=== PATIENT | male | born 1955 | race Caucasian/White ===

== ENCOUNTER → 2017-12-15 08:24 | Outpatient (CLI) | payer OTHER, SELFPAY ==
[2017-12-15 09:17] LABS: AST(SGOT) 32 U/L (15-37); Alanine Aminotransfer ALT/SGPT 34 U/L (16-61); Alkaline Phosphatase 57 U/L (45-117); Anion Gap 7 (5-15); BUN 18 mg/dL (7-18); BUN/Creat Ratio 14.5 RATIO (10-20); Calcium,Total 9.5 mg/dL (8.5-10.1); Chloride 105 mmol/L (98-107); Cholesterol 146 mg/dL (200); Creatinine, Serum 1.24 mg/dL (0.70-1.30); EST Glomerular Filtration Rate 63 mL/min (>60); Est Glom Filt Rate - Afr Amer 76 mL/min (>60); Globulin 3.8 g/dL (2.2-4.2); Glucose 95 mg/dL (74-106); High Density Lipoprotein 36 mg/dL; Potassium 3.8 mmol/L (3.5-5.1); Protein, Total 7.8 g/dL (6.4-8.2); Sodium Level 141 mmol/L (136-145); Triglycerides 215 mg/dL; Very Low Density Lipoprotein 43 mg/dL (5-40)
== END ==
PROVIDERS: Family Provider Family Medicine; PCP Family Medicine; Referring Provider Internal Medicine Cardiovascular Disease; Visit Provider Internal Medicine Cardiovascular Disease
DX: E78.5 Hyperlipidemia, unspecified (principal); I10 Essential (primary) hypertension; I25.119 Atherosclerotic heart disease of native coronary artery with unspecified angina pectoris
CPT/HCPCS: 36415; 80048; 80061; 80076

== ENCOUNTER → 2018-04-03 14:28 | Outpatient (CLI) | payer OTHER, SELFPAY ==
[2018-04-03 16:22] LABS: PSA,Total - Annual Screen 0.41 ng/mL (0.00-4.00)
== END ==
PROVIDERS: Family Provider Family Medicine; PCP Family Medicine; Visit Provider Family Medicine
DX: Z00.00 Encounter for general adult medical examination without abnormal findings (principal)
CPT/HCPCS: 36415; 84153; G0103

== ENCOUNTER → 2018-07-02 14:08 | Outpatient (CLI) | payer OTHER, SELFPAY ==
[2017-12-21 16:21] VITALS: BMI 30.1
--- NOTE | 2018-07-02 14:12 | RAD_ITS ---
STUDY: X-RAY - RIGHT SHOULDER REASON FOR EXAM: Right shoulder pain, limited range of motion. TECHNIQUE: 4 view(s) of the shoulder. COMPARISON: None. FINDINGS: Normal glenohumeral articulation. Normal acromioclavicular joint. Normal acromion. Normal humeral head and visualized proximal humerus. The soft tissue structures are unremarkable. Normal visualized pulmonary apex. RAD/Shoulder min 2 Views IMPRESSION: Normal x-ray examination of the right shoulder. Electronically Signed: Chandu Mcgowan MD at 14:58 EDT Tel , Service support ,
== END ==
PROVIDERS: Family Provider Family Medicine; PCP Family Medicine; Referring Provider Family Medicine; Visit Provider Family Medicine
DX: M25.511 Pain in right shoulder (principal)
CPT/HCPCS: 73030

== ENCOUNTER 2018-08-09 16:00 | Outpatient (RCR) | payer OTHER, SELFPAY ==
--- NOTE | 2018-07-09 15:28 | HP.PTEVAL ---
Patient's Visit Information JORDAN JOSÉ is a 62 year old M referred to Physical Therapy by Shirlene Denson MD with a diagnosis of Right Shoulder Strain. Date of Evaluation: 07/09/18 Physical Therapist: Magdalena Loja DPT - Visit Plan Frequency: 2x /Week Duration: 4 Weeks Plan: Focus on scapular s/s - Subjective Findings: Patient reports that the right shoulder bothers him when he goes up overhead quickly-gradually getting worse- insidous onset- shooting pain right in the deltoid. Has a dull ache when he sleeps on it. No radiating pain. No blurred vision, dizziness or JONES. No neck pain. Agg:going out to the side, overhead, Worst: 7/10 Best: 0/10 Eases: getting out of the position it doesn't like. No N/T in fingers. Describe dull achy- sharp and shooting. Sleep: hard to sleep on that side- disturbed. No MRI. 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 Wants to get into [employer] and does stuff around the house. Lifts weights at home and walks for exercise. Right hand dominate. PMHx: [place] at 40 years old, stent placed, stend 8 years later- goes yearly to see Dr. Mujica. Meds: Atorvastatin, asprin, Metoprolol, Mesalalmine, tamsulosin Saw who took x-rays which were negative- did not give a cortisone injection. - Objective Posture: FH, RS- can correct with verbal cues but does not maintain. Gait: no deviation- good arm swing and trunk rotation. ROM: Cervical: WFL in all planes, Shoulder flexion: full with pain at end range, abd: pain at end range, IR: belt line, ER: 50 degrees, Elbow: WNL. Palpation: tender along tip of the acromion and infraspinatus. Finger Dexterity and high school learning support teacher: WNL. Strength: Scap: fair minus with mild winging, Shoulder: flexion/abd: 4/5 with pain, IR/ER: 4+/5 at neutral with no pain, Extn: 4+/5 with no pain. Special Test: Impingment: positive, Empty Can: negative - Goals Goal 1:: Patient will be I with HEP and progression Goal Time Frame: 4-6 Weeks Goal 2:: Patient will maintain proper posture to demo improved scapular s/s. Goal Time Frame: 4-6 Weeks Goal 3:: Patient will report 0/10 pain for 1 week Goal Time Frame: 4-6 Weeks Goal 4:: Patient will demo full AROM of the right shoulder without pain Goal Time Frame: 4-6 Weeks - Rehabilitation Potential Physical Therapy Diagnosis: Patient presents with hypomobility- he has decreased painfree ROM, strength and muscular endurance leading to poor posture and increased pain Rehabilitation Potential: Fair - Anticipated Interventions Thank you for the opportunity to evaluate your patient. For Medicare and Medicare HMO plans, please review the plan of care and approve it. It will need to be FAXED BACK to us at [phone] for Medicare purposes. For Medicare only, by signing this I certify the plan of care. Please let me know if there are questions or concerns regarding this plan of care. Physician Signature: Date:
--- NOTE | 2018-08-09 16:18 | HP.PTREVAL_ITS ---
Shirlene eDnson MD, It has been my pleasure to treat JORDAN JOSÉ over the last 9 visits for Right Shoulder Strain. Please see the progress note below for an update on the physical therapy plan of care! Subjective: Patient reports pain when doing stretches, scrubbing across body and back, or when he sleeps on the right side. Takes a couple of seconds for the pain to subside once he moves out of the range. Feels the shoulder is slightly stronger but the pain seems to be the same in the end ranges. No neck pain or pain that runs past the elbow. Objective/Function: Posture: good throughout. Gait: no deviation- good arm swing and trunk rotation. ROM: Cervical: WFL in all planes, Shoulder flexion: full with pain at end range, abd: pain at end range, IR: belt line, ER: 50 degrees, Elbow: WNL. Palpation: tender along tip of the acromion and infraspinatus. Finger Dexterity and curriculum assistant: WNL. Strength: Scap: fair with mild winging, Shoulder: flexion/abd: 4+/5, IR/ER: 4+/5 at neutral with no pain, Extn: 5/5 with no pain. Special Test: Impingment: positive, Empty Can: negative Plan Plan: Hold- return to MD for further evaluation possible cortisone injection or MRI Goals Goal 1:: Patient will be I with HEP and progression Goal Time Frame: 4-6 Weeks Goal Progress: Goal Met Goal 2:: Patient will maintain proper posture to demo improved scapular s/s. Goal Time Frame: 4-6 Weeks Goal Progress: Goal Met Goal 3:: Patient will report 0/10 pain for 1 week Goal Time Frame: 4-6 Weeks Goal Progress: Progressing Goal 4:: Patient will demo full AROM of the right shoulder without pain Goal Time Frame: 4-6 Weeks Goal Progress: Progressing Anticipated Interventions Please do not hesitate to contact me at [phone] by phone or if you have questions or concerns regarding this new plan of care! Sincerely, Magdalena Loja DPT
--- NOTE | 2018-10-23 14:39 | HP.PT.NRP ---
HP - Discharge Summary (1) - Patient Information JORDAN JOSÉ was seen in my office for initial evaluation on 07/09/18. The following Plan of Care was established for this patient: Initial Frequency: 2x /Week Initial Duration: 4 Weeks This patient was last seen in our office . Pertinent comments regarding their Physical therapy will appear below: Patient has not attended PT in over 6 weeks and is appropriate for d/c and to return to MD for further evaluation as needed. At this point I will be discontinuing this patient from physical therapy. I would be happy to see this patient again in the future if found appropriate by the physician. Thank you! BRYCE YoderT
== END 2018-08-09 19:00 | disposition home or self-care (01) ==
LOC: PT 16:00
PROVIDERS: Family Provider Family Medicine; PCP Family Medicine; Referring Provider Family Medicine; Visit Provider Family Medicine
DX: S46.911D Strain of unspecified muscle, fascia and tendon at shoulder and upper arm level, right arm, subsequent encounter (principal)
CPT/HCPCS: 97110; 97161; 97164

== ENCOUNTER → 2018-10-10 07:20 | Outpatient (CLI) | payer OTHER, SELFPAY ==
[2017-12-21 16:21] VITALS: BMI 30.1
--- NOTE | 2018-10-10 07:26 | MRI_ITS ---
STUDY: MRI RIGHT SHOULDER REASON FOR EXAM: Male, 62 years old. Shoulder pain, limited range of motion. TECHNIQUE: Standardized fat and water weighted pulse sequences were obtained in all 3 orthogonal planes. COMPARISON: X-ray 07/02/2018 FINDINGS: Mild supraspinatus and infraspinatus tendinosis and peritendinitis is but no macro tear or muscular atrophy. Moderate subscapularis tendinosis with interstitial subluxation long head of the biceps tendon. Normal teres minor tendon. Normal supraspinatus muscle. Normal infraspinatus muscle. Normal subscapularis muscle. Normal teres minor muscle. Normal glenohumeral articulation. There is a cortical erosion at the insertion of the infraspinatus tendon. Normal biceps labral complex. Normal intracapsular long biceps tendon. Normal labrum. Normal capsulo- ligamentous complex. Normal rotator interval. Mild acromioclavicular joint arthrosis with capsulitis. There is a Type II morphology (curved), with a anterior downsloping orientation. There is no subacromial-subdeltoid bursal fluid. Normal visualized coracohumeral and coracoacromial ligaments. Normal quadrilateral space. Normal axillary space. Normal deltoid muscle. Normal trapezius muscle. MRI/Upper Ext Joint Only(Routine) IMPRESSION: 1. Mild supraspinatus and infraspinatus tendinosis and peritendinitis as with no macro tear or muscular atrophy. 2. Moderate subscapularis tendinosis with an interstitial tear and interstitial subluxation long head of the biceps tendon. 3. Anterolateral downsloping acromion with thickening of the coracoacromial ligament produces lateral outlet stenosis. Electronically Signed: Waldo Fierro MD at 12:03 EDT Tel , Service support ,
== END ==
PROVIDERS: Family Provider Family Medicine; PCP Family Medicine; Referring Provider Family Medicine; Visit Provider Family Medicine
DX: M25.511 Pain in right shoulder (principal)
CPT/HCPCS: 73221

== ENCOUNTER → 2019-01-08 08:46 | Outpatient (CLI) | payer OTHER, SELFPAY ==
[2019-01-01 10:51] VITALS: BMI 26.8
[2019-01-08 09:56] LABS: AST(SGOT) 25 U/L (15-37); Alanine Aminotransfer ALT/SGPT 36 U/L (16-61); Albumin, Serum 3.8 g/dL (3.2-5.0); Alkaline Phosphatase 46 U/L (45-117); Bilirubin, Direct 0.19 mg/dL (0.00-0.30); Cholesterol 148 mg/dL (200); Globulin 3.4 g/dL (2.2-4.2); High Density Lipoprotein 46 mg/dL; Protein, Total 7.2 g/dL (6.4-8.2); Triglycerides 114 mg/dL; Very Low Density Lipoprotein 23 mg/dL (5-40)
== END ==
PROVIDERS: Family Provider Family Medicine; PCP Family Medicine; Referring Provider Internal Medicine Cardiovascular Disease; Visit Provider Internal Medicine Cardiovascular Disease
DX: E78.5 Hyperlipidemia, unspecified (principal)
CPT/HCPCS: 36415; 80061; 80076

== ENCOUNTER → 2019-12-30 08:02 | Outpatient (CLI) | payer MEDICARE, OTHER, SELFPAY ==
[2019-01-01 10:51] VITALS: BMI 26.8
[2019-12-30 09:47] LABS: AST(SGOT) 27 U/L (15-37); Alanine Aminotransfer ALT/SGPT 30 U/L (16-61); Albumin, Serum 3.9 g/dL (3.2-5.0); Alkaline Phosphatase 56 U/L (45-117); Bilirubin, Direct 0.16 mg/dL (0.00-0.30); Cholesterol 152 mg/dL (200); Globulin 3.7 g/dL (2.2-4.2); High Density Lipoprotein 44 mg/dL; Protein, Total 7.6 g/dL (6.4-8.2); Triglycerides 154 mg/dL; Very Low Density Lipoprotein 31 mg/dL (5-40)
== END ==
PROVIDERS: PCP Family Medicine; Referring Provider Internal Medicine Cardiovascular Disease; Visit Provider Internal Medicine Cardiovascular Disease
DX: I25.119 Atherosclerotic heart disease of native coronary artery with unspecified angina pectoris (principal); E78.5 Hyperlipidemia, unspecified
CPT/HCPCS: 36415; 80061; 80076

== ENCOUNTER → 2020-03-20 06:52 | Outpatient (CLI) | payer MEDICARE, OTHER, SELFPAY ==
[2020-01-02 12:18] VITALS: BMI 27.2
--- NOTE | 2020-03-20 17:29 | STRESSREP ---
Stress Test Report Exercise myocardial perfusion stress test. 64-year-old man with a history of shortness of breath and diaphoresis. Medications Flomax metoprolol ramipril. Stress protocol: Resting EKG demonstrates normal sinus rhythm with a rate of 86 bpm normal intervals are noted resting blood pressure is 110/72 mmHg. The patient exercised according to regular [place] protocol for a total duration of 8 minutes. The maximum heart rate attained was 171 bpm which was 110% of maximum predicted heart rate. Patient completed 2 minutes into stage III of the [place] protocol. The maximum workload was 10.1 metabolic equivalents. At rest there were no ST or T wave changes noted suggest ischemia at peak exercise upsloping ST changes only were noted with no meet the criteria for ischemia. No clinical angina was noted and the test was terminated due to the target heart rate being achieved. The resting blood pressure was 110/72 with a peak blood pressure 156/64. Myocardial perfusion protocol. 13.9 mCi of technetium 99m sestamibi was injected at rest. The patient exercised according to regular [place] protocol for total duration of 8 minutes. At peak exercise 40.3 mCi of technetium 99m sestamibi was injected stress images were obtained stress and rest images were reconstructed and compared in the short axis vertical long horizontal long axis. Gated images were also obtained Perfusion SPECT analysis: Review of the stress images demonstrate normal uptake of tracer noted in all areas of the myocardium the resting images similar demonstrate normal uptake of tracer noted in all areas of the myocardium. No reversibility is noted suggest ischemia no previous infarct is noted. Gated SPECT analysis: The gated ejection fraction is 69%. Conclusion: Normal exercise myocardial perfusion stress test at a high workload. Preserved ejection fraction.
== END ==
PROVIDERS: PCP Family Medicine; Referring Provider Internal Medicine Cardiovascular Disease; Visit Provider Internal Medicine Cardiovascular Disease
DX: I25.119 Atherosclerotic heart disease of native coronary artery with unspecified angina pectoris (principal); I10 Essential (primary) hypertension; E78.5 Hyperlipidemia, unspecified; I25.2 Old myocardial infarction; Z95.5 Presence of coronary angioplasty implant and graft
CPT/HCPCS: 78452; 93017; A9500; A4216

== ENCOUNTER 2020-04-08 11:13 | Emergency (ER) | payer MEDICARE, OTHER, SELFPAY ==
[2020-01-02 12:18] VITALS: BMI 27.2
[2020-04-08 11:15] VITALS: BP 139/96; PULSE 89; RESP 16; TEMP 36.1; O2SAT 99; BMI 27.1
--- NOTE | 2020-04-08 11:41 | RAD_ITS ---
STUDY: X-RAY CHEST REASON FOR EXAM: Male, 64 years old. PT COMPLAINS OF NAUSEA, LIGHTHEADEDNESS, AND INTERMITTENT NUMBNESS/TINGLING. DENIES UNILATERAL WEAKNESS, SLURRED SPEECH TECHNIQUE: Single AP portable view of the chest. COMPARISON: None. FINDINGS: EKG electrodes are seen. The lungs are clear and expanded. There is no demonstrated pleural abnormality. Normal size heart. Normal mediastinum and santhosh. Normal visualized pulmonary arteries. Normal visualized aortic arch and descending thoracic aorta. Normal visualized thoracic spine. Normal visualized ribs, clavicles, and shoulders. There is no demonstrated abnormality of the visualized soft tissue structures of the upper abdomen. RAD/Chest 1 View (Portable) IMPRESSION: Normal x-ray examination of the chest. Electronically Signed: Jose J Mcclure MD at 12:31 EST , Service support ,
--- NOTE | 2020-04-08 11:41 | EKG12_ITS ---
Test Reason : TINGLING Blood Pressure : / mmHG Vent. Rate : 078 BPM Atrial Rate : 078 BPM P-R Int : 150 ms QRS Dur : 100 ms QT Int : 386 ms P-R-T Axes : 066 028 044 degrees QTc Int : 440 ms Normal sinus rhythm Normal ECG Confirmed by WILY VILLALTA, LORETTA ([id number]), video tape editor NATE GALLEGOS ([id number]) on 04/13/2020 10:41:31 AM Referred By: ALLISON Confirmed By:LORETTA JULIEN MD
--- NOTE | 2020-04-08 11:41 | CT_ITS ---
STUDY: CT BRAIN WITHOUT CONTRAST REASON FOR EXAM: Male, 64 years old. PARESTHESIAS, LIGHTHEADED, NAUSEA RADIATION DOSAGE (If Supplied By Facility): CTDIvol = ( 44.99 ) mGy, DLP = ( 812.98 ) mGycm TECHNIQUE: Transaxial CT imaging of the brain was performed without administration of intravenous contrast material. Individualized dose optimization techniques were used for this CT. COMPARISON: No relevant priors. FINDINGS: Normal soft tissue structures. Normal calvarium. Normal size ventricles and extra-axial spaces for the patient''s age. Normal white matter tracts of the cerebral hemispheres. Normal basal ganglia and thalami. Normal brainstem. Normal cerebellum. There is no intracranial hemorrhage. There are no findings of an acute ischemic infarction. Normal visualized paranasal sinuses. CT/Brain/Head without Contrast IMPRESSION: Normal unenhanced CT scan of the brain. Electronically Signed: Jose J Mcclure MD at 12:29 EST , Service support ,
--- NOTE | 2020-04-08 11:42 | CT_ITS ---
STUDY: CT CERVICAL SPINE WITHOUT CONTRAST REASON FOR EXAM: Male, 64 years old. PARESTHESIAS, LIGHTHEADED, NAUSEA RADIATION DOSAGE (If Supplied By Facility): CTDIvol = ( 20.26 ) mGy, DLP = ( 421.13 ) mGycm TECHNIQUE: High resolution transaxial imaging was performed without contrast material. Sagittal and coronal images were reconstructed. Individualized dose optimization techniques were used for this CT. COMPARISON: None FINDINGS: Normal craniovertebral junction. Normal anterior atlantoaxial articulation. Normal odontoid process. Normal cervical lordosis. Normal vertebral bodies and posterior osseous elements. C2-3: Normal endplates. Normal disc height and morphology. Normal central canal and intervertebral neuroforamina. C3-4: Normal endplates. Normal disc height and morphology. Normal central canal and intervertebral neuroforamina. C4-5: Moderate degree of disc space narrowing. Anterior spondylosis. No significant stenosis is seen. C5-6: Moderate degree of disc space narrowing. Spondylosis. Uncovertebral arthrosis. Bilateral neural foraminal stenosis worse on the right side. C6-7: Marked degree of disc space narrowing. Spondylosis. Uncovertebral arthrosis. No significant neural foraminal stenosis is seen. C7-T1: Normal endplates. Normal disc height and morphology. Normal central canal and intervertebral neuroforamina. Normal visualized soft tissue structures. CT/Spine Cervical without Contras IMPRESSION: Multilevel degenerative changes, as described above. Electronically Signed: Jose J Mcclure MD at 12:30 EST , Service support ,
--- NOTE | 2020-04-08 11:43 | ED.VIS.GEN ---
History of Present Illness Chief Complaint: Numb/Ting Informant: Patient Onset: Weeks Current Severity: Mild Maximum Severity: Mild Narrative: Patient presents with ongoing episodes of feeling lightheaded, sweaty, pale. This has been ongoing for the past couple of months. Patient also reports some intermittent numbness along his left jawline. He reports a couple episodes where it radiates down the left neck into the left clavicle area. He also reports episodes where he will get paresthesias along the left arm and over his thighs. Patient had an appointment to see PCP today. He called his at work because his legs were feeling somewhat rubbery and he was concerned that maybe he should not be driving. Patient did have a stress test on March 20 that was unremarkable. Patient describes a history of an [place] with cardiac stent in 1995. In 2003 he had a second stent. He states at that time he pressed his pooling operator for a cath because he just did not feel right and they could not find another cause for his symptoms. He had a normal stress test at that time but when they did do a cath he had a 95% blockage requiring a second stent. He does admit that he has anxiety about this and wonders if this may be causing his current symptoms. 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 Lives: Spouse/ Significant Other Smoking Status: Never smoker - Family History Maternal Family History: Family History (Last Reviewed 01/02/20 @ 14:[address] Anthony Mujica MD) Father Cancer Sister Cancer Family History: Reports: No pertinent history Paternal Family History: Family History (Last Reviewed 01/02/20 @ 14:[address] 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) Review of Systems General: Denies: Chills, Fever Eyes: Denies: Visual changes - bilaterally ENT: Denies: Bilateral ear pain Cardiovascular: Denies: Chest pain Respiratory: Denies: Dyspnea, Cough Gastrointestinal: Denies: Abdominal pain, Nausea, Vomiting, Diarrhea Genitourinary: Denies: Dysuria Musculoskeletal: Denies: Swelling, Extremity Pain Skin: Denies: Rash Neurological: Reports: Parasthesia Hematologic: Denies: Easy bruising, Easy bleeding Allergy: Denies: Uticaria Physical Exam Vital Signs/Narrative: Vital Signs Temp Pulse Resp BP Pulse Ox 04/08/20 11:15 97.0 F L 89 16 139/96 H 99 Inital Vital Signs reviewed: Yes General: Well nourished, Well developed Head: Normocephalic ENT: Moist mucous membranes Cardiovascular: Regular rate, Regular rhythm Respiratory: No distress, CTA bilaterally, Chest nontender Abdomen: Soft, Nontender Extremities: Nontender Skin: Normal color, No rash Neurological: Alert, Oriented x3, Normal Strength, Normal Sensation Psychological: Normal affect Diagnostic/Tx/Re-eval Chest X-Ray - ED: 1 View, Read by ED Physician, Normal, Heart, Lungs, Mediastinum Impressions Brain CT 04/08/20 11:41 IMPRESSION: Normal unenhanced CT scan of the brain. Electronically Signed: Jose J Mcclure MD at 12:29 EST , Service support , Chest X-Ray 04/08/20 11:41 IMPRESSION: Normal x-ray examination of the chest. Electronically Signed: Jose J Mcclure MD at 12:31 EST , Service support , Cervical Spine CT 04/08/20 11:42 IMPRESSION: Multilevel degenerative changes, as described above. Electronically Signed: Jose J Mcclure MD at 12:30 EST , Service support , 04/08/20 11:41 Brain/Head without Contrast [CT] Stat Chest 1 View (Portable) [RAD] Stat 04/08/20 11:42 CT Cervical [Spine Cervical without Contras] [CT] Stat Laboratory Results 04/08/20 04/08/20 12:05 12:05 WBC 4.6 RBC 5.14 Hgb 15.9 Hct 46.4 MCV 90.3 MCH 30.9 MCHC 34.3 RDW Std Deviation 41.3 RDW Coeff of Henri 12.6 Plt Count 185 MPV 11.2 Immature Gran % (Auto) 0.600 Neut % (Auto) 62.4 Lymph % (Auto) 25.6 Bertie % (Auto) 9.3 Eos % (Auto) 1.5 Baso % (Auto) 0.6 Absolute Neuts (auto) 2.9 Absolute Lymphs (auto) 1.19 Nucleated RBC % 0 Sodium 139 Potassium 4.0 Chloride 106 Carbon Dioxide 29.0 Anion Gap 4 L BUN 17 Creatinine 1.29 Estim Creat Clear Calc 62.66 Est GFR (MDRD) Af Amer 72 Est GFR (MDRD) Non-Af 59 L BUN/Creatinine Ratio 13.2 Glucose 92 Calcium 10.0 Total Bilirubin 0.90 Direct Bilirubin 0.17 AST 27 ALT 35 Alkaline Phosphatase 63 Troponin I < 0.015 Total Protein 7.8 Albumin 4.1 Globulin 3.7 TSH 2.10 - EKG Initial EKG Interpretation: Sinus Rhythm - Sinus at 78 with no acute ischemia. - Medical Decision Making Patient presents with multitude of symptoms including intermittent episodes of lightheadedness, sweatiness, and random paresthesias. Patient's work-up here is unremarkable including normal chest x-ray, head and C-spine CT, blood work including troponin and TSH. Patient has had no significant symptoms while here in the emergency room. Patient did have a stress test on March 20 that was unremarkable. Patient does, however, states that in the past he has required a stent after having a normal stress test when he does did not feel right. In light of this I did speak with his pooling operator, Dr. Mujica. He states the patient can be discharged and his office will call him this afternoon to schedule an outpatient cardiac cath. We will obtain a rapid Covid test for him here prior to his procedure. ED Disposition - Plan for ED Patient: Disposition: Home or Assisted Living Diagnosis: Paresthesias, Lightheadedness Instructions: ED Dizziness, Uncertain Cause, ED Paraesthesias Referrals: Shirlene Denson MD [Primary Care Provider] - Additional Instructions: Dr Mujica's office will call you this afternoon to schedule an outpatient heart cath.
[2020-04-08 12:02] VITALS: PULSE 71; RESP 18; O2SAT 100
[2020-04-08 12:16] LABS: Absolute Lymphocyte Count 1.19 X10^3/uL (0.83-4.51); Absolute Neutrophil Count 2.9 X10^3/uL (2.0-7.7); Basophil# 0.03 X10^3/uL; Basophil% 0.6 % (0-1); Eosinophil# 0.07 X10^3/uL; Eosinophils% 1.5 % (0-5); Hematocrit 46.4 % (40-54); Hemoglobin 15.9 g/dL (13.0-16.5); Lymphocyte # 1.19 X10^3/ul (4.0); Lymphocyte % 25.6 % (19-41); Mean Corp Hgb Conc 34.3 g/dL (32-36); Mean Corpuscular Hgb 30.9 pg (27.0-32.0); Mean Corpuscular Volume 90.3 fL (80-94); Mean Platelet Vol. 11.2 fl (6.2-12.0); Monocyte# 0.43 X10^3/uL; Monocyte% 9.3 % (0-10); NRBC Flagged by Analyzer 0 % (0-5); Neutrophil # 2.89 X10^3/uL (2.7-7.7); Neutrophil % 62.4 % (47-70); Platelet Count 185 K/mm3 (150-450); RBC Distribution Width CV 12.6 % (11.6-14.6); RBC Distribution Width SD 41.3 fl (35.1-43.9); Red Blood Count 5.14 M/mm3 (4.6-6.2); White Blood Count 4.6 K/mm3 (4.4-11.0)
[2020-04-08 12:40] LABS: AST(SGOT) 27 U/L (15-37); Alanine Aminotransfer ALT/SGPT 35 U/L (16-61); Albumin, Serum 4.1 g/dL (3.2-5.0); Alkaline Phosphatase 63 U/L (45-117); Anion Gap 4 (5-15); BUN 17 mg/dL (7-18); BUN/Creat Ratio 13.2 RATIO (10-20); Bilirubin, Direct 0.17 mg/dL (0.00-0.30); Chloride 106 mmol/L (98-107); Creatinine, Serum 1.29 mg/dL (0.70-1.30); EST Glomerular Filtration Rate 59 mL/min (>60); Est Glom Filt Rate - Afr Amer 72 mL/min (>60); Estimated Creatinine Clearance 62.66 ml/min; Globulin 3.7 g/dL (2.2-4.2); Glucose 92 mg/dL (74-106); Protein, Total 7.8 g/dL (6.4-8.2); Sodium Level 139 mmol/L (136-145)
[2020-04-08 14:08] VITALS: PULSE 74; RESP 18; O2SAT 99
== END 2020-04-08 14:09 | disposition home or self-care (01) ==
PROVIDERS: Emergency Provider Emergency Medicine; PCP Family Medicine
DX: R20.0 Anesthesia of skin (principal); R42 Dizziness and giddiness; Z20.822 Contact with and (suspected) exposure to COVID-19; I25.118 Atherosclerotic heart disease of native coronary artery with other forms of angina pectoris; I10 Essential (primary) hypertension; E78.5 Hyperlipidemia, unspecified; F41.9 Anxiety disorder, unspecified; I25.2 Old myocardial infarction; Z79.82 Long term (current) use of aspirin; Z79.899 Other long term (current) drug therapy; Z95.5 Presence of coronary angioplasty implant and graft
CPT/HCPCS: 70450; 71045; 72125; 80048; 80076; 84443; 84484; 85025; 87426; 93005; 99284; A4216

== ENCOUNTER 2020-04-13 07:36 | Day surgery (SDC) | payer MEDICARE, OTHER, SELFPAY ==
[2020-04-10 08:42] VITALS: BMI 27.2
[2020-04-13] VITALS (16 sets, daily range): BP systolic 129–165; BP diastolic 68–91; PULSE 64–82; RESP 16–18; TEMP 36.4–37; O2SAT 96–98; BMI 27.6; BMI 27.7
--- NOTE | 2020-04-13 08:24 | PCM.CONS.C ---
Reason for Consult Date of Consultation: 04/13/20 Reason for Consultation: Chest pain History of Present Illness: ] JORDAN JOSÉ, is a 64 M who presents to the office today for a follow-up visit. He is a gentleman with a history of remote coronary artery disease with stenting of the circumflex artery in 1995 as well as 2004. He has a history of hyperlipidemia supra ventricular tachyarrhythmias. He presented to the emergency room complaining of chest discomfort he had blood work as well as an EKG done which was normal however due to his continued concerns it was decided that he should undergo a cardiac catheterization. He had recently had a stress test which was normal. Past Medical History Allergies/Adverse Reactions: Allergies rosuvastatin Adverse Reaction (Verified 04/08/20 11:14) myalgias Home Medications: Ambulatory Orders Medication Instructions Recorded Tamsulosin HCl [Flomax] 0.4 mg PO DAILY 01/02/15 Cholecalciferol (Vitamin D3) 1,000 unit PO DAILY 11/30/16 [Vitamin D3] Folic Acid 0.4 mg PO DAILY@0800 11/30/16 mesalamine 1.2 gram tablet,delayed 2.4 g PO DAILY 01/01/19 release guaknagpecqw-uvsjzhke-hodqfp tablet 1 tab PO DAILY 01/01/19 ramipril 2.5 mg capsule 2.5 mg PO DAILY #90 cap 01/02/20 atorvastatin 40 mg tablet 40 mg PO QPM #90 tab 01/06/20 aspirin 81 mg tablet,delayed 81 mg PO DAILY tab 04/08/20 release metoprolol tartrate 25 mg tablet 25 mg PO BID tab 04/08/20 Past Medical History (Chronic Problems): Chronic Problems (Last Reviewed 01/02/20 @ 14:[address] Anthony Mujica MD) Atherosclerosis of coronary artery of [place] heart with angina pectoris (Chronic) Old posterior myocardial infarction (Chronic 1995) Essential (primary) hypertension (Chronic) Hyperlipidemia (Chronic) Surgical History: - - PCI x 2. Psychiatric History: No pertinent psych hx - *Family History Maternal Family History: Family History (Last Reviewed 01/02/20 @ 14:[address] Anthony Mujica MD) Father Cancer Sister Cancer History Items: No pertinent history Paternal Family History: Family History (Last Reviewed 01/02/20 @ 14:[address] 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) Smoking Status: Never smoker Tobacco Use: Non-smoker Alcohol: None Drugs: None Review of Systems - Review of Systems General: Denies: Fever, Night Sweats, Fatigue HEENT: Denies: Vision Change Cardiovascular: Denies: Chest Discomfort, Shortness of Breath, Orthopnea, PND, Peripheral Edema, Palpitations, Lightheadedness, Dizziness, Near Syncope, Syncope Respiratory: Denies: Cough, Sputum Production, Hemoptysis Gastrointestinal: Denies: Hematemesis, Hematochezia, Melena Genitourinary: Denies: Dysuria, Hematuria Muscoloskeletal: Denies: Myalgias Skin: Denies: Rash Psychiatric: Denies: Anxiety Subjectve: Pleasant gentleman Objective: Weight: 201 lb Body Mass Index (BMI) 27.2 General: Awake, Alert, Oriented x 3 HEENT: PERRL, EOMI, Sclera Non Icteric Neck: Supple, Good ROM, No Lymph Node Enlargement Lungs: Clear to auscultation Cardiovascular: Regular Rhythm, Normal S1, Normal S2, No Murmurs, No Rubs, No Gallops Vascular: No Carotid Bruits, Normal Femoral Pulses, Normal Radial Pulses, Normal Dorsalis Pedal Pulse, Normal Posterior Tibial Pulses Abdomen: Bowel Sounds Present, Soft, Non Tender, No HSM, No Organomegaly Extremities: No Cyanosis, No Clubbing, No edema Musculoskeletal: No Erythema Skin: No Rashes Neurological: No Focal Motor or Sensory Deficit Rhythm: EKG: ECHO: Stress Test: Cardiac Cath: PCI: CT Surgery: Holter monitor: EPS: PPM: CXR: Chest CT Scan: Assessment/Plan 1. Chest pain. Patient presented with chest pain to the emergency room and with his known history and his anxiety level it was decided to proceed with a cardiac catheterization. The risk benefits alternatives of been explained to him he understands and agrees to proceed.
--- NOTE | 2020-04-13 09:31 | CL.D_ITS ---
Patient Name: JODRAN JOSÉ Study Date: 04/13/2020 Performing: Anthony Mujica MD Ht: 72.04 inches 183 cm : 1955 Wt: 200.62 lbs 91 kg Age: 64 Gender: male BSA: 2.13 PROCEDURE(S) PERFORMED [id number]/LV CLINICAL PROFILE AND INDICATIONS Indications: Worsening Angina Heart Failure: None Stress/Imaging Date: 03/20/20ress Test with SPECT MPI: Negative CAD Presentations: Unstable angina. CONCLUSIONS Moderately severe coronary artery disease involving the proximal and distal right coronary artery wit h 70+ diffuse stenosis noted. Patient continues to have chest discomfort despite normal stress test. RECOMMENDATIONS Referred for immediate PCI DESCRIPTION OF PROCEDURE The patient arrived to the procedure lab. The risks and benefits of the procedure as well as a full d escription of our services here and current unavailability of surgical backup were fully explained to the patient and/or their significant other prior to the catheterization. The Timeout was completed, verifying the correct patient and procedure. The patient's procedural site was prepped and draped in the usual fashion. Local anesthetic was given subcutaneously to right radial region with Lidocaine 2% . Using a modified Seldinger technique, arterial access was obtained via the right radial artery, a 6 Fr sheath was inserted. Right Coronary Artery selective angiography was then performed in multiple v iews using a 5 Fr. 4.0 [place] catheter. Left Coronary Artery selective angiography was performed in mu ltiple views using a 5 Fr. 4.0 [place] catheter. Left Ventriculography was performed in [place] projection using a 5 Fr. Pigtail catheter. LV to AO pullback pressures were then recorded. CORONARY ANGIOGRAPHY DOMINANCE: Right Dominant LEFT HEART ASSESSMENT Left Ventricular Ejection Fraction: by LV Gram 65 % Normal LV wall motion Normal Left Ventricular systolic function LEFT MAIN: Angiographically normal LEFT ANTERIOR DESCENDING ARTERY: MID LAD: Moderate luminal irregularities up to 50% DIAGONAL 1: Ostial - 60 % Stenosis CIRCUMFLEX ARTERY: MID CIRC: Previously placed stent has an instent 30 % restenosis RIGHT CORONARY ARTERY: PROX RCA: Diffusely diseased up to 70 % DISTAL RCA: Diffusely diseased up to 70 % COMPLICATIONS No Complications PROCEDURE MEDICATIONS Versed 1 mg IV Fentanyl 50 mcg IV Versed 1 mg IV Oxygen: 2 L/min via nasal cannula Heparin given IA 04/13/2020 08:42:29 Verapamil 2.5mg, Ntg 100mcgs, 2000 units of Heparin given IA 04/13/2020 08:42:29 SUMMARY OF HEMODYNAMIC DATA Time AIR REST ECG 07:55:06 AO 140/85 (106) SA 08:38:19 AO 134/75 (101) 08:42:36 LV 152/15, 24 08:50:46 LV 133/12, 20 08:50:55 LV 136/18, 26 08:51:32 LV 147/17, 25 08:51:39 LVp 138/15, 26 08:51:49 AOp 141/85 (111) 08:51:54 Signed By Anthony Mujica MD On 04/13/2020 9:30:48 AM Anthony Mujica MD
--- NOTE | 2020-04-13 10:30 | EKG12_ITS ---
Test Reason : AM EKG Blood Pressure : / mmHG Vent. Rate : 077 BPM Atrial Rate : 077 BPM P-R Int : 150 ms QRS Dur : 092 ms QT Int : 394 ms P-R-T Axes : 055 -04 051 degrees QTc Int : 445 ms Normal sinus rhythm Inferior infarct , age undetermined , cannot be excluded Abnormal ECG Confirmed by TYSON VILLALTA, TONG ([id number]), research editor NATE GALLEGOS ([id number]) on 04/15/2020 9:30:16 AM Referred By: Anthony Mujica Confirmed By:TONG MEHTA MD
--- NOTE | 2020-04-13 11:07 | CL.I_ITS ---
Patient Name: JORDAN JOSÉ Study Date: 04/13/2020 Performing: Jayy Mcconnell MD Ht: 72 inches 183 cm : 1955 Wt: 200.9 lbs 91 kg Age: 64 Gender: male BSA: 2.13 PROCEDURE(S) PERFORMED [id number] W OR WO PTCA, SINGLE CORONARY ARTERY CLINICAL PROFILE AND CO-MORBIDITIES Indications: Worsening Angina Heart Failure: None Stress/Imaging Date: 03/20/20 Stress Test with SPECT MPI: Negative CAD Presentations: Unstable angina. CONCLUSIONS Successful LILIA to mid and proximal RCA RECOMMENDATIONS [facility] for at least 12 months Follow up with Dr. Mujica DESCRIPTION OF PROCEDURE The patient arrived to the procedure lab. The risks and benefits of the procedure as well as a full d escription of our services here and current unavailability of surgical backup were fully explained to the patient and/or their significant other prior to the catheterization. The Timeout was completed, verifying the correct patient and procedure. The patient's procedural site was prepped and draped in the usual fashion. Local anesthetic was given subcutaneously to right radial region with Lidocaine 2% Using a modified Seldinger technique,arterial access was obtained via the right radial artery, a 6Fr sheath was inserted. Right Coronary Artery selective angiography was then performed in multiple view s using a 5 Fr. 4.0 [place] catheter. Left Coronary Artery selective angiography was performed in multi ple views using a 5 Fr. 4.0 [place] catheter. Left Ventriculography was performed in L[place]DB[place] projection usi ng a 5 Fr. Pigtail catheter. LV to AO pullback pressures were then recorded.The images were reviewed and options discussed. A decision was then made to proceed with an Intervention, IVUS o r other adjunct procedure. jr 4 Guide catheter was inserted and engaged into the RCA. bmw Guide wire was advanced to the RCA . emerge 2.5 x 12 Balloon catheter was advanced across lesion in the right coronary, mid PTCA balloon inflated at 14 atms for 20 secs. PTCA balloon inflated at 14 atms for 11 secs. PTCA balloon inflated at 14 atms for 10 secs to proximal rca Angiogram performed post balloon dilatation. PTCA balloon inf lated at 10 atms for 10 secs to mid rca PTCA balloon inflated at 6 atms for 6 secs to prox rca Angiog shane performed post balloon dilatation. emerge 2.05 x 20 Balloon catheter was advanced across lesion i n the right coronary, mid. PTCA balloon inflated at 8 atms for 18 secs. emerge 2.5 x [address] was advanced across lesion in the right coronary, proximal. PTCA balloon inflated at 8 atms for 8 secs. Angiogram performed post balloon dilatation. synergy 3.00 x 16 Drug Eluting stent was advanced across the lesion in the right coronary, mid. Angiogram performed post stent deployment. synergy 3.00 x 38 Drug Eluting stent was advanced across the lesion in the right coronary, proximal. nc emerge 3.00x 30 Balloon catheter was inserted post stent. Angiogram performed post balloon dilatat ion. The arterial sheath was pulled and a TR Band was applied for hemostasis INTERVENTION INFORMATION LESION SITE: RCA (Mid) Lesion Complexity: High/C, chronic total occlusion: No, lesion at bifurcation: No, thrombus present: No, lesion length: 15 mm, culprit lesion: Yes, In-stent restenosis: No, Previously treated lesion: No Pre Stenosis: 80 % Pre intervention JAYA flow: 3 PROCEDURE: Drug Eluting Stent with pre and post dilatation Post Stenosis: 0 % Post intervention JAYA flow: 3 Lesion Devices: Kim .014 [employer] [place]ight 190cm Baljeet Sci Synergy MR LILIA 3.00x16 Baljeet Sci EMERGE MR 2.50x12 BALLOON Baljeet Sci EMERGE MR 2.50x20 BALLOON Baljeet Sci NC EMERGE MR 3.00x30 BALLOON LESION SITE: RCA (Proximal) Lesion Complexity: High/C, chronic total occlusion: No, lesion at bifurcation: No, thrombus present: No, lesion length: 37 mm, culprit lesion: Yes, Previously treated lesion: No Pre Stenosis: 80 % Pre intervention JAYA flow: 3 PROCEDURE: Drug Eluting Stent with pre and post dilatation Post Stenosis: 0 % Post intervention JAYA flow: 3 Lesion Devices: Kim .014 [employer] [place] 190cm Baljeet Sci EMERGE MR 2.50x12 BALLOON Baljeet Sci EMERGE MR 2.50x20 BALLOON Baljeet Sci Synergy MR LILIA 3.00x38 Baljeet Sci NC EMERGE MR 3.00x30 BALLOON COMPLICATIONS No Complications PROCEDURE MEDICATIONS Versed 1 mg IV Fentanyl 50 mcg IV Versed 1 mg IV Fentanyl 50 mcg IV Oxygen: 2 L/min via nasal cannula Brilinta 180 mg PO @ 04/13/2020 10:23:13 Heparin given IA 04/13/2020 08:42:29 Heparin 6000 unit(s) IV 04/13/2020 09:31:09 Verapamil 2.5mg, Ntg 100mcgs, 2000 units of Heparin given IA 04/13/2020 08:42:29 SUMMARY OF HEMODYNAMIC DATA Time AIR REST ECG 07:55:06 AO 140/85 (106) SA 08:38:19 AO 134/75 (101) 08:42:36 LV 152/15, 24 08:50:46 LV 133/12, 20 08:50:55 LV 136/18, 26 08:51:32 LV 147/17, 25 08:51:39 LVp 138/15, 26 08:51:49 AOp 141/85 (111) 08:51:54 Signed By Jayy Mcconnell MD On 04/13/2020 11:07:01 Jayy Mcconnell MD
[2020-04-13] MEDS: 0.9% Normal Saline 1,000 ML 100 ML IV (11:48)
--- NOTE | 2020-04-13 12:31 | CRPHASE1_ITS ---
Patient Communication Former Patient:: Phase I PHII Cardiac Rehab Discussed with Patient:: Yes Guide to Cardiac Rehab Given to Patient:: Yes Cardiac Rehab Facility Choice List Given to Patient:: Yes Choice Program [facility] CR PHII:: Communication Given to CR Choice Program Other:: Communication Given to CR Primer Powder Blender Wet:: [facility] Refer Phase II Cardiac Rehab:: Yes Sessions:: 36 sessions - 3 days/wk, 12 weeks - pt has been in cardiac rehab before Cardiac Rehabilitation Info Cardiac Rehabilitation Program Information: Cardiac Rehabilitation is important for patients like you who are recovering from a heart problem. Cardiac rehabilitation programs are recognized as integral to the continued care of the patient with coronary heart disease. The cardiac rehabilitation program is designed to optimize a patient's physical, psychological, and social functioning. Health child care supervisor work in cardiac rehabilitation programs and assist you with getting the treatments you need to get stronger and healthier - like exercise, healthy eating habits, and medications. Cardiac rehabilitation has been show to help people with heart problems live longer and have better life enjoyment than people who do not go to cardiac rehabilitation. Please contact the Cardiac Rehabilitation Program at [facility] at in two weeks if you have not heard from them.
--- NOTE | 2020-04-13 12:32 | CRPH1.INSTRU ---
General Education CAD and cardiac anatomy and function:: Patient communicates acknowledgment Explanation of diagnoses and procedures:: Patient communicates acknowledgment Sign/Symptoms of NV:: Patient communicates acknowledgment Antiplatelet therapy: Patient communicates acknowledgment Smoking Patient Nicotine/Smoking Risk Factors Are:: Never smoked Dyslipidemia Patient Dyslipidemia Risk Factors Are:: Total Cholesterol, Triglycerides, HDL, LDL Recommendations Include:: Lipid profile provided, Reviewed NCEP/ATP guidelines, Therapeutic Lifestyle Change dietary guidelines Dyslipidemia Response Code:: Patient communicates acknowledgment Overweight/Obesity Patient Overweight/Obesity Risk Factors Are:: BMI Normal [24-29 & > 65 years old] Recommendations Include:: Exercise 5-7 times/week Overweight/Obesity:: Patient communicates acknowledgment Hypertension Recommendations Include:: Maintain BP <130/85, DASH dietary guidelines, Decrease/maintain normal body weight, Moderation of ETOH Hypertension:: Patient communicates acknowledgment Heart Disease Patient Heart Disease Risk Factors Are:: Previous cardiac event Heart Disease Response Code:: Patient communicates acknowledgment Metabolic Syndrome Patient Metabolic Syndrome Risk Factors Are [3 of 5]:: High triglyceride >150, Hypertension Recommendations Include:: Reinforce compliance to risk factor modifications Metabolic Syndrome Response Code:: Patient communicates acknowledgment Stress Patient Stress Risk Factors Are:: Patient denies stress as a risk factor
[2020-04-13 12:42] LABS: Hematocrit 45.2 % (40-54); Hemoglobin 15.3 g/dL (13.0-16.5); Mean Corp Hgb Conc 33.8 g/dL (32-36); Mean Corpuscular Hgb 30.6 pg (27.0-32.0); Mean Corpuscular Volume 90.4 fL (80-94); Mean Platelet Vol. 11.5 fl (6.2-12.0); Platelet Count 167 K/mm3 (150-450); RBC Distribution Width CV 12.5 % (11.6-14.6); RBC Distribution Width SD 41.1 fl (35.1-43.9); White Blood Count 6.1 K/mm3 (4.4-11.0)
[2020-04-13] MEDS: Pantoprazole Sodium 40 MG Tablet PO (17:42)
[2020-04-13] MEDS: Metoprolol Tartrate 25 MG Tablet PO (21:32)
[2020-04-13] MEDS: TICAGRELOR 90 MG TABLET PO (21:33)
[2020-04-13] MEDS: Atorvastatin Calcium 40 MG Tablet PO (21:33)
[2020-04-13] MEDS: Tamsulosin HCl 0.4 MG Capsule PO (21:36)
[2020-04-14] VITALS (7 sets, daily range): BP systolic 108–135; BP diastolic 78–87; PULSE 74–92; RESP 16–18; TEMP 36.6–36.8; O2SAT 94–100
[2020-04-14 06:34] LABS: Hemoglobin 15.3 g/dL (13.0-16.5); Mean Corp Hgb Conc 33.3 g/dL (32-36); Mean Corpuscular Hgb 30.2 pg (27.0-32.0); Mean Corpuscular Volume 90.9 fL (80-94); Mean Platelet Vol. 11.5 fl (6.2-12.0); Platelet Count 174 K/mm3 (150-450); RBC Distribution Width CV 12.8 % (11.6-14.6); RBC Distribution Width SD 41.4 fl (35.1-43.9); Red Blood Count 5.06 M/mm3 (4.6-6.2); White Blood Count 8.8 K/mm3 (4.4-11.0)
[2020-04-14 07:03] LABS: AST(SGOT) 28 U/L (15-37); Alanine Aminotransfer ALT/SGPT 27 U/L (16-61); Albumin, Serum 3.6 g/dL (3.2-5.0); Alkaline Phosphatase 65 U/L (45-117); Anion Gap 7 (5-15); BUN 11 mg/dL (7-18); BUN/Creat Ratio 9.7 RATIO (10-20); Calcium,Total 9.3 mg/dL (8.5-10.1); Chloride 106 mmol/L (98-107); Creatinine, Serum 1.13 mg/dL (0.70-1.30); EST Glomerular Filtration Rate 69 mL/min (>60); Est Glom Filt Rate - Afr Amer 84 mL/min (>60); Estimated Creatinine Clearance 71.53 ml/min; Globulin 3.7 g/dL (2.2-4.2); Glucose 100 mg/dL (74-106); Potassium 3.5 mmol/L (3.5-5.1); Protein, Total 7.3 g/dL (6.4-8.2); Sodium Level 138 mmol/L (136-145)
--- NOTE | 2020-04-14 08:17 | PN.CARD_ITS ---
Subjectve: Patient seen and evaluated. Appears to be doing well. Had mild heartburn yesterday Objective: Vital Signs Temp Pulse Resp BP Pulse Ox 98.1 F 80 16 124/82 H 94 04/14/20 05:29 04/14/20 05:29 04/14/20 05:29 04/14/20 05:29 04/14/20 06:37 Oxygen Delivery Method Room Air Weight: 204 lb Body Mass Index (BMI) 27.6 Intake and Output for Last 24 Hours 04/12/20 04/13/20 04/14/20 23:59 23:59 23:59 Intake Total 1051.54 / 1351.54 700 / 700 Balance 1051.54 / 1351.54 700 / 700 General: Awake, Alert, Oriented x 3 HEENT: PERRL, EOMI, Sclera Non Icteric Neck: Supple, Good ROM, No Lymph Node Enlargement Lungs: Clear to auscultation Cardiovascular: Regular Rhythm, Normal S1, Normal S2, No Murmurs, No Rubs, No Gallops Vascular: No Carotid Bruits, Normal Femoral Pulses, Normal Radial Pulses, Normal Dorsalis Pedal Pulse, Normal Posterior Tibial Pulses Abdomen: Bowel Sounds Present, Soft, Non Tender, No HSM, No Organomegaly Extremities: No Cyanosis, No Clubbing, No edema Neurological: No Focal Motor or Sensory Deficit 04/13/20 12:11: WBC 6.1, RBC 5.00, Hgb 15.3, Hct 45.2, MCV 90.4, MCH 30.6, MCHC 33.8, Plt Count 167, MPV 11.5 04/14/20 05:35: WBC 8.8, RBC 5.06, Hgb 15.3, Hct 46.0, MCV 90.9, MCH 30.2, MCHC 33.3, Plt Count 174, MPV 11.5 04/14/20 05:35: Sodium 138, Potassium 3.5, Chloride 106, Carbon Dioxide 25.0, Anion Gap 7, BUN 11, Creatinine 1.13, Est GFR (MDRD) Af Amer 84, Est GFR (MDRD) Non-Af 69, BUN/Creatinine Ratio 9.7 L, Glucose 100, Calcium 9.3, Total Bilirubin 1.20 H Rhythm: EKG: ECHO: Stress Test: Cardiac Cath: PCI: CT Surgery: Holter monitor: EPS: PPM: CXR: Chest CT Scan: Medical Necessity - Tobacco Use Smoking Status: Never smoker Tobacco Use: Non-smoker Assessment/Plan 1. Chest pain. * Cardiac catheterization demonstrated moderately severe disease noted in the proximal and distal right coronary artery for which he underwent angioplasty and stenting. He appears to be well. The plan to be for him to be discharged for outpatient follow-up.
--- NOTE | 2020-04-14 08:21 | DCINST_ITS ---
Discharge Diet: Low fat/ Low Cholesterol Discharge Activity: Return to Normal Activity Allergies/Adverse Reactions: Allergies rosuvastatin Adverse Reaction (Verified 04/08/20 11:14) myalgias Medications to take at Discharge Tamsulosin HCl [Flomax] 0.4 mg PO DAILY 01/02/15 Cholecalciferol (Vitamin D3) [Vitamin D3] 1,000 unit PO DAILY 11/30/16 Folic Acid 0.4 mg PO DAILY@0800 11/30/16 mesalamine 1.2 gram tablet,delayed release 2.4 g PO DAILY 01/01/19 qysvldwwgrtb-qcpfmbld-ddiecy tablet 1 tab PO DAILY 01/01/19 ramipril 2.5 mg capsule 2.5 mg PO DAILY #90 cap 01/02/20 atorvastatin 40 mg tablet 40 mg PO QPM #90 tab 01/06/20 aspirin 81 mg tablet,delayed release 81 mg PO DAILY tab 04/08/20 metoprolol tartrate 25 mg tablet 25 mg PO BID tab 04/08/20 Ticagrelor [Brilinta] 90 mg PO BID #120 tab 04/14/20 The following prescriptions were given: Ticagrelor [Brilinta] 90 mg PO BID #120 tab Transmission Status: Pending to [facility]/pharmacy #[id number] Orders to be completed after discharge: Phase II, Outpatient Cardiac Rehab Location: None Selected Primary Care Physician: Shirlene Denson MD [Primary Care Provider] - Test Results: Test results from this visit will be discussed in further detail at your follow- up appointment, if applicable. When: Outpatient follow-up in my office Proposed Discharge Date: 04/14/20 Cardiac Rehabilitation Info Cardiac Rehabilitation Program Information: Cardiac Rehabilitation is important for patients like you who are recovering from a heart problem. Cardiac rehabilitation programs are recognized as integral to the continued care of the patient with coronary heart disease. The cardiac rehabilitation program is designed to optimize a patient's physical, psychological, and social functioning. Health home health care worker work in cardiac rehabilitation programs and assist you with getting the treatments you need to get stronger and healthier - like exercise, healthy eating habits, and medications. Cardiac rehabilitation has been show to help people with heart problems live longer and have better life enjoyment than people who do not go to cardiac rehabilitation. Please contact the Cardiac Rehabilitation Program at [facility] at in two weeks if you have not heard from them.
[2020-04-14] MEDS: Folic Acid 1 MG Tablet 0.5 MG PO (08:46)
[2020-04-14] MEDS: Multivitamin (Healthy Eyes) Capsule 1 CAP PO (08:46)
[2020-04-14] MEDS: Ramipril 2.5 MG Capsule PO (08:47)
[2020-04-14] MEDS: Mesalamine 1.2 GM Tablet 2.4 GM PO (08:47)
[2020-04-14] MEDS: TICAGRELOR 90 MG TABLET PO (08:48)
[2020-04-14] MEDS: Metoprolol Tartrate 25 MG Tablet PO (08:48)
--- NOTE | 2020-04-14 09:34 | CASEMGMT ---
Pt to be sent home with Brilinta at this time and pt provided with Brilinta 30 day free trial card at this time with instruction, voices understanding. Pt voices no further questions/concerns/needs at this time. Delores HOGAN CM
--- NOTE | 2020-04-14 10:30 | EKG12_ITS ---
Test Reason : POST CATH Blood Pressure : / mmHG Vent. Rate : 063 BPM Atrial Rate : 063 BPM P-R Int : 156 ms QRS Dur : 094 ms QT Int : 412 ms P-R-T Axes : 059 013 060 degrees QTc Int : 421 ms Normal sinus rhythm Normal ECG Confirmed by TYSON VILLALTA, TONG ([id number]), television news video editor NATE GALLEGOS ([id number]) on 04/15/2020 9:32:42 AM Referred By: Anthony Mujica Confirmed By:TONG MEHTA MD
== END 2020-04-14 08:22 | disposition home or self-care (01) ==
LOC: CLSP 07:38 → PCU 04-14 09:38
PROVIDERS: Specialist; PCP Family Medicine; Referring Provider Internal Medicine Cardiovascular Disease; Visit Provider Internal Medicine Cardiovascular Disease
DX: I25.110 Atherosclerotic heart disease of native coronary artery with unstable angina pectoris (principal); I10 Essential (primary) hypertension; E78.5 Hyperlipidemia, unspecified; I25.2 Old myocardial infarction; Z79.82 Long term (current) use of aspirin; Z79.899 Other long term (current) drug therapy; Z95.5 Presence of coronary angioplasty implant and graft
CPT/HCPCS: 36415; 80053; 85027; 92928; 93005; 93458; 99152; 99153; J7030; J7040; Q9967; C1725; C1769; C1874; C1887; C1894; C9600; J1327

== ENCOUNTER → 2020-04-20 11:24 | Outpatient (CLI) | payer MEDICARE, OTHER, SELFPAY ==
[2020-04-13 10:45] VITALS: BMI 27.6
== END ==
PROVIDERS: PCP Family Medicine; Referring Provider Internal Medicine Cardiovascular Disease; Visit Provider Internal Medicine Cardiovascular Disease
DX: R09.89 Other specified symptoms and signs involving the circulatory and respiratory systems (principal); M79.631 Pain in right forearm; S55.101A Unspecified injury of radial artery at forearm level, right arm, initial encounter; X58.XXXA Exposure to other specified factors, initial encounter; Y93.9 Activity, unspecified; Y92.9 Unspecified place or not applicable; Y99.9 Unspecified external cause status
CPT/HCPCS: 93931

== ENCOUNTER → 2020-05-13 12:42 | Outpatient (CLI) | payer MEDICARE, OTHER, SELFPAY ==
[2020-05-05 15:31] VITALS: BMI 27.2
--- NOTE | 2020-05-13 13:02 | PCM.CR.HP2 ---
CR - History & Physical - General Arrival date:: 05/13/20 Arrival time:: 13:04 Date of Referral:: 04/13/20 Date of CR Evaluation:: 05/13/20 Referring Physician: Dr. Anthony Mujica Primary Diagnosis: Z95.5 PCI with Stent - History of Present Cardiac Event Onset Date: Enter Onset Date of cardiac illnesses in Comment field below PTCA or coronary stenting:: Yes - 04/13/2020 Were there any complications?: R arm bruising - Medications Home Medications: Ambulatory Orders Medication Instructions Recorded Tamsulosin HCl [Flomax] 0.4 mg PO DAILY 01/02/15 Cholecalciferol (Vitamin D3) 1,000 unit PO DAILY 11/30/16 [Vitamin D3] Folic Acid 0.4 mg PO DAILY@0800 11/30/16 mesalamine 1.2 gram tablet,delayed 2.4 g PO DAILY 01/01/19 release fwgteoajxmmp-ssrnmmtf-scfbua tablet 1 tab PO DAILY 01/01/19 ramipril 2.5 mg capsule 2.5 mg PO DAILY #90 cap 01/02/20 atorvastatin 40 mg tablet 40 mg PO QPM #90 tab 01/06/20 aspirin 81 mg tablet,delayed 81 mg PO DAILY tab 04/08/20 release metoprolol tartrate 25 mg tablet 25 mg PO BID tab 04/08/20 clopidogrel 75 mg tablet 75 mg PO QDAY #93 tab 05/05/20 - Allergies Allergies/Adverse Reactions: Allergies rosuvastatin Adverse Reaction (Verified 05/05/20 15:29) myalgias - Sleep Disorder Evaluation Hx of Sleep Apnea: No Do you snore loudly (louder than talking or can be heard through closed doors)?: No Do you often feel tired/ fatigued/ sleepy during daytime?: No Has anyone observed you stop breathing during sleep?: No History of Hypertension (for STOP score): Yes STOP Results: Negative Advanced Directives - Advanced Directives 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 Living Will: Yes Advance Directives Information Provided: Yes Advance Directives on File: No - unsure DNR Order?:: No Past Medical History - Covid-19 Screening Fever: No Unexplained muscle aches: No Current respiratory symptoms: No Upper respiratory infections symptoms: No Gastro-intestinal symptoms: No Wxx-Feti-Rsmaje symptoms: No Has tested positive for COVID-19 in last 30 days: No Had contact w/person w/symptoms or Covid-19 (+) last 14 days: No Has High Risk Exposures ID'd by Health dept/Inf Control team: No 65 years or older:: No Lives in Assisted Living facility:: No Has a chronic lung disease or moderate to severe asthma:: No Has a serious heart condition:: Yes Immunocompromised:: No Severely obese (Body Mass Index of 40 or higher):: No Diabetic:: No Has chronic kidney disease undergoing dialysis:: No Has liver disease:: No - Past Medical Illness Medical History: Past Medical History (Last Reviewed 01/02/20 @ 14:[address] 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0 x 16 mm Synergy Stent 04/13/2020 History of left heart catheterization Onset Date: 08/11/05 Z98.890 Surgical History: - - PCI x 2. - Family History Summary Family History: Family History (Last Reviewed 01/02/20 @ 14:[address] Anthony Mujica MD) Father Cancer Sister Cancer Renal Cancer Social History - Smoking History Smoking Status: Never smoker Hx Tobacco Use: No Hx Smoking Exposure: No - Alcohol Use Alcohol Usage: Yes - socially - Substance Abuse Hx Substance Use: No - Occupation Occupation (List type of work in comments):: Retired - Hobbies, Recreation, Social Activities Hobbies: Other - biking, golfing Recreational Activities: I am able to engage in all my recreational activities Social Environment - Status Marital Status: - Current Living Arrangements Living Environment:: Spouse - Children How many children do you have?: 1 Do any of your children live nearby?: Yes - Safety Do you feel safe in your surroundings?: Yes - Assistance Do you need any assistance at home?: no Review of Systems - Review of Systems Hints: Right click = Denies (Slash). Left click = Reports (Teller) Review of Present Symptoms: Reports: Shortness of Breath with Exertion, Operative Discomfort - arm bruising, Angina - mild CP, Dizziness/Lightheadedness - 2 times, Fatigue - blames the Brilinta, Appetite - Normal, Sleep - Normal. Denies: Shortness of Breath at Rest, PVD, Wound Healing, Heart Arrhythmia/Irregularities, Appetite - Special Diet, Sexual Changes - Pain Is Patient Pain Free?: Yes Risk Factor Assessment - Chief Complaint Chief Complaint: PCI with stent - Vital Signs Pulse Ox: 97 - Pulse Pulse Rate: 85 Pulse Rhythm: Regular - Hypertension Blood Pressure Sitting - Right Arm: 98/66 - Diabetes Nutrition Referral for Diabetes: No - Obesity Height: 6 ft Weight:: 91.172 kg Weight in Pounds: 201.0 lbs Body Mass Index (BMI): 27.2 Nutritional Referral for Obesity: No - Physical Inactivity Physical Inactivity: Reg Exercise 30 min/day - Risk Stratification Risk Guidelines: Lowest Risk: Risk Factor for Smoking, Moderate Risk: Risk Factor for Dyslipidemia, Risk Factor for Diabetes, Risk Factor for Obesity, Risk Factor for Hypertension, Risk Factor for Sedentary Lifestyle, Risk Factor for Depression - For Smoking Smoking Risk Guidelines: Smoking Low Risk: None or quit greater than 6 months ago. Smoking Moderate Risk: Smoker or quit 6 months or less ago. Smoking High Risk: Smoker - For Dyslipidemia Dyslipidemia Risk Guidelines: Low Risk: Moderate Risk: High Risk: 15-25% fat 25.1-29% fat >/= 30% fat. <7% sat fat 7-9% sat fat >9% sat fat. <150 mg chol 150-299 mg chol >/= 300 mg chol. LDL <100 LDL 100-129 LDL >/= 130. Chol/HDL ratio <5.0 Chol/HDL ratio 5.0-6.0 Chol/HDL ratio >6.0. Triglycerides <100 Triglycerides 100-149 Triglycerides >/= 150 - For Diabetes Mellitus Diabetes Risk Guidelines: Diabetes Low Risk: HgA1c <6.5% and/or FBG <120. Diabetes Moderate Risk: HgA1c 6.6-7.9% and/or FBG 120-180. Diabetes High Risk: HgA1c >/= 8% and/or FBG >180 - For Obesity/Overweight Obesity/Overweight Risk Guidelines: Obesity Low Risk: BMI <25.0. Obesity Moderate Risk: BMI 25-29.9. Obesity High Risk: BMI >/= 30.0 - For Hypertension Hypertension Risk Guidelines: Hypertension Low Risk: Systolic <120 and Diastolic <80. Hypertension Moderate Risk: Systolic 120-139 and Diastolic 80-89. Hypertension High Risk: Systolic >/= 140 and Diastolic >/= 90 - For Sedentary Lifestyle Sedentary Lifestyle Risk Guidelines: Sedentary Lifestyle Low Risk: >/= 1,500 kcal/week. Sedentary Lifestyle Moderate Risk: 700-1,499 kcal/week. Sedentary Lifestyle High Risk: < 700 kcal/week - For Depression Depression Risk Guidelines: Depression Low Risk: Not clinically depressed. Depression Moderate Risk: Mildly depressed. Depression High Risk: Clinically depressed - Family History Family History: Family History (Last Reviewed 01/02/20 @ 14:[address] Anthony Mujica MD) Father Cancer Sister Cancer Motivation - Motivation to Participate On a scale of 1 to 10, how prepared are you to commit to attending program?: 10 What do you see as barriers to successfully being able to complete the program?: none What do you see as the benefits of succesfully completing the program? In other words, what do you hope to get out of participating in the program?: improved health Are there issues you are dealing with that will interfere with completing the program?: none Do you have a spouse or signficant other, family or friends who will help support you to complete the program?: yes
--- NOTE | 2020-05-13 13:03 | PCM.CR.ITP ---
Diagnosis - General Information Admitting Diagnosis: PCI with stent Personal Learning Style:: Audio/Visual Barriers to Learning: Vision Impairment Stage of change r/t lifestyle modifications:: Contemplation Gave educational material for:: Treating Heart Disease, Emotions & Heart Disease, Stress Management & Relaxation, Sleep Disorders & Heart Disease, How The Heart Works, What it means to have Heart Disease, How Coronary Artery Disease is Diagnosed, Heart Procedures, What Heart Medications Do, Risk Factors & Modifications, Living an Active Life, Nutrition - Education/Goals Cardiac Rehabilitation Goals: 1. Maintain the individual as the primary focus of care. 2. To improve the patient's quality of life. 3. Identification of cardiac risk factors and provide cardiac risk factor management. 4. Enhance the psychosocial status of the patient. 5. Reconditioning enough to allow the patient to resume customary activities. 6. Control symptoms of cardiac disease Personal Goals: Initial Assessment: Improve energy level, Participate in home exercise program Scale for measuring improvement of personal goals: Enter appropriate number in Comments. 2 = Unchanged. 3 = Slightly Better. 4 = Moderate Improvement. 5 = Met my Goal - Diagnosis & Disease Process Outcomes/Goals: Pt IDs own risk factors & lifestyle modifications by Session 10, Verbalizes symptoms of angina & response by session 3., Pt independently manages, Other Additional Outcomes/Goals: Plan/Interventions: Assist Pt to ID & engage in lifestyle modification to reduce CVD risk, Instruct on individual risk factors, Review symptoms of angina & emergency actions, Review secondary diagnosis & identify educational needs., Other see comment 30 day Reassessments:: Not Met 30 day Reassessments:: Not Met 30 day Reassessments:: Not Met 30 day Reassessments:: Not Met Final Reassessments:: Not Met - Safety Referral to Physical Therapy: No Referral to [facility] Case Management: No Fall Risk Assessed:: Yes Assistive Devices:: None Exercise - Initial Assessment - Visit Date of Eval: 05/13/20 - intial eval Mets: Pre-: >7 METS for 30 minutes by discharge - Physician Prescribed Exercise Modalities: Treadmill, Biodyne, Rower, Airdyne, NuStep, SciFit Frequency: 3x/week for 12 weeks [36 sessions] Intensity: 60-80% of age predicted maximum heart rate reserve Target Heart Rate:: 100-135 Resting Blood Pressure: 98/66 EKG Type: NSR - Outcomes & Goals Goals:: Verbalizes understanding of THR, RPE & goal METS by session 6, Documents in home exercise log/reports 30 min aerobic 5 day/wk by DC, Demonstrates accurate pulse taking by DC, Other additional outcome/goals: see below - Intervention & Plan Exercise Program Goals: Instruct on personal THR & RPE, Instruct on MET level & personal MET goal, Show patient to take own pulse /validate performance until accurate, Instruct on home exercise, Other additional plan/int - Physical Activity Home Exercise Physical Activity - Home Exercise: Safe Exercise, Warm-up, Self-monitoring, Cool-Down, Home Exercise > 30 min Daily, Sitting Time <3 hours/daily - Outcomes & Goals Outcomes/Goals: Demonstrates correct Warm-up/exercise Cool-Down (S3) if = 2.5 METs, Verbalizes symptoms of exercise intolerance by Session 3 (S3), Demonstrate safe equipment use (S3) & follows exercise prescrition (6), Other: See below - Intervention & Plan Plan/Intervention: Instruct warm-up & cool-down if exercising at > 2 METs, Instruct on symptoms of exercise intolerance & actions to take, Instruct & monitor on saf, Assess intial functional capacity & safety risk, Other See below Nutrition - Initial Assessment - Program Goals Nutrition Program Goals: LDL <100 optimal. 100 - 129 Near optimal. 130 - 159 Borderline High. 160 - 189 High. Total Cholesterol <200 desirable. 200 - 239 Borderline High. >/= 240 High. HDL < 40 Low >/=60 High. Triglycerides <150 desirable. <199 optimal. VlDL 5 - 40. HgbA1C <7%. BMI <25 Patient has diagnosis of Hyperlipidemia (ICD E78)?: Yes - Visit Date of Assessment:: 05/13/20 - initial eval - Cholesterol/Lipids Determine presence & major risk factors that modify LDL goal: Hypertension or hypertensive medication, Low HDL cholesterol <40 mg/dL*, Family history of premature CHD in Male < 55 years: female <65 yearsFa, Age men > 45 years; women >/= 55 years Outcomes/Goals: Pt IDs own risk factors & lifestyle modifications by Session 10, Verbalizes symptoms of angina & response by session 3., Pt independently manages, Other Additional Outcomes/Goals: Intervention/Plan: Advocate for lipid panel cholesterol medication if applicable, Instruct on personal lipid levels & lipid goals/NCEP guidelines, Instruct on cholesterol, Other additional plan/int - Diabetes (Other Core Measures) Diabetes Type: Not Applicable - Weight Mgt (Other Care) Height: 6 ft Weight:: 91.172 kg BMI: 27.2 Diagnosis Overweight/Obesity BMI> 30% ICD-10 E66: No Diagnosis High BMI/Morbid Obesity BMI> 35% ICD-10 Z68: No Outcomes/Goals: Pt sets, maintains & shows weight loss goal & trend during rehab, Other additional outcomes/goals Intervention/Plan: Instruct on ideal BMI & set weight loss goal w/patient, Assist pt to ID & incorporate diet changes for weight loss by S9, Refer to Structured Weight Loss program as appropriate, Encourage goal of using 250-300dcal per session for weight loss, Other additional plan/interventions - Healthy Eating Habits Will attend diet classes:: Yes Outcomes/Goals:: Consume diet rich in vegs,fruits,whole grain/high fiber,fish,lean meat, Limit sat/trans fats,cholesterol & added salts & sugars, Other additional outcome/goals: Intervention/Plan:: Assess current eating habits, Other Additional plan/interventions - Education Gave educational materials for:: Signs & symptoms of hypoglycemia, Signs & symptoms of hyperglycemia, Relate diabetes to coronary artery disease, Healthy eating Medical - Initial Assessment - Visit Date of Eval: 05/13/20 - initial eval - Medication Compliance Preventative Medication(s):: Aspirin, Clopidogrel/P2Y12 inhibit, Statin/lipid, Beta audrey H/O mental health issues: depression, anxiety, or addiction?: No Doesn?t believe in the benefits of treatment?: No Believes medications are unnecessary or harmful?: No Has a concern about medication side effects?: No Expresses concern over the cost of medications?: No Outcomes/Goals: Verbalizes medications,desired effect & common side effects @ DC, Pt self-reports following medication regimen, Keeps card in wallet w/medications listed by DC, Other additional outcome/goals: - Tobacco Use Tobacco Use: Non-smoker Do you use smokeless tobacco?: No Outcomes/Goals: Smoking cessation achieved or maintained by discharge, Identify aids/strategies for achieving smoking cessation by session 6, Other additional outcome/goals Interventions/plan: Instruct on effects of smoking & provide smoking cessation resource, Assist pt to set quit date & provide encouragement, Assist pt to develop strategies to achieve/maintain quit date, Assist pt w/nicotine replacement & medication for cessation success, Other additional plan/interventions - Hypertension Hypertension Diagnosis:: Hypertension ICD-10 I10 Resting Blood Pressure:: 98/66 [employer] Hypertension Guidelines: [employer] Hypertension Guidelines. Normal BP Less than 120/80. Elevated BP 120/80. Hypertension Stage 1: BP 130-139/80-89. Hypertesnion Stage 2: BP 140 or higher/90 or higher. Hypertension Crisis: BP higher than 180/120 Outcomes/Goals: Able to verbalize/achieve optimal blood pressure <130/80, Incorporates diet changes & exercise for blood pressure control by DC, Other additional outcomes/goals Interventions/plan: Instruct on optimal blood pressure, hypertension & medications, Instruct on effects of sodium, alcohol, stress, exercise &hypertension, Other additional plan/interventions - Tobacco Cessation Referral Smoking Cessation Referral:: No Individual Education/Counseling:: No Education Schedule Given:: Yes Psychosocial - Initial Assess - VIsit Date of Eval: 05/13/20 - initial eval History of previous Mental disease:: No - Target Goals Target Goals: Assess presence or absence of depression. Using a valid screening tool, maximizes coping skills. Positive support system - Psychosocial Test phq-9 Severity: Severity. 1-4 Minimal Depression. 5-9 Mild Depression. 10-14 Moderate Depression. 15-19 Moderately Sever Depression. 20-27 Severe Depression. Rule: - Outcomes/Goals: See list Psychosocial Outcomes/Goals:: ID's personal stressors & 2 strategies to manage stress by discharge, Other Additional outcome/goals: - Intervention/Plan: See List Interventions/Plan:: Assess stressors,coping strategies & signs of derpression on admission, Instruct/assist pt to develop coping & personal stress Mgt strategies, Refer to Behavioral Health if appropriate, Refer to Physician if appropriate, Instruct patient to recognize signs & symptoms of depression, Instruct patient to recog, Other additional plan/intervention Patient Health Questionnaire Initial Assessment 1. Little interest or pleasure in doing things: Not at all 2. Feeling down, depressed, or hopeless: Not at all 3. Trouble falling or staying asleep, or sleeping too much: Several days 4. Feeling tired or having little energy: Several days 5. Poor appetite or overeating: Several days 6. Feeling bad about yourself -- or that you are a failure or have let yourself or your family down: Not at all 7. Trouble concentrating on things, such as reading the newspaper or watching television: Not at all 8. Moving or speaking so slowly that other people could have noticed. Or the opposite - being so fidgety or restless that you have been moving around a lot more than usual: Not at all 9. Thoughts that you would be better off , or of hurting yourself in some way: Not at all How difficult have these problems made it for you to do your work, take care of things at home, or get along with other people?: Not difficult at all Total Score: 3 MILA-Q SV Test - Statements CAD is a disease of the arteries in the heart: False Examples of risk factors for heart disease: True Angina is chest pain or discomfort: True The benefits of resistance training include: True Eating more meat and dairy products: False Anti-platelet medications such as aspirin are important: True The only effective way to manage stress: False An exercise warm-up slowly increases heart rate: True Prepared, processed foods usually have high sodium: True Depression is common after a heart attack: I Don't Know The statin medications lower cholesterol: True To control blood pressure, lower the amount of sodium: True If someone gets chest discomfort during walking: False Transfats are partially hydrogenated vegetable oils: True Sleep apnea that is not treated increases the risk: False To control cholesterol, one should become a vegetarian: False Someone knows if he/she is exercising at the right level: True Diabetes cannot be prevented with exercise & health eating: False Stress is a large risk for heart attack: True A diet that can help lower blood pressure is rich in: True - Total Score Total Correct Responses: 19 Self-Efficacy Initial Assessment We would like to know how confident you are in doing certain activities. Please select your confidence level for:: Select your confidence level for the following using the scale 1-10 where 1 is not at all confident and 10 is totally confident. Your score is the average of all 6 responses. Fatigue: How confident are you that you can keep the fatigue caused by your disease from interfering with the things you want to do? Select Number: 8 Physical Discomfort or Pain: How confident are you that you can keep the physical discomfort or pain of your disease from interfering with the things you want to do? Select Number: 8 Emotional Distress: How confident are you that you can keep the emotional distress caused by your disease from interfering with the things you want to do? Select Number: 9 Other Symptoms or Health Problems: How confident are you that you can keep other symptoms or health problems from interfering with the things you want to do? Select Number: 9 Different Tasks and Activities: How confident are you that you can do the different tasks and activities needed to manage your health condition so as to reduce your need to see a doctor? Select Number: 10 Medication: How confident are you that you can do things other than just taking medication to reduce how much your illness affects your everyday life? Select Number: 10 Total Score:: 9 Nutrition Survey - Nutrition Survey Instructions Scoring Instructions: Scoring is as follows: Yes = 1 points. No = 0 point. Patient score that is >/=12 is considered to be at potential nutritional risk and could benefit from a referral to a registered dietitian. - Nutrition Survey Initial Have you lost >10 lbs over the past 2 months without trying?: No Are you following a special diet at home for diabetes, low fat, or low salt?: No Are you interested in meeting with a dietitian for help understanding your diet?: No Do you eat less than 3 meals a day?: No Do you eat fatty meats (freedman, sausage, ribs, etc), fried foods, desserts, large amounts of salad dressings, margarine, butter, or cheese most days?: No Do you have food allergies? [Enter types in comment field]: No Do you eat in restaurants more than 3 times a week?: No Do you season food with salt, seasoning salt, or garlic salt?: Yes Do you used canned, boxed, frozen meals, or soups, seasoning packets?: Yes Total Score:: 2
[2020-05-13 13:59] VITALS: BP 98/66; PULSE 85; O2SAT 97; BMI 27.2
== END ==
PROVIDERS: PCP Family Medicine; Referring Provider Internal Medicine Cardiovascular Disease; Visit Provider Internal Medicine Cardiovascular Disease
DX: Z95.5 Presence of coronary angioplasty implant and graft (principal)

== ENCOUNTER 2020-05-20 13:00 | Outpatient (RCR) | payer MEDICARE, OTHER, SELFPAY ==
[2020-05-13 13:43] VITALS: BMI 27.2
== END 2020-05-20 23:59 ==
LOC: CR 13:00
PROVIDERS: PCP Family Medicine; Referring Provider Internal Medicine Cardiovascular Disease; Visit Provider Internal Medicine Cardiovascular Disease
DX: I25.119 Atherosclerotic heart disease of native coronary artery with unspecified angina pectoris (principal); I25.2 Old myocardial infarction; Z95.5 Presence of coronary angioplasty implant and graft; I10 Essential (primary) hypertension; E78.5 Hyperlipidemia, unspecified
CPT/HCPCS: 93798

== ENCOUNTER 2020-05-22 20:16 | Emergency (ER) | payer MEDICARE, OTHER, SELFPAY ==
[2020-05-13 13:59] VITALS: BMI 27.2
[2020-05-22 20:17] VITALS: BP 148/91; PULSE 83; RESP 16; TEMP 36.7; O2SAT 98; BMI 27.6
[2020-05-22 20:29] VITALS: BP 148/91; PULSE 83; RESP 16; TEMP 36.7; O2SAT 98
--- NOTE | 2020-05-22 20:31 | EKG12_ITS ---
Test Reason : DYSRHYTHMIA Blood Pressure : / mmHG Vent. Rate : 080 BPM Atrial Rate : 080 BPM P-R Int : 146 ms QRS Dur : 098 ms QT Int : 398 ms P-R-T Axes : 056 020 036 degrees QTc Int : 459 ms Normal sinus rhythm Normal ECG Confirmed by WILY VILLALTA, LORETTA ([id number]), field map editor JONATHAN FARIA ([id number]) on 05/27/2020 7:44:12 AM Referred By: MARKUS Confirmed By:LORETTA JULIEN MD
--- NOTE | 2020-05-22 21:05 | RAD_ITS ---
INDICATION: back pain EXAMINATION/TECHNIQUE: X-RAY - XR Chest 1 View COMPARISON: 04/08/2020. FINDINGS: The lungs are clear. The cardiomediastinal silhouette is unremarkable. No pleural effusion or pneumothorax. No acute osseous abnormalities. RAD/Chest 1 View (Portable) IMPRESSION: No acute radiographic abnormalities. Electronically Signed: Lavelle Julian MD at 21:30 EDT Tel , Service support ,
[2020-05-22 21:11] LABS: Absolute Lymphocyte Count 2.27 X10^3/uL (0.83-4.51); Absolute Neutrophil Count 2.6 X10^3/uL (2.0-7.7); Basophil# 0.05 X10^3/uL; Basophil% 0.9 % (0-1); Eosinophil# 0.13 X10^3/uL; Eosinophils% 2.3 % (0-5); Hematocrit 45.5 % (40-54); Hemoglobin 14.7 g/dL (13.0-16.5); Lymphocyte # 2.27 X10^3/ul (4.0); Lymphocyte % 39.8 % (19-41); Mean Corp Hgb Conc 32.3 g/dL (32-36); Mean Corpuscular Hgb 30.3 pg (27.0-32.0); Mean Corpuscular Volume 93.8 fL (80-94); Mean Platelet Vol. 11.2 fl (6.2-12.0); Monocyte# 0.61 X10^3/uL; Monocyte% 10.7 % (0-10); NRBC Flagged by Analyzer 0 % (0-5); Neutrophil # 2.64 X10^3/uL (2.7-7.7); Neutrophil % 46.1 % (47-70); Platelet Count 172 K/mm3 (150-450); RBC Distribution Width SD 44.4 fl (35.1-43.9); Red Blood Count 4.85 M/mm3 (4.6-6.2); White Blood Count 5.7 K/mm3 (4.4-11.0)
[2020-05-22 21:28] LABS: D-Dimer Quantitative (DVT/PE) 0.62 FEU/ug/m (0.27-0.49)
[2020-05-22 21:29] LABS: Anion Gap 4 (5-15); BUN 18 mg/dL (7-18); BUN/Creat Ratio 14.2 RATIO (10-20); Calcium,Total 9.8 mg/dL (8.5-10.1); Chloride 105 mmol/L (98-107); Creatinine, Serum 1.27 mg/dL (0.70-1.30); EST Glomerular Filtration Rate 60 mL/min (>60); Est Glom Filt Rate - Afr Amer 73 mL/min (>60); Estimated Creatinine Clearance 63.65 ml/min; Glucose 103 mg/dL (74-106); Potassium 3.6 mmol/L (3.5-5.1); Sodium Level 139 mmol/L (136-145)
--- NOTE | 2020-05-22 21:29 | CT_ITS ---
HISTORY: chest pain TECHNIQUE: Helically acquired images were obtained of the chest following the intravenous administration of ml of 100mL Isovue-370 Iodinated contrast. as per pulmonary angiogram protocol with 2D , without 3-D MIP reconstructions. A radiation dose optimization technique was used for this scan. COMPARISON: None FINDINGS: # of images incl. paperwork: 1214 Lungs are clear but for trace basilar atelectasis. No effusions. Within the thoracic spinebony alignment is normal. Vertebral body height is normal. Facets are well aligned. No rib lesions are perceived. Heart is not enlarged.Coronary artery calcific ASCVD. Thoracic aorta is normal. No aneurysms, stenoses, dissections, nor occlusions. No axillary or mediastinal adenopathy. No pulmonary emboli. The gallbladder is contracted and contains a small calcified gallstone within the gallbladder fundus. No biliary ductal dilatation. The stomach is slightly distended with gas, liquid, and ingested food. CT/CTA Chest W/WO Contrast IMPRESSION: No pulmonary embolism, aortic aneurysm, or aortic dissection. Cholelithiasis. No CT evidence for acute cholecystitis. Individualized dose optimization techniques were used for this CT. at 2214 Reported and signed by: Marlon Tafoya MD Electronically Signed: Marlon Tafoya MD at 22:13 EDT Tel , Service support ,
[2020-05-22 22:22] VITALS: BP 140/94; PULSE 77; O2SAT 98
--- NOTE | 2020-05-22 22:27 | ED.DCSUM_ITS ---
- ER Visit Summary Date of Service: 05/22/20 Chief Complaint: [Back pain] History of Present Illness: The patient is a 64 M [is the emergency department complaint of back pain that started 2 days ago. Patient states that the pains been somewhat intermittent at times it severe however currently he really has no pain. He went to urgent care and was referred to the emergency department for evaluation. Patient states that he recently had 2 cardiac stents placed on April 13. 5 days ago he started cardiac therapy and 2 days after that he developed some discomfort in his mid back. Patient denies any chest pain or shortness of breath out of the ordinary. Patient denies any fevers or recent illness.] Physical Examination: [HEENT-PERRLA, EOMI. Cranial nerves II through XII grossly intact. TMs clear. Mucous membranes moist. No adenopathy. Cardiovascular-regular rate and rhythm without murmur or ectopy Lungs-clear to auscultation, chest wall stable without crepitus or subcu emphysema Abdomen-normoactive bowel sounds, soft, nontender, no rebound or rigidity, no peritoneal signs. Back exam-no tenderness over the thoracic or lumbar spine. No tenderness over the paraspinal musculature. I am unable to reproduce his pain with palpation. Extremities-intact ?4, normal range of motion, normal pulses, atraumatic] Test Results: [EKG obtained on arrival showed a sinus rhythm with a ventricular rate of 80 bpm with no acute ST segment changes. CBC with differential showed a normal white blood cell count. Chemistries unremarkable. Troponin was less than 0.015. D-dimer was slightly elevated 0.62. 1 view chest x-ray obtained interpreted by myself as no acute disease process and radiology in agreement. CTA of the chest was negative for PE or dissection.] Emergency Department Course and Treatment: [The line established on arrival. Patient placed on a monitoring specialist.] Treatment Plan: [Patient to follow-up with his primary care physician in 3 to 5 days.] Disposition: [Discharged home in stable condition] Impression: [Back pain] This note was generated with [employer] software. It may contain incorrect words, spelling, and punctuation that were not noted in review of the chart prior to signing ED Disposition - Plan for ED Patient: Referrals: Shirlene Denson MD [Primary Care Provider] -
--- NOTE | 2020-05-22 22:29 | ED.DEP ---
ED Disposition - Plan for ED Patient: Instructions: ED Back Spasm, No Trauma Referrals: Shirlene Denson MD [Primary Care Provider] - 3-5 Days
[2020-05-22 22:32] VITALS: BP 131/93; PULSE 66; RESP 17; O2SAT 99
== END 2020-05-22 22:39 | disposition home or self-care (01) ==
LOC: ED 20:50
PROVIDERS: Emergency Provider Emergency Medicine; PCP Family Medicine
DX: M54.9 Dorsalgia, unspecified (principal); I25.10 Atherosclerotic heart disease of native coronary artery without angina pectoris; E78.00 Pure hypercholesterolemia, unspecified; Z95.5 Presence of coronary angioplasty implant and graft; Z79.82 Long term (current) use of aspirin
CPT/HCPCS: 71045; 71275; 80048; 84484; 85025; 85379; 93005; 99284; Q9967

== ENCOUNTER → 2020-06-01 16:40 | Outpatient (CLI) | payer MEDICARE, OTHER, SELFPAY ==
[2020-05-13 13:59] VITALS: BMI 27.2
[2020-05-22 20:17] VITALS: BMI 27.6
--- NOTE | 2020-06-01 16:42 | RAD_ITS ---
STUDY: X-RAY CHEST REASON FOR EXAM: Male, 64 years old. PLEURITIC PAIN TECHNIQUE: PA and lateral views of the chest. COMPARISON: 05/22/2020 FINDINGS: The lungs are clear and expanded. There is no demonstrated pleural abnormality. Normal size heart. Normal mediastinum and santhosh. Normal visualized pulmonary arteries. Normal visualized aortic arch and descending thoracic aorta. Normal visualized thoracic spine. Normal visualized ribs, clavicles, and shoulders. There is no demonstrated abnormality of the visualized soft tissue structures of the upper abdomen. RAD/Chest PA and Lateral IMPRESSION: Normal x-ray examination of the chest. Electronically Signed: Waldo Fierro MD at 9:16 EDT Tel , Service support ,
== END ==
PROVIDERS: PCP Family Medicine; Referring Provider Family Medicine; Visit Provider Family Medicine
DX: R07.81 Pleurodynia (principal)
CPT/HCPCS: 71046

== ENCOUNTER 2020-06-19 13:00 | Outpatient (RCR) | payer MEDICARE, OTHER, SELFPAY ==
[2020-05-13 13:59] VITALS: BMI 27.2
--- NOTE | 2020-06-15 07:01 | PCM.CR.ITP ---
Exercise - 30-day Assessment - Visit Date of Eval: 06/15/20 Session #:: 12 - Physician Prescribed Exercise Modalities: Treadmill, Rower, Airdyne, NuStep Frequency: 3x/week for 12 weeks [36 sessions] Intensity: 60-80% of age predicted maximum heart rate reserve Current METSs:: 5.0 increased from 3.5 Target Heart Rate:: 100-131 Current RPE:: 12-13 Maximum Excercise HR:: 148 Resting Blood Pressure: 98/56 - asymptomatic Maximum Exercise Blood Pressure: 136/68 EKG Type: NSR to sinus tach w/ rare PAC. - Outcomes & Goals Goals:: Verbalizes understanding of THR, RPE & goal METS by session 6, Documents in home exercise log/reports 30 min aerobic 5 day/wk by DC, Demonstrates accurate pulse taking by DC - Intervention & Plan Exercise Program Goals: Instruct on personal THR & RPE, Instruct on MET level & personal MET goal, Show patient to take own pulse /validate performance until accurate, Instruct on home exercise - 30-day Reassessments 30 day Reassessments:: Progressing - Physical Activity Home Exercise Physical Activity - Home Exercise: Safe Exercise, Warm-up, Self-monitoring, Cool-Down, Home Exercise > 30 min Daily, Sitting Time <3 hours/daily - Outcomes & Goals Outcomes/Goals: Demonstrates correct Warm-up/exercise Cool-Down (S3) if = 2.5 METs, Verbalizes symptoms of exercise intolerance by Session 3 (S3), Demonstrate safe equipment use (S3) & follows exercise prescrition (6) - Intervention & Plan Plan/Intervention: Instruct warm-up & cool-down if exercising at > 2 METs, Instruct on symptoms of exercise intolerance & actions to take, Instruct & monitor on saf, Assess intial functional capacity & safety risk - 30-day Reassessments 30 day Reassessments:: Progressing Nutrition - 30-Day Assessment - Program Goals Nutrition Program Goals: LDL <100 optimal. 100 - 129 Near optimal. 130 - 159 Borderline High. 160 - 189 High. Total Cholesterol <200 desirable. 200 - 239 Borderline High. >/= 240 High. HDL < 40 Low >/=60 High. Triglycerides <150 desirable. <199 optimal. VlDL 5 - 40. HgbA1C <7%. BMI <25 Patient has diagnosis of Hyperlipidemia (ICD E78)?: Yes - Visit Date of Assessment:: 06/15/20 Session #:: 12 - Cholesterol/Lipids Triglycerides (mg/dL): 152 Total Cholesterol (mg/dL): 77 LDL Cholesterol (mg/dL): 31 HDL Cholesterol (mg/dL): 44 Determine presence & major risk factors that modify LDL goal: Hypertension or hypertensive medication, Family history of premature CHD in Male < 55 years: female <65 yearsFa, Age men > 45 years; women >/= 55 years Outcomes/Goals: Pt IDs own risk factors & lifestyle modifications by Session 10, Verbalizes symptoms of angina & response by session 3., Pt independently manages Intervention/Plan: Instruct on personal lipid levels & lipid goals/NCEP guidelines, Instruct on cholesterol Referral to dietitian:: Yes - Medical Nutrition Therapy 30-day Reassessments:: Progressing - Diabetes (Other Core Measures) Diabetes Type: Not Applicable - Weight Mgt (Other Care) Not Applicable: Yes Height: 6 ft Weight:: 206 lb BMI: 27.9 Diagnosis Overweight/Obesity BMI> 30% ICD-10 E66: No Diagnosis High BMI/Morbid Obesity BMI> 35% ICD-10 Z68: No Outcomes/Goals: Pt sets, maintains & shows weight loss goal & trend during rehab Intervention/Plan: Instruct on ideal BMI & set weight loss goal w/patient, Assist pt to ID & incorporate diet changes for weight loss by S9 30 day Reassessments:: Progressing - Healthy Eating Habits Will attend diet classes:: Yes Outcomes/Goals:: Consume diet rich in vegs,fruits,whole grain/high fiber,fish,lean meat, Limit sat/trans fats,cholesterol & added salts & sugars Intervention/Plan:: Assess current eating habits 30-day Reassessments:: Progressing Medical- 30-Day Assessment - Visit Date of Eval: 06/15/20 Session #:: 12 - Medication Compliance Preventative Medication(s):: Aspirin, Clopidogrel/P2Y12 inhibit, Statin/lipid, Beta audrey H/O mental health issues: depression, anxiety, or addiction?: No Doesn?t believe in the benefits of treatment?: No Believes medications are unnecessary or harmful?: No Has a concern about medication side effects?: No Expresses concern over the cost of medications?: No Outcomes/Goals: Verbalizes medications,desired effect & common side effects @ DC, Pt self-reports following medication regimen, Keeps card in wallet w/medications listed by DC Interventions/plans: Instruct on medication effects & side effects, Review medication list w/patient every two weeks, Instruct importance of taking meds as ordered & assist problem solving 30-day Reassessments:: Progressing - Tobacco Use Tobacco Use: Non-smoker - Hypertension Hypertension Diagnosis:: Hypertension ICD-10 I10 Resting Blood Pressure:: 98/56 - asymptomatic Citizen [place] [employer] Hypertension Guidelines: [place] [employer] Hypertension Guidelines. Normal BP Less than 120/80. Elevated BP 120/80. Hypertension Stage 1: BP 130-139/80-89. Hypertesnion Stage 2: BP 140 or higher/90 or higher. Hypertension Crisis: BP higher than 180/120 Peak Exercise Blood Pressure:: 136/68 Outcomes/Goals: Able to verbalize/achieve optimal blood pressure <130/80, Incorporates diet changes & exercise for blood pressure control by DC Interventions/plan: Instruct on optimal blood pressure, hypertension & medications, Instruct on effects of sodium, alcohol, stress, exercise &hypertension 30 day Reassessments:: Progressing - Tobacco Cessation Referral Smoking Cessation Referral:: No Individual Education/Counseling:: No Education Schedule Given:: Yes Psychosocial - 30-Day Assess - VIsit Date of Eval: 06/15/20 Session #:: 12 Not Applicable: Yes History of previous Mental disease:: No - Target Goals Target Goals: Assess presence or absence of depression. Using a valid screening tool, maximizes coping skills. Positive support system - Psychosocial Test Tool Used:: PHQ-9 Questionnaire phq-9 Severity: Severity. 1-4 Minimal Depression. 5-9 Mild Depression. 10-14 Moderate Depression. 15-19 Moderately Sever Depression. 20-27 Severe Depression. Rule: - Referral to Behavioral Health PS - Interventions: Yes Attend Stress Management Classes, No Referral to Behavioral Health if PHQ-9 score >9:, No Referral to [facility], No Referral to Physician if PHQ-9 if score is 5-9: - Outcomes/Goals: See list Psychosocial Outcomes/Goals:: ID's personal stressors & 2 strategies to manage stress by discharge - Intervention/Plan: See List Interventions/Plan:: Assess stressors,coping strategies & signs of derpression on admission, Instruct/assist pt to develop coping & personal stress Mgt strategies, Instruct patient to recognize signs & symptoms of depression, Instruct patient to recog - 30-day Reassessments: 30 day Reassessments:: Progressing Patient Health Questionnaire 30-Day Re-eval Assessment 1. Little interest or pleasure in doing things: Not at all 2. Feeling down, depressed, or hopeless: Not at all 3. Trouble falling or staying asleep, or sleeping too much: Not at all 4. Feeling tired or having little energy: Not at all 5. Poor appetite or overeating: Not at all 6. Feeling bad about yourself -- or that you are a failure or have let yourself or your family down: Not at all 7. Trouble concentrating on things, such as reading the newspaper or watching television: Not at all 8. Moving or speaking so slowly that other people could have noticed. Or the opposite - being so fidgety or restless that you have been moving around a lot more than usual: Not at all 9. Thoughts that you would be better off , or of hurting yourself in some way: Not at all Total Score: 0 Self-Efficacy 30-Day Re-eval Assessment We would like to know how confident you are in doing certain activities. Please select your confidence level for:: Select your confidence level for the following using the scale 1-10 where 1 is not at all confident and 10 is totally confident. Your score is the average of all 6 responses. Fatigue: How confident are you that you can keep the fatigue caused by your disease from interfering with the things you want to do? Select Number: 10 Physical Discomfort or Pain: How confident are you that you can keep the physical discomfort or pain of your disease from interfering with the things you want to do? Select Number: 10 Emotional Distress: How confident are you that you can keep the emotional distress caused by your disease from interfering with the things you want to do? Select Number: 10 Other Symptoms or Health Problems: How confident are you that you can keep other symptoms or health problems from interfering with the things you want to do? Select Number: 10 Different Tasks and Activities: How confident are you that you can do the different tasks and activities needed to manage your health condition so as to reduce your need to see a doctor? Select Number: 10 Medication: How confident are you that you can do things other than just taking medication to reduce how much your illness affects your everyday life? Select Number: 10 Total Score:: 10
[2020-06-15 07:08] VITALS: BP 136/68; BP 98/56; BMI 27.9
== END 2020-06-19 23:59 ==
LOC: CR 13:00
PROVIDERS: PCP Family Medicine; Referring Provider Internal Medicine Cardiovascular Disease; Visit Provider Internal Medicine Cardiovascular Disease
DX: I25.119 Atherosclerotic heart disease of native coronary artery with unspecified angina pectoris (principal); I25.2 Old myocardial infarction; I10 Essential (primary) hypertension; E78.5 Hyperlipidemia, unspecified; Z95.5 Presence of coronary angioplasty implant and graft
CPT/HCPCS: 93798

== ENCOUNTER 2020-06-24 13:00 | Outpatient (RCR) | payer MEDICARE, OTHER, SELFPAY ==
[2020-06-15 07:08] VITALS: BMI 27.9
[2020-06-20 00:50] VITALS: BP 136/68; BP 98/56
== END 2020-07-20 23:59 ==
LOC: CR 13:00
PROVIDERS: PCP Family Medicine; Referring Provider Internal Medicine Cardiovascular Disease; Visit Provider Internal Medicine Cardiovascular Disease
DX: I25.119 Atherosclerotic heart disease of native coronary artery with unspecified angina pectoris (principal); I25.2 Old myocardial infarction; I10 Essential (primary) hypertension; E78.5 Hyperlipidemia, unspecified; Z95.5 Presence of coronary angioplasty implant and graft
CPT/HCPCS: 93798

== ENCOUNTER → 2020-10-28 15:17 | Outpatient (CLI) | payer MEDICARE, OTHER, SELFPAY ==
[2020-06-15 07:08] VITALS: BMI 27.9
[2020-10-28 17:57] LABS: PSA,Total - Annual Screen 0.46 ng/mL (0.00-4.00)
== END ==
PROVIDERS: PCP Family Medicine; Referring Provider Family Medicine; Visit Provider Family Medicine
DX: Z00.00 Encounter for general adult medical examination without abnormal findings (principal); Z12.5 Encounter for screening for malignant neoplasm of prostate
CPT/HCPCS: 36415; 84153; G0103

== ENCOUNTER 2021-04-22 08:00 | Outpatient (CLI) | payer MEDICARE, OTHER, SELFPAY ==
[2020-06-15 07:08] VITALS: BMI 27.9
[2021-04-22 09:55] LABS: AST(SGOT) 26 U/L (15-37); Alanine Aminotransfer ALT/SGPT 32 U/L (16-61); Albumin, Serum 3.9 g/dL (3.2-5.0); Alkaline Phosphatase 56 U/L (45-117); Bilirubin, Direct 0.18 mg/dL (0.00-0.30); Cholesterol 162 mg/dL (200); Globulin 3.9 g/dL (2.2-4.2); High Density Lipoprotein 35 mg/dL; Protein, Total 7.8 g/dL (6.4-8.2); Triglycerides 268 mg/dL; Very Low Density Lipoprotein 54 mg/dL (5-40)
== END 2021-04-22 23:59 | disposition home or self-care (01) ==
LOC: LAB 08:03
PROVIDERS: PCP Family Medicine; Referring Provider Internal Medicine Cardiovascular Disease; Visit Provider Internal Medicine Cardiovascular Disease
DX: E78.5 Hyperlipidemia, unspecified (principal); I25.119 Atherosclerotic heart disease of native coronary artery with unspecified angina pectoris
CPT/HCPCS: 36415; 80061; 80076

== ENCOUNTER → 2022-03-29 | Outpatient (CLI) | payer MEDICARE, OTHER, SELFPAY ==
[2020-06-15 07:08] VITALS: BMI 27.9
[2022-03-29 18:04] LABS: Absolute Neutrophil Count 3.8 X10^3/uL (2.0-7.7); Basophil# 0.04 X10^3/uL; Basophil% 0.7 % (0-1); Eosinophil# 0.12 X10^3/uL; Hematocrit 47.8 % (40-54); Hemoglobin 15.2 g/dL (13.0-16.5); Lymphocyte % 24.8 % (19-41); Mean Corp Hgb Conc 31.8 g/dL (32-36); Mean Corpuscular Hgb 30.2 pg (27.0-32.0); Mean Corpuscular Volume 94.8 fL (80-94); Mean Platelet Vol. 11.9 fl (6.2-12.0); Monocyte# 0.59 X10^3/uL; Monocyte% 9.8 % (0-10); NRBC Flagged by Analyzer 0 % (0-5); Neutrophil # 3.78 X10^3/uL (2.7-7.7); Neutrophil % 62.5 % (47-70); Platelet Count 171 K/mm3 (150-450); RBC Distribution Width SD 45.4 fl (35.1-43.9); Red Blood Count 5.04 M/mm3 (4.6-6.2)
[2022-03-29 18:47] LABS: ALB/GLOB Ratio 1.1 RATIO (0.9-2.4); AST(SGOT) 28 U/L (15-37); Alanine Aminotransfer ALT/SGPT 31 U/L (16-61); Alkaline Phosphatase 49 U/L (45-117); Anion Gap 7 (5-15); BUN 25 mg/dL (7-18); BUN/Creat Ratio 18.9 RATIO (10-20); Calcium,Total 9.8 mg/dL (8.5-10.1); Chloride 109 mmol/L (98-107); Cholesterol 161 mg/dL (200); Creatinine, Serum 1.32 mg/dL (0.70-1.30); EST Glomerular Filtration Rate 57 mL/min (>60); Est Glom Filt Rate - Afr Amer 70 mL/min (>60); Globulin 3.7 g/dL (2.2-4.2); Glucose 74 mg/dL (74-106); High Density Lipoprotein 40 mg/dL; PSA,Total - Annual Screen 0.53 ng/mL (0.00-4.00); Potassium 3.9 mmol/L (3.5-5.1); Protein, Total 7.7 g/dL (6.4-8.2); Sodium Level 142 mmol/L (136-145); Triglycerides 230 mg/dL; Very Low Density Lipoprotein 46 mg/dL (5-40)
== END | disposition home or self-care (01) ==
LOC: MFPLAB 15:00
PROVIDERS: PCP Family Medicine; Referring Provider Family Medicine; Visit Provider Family Medicine
DX: Z00.00 Encounter for general adult medical examination without abnormal findings (principal); K51.30 Ulcerative (chronic) rectosigmoiditis without complications; E78.5 Hyperlipidemia, unspecified; Z12.5 Encounter for screening for malignant neoplasm of prostate
CPT/HCPCS: 36415; 80053; 80061; 84153; 85025; G0103

== ENCOUNTER → 2022-10-03 | Outpatient (CLI) | payer MEDICARE, OTHER, SELFPAY ==
[2020-06-15 07:08] VITALS: BMI 27.9
--- NOTE | 2022-10-03 16:22 | RAD_ITS ---
INDICATION: pain EXAMINATION/TECHNIQUE: X-RAY - LEFT XR Wrist Min 3 Views 3 VIEWS COMPARISON: : No relevant prior comparison study available FINDINGS: Bones: There is normal bony alignment, trabecular pattern is normal. No fractures or focal lytic or sclerotic bony lesions.. Articular erosions are present at the head of the 1st metacarpal. Joints: Visualized joint spaces are maintained. No subluxation or displacement. No periarticular erosions. Soft tissues: Normal appearance of the soft tissues. No radiopaque foreign bodies noted. RAD/Wrist min 3 Views IMPRESSION: 1. No fracture, subluxation, focal bony or joint space abnormality. 2. Periarticular erosions at the MCP of the thumb. Electronically Signed: Waldo Pantoja MD at 0:58 EDT ,
== END | disposition home or self-care (01) ==
LOC: MTRAD 16:20
PROVIDERS: PCP Family Medicine; Referring Provider Family Medicine; Visit Provider Family Medicine
DX: M25.532 Pain in left wrist (principal)
CPT/HCPCS: 73110

== ENCOUNTER → 2023-07-18 | Outpatient (CLI) | payer MEDICARE, OTHER, SELFPAY ==
[2020-06-15 07:08] VITALS: BMI 27.9
[2023-07-18 10:18] LABS: AST(SGOT) 32 U/L (15-37); Alanine Aminotransfer ALT/SGPT 19 U/L (16-61); Albumin, Serum 3.9 g/dL (3.2-5.0); Alkaline Phosphatase 55 U/L (45-117); Bilirubin, Direct 0.23 mg/dL (0.00-0.30); Cholesterol 156 mg/dL (200); Globulin 3.8 g/dL (2.2-4.2); High Density Lipoprotein 42 mg/dL; Protein, Total 7.7 g/dL (6.4-8.2); Triglycerides 173 mg/dL; Very Low Density Lipoprotein 35 mg/dL (5-40)
== END | disposition home or self-care (01) ==
LOC: LAB 08:03
PROVIDERS: PCP Family Medicine; Referring Provider Nurse Practitioner Family; Visit Provider Nurse Practitioner Family
DX: E78.5 Hyperlipidemia, unspecified (principal)
CPT/HCPCS: 36415; 80061; 80076

== ENCOUNTER → 2023-08-29 | Outpatient (CLI) | payer MEDICARE, OTHER, SELFPAY ==
[2020-06-15 07:08] VITALS: BMI 27.9
--- NOTE | 2023-08-29 10:07 | RAD_ITS ---
We are attempting to reach an attending provider to discuss findings. An addendum with communication details will be sent when the communication is complete. STUDY: X-RAY - LEFT FOOT CLINICAL: Male, 67 years old. PAIN TECHNIQUE: 3 view(s) of the foot. COMPARISON: None. FINDINGS: Normal talus, calcaneus, and tarsal bones. Normal visualized subtalar, talonavicular, calcaneocuboid, tarsal and tarsometatarsal articulations. Irregularity of the tibial cortex at the base of the second metatarsal bone and correlation with CT and MRI may be useful to exclude Lisfranc injury. Normal metatarsophalangeal joint of the great toe. Normal tibial and fibular sesamoid bones. Normal interphalangeal joint of the great toe. Normal phalanges of the great toe. Normal second through fifth metatarsophalangeal joints. Normal interphalangeal joints and phalanges of the lesser toes. The soft tissue structures are unremarkable. RAD/Foot min 3 Views IMPRESSION: Irregularity of the tibial cortex of the base of the second metatarsal bone and correlation with CT and MRI may be useful to exclude Lisfranc injury. Electronically Signed: Waldo Fierro MD at 12:55 EDT ,
== END | disposition home or self-care (01) ==
LOC: MTRAD 10:05
PROVIDERS: PCP Family Medicine; Referring Provider Podiatrist; Visit Provider Podiatrist
DX: M72.2 Plantar fascial fibromatosis (principal)
CPT/HCPCS: 73630

== ENCOUNTER → 2023-10-10 | Outpatient (CLI) | payer MEDICARE, OTHER, SELFPAY ==
[2020-06-15 07:08] VITALS: BMI 27.9
[2023-10-10 18:33] LABS: Anion Gap 2 (5-15); BUN 21 mg/dL (7-18); BUN/Creat Ratio 15.7 RATIO (10-20); Calcium,Total 9.9 mg/dL (8.5-10.1); Chloride 108 mmol/L (98-107); Creatinine, Serum 1.34 mg/dL (0.70-1.30); EST Glomerular Filtration Rate 56 mL/min (>60); Est Glom Filt Rate - Afr Amer 68 mL/min (>60); Glucose 96 mg/dL (74-106); PSA,Total - Annual Screen 0.63 ng/mL (0.00-4.00); Potassium 4.2 mmol/L (3.5-5.1); Sodium Level 140 mmol/L (136-145)
== END | disposition home or self-care (01) ==
LOC: MFPLAB 15:05
PROVIDERS: PCP Family Medicine; Visit Provider Family Medicine
DX: I25.2 Old myocardial infarction (principal); Z12.5 Encounter for screening for malignant neoplasm of prostate
CPT/HCPCS: 36415; 80048; 84153; G0103

== ENCOUNTER → 2023-10-16 | Outpatient (CLI) | payer MEDICARE, OTHER, SELFPAY ==
[2020-06-15 07:08] VITALS: BMI 27.9
[2023-10-16 18:27] LABS: Protein:Creat Ratio 78 mg/g CRE (0-200)
== END | disposition home or self-care (01) ==
LOC: MTLAB 12:38
PROVIDERS: PCP Family Medicine; Referring Provider Family Medicine; Visit Provider Family Medicine
DX: I25.2 Old myocardial infarction (principal)
CPT/HCPCS: 82570; 84156

== ENCOUNTER 2023-10-31 14:30 | Outpatient (RCR) | payer MEDICARE, OTHER, SELFPAY ==
[2020-06-15 07:08] VITALS: BMI 27.9
--- NOTE | 2023-10-02 15:57 | HP.PTEVAL_ITS ---
Patient's Visit Information Visit Information Visit Information: JORDAN JOSÉ Jr. is a 67 year old M referred to Physical Therapy by Dr. Jamila Corrales DPM with a diagnosis of PLANTAR FASCITIS LEFT FOOT. Date of Evaluation: 10/02/23 Physical Therapist: Herve Aponte, PT, Cert MDT, OCS Visit Plan Frequency: 2x /Week Duration: 4 Weeks Plan: PT INTERVENTIONS MANUAL THERAPY STM CALF/HEEL -HAWK/STICK ,MOBILIZATION CALCANEUS,FLEXABILITY CALF/PLANTARFACSIA ,AND US/CP Subjective Subjective: This 67 y/o male presents to physical therapy with left plantar fasciitis . Patient has had pain foot several months. Patient had pain since April. Seen Dr tried 2 cortisone injection which did not help. Patient then had x-rays -. Patient had MRI showed cyst achilles. Patient pain located calcaneal plantar aspect. Aggravating factors AM worse ,inactivity. Alleviating factors moving. Denies paresthesia/tingling . Pain affects sleeping. Patient tried night splint. Patient condition affects QOL and function with pain. Patient goals to have no pain. Patient has h/o PF pain bilateral feet. 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) pes planus wide forefoot ,calcaneal valgus , forefoot valgus GAIT: antalgic gait left side PALPATION: mod/severe tender calcaneus ,and mod mid G-S NEURO: denies paresthesia/tingling AROM ANKLE: dorsiflexion 0 degrees ,plantar flexion 60 degrees ,eversion 5 degrees ,inversion 35 degrees MMT: ankle stabilizers 5/5 soreness with G-S GTE 4/5 Balance/Special Test Scores Lower Extremity Functional Score: 41 Goals Goal 1:: Patient to be I with HEP for planatrfasctits Goal Time Frame: 4-6 Weeks Goal 2:: Patient to demonstrate 50% improvement with less pain and improved gait Goal Time Frame: 4-6 Weeks Goal 3:: Patient to improve LFES score by 5 points to improve QOL and function with gait Goal Time Frame: 4-6 Weeks Goal 4:: Patient to normalize gait Goal Time Frame: 4-6 Weeks Goal 5:: Patient to have min pain with palpation of heel and plantar facsia Goal Time Frame: 4-6 Weeks Rehabilitation Potential Physical Therapy Diagnosis: Patient has left plantar fascia pain with pain with palpation of heel ,pain with walking and standing with antalgic gait thus benefit from skilled PT Rehabilitation Potential: Good Anticipated Interventions Patient/Client Instruction: Educate patient on: Condition and Plan of Care For the Purpose of:: To decrease pain, To increase ROM, To improve muscle performance and motor function, To improve ability to perform ADL's, To increase tolerance to activity/condition/position, To improve ability of physical actions for home/community/work/leisure, To improve gait and locomotor functions, To improve health of tissue, To decrease soft tissue restriction, To increase flexibility/ROM, To reduce risk of recurrence, To prevent re-injury and To improve tolerance to ADL's Therapeutic Exercise to Include: Postural training, Flexibilty training and Active ROM Comment: G-S For the Purpose of:: To decrease pain, To increase ROM, To improve nutrient delivery to tissue, To increase oxygenation perfusion, To improve muscle performance and motor function, To improve ability of physical actions for home/community/work/leisure, To improve health of tissue, To decrease soft tissue restriction, To increase flexibility/ROM and To reduce risk of recurrence Manual Therapy Techniques to Include: Mobilization and Soft tissue mobilization Comment: HEEL For the Purpose of:: To decrease pain, To increase ROM, To improve nutrient delivery to tissue, To increase oxygenation perfusion, To improve health of tissue, To decrease soft tissue restriction and To increase flexibility/ROM Cryotherapy (ice pack, ice massage): Yes Ultrasound (thermal/non thermal): Yes Text: Thank you for the opportunity to evaluate your patient. For Medicare and Medicare HMO plans, please review the plan of care and approve it. It will need to be FAXED BACK to us at [phone] for Medicare purposes. For Medicare only, by signing this I certify the plan of care. Please let me know if there are questions or concerns regarding this plan of care. Physician Signature: Date:
--- NOTE | 2023-11-20 19:25 | HP.PTDCSUM ---
Discharge Summary D/C summary: It has been my pleasure to treat JORDAN JOSÉ Jr. referred by Dr. Jamila Corrales DPM, with the diagnosis of PLANTAR FASCITIS LEFT FOOT for a total of 9 visit(s). Discharge Date: Please see the following information for a summary of their discharge status. 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) pes planus wide forefoot ,calcaneal valgus , forefoot valgus GAIT: antalgic gait left side PALPATION: mod/severe tender calcaneus soft tissue nodules ,and mod mid G-S NEURO: denies paresthesia/tingling AROM ANKLE: dorsiflexion 5 degrees ,plantar flexion 60 degrees ,eversion 5 degrees ,inversion 35 degrees MMT: ankle stabilizers 5/5 soreness with G-S GTE 4/5 Goals Goal 1:: Patient to be I with HEP for planatrfasctits Goal 2:: Patient to demonstrate 50% improvement with less pain and improved gait Goal 3:: Patient to improve LFES score by 5 points to improve QOL and function with gait Goal 4:: Patient to normalize gait Goal 5:: Patient to have min pain with palpation of heel and plantar facsia Plan Plan: RTD D/C Information d/c sentence: If there are questions or concerns regarding this patient's physical therapy, please feel free to call me at [phone]. Thank you for the referral of this patient. Sincerely, Herve Aponte, PT, Cert MDT, OCS Balance/Gait/Functional tests Balance/Special Test Scores Lower Extremity Functional Score: 41 Improvement % Improvement: 15
== END 2023-10-31 19:00 | disposition home or self-care (01) ==
LOC: PT 14:30
PROVIDERS: PCP Family Medicine; Referring Provider Podiatrist; Visit Provider Podiatrist
DX: M72.2 Plantar fascial fibromatosis (principal)
CPT/HCPCS: 97035; 97110; 97140; 97162; 97530

== ENCOUNTER 2025-01-05 00:12 | Emergency (ER) | payer MEDICARE, OTHER, SELFPAY ==
[2020-06-15 07:08] VITALS: BMI 27.9
[2025-01-05] VITALS (21 sets, daily range): BP systolic 129–160; BP diastolic 76–94; PULSE 78–104; RESP 15–27; TEMP 36.8–37; O2SAT 88–100; BMI 27.7
--- NOTE | 2025-01-05 00:31 | EKG12_ITS ---
Test Reason : CP Blood Pressure : */* mmHG Vent. Rate : 86 BPM Atrial Rate : 86 BPM P-R Int : 138 ms QRS Dur : 98 ms QT Int : 374 ms P-R-T Axes : 53 8 40 degrees QTcB Int : 447 ms Normal sinus rhythm Normal ECG Confirmed by WILY VILLALTA, LORETTA ([id number]), senior editor DANYELLE GONZALEZ ([id number]) on 01/06/2025 9:14:41 AM Referred By: BB Confirmed By: LORETTA JULIEN MD
--- NOTE | 2025-01-05 00:42 | ED.VIS.CHEST ---
HPI History of Present Illness Chief Complaint: Chest Pain Informant: patient and spouse/S.O. Narrative Narrative: Patient is a 69-year-old male with a history of [place], pneumonia, and recent R knee meniscus repair, presenting with left-sided chest pain. - Chest pain began yesterday while raking leaves, initially thought to be muscular. - Describes pain as constant, slightly worse today, and localized without radiation. - Pain sometimes worsens with exertion and deep inhalation, but not consistently. - Denies dyspnea. No palpitations or syncope/near-syncope. - Has had a cold for 2 weeks with congestion and productive cough. - Concerned about potential pneumonia or cardiac issues due to past history. - Has four cardiac stents and is on generic Plavix. - Recent meniscus repair last Monday; reports stiffness in Achilles tendon, using moist heat for relief. No calf pain or ankle edema. [facility] Medical History Ulcerative colitis Obesity Paroxysmal supraventricular tachycardia Old posterior myocardial infarction (1995) Essential (primary) hypertension BPH (benign prostatic hyperplasia) Atherosclerosis of coronary artery of [place] heart with angina pectoris Hyperlipidemia Home Medications ?Medication ?Instructions ?Recorded ?Last Taken ?Type tamsulosin 0.4 mg capsule 0.4 mg PO DAILY 01/02/15 04/12/20 History 2100 cholecalciferol (vitamin D3) 25 1,000 unit PO DAILY vitamin 11/30/16 04/12/20 17:00 History mcg (1,000 unit) capsule folic acid 400 mcg tablet 0.4 mg PO DAILY@0800 vitamin 11/30/16 04/13/20 09:00 History mesalamine 1.2 gram tablet,delayed 2.4 g PO DAILY ulcerative colitis 01/01/19 04/12/20 09:00 History release [id number]-ixsofqjd-znhlch tablet 1 tab PO DAILY 01/01/19 04/12/20 09:00 History aspirin 81 mg tablet,delayed 81 mg PO DAILY health maintenance 04/08/20 04/13/20 History release metoprolol tartrate 25 mg tablet 25 mg PO BID heart #180 tabs 05/29/23 Unknown Rx atorvastatin 40 mg tablet 40 mg PO QPM #90 tabs 06/13/23 Unknown Rx ramipril 2.5 mg capsule See Rx Instructions .Route 03/08/24 Unknown Rx .COMPLEX #90 caps apixaban 5 mg (74 tabs) tablets in See Rx Instructions PO .COMPLEX 01/05/25 Unknown Rx a dose pack (Eliquis DVT-PE Treat #74 tabs 30D Start) tadalafil 5 mg tablet 5 mg PO DAILY 01/05/25 Unknown History Allergy/AdvReac Type Severity Reaction Status Date / Time rosuvastatin AdvReac myalgias Verified 01/05/25 00:13 Family History Father Cancer Sister Cancer Renal Cancer Surgical History History of coronary artery stent placement (04/13/20) History of left heart catheterization (08/11/05) Social History Smoking Status: Never smoker ROS ROS ED Constitutional Constitutional ED: Denies chills or fever(s) Eyes Eyes: Denies change in vision or diplopia ENT ENT ED: Denies rhinorrhea or sore throat Cardiovascular Cardiovascular: Reports as per HPI and chest pain; Denies leg edema, lightheadedness, palpitations or syncope Respiratory/Chest Respiratory/Chest: Denies cough or dyspnea Gastrointestinal Gastrointestinal: Denies abdominal pain, diarrhea, nausea or vomiting Genitourinary Genitourinary ED: Denies dysuria or hematuria Musculoskeletal Musculoskeletal: Reports other Details: R knee postop pain, improving ; Denies back pain or neck pain Integumentary Denies abscess or rash Neurologic Neurologic: Denies headache(s), paresthesias or weakness Psychiatric Psychiatric: Denies anxiety or suicidal thoughts EXAM Physical Exam Const Vital Signs: 01/05/25 00:12 01/05/25 00:15 01/05/25 00:18 Temperature 98.3 F 98.3 F Temperature Source Oral Oral Pulse Rate 93 94 Respiratory Rate 15 23 H Respiratory Effort Normal Blood Pressure 156/94 H 156/94 H Blood Pressure Mean 114 114 Pulse Ox 97 98 Oxygen Delivery Method Room Air Room Air 01/05/25 00:33 01/05/25 01:16 01/05/25 01:30 Temperature Temperature Source Pulse Rate 82 80 Respiratory Rate 19 H 16 Respiratory Effort Blood Pressure 156/92 H 144/90 H Blood Pressure Mean 113 105 Pulse Ox 98 97 Oxygen Delivery Method Room Air 01/05/25 01:45 01/05/25 01:45 01/05/25 01:47 Temperature Temperature Source Pulse Rate 104 H Respiratory Rate 26 H Respiratory Effort Blood Pressure 159/91 H 159/91 H Blood Pressure Mean 113 113 Pulse Ox 97 Oxygen Delivery Method 01/05/25 02:00 01/05/25 02:15 01/05/25 02:30 Temperature Temperature Source Pulse Rate 78 83 Respiratory Rate 17 19 H Respiratory Effort Blood Pressure 148/88 H 146/90 H 150/85 H Blood Pressure Mean 106 108 104 Pulse Ox 98 97 Oxygen Delivery Method 01/05/25 02:45 01/05/25 03:00 01/05/25 03:00 Temperature Temperature Source Pulse Rate 78 80 80 Respiratory Rate 20 H 27 H 27 H Respiratory Effort Blood Pressure 145/86 H 148/76 H Blood Pressure Mean 102 95 Pulse Ox 96 96 96 Oxygen Delivery Method 01/05/25 03:15 01/05/25 03:30 01/05/25 03:45 Temperature Temperature Source Pulse Rate 86 81 82 Respiratory Rate 17 15 22 H Respiratory Effort Blood Pressure 160/84 H 142/89 H 144/91 H Blood Pressure Mean 106 103 106 Pulse Ox 100 95 88 Oxygen Delivery Method 01/05/25 04:00 01/05/25 04:15 01/05/25 04:30 Temperature Temperature Source Pulse Rate 79 85 85 Respiratory Rate 20 H 23 H 19 H Respiratory Effort Blood Pressure 136/88 H 131/82 H 129/82 H Blood Pressure Mean 101 97 95 Pulse Ox 96 96 95 Oxygen Delivery Method 01/05/25 04:45 01/05/25 05:00 01/05/25 06:19 Temperature Temperature Source Pulse Rate 91 85 Respiratory Rate 21 H 26 H 18 Respiratory Effort Blood Pressure 138/81 H 131/87 H Blood Pressure Mean 96 101 Pulse Ox 94 93 97 Oxygen Delivery Method Room Air Positive well nourished and well developed General Appearance ED: well developed and NAD HEENT Reports moist mucous membranes normocephalic and atraumatic Eyes PERRL and EOMs intact bilaterally Neck full ROM and supple Chest Wall inspection of chest normal and palpation of chest normal Chest: Negative for tenderness Resp normal respiratory effort and clear to auscultation bilaterally Resp Narrative: no splinting w/ deep inspiration Cardio regular rate, regular rhythm and no murmurs Rate: Negative for tachycardic Peripheral Pulses: pulses 2+ throughout GI non-tender and non-distended Auscultation: normoactive bowel sounds Palpation: soft Back/Spine no CVA tenderness General Back: other FROM Extremity normal to inspection Extremity Narrative: bandage anterior R knee, no signs of infection, no effusion. no calf tenderness, cords, or edema. General Extremety ED: Negative for edema, pulses abnormal or tenderness General Extremity: Negative for edema or pulses abnormal Neuro oriented x3, CN's II-XII intact bilaterally and no sensory deficits noted Sensorium / Orientation: awake and alert Motor Exam: strength 5/5 throughout Psych mental status grossly normal Skin no rashes or lesions noted and no wounds MDM MDM MDM Narrative Medical decision making narrative: The patient presents with left-sided, pleuritic chest discomfort. He recently underwent orthopedic laparoscopic surgery. Musculoskeletal etiologies are in the differential, as well as possible gastrointestinal or cardiac causes. His initial EKG is normal. Two consecutive troponin measurements are normal, and his blood counts are also normal. His creatinine is slightly elevated at 1.31. His D-dimer is significantly elevated at 8.09. Clinically, the patient does not exhibit symptoms or findings suggestive of DVT, although he is at a slightly increased risk for PE given the recent surgery. He met criteria for a D-dimer test, which was abnormal. Consequently, he underwent a chest X-ray, showing some right-sided atelectasis but otherwise unremarkable findings, followed by CT angiography due to the elevated D-dimer. The CTA demonstrates bilateral pulmonary emboli, predominantly on the right side where he has symptoms, as well as some atelectasis. A radiologist confirmed the presence of pulmonary emboli, noted no radiographic signs of right heart strain, and suggested possible pneumonia. However, the patient has no symptoms consistent with pneumonia, and the radiologist indicated these findings more likely represent atelectasis, given his recent surgery and absence of pneumonia symptoms. Also his EKG shows no signs of heart strain. The patient was administered therapeutic Lovenox at 1 mg/kg. His PESI score is 80, indicating a low-risk mortality classification. He remains ambulatory in the emergency department without dyspnea, presyncope, or hypoxemia, and his vital signs are stable. He has no tachycardia, and two sequential single-digit troponin measurements are normal. Furthermore because of unusual delays in getting CT results, the patient was monitored in the ED for almost 7 hours, confirming his clinical and hemodynamic stability. Based on these findings, he meets criteria for outpatient management. He was started on Eliquis, obtained his prescription while awaiting discharge, and will begin taking the medication this morning. He was advised to stop clopidogrel for now but continue low-dose aspirin, and to follow up with his physician as an outpatient. Instructions regarding reasons to return to the emergency department were discussed, and he is in agreement with the plan. Pulmonary Embolism Severity Index (PESI) from [email or web address] on 01/05/2025 All calculations should be rechecked by clinician prior to use RESULT SUMMARY: 80 points Class II, Low Risk: 1.7-3.5% 30-day mortality in this group. INPUTS: Age ?> 69 years Sex ?> 10 = Male History of cancer ?> 0 = No History of heart failure ?> 0 = No History of chronic lung disease ?> 0 = No Heart rate >=10 ?> 0 = No Systolic BP <100 mmHg ?> 0 = No Respiratory rate >=0 ?> 0 = No Temperature <36?C/96.8?F ?> 0 = No Altered mental status (disorientation, lethargy, stupor, or coma) ?> 0 = No O2 saturation <90% ?> 0 = No Lab Data Attestation: I reviewed the patient's lab results. Labs: Laboratory Results - last 24 hr 01/05/25 01/05/25 01/05/25 00:20 00:32 02:16 WBC 9.9 RBC 4.90 Hgb 14.8 Hct 45.3 MCV 92.4 MCH 30.2 MCHC 32.7 RDW Std Deviation 43.8 RDW Coeff of Henri 12.9 Plt Count 162 MPV 11.5 Immature Gran % (Auto) 0.500 Neut % (Auto) 54.6 Lymph % (Auto) 29.5 Bent % (Auto) 12.6 H Eos % (Auto) 2.2 Baso % (Auto) 0.6 Absolute Neuts (auto) 5.4 Absolute Lymphs (auto) 2.91 Nucleated RBC % 0 D-Dimer Quant (PE/DVT) 8.09 H* Sodium 140 Potassium 3.6 Chloride 102 Carbon Dioxide 28.9 Anion Gap 9 BUN 19 Creatinine 1.31 H Estim Creat Clear Calc 57.59 Est GFR (MDRD) Non-Af 59 L BUN/Creatinine Ratio 14.7 Glucose 125 H Calcium 10.2 Troponin T High Sens 9 Troponin T Hi Sens 2 Hr 9 Radiography Diagnostic Testing: Clinical Impression(s) from Imaging Studies Chest X-Ray 01/05/25 00:50 IMPRESSION: Impression interstitial infiltrate at the right lung base that could be due to aspiration pneumonitis. Shallow lung volumes. Reading Location: [facility] Chest CTA 01/05/25 01:34 IMPRESSION: Filling defect in the main right lower lobar artery extending to the segmental arteries consistent with pulmonary embolism. Additional smaller emboli in the subsegmental arteries of right middle lobe. No evidence of right heart strain. Findings were discussed with Dr. Rutledge on 01/05/2025 6:31 a.m. Reading Location: [facility] Rhythm Strip Rhythm Strip: Sinus Rhythm Rate: 85 Ectopy: None EKG Initial EKG: Attestation: I personally reviewed and interpreted this EKG as follows: Interpretation: Sinus Rhythm and No Acute Injury Pattern Comments: Nml axis & intervals; nml EKG Discharge Plan Triage Chief Complaint: Chest Pain ED Provider: Paolo Rutledge Dx/Rx/DC Orders Clinical Impression: Bilateral pulmonary embolism, Left-sided chest pain, S/P arthroscopic surgery of right knee Instructions: Pulmonary Embolism Dc Prescriptions: New Eliquis DVT-PE Treat 30D Start 5 mg (74 tabs) tablets,dose pack See Rx Instructions .ROUTE .COMPLEX Qty: 74 0RF Rx Instructions: 10mg po BID x7d, then 5mg po bid Continued [id number]-donhzjcw-wrbipy Tablet 1 tab PO DAILY mesalamine 1.2 gram tablet,delayed release (DR/EC) 2.4 g PO DAILY aspirin 81 mg tablet,delayed release (DR/EC) 81 mg PO DAILY tamsulosin 0.4 MG capsule 0.4 mg PO DAILY Patient Comments: BPH ordered for BID but pt only takes daily folic acid 0.4 MG tablet 0.4 mg PO DAILY@0800 cholecalciferol (vitamin D3) 1,000 UNIT capsule 1,000 unit PO DAILY tadalafil 5 mg tablet 5 mg PO DAILY metoprolol tartrate 25 mg tablet 25 mg PO BID Qty: 180 3RF atorvastatin 40 mg tablet 40 mg PO QPM Qty: 90 3RF ramipril 2.5 mg capsule See Rx Instructions .ROUTE .COMPLEX Qty: 90 3RF Dose Instruction: TAKE 1 CAPSULE BY MOUTH EVERY DAY Rx Instructions: TAKE 1 CAPSULE BY MOUTH EVERY DAY Discontinued clopidogrel [Plavix] 75 mg tablet 75 mg PO QDAY Qty: 90 3RF Primary Care Provider: Jazmín Ambrocio Referrals: Jazmín Ambrocio MD [Primary Care Provider, Family Practice] - As soon as possible Print Language: Syriac Disposition Disposition: Home, Self Care Discharge Date/Time: 01/05/25 06:57
--- NOTE | 2025-01-05 00:50 | RAD_ITS ---
PROCEDURE: CHEST 1 VIEW (PORTABLE) 01/05/2025 REASON FOR EXAM: CHEST PAIN TECHNIQUE: Frontal view of the chest. FINDINGS: Hardware: There are EKG leads projected over the chest.. Heart: The heart size is normal. Lungs: The lung volumes are shallow. There is a slight interstitial infiltrate throughout the right lung base. Bones: The bones are unremarkable. RAD/Chest 1 View (Portable) IMPRESSION: Impression interstitial infiltrate at the right lung base that could be due to aspiration pneumonitis. Shallow lung volumes. Reading Location: [id number]
[2025-01-05 00:57] LABS: Hematocrit 45.3 % (40-54); Hemoglobin 14.8 g/dL (13.0-16.5); Immature Granulocytes Count 0.050 X10^3/uL (0.0-0.0); Mean Corp Hgb Conc 32.7 g/dL (32-36); Mean Corpuscular Volume 92.4 fL (80-94); Mean Platelet Vol. 11.5 fl (6.2-12.0); NRBC Flagged by Analyzer 0 % (0-5); Platelet Count 162 K/mm3 (150-450); RBC Distribution Width CV 12.9 % (11.6-14.6); RBC Distribution Width SD 43.8 fl (35.1-43.9); Red Blood Count 4.90 M/mm3 (4.6-6.2); White Blood Count 9.9 K/mm3 (4.4-11.0)
--- OUTSIDE RECORDS SUMMARY | 2025-01-05 01:01 | XMS RPT_ITS | CCD ---
Author Organization [facility] Inform ion Partnership [facility] Care Team Providers Care Loader Operator Name Role Phone Mary Lou Holloway RN Unavailable Unavailable Jolliff, Shirlene Zacarias Primary Care Provider [phone] Jolliff, Shirlene Zacarias Primary Care Provider Jolliff, Shirlene Zacarias Primary Care Provider Joinge, Shirlene Zacarias Primary Care Provider [phone] Sofía VILLALTA, Denzel Beauchamp Unavailable Jolliff, Shirlene S Primary Care Unavailable Horn, Jamila Attending Unavailable Horn, Jamila Referring Unavailable Shankel, Oksana Attending Unavailable Shankel, Oksana Referring Unavailable Jolliff, Shirlene S Primary Care Unavailable Jolliff, Shirlene S Primary Care Unavailable Jolliff, Shirlene S Attending Unavailable Jolliff, Shirlene S Primary Care Unavailable Jolliff, Shirlene S Attending Unavailable Jolliff, Shirlene S Referring Unavailable Roof HAND BOOKED FOLDER AND STITCHER, Hill H Referring Unavailable Jolliff, Shirlene S Primary Care Unavailable Roof HAND BOOKED FOLDER AND STITCHER, Hill H Attending Unavailable Castro HAND BOOKED FOLDER AND STITCHER, Ann Attending Unavailable Jolliff, Shirlene S Primary Care Unavailable Jolliff, Shirlene S Referring Unavailable Horn, Jamila Attending Unavailable Horn, Jamila Referring Unavailable Jolliff, Shirlene S Primary Care Unavailable Jolliff, Shirlene S Primary Care Unavailable Horn, Jamila Attending Unavailable Horn, Jamila Referring Unavailable JOLLIFF, SHIRLENE ZACARIAS Primary Care Unavailable PROVIDER, UNKNOWN Referring Unavailable Aneesh VILLALTA, Jazmín Primary Care Provider SHAHRIAR BARROS Admitting Unavailable SHAHRIAR BARROS Attending Unavailable JAZMÍN MELENDREZ Primary Care Unavailable JOLLIFF, SHIRLENE ZACARIAS Primary Care Unavailable MARGUERITE PEREYRA Referring Unavailable MARGUERITE PEREYRA Attending Unavailable JOLLIFF, SHIRLENE ZACARIAS Primary Care Unavailable PEREYRA, SHAILEY Referring Unavailable JOLLIFF, SHIRLENE ZACARIAS Primary Care Unavailable SOFÍA, DENZEL BEAUCHAMP Referring Unavailable JOLLIFF, SHIRLENE ZACARIAS Primary Care Unavailable SOFÍA, DENZEL BEAUCHAMP Attending Unavailable JOLLIFF, SHIRLENE ZACARIAS Primary Care Unavailable JOLLIFF, SHIRLENE ZACARIAS Referring Unavailable NEO GROSS Attending Unavailabl e JOLLIFF, SHIRLENE ZACARIAS Primary Care Unavailable SOFÍA, YUNGRAB JASBIR Referring Unavailable ZANE BANKS Attending Unavailable ANEESH, CHALON Primary Care Unavailable SHAHRIAR BARROS Referring Unavailable MONSTER DOBBS Attending Unavailable ANEESH, CHALON Primary Care Unavailable MARGUERITE PEREYRA Referring Unavailable JOLLIFF, SHIRLENE ZACARIAS Primary Care Unavailable REYNA CHARLES Attending Unavailable DERICK SHI Attending Unavailable JOLLIFF, SHIRLENE ZACARIAS Primary Care Unavailable ANEESH, CHALON Primary Care Unavailable DERICK SHI Referring Unavailable ANEESH, CHALON Primary Care Unavailable SHAHRIAR BARROS Referring Unavailable JOLLIFF, SHIRLENE ZACARIAS Primary Care Unavailable SELF Referring Unavailable SHAHRIAR BARROS Attending Unavailable JOLLIFF, SHIRLENE ZACARIAS Primary Care Unavailable ROBERTALILLIAN Referring Unavailable ROBERTALILLIAN Estrella Attending Unavailable ANEESH, CHALON Primary Care Unavailable SHAHRIAR BARROS Attending Unavailable ANEESH, CHALON Primary Care Unavailable MARGUERITE PEREYRA Attending Unavailable ANEESH, CHALON Primary Care Unavailable NEO GROSS Attending Unavailabl e ANEESH, CHALON Primary Care Unavailable SHAHRIAR BARROS Referring Unavailable ANEESH, CHALON Primary Care Unavailable REYNA CHARLES Attending Unavailable Allergies Allergy Classification Reported Allergen(s) Allergy Type Date of Onset Reaction(s) Facility (1 source) atorvastatin Drug Allergy 08-11-2016 severe myalgias [facility] Work Phone: [phone] (5 sources) rosuvastatin; Translations: [ROSUVASTATIN] Drug Allergy 08-11-2016 OK with name brand Crestor, generic causes myalgias, myalgias [facility] Work Phone: [phone] (1 source) NKA drug allergy 10-23-2012 [facility] Work Phone: [phone] Medications Current Medications Medication Drug Class(es) Dates Sig (Normalized) Sig (Original) atorvastatin 40 mg oral tablet (20 sources) HMG-CoA Reductase Inhibitor Start: 04-12-2018 End: 03-18-2024 take 40 mg by mouth once daily in the evening Atorvastatin Active 40 MG PO EVERY EVENING June 20, 2022 9:43am Comment on above: Take 40 mg by mouth once daily. benzoyl peroxide 100 mg/ml medicated liquid soap (20 sources) Start: 05-14-2024 Benzoyl Peroxide 10 % external wash Indications: Folliculitis Use to wash buttocks once daily. Rinse well. 227 mL 3 05/14/2024 Active Start: 02-14-2023 Benzoyl Peroxi de 10 % external wash Indications: Folliculitis Use to wash buttocks once daily. Rinse well. 227 mL 3 02/14/2023 Active Start: 04-27-2022 End: 02-11-2023 Benzoyl Peroxide 10 % enforcement officer al wash Indications: Folliculitis Use to wash buttocks once daily. Rinse well. 227 mL 3 04/27/2022 02/11/2023 Discontinued Comment on above: Use to wash buttocks once daily. Rinse well. cholecalciferol 0.025 mg oral capsule (20 sources) Vitamin D Start: 12-01-19 take 1000 [IU] by mouth once daily Cholecalciferol (Vitamin D3) Active 1000 UNIT PO DAILY November 30, 2016 12:00am take 1 tablet by mouth once stiven y cholecalciferol (VITAMIN D3) 1,000 unit tab tablet Take 1,000 Units by mouth once daily. Active Comment on above: Take 1,000 Units by mouth once daily. clindamycin 0.01 mg/mg topical gel (20 sources) Lincosamide Antibacterial Start: 03-02-2023 End: 01-30-2024 clindamycin (CLEOCIN-T) 1 % gel Apply thin layer to buttocks once daily. 30 g 3 01/30/2024 Active Start: 04-27-2022 End: 04-27-2022 Clindamycin Phosphate 1 % In dications: Folliculitis Apply to buttocks once daily. 69 Each 3 04/27/2022 04/27/2022 Discontinued Start: 04-27-2022 clindamycin (C LEOCIN-T) 1 % gel Apply thin layer to buttocks once daily. 30 g 3 04/27/2022 Active Comment on above: Apply to buttocks on ce daily. Apply thin layer to buttocks once daily. clopidogrel 75 mg oral tablet (20 sources) P2Y12 Platelet Inhibitor Start: 05-05-2020 End: 04-23-2025 take 1 tablet by mouth once daily clopidogrel (PLAVIX) 75 mg tablet Take 1 tablet by mouth once daily. 90 tablet 3 04/23/2024 04/23/2025 Active Start: 05-05-2020 End: 05-06-2021 take 2 tablets by mouth once daily Clopidogrel (Plavix) 75 mg tablet Discontinued 75 MG PO daily May 05, 2020 12:00am May 06, 2021 3:46pm 300mg on day 1 and then 75mg PO daily on day two diclofenac sodium 0.01 mg/mg topical gel (8 sources) Nonsteroidal Anti-inflammatory Drug Start: 09-21-2024 apply 2 g topically four times daily diclofenac (VOLTAREN) 1 % topical gel Apply 2 g to affected area four times daily. 20 g 09/21/2024 Active folic acid 0.4 mg oral tablet (20 sources) Start: 11-30-2016 take 0.4 mg by mouth once daily Folic Acid Active 0.4 MG PO DAILY@0800 November 30, 2016 12:00am Start: 04-25-2013 End: 12-22-2016 take 1 tablet by mouth once daily FOLIC ACID 400 MCG TABS One tablet by mouth daily FOLIC ACID [id number] Mary Lou Holloway RN Start: 11-05-2004 End: 10-23-2012 take 1 tablet by mouth once daily FOLIC ACID 1 MG TABS One tablet by mouth daily FOLIC ACID [id number] Bing Talley Comment on above: Take 400 mcg by mout h once daily. mesalamine 1200 mg delayed release oral tablet (20 sources) Aminosalicylate Start: 11-27-19 End: 10-24-19 take 2 tablets by mouth once daily at breakfast Mesalamine (LIALDA) 1.2 gram EC tablet Take 2 tablets by mouth daily with breakfast. 180 tablet 3 10/24/2023 Active Start: 01-01-2019 take 2.4 g by mouth once daily Mesalamine Active 2.4 GM PO DAILY January 01, 2019 1:00am Comment on above: Take 2 tablets by mo uth daily with breakfast. metoprolol tartrate 25 mg oral tablet (20 sources) beta-Adrenergic Audrey Start: 02-18-2024 End: 05-22-2024 take 1 tablet by mouth twice daily metoprolol tartrate, short acting, (LOPRESSOR) 25 mg tablet Take 1 tablet by mouth two times a day. 180 tablet 4 05/22/2024 Active Start: 05-15-2018 End: 05-25-2022 take 25 mg by mouth twice daily Metoprolol Tartrate Active 25 MG PO TWICE A DAY 180 May 25, 2022 9:35am Start: 12-21-2017 End: 05-15-2018 take 25 mg by mouth twice daily Metoprolol Tartrate Discontinued 25 MG PO TWICE A DAY 180 May 15, 2018 8:21am May 15, 2018 8:34am Start: 05-16-2017 End: 12-21-2017 take 50 mg by mouth twice daily Metoprolol Tartrate Discontinued 50 MG PO TWICE A DAY 180 May 16, 2017 4:39pm December 21, 2017 4:26pm Dose changed Start: 01-02-2015 End: 05-16-2017 take 25 mg by mouth twice daily Metoprolol Tartrate Discontinued 25 MG PO TWICE A DAY 180 May 15, 2017 1:30pm May 16, 2017 4:39pm Dose changed Start: 04-14-2005 METOPROLOL 50 MG TAB 1/2 tab twice daily 0 04/14/2005 Active Comment on above: 1/2 tab twice daily MULTIVITAMIN TAB (20 sources) Start: 03-23-2009 MULTIVITAMIN TAB Take one(1) tablet daily. 0 03/23/2009 Active Comment on above: Take one(1) tablet d aily. Multivitamin-Minerals- Lutein (2 sources) Start: 01-01-2019 take 1 tablet by mouth once daily Multivitamin-Minerals -Lutein Active 1 TABLET PO DAILY January 01, 2019 1:00am Start: 01-01-2019 [facility] Gcdsowxykaib-Zifnhzmx-Tyslte Active 1 TA BLET PO DAILY January 01, 2019 12:00am mupirocin 0.02 mg/mg topical ointment (20 sources) RNA Synthetase Inhibitor Antibacterial Start: 11-01-2023 mupirocin (BACTROBAN) 2 % ointment Indications: Folliculitis Apply to open areas twice daily until healed 30 g 2 11/01/2023 Active ramipril 2.5 mg oral capsule (20 sources) Angiotensin Converting Enzyme Inhibitor Start: 03-23-2009 End: 04-11-2022 ramipril(ALTACE 2.5 MG CAP) Take one(1) capsule daily. 0 03/23/2009 Active Comment on above: Take one(1) capsule daily. rosuvastatin calcium 40 mg oral tablet (20 sources) HMG-CoA Reductase Inhibitor Start: 03-23-2009 End: 03-18-2024 take 1 tablet by mouth once daily rosuvastatin (CRESTOR) 40 mg tablet Take 1 tablet by mouth once daily. 90 tablet 3 03/18/2024 Active Comment on above: one tablet daily Take by mouth. tadalafil 5 mg oral tablet (11 sources) Phosphodiesterase 5 Inhibitor Start: 05-22-2024 take 1 tablet by mouth once daily Tadalafil (CIALIS) 5 mg tablet Indications: Benign prostatic hyperplasia with urinary hesitancy Take 1 tablet by mouth once daily. 30 tablet 5 05/22/2024 Active tamsulosin hydrochloride 0.4 mg oral capsule (20 sources) alpha-Adrenergic Audrey Start: 10-19-2023 tamsulosin (FLOMAX) 0.4 mg Take one a day 90 capsule 3 10/19/2023 Active Start: 07-11-2011 End: 10-19-2023 take 1 tablet by mouth twice daily FLOMAX 0.4 MG CAPS One tablet by mouth twice daily TAMSULOSIN HCL [id number] Jony Alexander MD Start: 09-23-2010 take 0.4 mg by mouth once stiven y Tamsulosin Active 0.4 MG PO DAILY January 02, 2015 1:00am Comment on above: Take 0.4 mg by mouth twice daily. 0.5 ml ustekinumab 90 mg/ml prefilled syringe (20 sources) Interleukin-12 Antagonist, Interleukin-23 Antagonist Start: 10-17-2023 ustekinumab (STELARA) 45 mg/0.5 mL sub-Q syringe Inject 45mg (1 syringe) subcutaneously on week 0, and week 4, then every 12 weeks thereafter 1.5 mL 1 10/17/2023 Active Start: 10-17-2023 Ustekinumab (S TELARA) 45 mg/0.5 mL soln Inject 45mg (1 syringe) subcutaneously on week 0, and week 4, then every 12 weeks thereafter 1.5 mL 1 10/17/2023 Active Completed/Discontinued Medications Medication Drug Class(es) Dates Sig (Normalized) Sig (Original) acetylcysteine 600 mg oral capsule (16 sources) Antidote, Mucolytic, Antidote for Acetaminophen Overdose Start: 01-31-2023 End: 12-04-2023 take 1 capsule by mouth twice daily acetylcysteine (NAC) 600 mg capsule Indications: Folliculitis Take 1 capsule by mouth two times a day. 180 capsule 3 01/31/2023 12/04/2023 Discontinued (Course of therapy completed) 0.4 ml adalimumab 100 mg/ml auto-injector (20 sources) Tumor Necrosis Factor Audrey Start: 05-12-2022 End: 12-20-2023 adalimumab (HUMIRA,CF, PEN) 40 mg/0.4 mL pen kit Inject 40mg (1 pen) subcutaneously every 2 weeks. 12 Each 3 05/12/2022 12/20/2023 Discontinued Comment on above: Inject 40mg (1 pen) subcutaneously every 2 weeks. aminolevulinate 200 mg/ml topical solution (3 sources) Start: 12-19-2023 End: 12-19-2023 aminolevulinic acid (LEVULAN) 20% topical solution Start: 12-19-2023 End: 12-19-2023 2 Each, TOPICAL, ONCE, 1 dos e, On Mon12/19/23 at 1530 Start: 06-22-2022 End: 06-22-2022 Aminolevulinic Acid HCl 20 % soln 1 Each aspirin 81 mg delayed release oral tablet (20 sources) Nonsteroidal Anti-inflammatory Drug Start: 01-02-2015 End: 09-01-2017 take 81 mg by mouth once daily Aspirin Discontinued 81 MG PO DAILY@0800 January 02, 2015 1:00am September 01, 2017 12:19pm Start: 11-22-2000 End: 10-17-2023 take 1 tablet by mouth once daily Aspirin Discontinued 0 .ROUTE .COMPLEX 90 August 27, 2018 12:07pm January 01, 2019 2:11pm TAKE 1 TABLET BY MOUTH EVERY DAY Start: 11-22-2000 take 1 tablet by janki once daily ASPIRIN 325 MG TABS One tablet by mouth daily ASPIRIN [id number] Bing Talley Start: 11-22-2000 take 1 tablet by janki th once daily ASPIRIN 81 MG TABS One tablet by mouth daily ASPIRIN [id number] Anthony Mujica MD Comment on above: Take 81 mg by mouth once daily. balsalazide disodium 750 mg oral capsule (2 sources) Aminosalicylate Start: 12-01-19 17 End: 01-02-20 19 take 3 capsules by mouth three times daily Balsalazide Discontinued 3 CAP PO THREE TIMES A DAY November 30, 2016 12:00am January 01, 2019 2:09pm doxycycline hyclate 20 mg oral tablet (5 sources) Tetracycline-class Drug Start: 04-26-19 14 End: 12-23-19 17 take 20 mg by mouth twice daily Doxycycline Hyclate Discontinued 20 MG PO TWICE A DAY January 02, 2015 1:00am January 03, 2015 1:51pm fish oil (2 sources) Start: 05-30-19 10 take 1 tablet by mouth once daily FISH OIL CAPS One tablet by mouth daily OMEGA-3 FATTY ACIDS CAPS [id number] Bing Talley Start: 05-29-2009 End: 10-23-2012 take 1 tablet by mouth once daily FISH OIL CAPS One tablet by mouth daily OMEGA-3 FATTY ACIDS CAPS [id number] Anthony Mujica MD L.Acidoph, Paracasei,B. Lact is (2 sources) Start: 11-30-2016 End: 01-01-2019 L.Acidoph, Paracasei,B. Lact is Discontinued 1 EACH PO DAILY November 30, 2016 12:00am January 01, 2019 2:09pm Start: 11-30-2016 End: 01-01-2019 L.Acidoph, Paracasei,B. Lact is Discontinued 1 EACH PO DAILY November 29, 2016 11:00pm January 01, 2019 1:09pm metroNIDAZOLE 500 mg oral tablet (2 sources) Nitroimidazole Antimicrobial Start: 11-30-2016 End: 12-21-2017 take 500 mg by mouth three times daily Metronidazole Discontinued 500 MG PO THREE TIMES A DAY November 30, 2016 12:00am December 21, 2017 4:25pm morphine sulfate 15 mg oral tablet (2 sources) Opioid Agonist Start: 11-30-2016 End: 12-21-2017 take 15 mg by mouth every four hours as needed Morphine Discontinued 15 MG PO EVERY 4 HOURS NEEDED November 30, 2016 12:00am December 21, 2017 4:25pm MULTIPLE VITAMIN (1 source) Start: 03-08-2002 take 1 tablet by mouth once daily MULTIVITAMINS TABS One tablet by mouth daily MULTIPLE VITAMIN [id number] Bing Talley 24 hr niacin 1000 mg extended release oral tablet (2 sources) Nicotinic Acid Start: 04-29-2010 End: 10-23-2012 take 1 tablet by mouth once daily NIASPAN 1000 MG CR-TABS One tablet by mouth daily NIACIN (ANTIHYPERLIPIDEMI C) [id number] Anthony Mujica MD 24 hr nitroglycerin 0.2 mg/hr transdermal system (3 sources) Nitrate Vasodilator Start: 03-29-2012 End: 10-23-2012 NITRO-DUR 0.2 MG/HR PT24 on every morning off qhs NITROGLYCERIN [id number] Jony Alexander MD Start: 03-22-2007 NITROSTAT 0.4 MG SUBL 1 tablet under tongue every 5 min up to 3 X NITROGLYCERIN [id number] Bing Talley Pediatric Gucacpvl-Pykg-Ybx (2 sources) Start: 11-30-2016 End: 12-21-2017 Pediatric Bjueqjmn-Uekx-Qia Discontinued 1 EACH PO DAILY November 30, 2016 12:00am December 21, 2017 4:25pm Start: 11-30-2016 End: 12-21-2017 Pediatric Aoumtmjc-Akvc-Owh Discontinued 1 EACH PO DAILY November 29, 2016 11:00pm December 21, 2017 3:25pm predniSONE 10 mg oral tablet (14 sources) Corticosteroid Start: 04-27-2022 End: 08-16-2022 take 3 tablets by mouth once daily predniSONE (DELTASONE) 10 mg tablet Take 3 tablets by mouth once daily. 15 tablet 04/27/2022 08/16/2022 Discontinued Start: 12-22-2016 PREDNISONE 5 M G TABS take as directed in a tapering dose for ulcerative colits PREDNISONE [id number] Mary Lou Holloway RN Comment on above: Take 3 tablets by [facility] once daily. PROBIOTIC PRODUCT (1 source) Start: take 1 tablet by mouth once daily [facility] PROBIOTIC CAPS One tablet by mouth daily PROBIOTIC PRODUCT [id number] Jony Alexander MD ticagrelor 90 mg oral tablet (2 sources) Start: End: take 90 mg by mouth twice daily Ticagrelor Discontinued 90 MG PO TWICE A DAY 120 April 14, 2020 1:00am May 05, 2020 3:55pm tretinoin 0.25 mg/ml topical cream (3 sources) Retinoid Start: 023 End: 024 tretinoin (RETIN-A) 0.025 % topical cream Indications: Folliculitis Apply pea-sized amount to entire face once nightly. Begin 2 times weekly and and gradually increase frequency to nightly as tolerated. 45 g 2 01/31/2023 10/17/2023 Discontinued triamcinolone acetonide 1 mg/ml topical cream (20 sources) Corticosteroid Start: 023 End: 024 triamcinolone acetonide (KENALOG) 0.1 % cream Indications: Psoriasis vulgaris Apply to psoriasis twice daily for 2 weeks, then 3 times weekly as needed for maintenance. 45 g 1 04/27/2022 12/04/2023 Discontinued (Course of therapy completed) Comment on above: Apply to psoriasis t wice daily for 2 weeks, then 3 times weekly as needed for maintenance. verapamil hydrochloride 180 mg oral capsule (2 sources) Calcium Channel Audrey Start: 009 End: take 1 tablet by mouth once daily VERAPAMIL HCL ER 180 MG CR-TABS One tablet by mouth daily VERAPAMIL HCL [id number] Bing Talley vitamin d 1000 unt oral tablet (1 source) Start: take 1 tablet by mouth once daily VITAMIN D 1000 UNIT TABS One tablet by mouth daily CHOLECALCIFEROL [id number] Jony Alexander MD Problems Active Problems Problem Classification Problem Date Documented Da te Episodic/Chronic Cardiac dysrhythmias (1 source) Paroxysmal supraventricular tachycardia; Translations: [Supraventricular tachycardia] Onset: 6 11-12-2015 Chronic Chronic ulcer of skin (20 sources) Chronic ulcer of skin; Translations: [Non-pressure chronic ulcer of skin of other sites with unspecified severity] Onset: 2 03-08-2011 Chronic Conditions associated with dizziness or vertigo (2 sources) Lightheadedness; Translations: [Dizziness and giddiness] 04-09-2020 Episodic Coronary atherosclerosis and other heart disease (20 sources) Coronary arteriosclerosis; Translations: [Atherosclerotic heart disease of [place] coronary artery without angina pectoris] Onset: 6 Resolved: 6 11-12-2015 Chronic Disorders of lipid metabolism (5 sources) Hyperlipidemia; Translations: [Hyperlipidemia, unspecified] Onset: 1 04-29-2010 Chronic Essential hypertension (20 sources) Essential hypertension; Translations: [Essential (primary) hypertension] Onset: 4 04-13-2020 Chronic Genitourinary symptoms and ill-defined conditions (1 source) Hesitancy of micturition; Translations: [Benign prostatic hyperplasia with urinary hesitancy] Onset: 5 Episodic Hyperplasia of prostate (3 sources) Benign prostatic hyperplasia; Translations: [Benign prostatic hyperplasia with lower urinary tract symptoms] Onset: 5 05-22-2024 Chronic Joint disorders and dislocations; trauma-related (4 sources) Acute tear of lateral meniscus of right knee; Translations: [Other tear of lateral meniscus, current injury, right knee, subsequent encounter] Onset: 5 10-16-2024 Episodic Occlusion or stenosis of precerebral arteries (1 source) Occlusion and stenosis of left carotid artery; Translations: [Stenosis of left carotid artery] Onset: 5 Chronic Osteoarthritis (2 sources) Osteoarthritis of right knee joint; Translations: [Unilateral primary osteoarthritis, right knee] Onset: 5 10-01-2024 Chronic Other aftercare (4 sources) Long-term current use of immunosuppressive drug; Translations: [Long-term use of immunosuppressant medication] Episodic Other and unspecified benign neoplasm (1 source) Melanocytic nevi, unspecified; Translations: [Multiple benign nevi] Onset: 5 Episodic Other and unspecified benign neoplasm (1 source) Hemangioma of skin and subcutaneous tissue; Translations: [Estrada angioma] Onset: 5 Episodic Other circulatory disease (1 source) Carotid bruit; Translations: [Other specified symptoms and signs involving the circulatory and respiratory systems] 03-18-2024 Episodic Other connective tissue disease (2 sources) Plantar fasciitis of left foot; Translations: [Plantar fascial fibromatosis] 10-17-2023 Episodic Other connective tissue disease (3 sources) Pain of right calf; Translations: [Pain in right lower leg] 10-01-2024 Episodic Other gastrointestinal disorders (1 source) Irritable bowel syndrome with diarrhea; Translations: [Irritable bowel syndrome with diarrhea] 10-03-2024 Chronic Other gastrointestinal disorders (1 source) Irritable bowel syndrome with diarrhea; Translations: [Irritable bowel syndrome with diarrhea] Onset: 5 Chronic Other gastrointestinal disorders (1 source) Enteropathic arthritis; Translations: [Disease of intestine, unspecified] 10-13-2022 Episodic Other inflammatory condition of skin (5 sources) Psoriasis vulgaris; Translations: [Psoriasis vulgaris] Chronic Other inflammatory condition of skin (8 sources) Psoriatic arthritis; Translations: [Arthropathic psoriasis, unspecified] Onset: 5 10-01-2024 Chronic Other inflammatory condition of skin (1 source) Psoriasis vulgaris; Translations: [Psoriasis vulgaris] Onset: 5 Chronic Other inflammatory condition of skin (1 source) Arthropathic psoriasis, unspecified; Translations: [Psoriatic arthritis (HCC)] Onset: 5 Chronic Other male genital disorders (20 sources) Induratio penis plastica; Translations: [Induration penis plastica] Onset: 0 03-23-2009 Chronic Other male genital disorders (2 sources) Male erectile dysfunction, unspecified; Translations: [Impotence of organic origin] Onset: 5 05-22-2024 Chronic Other male genital disorders (1 source) Induration penis plastica; 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] Onset: 0 Chronic Other nervous system disorders (2 sources) Paresthesia; Translations: [Paresthesia of skin] 04-09-2020 Episodic Other non-traumatic joint disorders (3 sources) Multiple joint pain; Translations: [Pain in unspecified joint] Episodic Other non-traumatic joint disorders (2 sources) Pain in wrist; Translations: [Pain in left wrist] 09-07-2022 Episodic Other screening for suspected conditions (not mental disorders or infectious disease) (3 sources) Patient encounter status; Translations: [Encounter for screening for other disorder] Onset: 5 05-22-2024 Episodic Other skin disorders (5 sources) Actinic keratosis; Translations: [Actinic keratosis] Episodic Other skin disorders (3 sources) Folliculitis; Translations: [Follicular disorder, unspecified] Episodic Other skin disorders (1 source) Seborrheic keratosis; Translations: [Other seborrheic keratosis] 11-01-2023 Episodic Other skin disorders (1 source) Actinic keratosis; Translations: [Actinic keratosis] Onset: 5 Episodic Other skin disorders (1 source) Follicular disorder, unspecified; Translations: [Folliculitis] Onset: 5 Episodic Other skin disorders (1 source) Other seborrheic keratosis; Translations: [Seborrheic keratosis] Onset: 5 Episodic Other skin disorders (1 source) Other melanin hyperpigmentation; Translations: [Lentigines] Onset: 5 Episodic Regional enteritis and ulcerative colitis (20 sources) Ulcerative pancolitis; Translations: [Ulcerative (chronic) pancolitis with rectal bleeding] Onset: 7 12-08-2016 Chronic Residual codes; unclassified (1 source) Other specified postprocedural states; Translations: [S/P right knee arthroscopy] Onset: 5 Episodic Spondylosis; intervertebral disc disorders; other back problems (8 sources) Disorder of joint of spine; Translations: [Spondylosis without myelopathy or radiculopathy, site unspecified] Onset: 5 Chronic Unclassified (1 source) Body mass index (BMI) 30.0-30.9, adult; Translations: [Body mass index (BMI) 30.0-30.9, adult] Onset: 3 10-23-2012 Chronic Unclassified (1 source) Placement of stent in coronary artery ; Translations: [Presence of coronary angioplasty implant and graft] Onset: 1 11-12-2015 Unclassified (1 source) Long-term drug therapy; Translations: [Other floatlight powder mixer (current) drug therapy] Onset: 1 04-29-2010 Unclassified (1 source) Acute tear of lateral meniscus of right knee 10-16-2024 Unclassified (1 source) Long-term use of immunosuppressant medication; Translations: [Long-term use of immunosuppressant medication] Onset: Past or Other Problems Problem Classification Problem Date Documented Date Episodic/Chronic Coronary atherosclerosis and other heart disease (20 sources) History of myocardial infarction; Translations: [Coronary angioplasty status] Onset: 04-29-2010 04-29-2010 Episodic Lymphadenitis (5 sources) Enlarged lymph nodes, unspecified; Translations: [Anterior cervical lymphadenopathy] Onset: 04-24-2024 06-08-2024 Episodic Noninfectious gastroenteritis (4 sources) Inflammatory bowel disease; Translations: [Noninfective gastroenteritis and colitis, unspecified] Onset: 10-03-2024 Episodic Nonspecific chest pain (2 sources) Chest pain, unspecified; Translations: [Chest pain, unspecified] Onset: 04-29-2010 Resolved: 11-11-2014 11-11-2014 Episodic Nutritional deficiencies (20 sources) Malnutrition (calorie); Translations: [Moderate protein-calorie malnutrition] Onset: 12-06-2016 Resolved: 08-24-2017 08-24-2017 Chronic Other circulatory disease (1 source) Other specified symptoms and signs involving the circulatory and respiratory systems; Translations: [Carotid bruit, unspecified laterality] Onset: 04-05-2024 Episodic Other connective tissue disease (20 sources) Iliotibial band friction syndrome of right knee; Translations: [Iliotibial band syndrome, right leg] Onset: 11-21-2023 10-17-2023 Episodic Other connective tissue disease (2 sources) Plantar fascial fibromatosis; Translations: [Plantar fascial fibromatosis] Onset: 09-13-2023 Episodic Other connective tissue disease (2 sources) Pain in right lower leg; Translations: [Right calf pain] Onset: 10-01-2024 Episodic Other connective tissue disease (1 source) Iliotibial band syndrome, right leg; Translations: [Iliotibial band syndrome of right side] Onset: 11-21-2023 Episodic Other diseases of kidney and ureters (20 sources) Abnormal renal function; Translations: [Disorder of kidney and ureter, unspecified] Onset: 10-19-2023 10-19-2023 Episodic Other non-traumatic joint disorders (5 sources) Pain in right knee; Translations: [Pain in joint, lower leg] Onset: 09-21-2024 09-21-2024 Episodic Unclassified (4 sources) Acute pain of right knee 09-21-2024 Results Test Name Value Interpretation Reference Range Facility [id number] 01-01-2025 [id number] HNO ID: [id number] Author: MONSTER DOBBS PT Service: ? Author Type: Physical Therapist Type: [id number] Filed: 01/01/2025 12:08 Note Text: [facility] Physical Therapy Plan of Care Certification Patient Name: Roberto José : 1955 F #: [id number] Date: 01/01/2025 To: Shahriar Barros MD From Therapist: Monster Dobbs PT RE: Patient Certification/ Recertification Your review, approval and electronic signature are required in order to comply with Payor: MEDICARE / Plan: MEDICARE A AND B / Product Type: Medicare / regulations. The identified Physical Therapy PLAN OF CARE for the patient is as follows: S83.281D Acute lateral meniscus tear of right knee, subsequent encounter (primary encounter diagnosis) PLAN OF CARE: Assessment: Roberto José presents 5 days s/p arthroscopic meniscectomy of the R Knee that interferes with running, physical activities, recreational activities, stair negotiation, heavy exertion (Jogging.) . The patient presents with impairments in ADL's, gait, range of motion, soft tissue healing, strength, and symptom management. PROMIS? (Patient-Reported Outcomes Measurement Information System) scores were reviewed and identified as within normal limits. Prognosis for therapy is Excellent due to: current objective clinical presentation, good overall health status, acuteness of condition . The patient will benefit from skilled therapy services to meet the goals established for this plan of care as noted below. Goals for Episode of Care: established 01/01/25 [place] in home exercise program. Patient will decrease pain to 0-1/10 with functional activities to allow patient to improve ambulation and standing tolerance for ADLs. Patient will increase active ROM of R Knee to equal to the unaffected to allow pt to to improve performance of ADLs and to improve gait mechanics / gait pattern . Patient will demonstrate increase in RLE strength to 4+/5 during manual muscle testing in order to improve function for leisure / recreation skills and prior functional tasks. Normal Gait 20 R SLR without pain or lag. Time Frame for Goals and Treatment : 01/29/25 Planned Interventions, Frequency, and Duration: Current Frequency: 1 visit Duration: 1 visit Total Number of Visits Planned: 1 Planned Treatment Interventions: Therapeutic exercise (22757), Neuromuscular re-education (43092), Manual therapy (30729), Therapeutic activities (15003), Self-custodial management (99962), Patient/Family/Caregiv er Education, Gait Training (61449) PLAN FOR NEXT VISIT: Patient doing very well - will recheck in two weeks and progress his exercises. Patient demonstrates good understanding of plan of care and treatment. The above goals and plan of care were discussed and agreed upon by patient/family. For further details regarding this patient refer to the Physical Therapy electronically documented visit dated 01/01/2025. Provider Attestation I have reviewed the treatment plan for Roberto José, CCF# [id number] for the period of 01/01/25 -- 01/24/25, established on 01/01/2025. Signature certifies the need for therapy services. Normal [facility] CNTHERAPYon 01-01-2025 CNTHERAPY OT/PT/Speech Visit (PTWS) ROBERTO JOSÉ ([id number]) 1955 Juliann ZEPEDA Date Time Provider Department 01/01/25 10:45 AM MONSTER DOBBS PTWS Date Time Provider Department Center 01/01/2025 10:45 AM [id number], COLIN PTWS Lyndsey Tran Reason for Visit: PT Eval [147] Primary Visit Diagnosis:Acute lateral meniscus tear of right knee, subsequent encounter [T81.550K] Allergies As of Date: 01/01/2025 (No Known Allergies) Date Reviewed: 12/27/2024 Reviewed by: Graciela Shaver RN - Fully Assessed Prescriptions as of 01/01/2025 - oxyCODONE IR (ROXICODONE) 5 mg immediate release tablet Take 1 tablet by mouth every 6 hours as needed for pain for up to 7 days. - pantoprazole DR (PROTONIX) 20 mg tablet Take 1 tablet by mouth once daily for 14 days. - docusate sodium (COLACE) 100 mg capsule Take 1 capsule by mouth two times a day. - acetaminophen (TYLENOL EXTRA STRENGTH) 500 mg tablet Take 2 tablets by mouth every 8 hours as needed for pain for up to 7 days. - Tadalafil (CIALIS) 5 mg tablet Take 1 tablet by mouth once daily. - clindamycin (CLEOCIN-T) 1 % gel Apply thin layer to buttocks once daily. - triamcinolone acetonide (KENALOG) 0.1 % cream Apply to affected areas twice daily for 2 weeks then use as needed for flares. Avoid face, armpits, and groin. - ustekinumab (STELARA) 45 mg/0.5 mL syringe Inject 45mg (1 syringe) subcutaneously on week 0, and week 4, then every 12 weeks thereafter - Mesalamine (LIALDA) 1.2 gram EC tablet Take 2 tablets by mouth daily with breakfast. - diclofenac (VOLTAREN) 1 % topical gel Apply 2 g to affected area four times daily. - metoprolol tartrate, short acting, (LOPRESSOR) 25 mg tablet Take 1 tablet by mouth two times a day. - Benzoyl Peroxide 10 % external wash Use to wash buttocks once daily. Rinse well. - clopidogrel (PLAVIX) 75 mg tablet Take 1 tablet by mouth once daily. - rosuvastatin (CRESTOR) 40 mg tablet Take 1 tablet by mouth once daily. - mupirocin (BACTROBAN) 2 % ointment Apply to open areas twice daily until healed - tamsulosin (FLOMAX) 0.4 mg Take one a day - folic acid 400 mcg tablet Take 400 mcg by mouth once daily. - cholecalciferol (VITAMIN D3) 1,000 unit tab tablet Take 1,000 Units by mouth once daily. - ramipril(ALTACE 2.5 MG CAP) Take one(1) capsule daily. - MULTIVITAMIN TAB Take one(1) tablet daily. Normal [facility] ANES POSTPROC EVALon 025 ANES POSTPROC EVAL HNO ID: [id number] Author: REBA RAYGOZA MD Service: Anesthesiology Author Type: Anesthesiologist Type: Anesthesia Postprocedure Evaluation Filed: 12/27/2024 16:29 Note Text: POST ANESTHESIA EVALUATION NOTE : 1955 Procedure Summary Date: 12/27/24 Room / Location: OR / OR Anesthesia Start: 1441 Anesthesia Stop: 153 Procedure: ARTHROSCOPY KNEE MENISCECTOMY MEDIAL OR LATERAL (Right: Knee) Diagnosis: Tear of lateral meniscus of right knee, current, unspecified tear type, subsequent encounter (Tear of lateral meniscus of right knee, current, unspecified tear type, subsequent encounter [S83.281D]) Surgeons: Shahriar Barros MD Responsible Provider: Reba Raygoza MD Anesthesia Type: general ASA Status: 3 Anesthesia Type: general Airway Type: LMA Last Vitals Vitals Value Taken Time BP 128/73 12/27/24 16:17 Temp 36.3 ?C (97.3 ?F) 12/27/24 16:17 Pulse 76 12/27/24 16:17 Resp 19 12/27/24 16:17 SpO2 93 % 12/27/24 16:17 Post Anesthesia Patient Status Patient Evaluation: bedside. Anticipated Disposition: phase 2 then home. Neurological Status: aware and responsive. Pulmonary Status: breathing comfortably on room air Airway Control: returned to baseline unsupported. Cardiovascular Status: stable. Pain Management: clinically adequate Postoperative Hydration: acceptable. Intraoperative Events: no significant anesthesia events Post Operative Nausea/Vomiting Status: no significant post operative nausea or vomiting Recommendation: continue current plan of care. Anesthesia Observations No Documentation SIGNATURE: Reba Raygoza MD PATIENT NAME: Roberto José DATE: December 27, 2024 TIME: 4:29 PM CSN: [id number] [facility] ANES PRE-OPon 12-27-2024 ANES PRE-OP HNO ID: [id number] Author: REBA RAYGOZA MD Service: Anesthesiology Author Type: Anesthesiologist Type: Anesthesia Preprocedure Evaluation Filed: 12/27/2024 14:19 Note Text: ANESTHESIOLOGY DAY OF SURGERY NOTE : 1955 Procedure Information Date/Time: 12/27/24 1430 Procedure: ARTHROSCOPY KNEE MENISCECTOMY MEDIAL OR LATERAL (Right: Knee) - RIGHT knee scope Location: [facility] / [facility] Surgeons: Shahriar Barros MD Estimated body mass index is 27.53 kg/m? as calculated from the following: Height as of 12/03/24: 182.9 cm (6'). Weight as of 12/03/24: 92.1 kg (203 lb). Most recent hematocrit and potassium results: Hematocrit 45.1 10/23/2024 Potassium 3.9 11/16/2023 Relevant Problems CARDIO (+) CAD (coronary artery disease), [place] coronary artery (+) Essential hypertension (+) Stenosis of left carotid artery Other (+) Psoriatic arthritis (HCC) I - PHYSICAL EVALUATION AIRWAY Patient intubated: No. Tracheostomy tube not present Mallampati: III. TM distance: <3 FB. Neck ROM: full ROM without neurological symptoms. Mouth openin FB. Short neck: no. Thick neck: no Microretrognathia/Micr onagthia/Recessed Chin: No DENTAL Dental findings: teeth intact and caps/crowns. Additional exam findings: yes. CARDIOVASCULAR Normal cardiovascular observations. Rhythm: regular Rate: normal PULMONARY Normal pulmonary observations. Breath sounds clear to auscultation. II - ANESTHESIA PLAN ASA Score: 3 Anesthetic Plan: general Airway type: LMA The patient is not a current smoker. NPO Status: adequate Beta Audrey Administration of chronic beta audrey medication planned. Monitoring Plan Monitoring plan: standard ASA. Post Procedure Analgesic Plan Postoperative analgesic plan: parenteral or oral opioids and per surgical service. Informed Consent Anesthetic risks, benefits, alternatives, personnel and consent discussed: yes. Patient / Responsible [employer] agrees to proceed: yes Patient / Surrogate agrees to blood products: blood products not planned Significant changes in the patient condition since the History and Physical, not otherwise documented in primary service progress note: no. Potential Anesthesia issues that may suggest increased risk of complications or contraindication to planned procedure: none. Vitals Value Taken Time BP 139/89 12/27/24 12:50 Pulse 85 12/27/24 12:50 Resp 18 12/27/24 12:50 Temp 36.7 ?C (98.1 ?F) 12/27/24 12:50 SpO2 96 % 12/27/24 12:50 Facility-Administered Medications as of 12/27/2024 Medication Dose Route Frequency ceFAZolin iv piggyback 2 g in D5W (iso-osmotic) 100 mL (ANCEF) 2 g INTRAVENOUS ONCE dextrose 10% iv bolus 12.5 g INTRAVENOUS PRN Or glucagon 0.5-1 mg injection 0.5-1 mg INTRAMUSCULAR PRN lidocaine (PF) 10 mg/mL (1 %) 1-2 mg injection (XYLOCAINE) 0.1-0.2 mL INTRADERMAL PRN lactated ringers iv infusion 5-30 mL/hr INTRAVENOUS CONTINUOUS NaCl 0.9% iv flush bag 20 mL INTRAVENOUS PRN Outpatient Medications as of 12/27/2024 Medication Sig metoprolol tartrate, short acting, (LOPRESSOR) 25 mg tablet Take 1 tablet by mouth two times a day. rosuvastatin (CRESTOR) 40 mg tablet Take 1 tablet by mouth once daily. tamsulosin (FLOMAX) 0.4 mg Take one a day folic acid 400 mcg tablet Take 400 mcg by mouth once daily. cholecalciferol (VITAMIN D3) 1,000 unit tab tablet Take 1,000 Units by mouth once daily. ramipril(ALTACE 2.5 MG CAP) Take one(1) capsule daily. MULTIVITAMIN TAB Take one(1) tablet daily. oxyCODONE IR (ROXICODONE) 5 mg immediate release tablet Take 1 tablet by mouth every 6 hours as needed for pain for up to [address] (PROTONIX) 20 mg tablet Take 1 tablet by mouth once daily for 14 days. docusate sodium (COLACE) 100 mg capsule Take 1 capsule by mouth two times a day. acetaminophen (TYLENOL EXTRA STRENGTH) 500 mg tablet Take 2 tablets by mouth every 8 hours as needed for pain for up to 7 days. diclofenac (VOLTAREN) 1 % topical gel Apply 2 g to affected area four times daily. (Patient not taking: Reported on 12/03/2024) Benzoyl Peroxide 10 % external wash Use to wash buttocks once daily. Rinse well. clopidogrel (PLAVIX) 75 mg tablet Take 1 tablet by mouth once daily. mupirocin (BACTROBAN) 2 % ointment Apply to open areas twice daily until healed I have interviewed and examined the patient. I have reviewed the medical record and/or the pre-anesthesia evaluation, pertinent labs, and test results. This contains updated information obtained within 48 hours of Surgery/Procedure. SIGNATURE: Reba Raygoza MD PATIENT NAME: Roberto José DATE: December 27, 2024 TIME: 2:14 PM CSN: [id number] [facility] BRIEF OP NOTon 12-27-2024 BRIEF OP NOT HNO ID: [id number] Author: SHAHRIAR BARROS MD Service: Orthopaedic Surgery Author Type: Physician Type: Brief Op Note Filed: 12/27/2024 15:32 Note Text: BRIEF OPERATIVE / PROCEDURE NOTE LOG ID: [id number] SURGERY/PROCEDURE DATE: 12/27/2024 INCISION/PROCEDURE START TIME: 3:14 PM INCISION CLOSE/PROCEDURE END TIME: 3:25 PM SURGEON(S)/PROCEDURALI ST(S) AND ROOFING MACHINE TENDER(S): Surgeons and Role: * Shahriar Barros MD - Primary Physician Home Theatre Technician: Kurt Santiago PA-C SURGERY/PROCEDURE(S): DAK, PLM right ANESTHESIA: General FINDINGS: tlm ESTIMATED BLOOD LOSS: 0 ml SPECIMENS: None CLOSURE TECHNIQUE: Primary PRE-OP/PRE-PROCEDURE DIAGNOSIS: tlm right knee POST-OP/POST-PROCEDURE DIAGNOSIS: Same as Preop Patient was accompanied to the next level of care by a licensed practitioner from the surgical team pending completion of this brief op note (or operative note) SIGNATURE: Shahriar Barros MD PATIENT NAME: Roberto José DATE: December 27, 2024 TIME: 3:31 PM [facility] OPERATIVE NOon 12-27-2024 OPERATIVE NO HNO ID: [id number] Author: SHAHRIAR BARROS MD Service: Orthopaedic Surgery Author Type: Physician Type: Operative Report Filed: 12/27/2024 15:35 Note Text: OPERATIVE REPORT PATIENT NAME: Roberto José LOG ID: [id number] Surgery Date: 12/27/2024 Incision Start: 3:14 PM Incision Stop: 3:25 PM Surgeon(s) and Home Theatre Technician(s): Surgeons and Role: * Shahriar Barros MD - Primary Asst Kurt MCCARTHY Procedure(s): Procedure(s) (LRB): ARTHROSCOPY KNEE MENISCECTOMY MEDIAL OR LATERAL (Right) Anesthesia: General Preop Diagnosis: Pre-Op Diagnosis Codes: * Tear of lateral meniscus of right knee, current, unspecified tear type, subsequent encounter [S83.281D] Postop Diagnosis: Same as Pre-Op Diagnosis Codes: * Tear of lateral meniscus of right knee, current, unspecified tear type, subsequent encounter [S83.281D], DJD INDICATIONS: ??A ?69 year old man, who has painful right knee. ?MRI ?confirms ?tlm. ??The patient ?has failed conservative treatment and is admitted ?for ?surgical intervention. OPERATIVE ?FINDINGS: ?complex anterior horn lateral meniscus tear with cyst 1. Patellar articular cartilage: Abnormal. III diffuse 2. Trochlea articular cartilage: Normal. 3. Medial femoral condyle articular cartilage: Normal. 4. Medial meniscus: Normal. 5. Medial tibial plateau articular cartilage: Normal. 6. Anterior cruciate ligament: Normal. 7. Posterior cruciate ligament: Normal. 8. Lateral femoral condyle articular cartilage: Normal. 9. Lateral meniscus: Abnormal. 10. Lateral tibial plateau articular cartilage: Normal. PROCEDURE: ? The patient was taken to the operating room, given general anesthetic, ?placed ?supine on the operating table. ?Table was raised. ?Foot table was dropped. ??right?lower ?extremity ?was ?prepped ?and draped in ?usual ?sterile ?fashion. ??Leg ?was ?elevated, ?it was exsanguinated with an Esmarch. ?Tourniquet was inflated ?to ?300 ?mmHg. ??Two ?stab ?incisions ?were made on either side ?of ?the ?patellar ?tendon. ?Arthroscope ?introduced via lateral portal. ?Inspection was ?carried ?out ?of ?the ?patellofemoral ?joint, ?medial and lateral gutters, medial ?compartment, ?and ?the ?notch. ??The above findings were noted. ? The complex anterior horn TLM was debrided back to a stable rim with a biter, shaver and ablation wand. There was an intrameniscal cyst that was decompressed and evacuated and we debrided the tear?The ?knee ?was ?flushed ?and ?irrigated, and injected with 10 mL of 0.25% Marcaine with epinephrine solution, ?a ?10 mg ?of ?morphine, and 80 mg of Depo-Medrol. ?The portals were closed with ?3-0 ?undyed ?Vicryl ?suture. ??Steri-Strips and sterile ?dressing ?were ?applied. ??The ?patient ?was ?then ?awakened ?and ?taken to ?the ?recovery ?room ?in ?satisfactory ?condition. ??Please note that I was present during the entire procedure ?including ?non-daigle portions. ESTIMATED BLOOD LOSS: ?none SPECIMEN: none? Attestation: I was present for all of the critical portions of the operation and performed all critical portions. I was present during the entire procedure including non daigle portions and performed the procedure with assistance. Lpc, SHARI Ta assisted with positioning the patient, the initial incision, and the closure. There were no qualified residents available to assist with the case. Shahriar Barros MD [facility] 12-10-2024 [facility] Office Visit (DERMST ) ESTEFANÍAROBERTO ([id number]) 1955 M [facility] Date Time Provider Department 12/10/24 1:45 PM REYNA CHARLES DERM During your visit today, we recorded the following information about you: Reyna Charles APRN.CNP 12/10/2024 4:41 PM Signed EST PATIENT YAKELIN in Dermatology: 01/30/2024 Chief Complaint: Full Body Skin Check History of Present Ilness: Roberto José is a 69 year old male who presents today for a full body skin examination. #1 Location: right ear Duration: unsure Symptoms: flaky Current Treatment: none Past Treatment: none Pertinent History: History of skin cancer: No History of atypical nevi: No History of immunosuppression/orga n transplant: Yes, Stelera (follows rheumatology) Pertinent Family medical history: History of melanoma: No History of non melanoma skin cancer: No Other family history (autoimmune, dermatologic, etc): None Past Medical History is reviewed. Medication List is reviewed. ROS: Skin as above. Physical Exam: Rodriguez skin type: II The patient is a pleasant male in no apparent distress. Alert and oriented x 3. A skin exam performed of the Scalp, face, ears, neck, chest, back, abdomen, bilateral upper extremities, bilateral lower extremities, buttocks, hands, feet, nails and hair is significant for: Generalized Regular and symmetric hyperpigmented macules and papules throughout with regular pigment network under dermoscopy Generalized Stuck-on verrucous, variably pigmented papules and plaques throughout Generalized Densely scattered light husain macules noted on all sun exposed areas Generalized Small estrada red papules throughout Right Posterior Auricle Erythematous plaque Head - Anterior (Face) Erythematous papule with gritty adherent scale Left Buttock, Right Buttock Scattered follicular papules Assessment and Plan: SKIN EXAM, SCREENING FOR CANCER Generalized Advised sun protection with broad-spectrum SPF 30+, wide brim hats, sun glasses, protective clothing, and seeking shade during the peak hours of sun 10am-4pm Return for regular skin checks as discussed PSORIASIS VULGARIS Right Posterior Auricle Discussed etiology, course, prognosis and treatment options. Discussed using gentle, fragrance-free skin care and frequent application of emollients. Continue triamcinolone 0.1% cream twice daily for up to 21 days per month Continue Stelara and follow up care with rheumatology. This Visit - triamcinolone acetonide (KENALOG) 0.1 % cream - Apply to affected areas twice daily for 2 weeks then use as needed for flares. Avoid face, armpits, and groin. ACTINIC KERATOSIS Head - Anterior (Face) Discussed etiology and possibility of transformation to SCC. Discussed treatment options and the risks and benefits of each including liquid nitrogen treatment and photodynamic therapy. Patient agreeable to PDT today - will schedule accordingly. This Visit - PHOTODYNAMIC THERAPY FOLLICULITIS Left Buttock, Right Buttock Discussed etiology, course, prognosis, and treatment options. Shaving, occlusion, and chronic rubbing may incite or exacerbate folliculitis. Continue to cleanse area with benzoyl peroxide 4-10% wash once daily Continue Clindamycin 1% lotion once to twice daily R/b/a for the medication(s) including possible side effects discussed and reviewed with patient. Existing Treatments - mupirocin (BACTROBAN) 2 % ointment - Apply to open areas twice daily until healed - Benzoyl Peroxide 10 % external wash - Use to wash buttocks once daily. Rinse well. MULTIPLE BENIGN NEVI Generalized Reassured and educated on benign nature of lesions. Sunblock/sunscreen protection reviewed. Recommend observation and encouraged to notify office of changes. SEBORRHEIC KERATOSIS Generalized Reassured and educated on benign nature of lesions. LENTIGINES Generalized Reassured and educated on benign nature of lesions. Sunblock/sunscreen protection reviewed. Recommend observation and encouraged to notify office of changes. ESTRADA ANGIOMA Generalized Reassured and educated on benign nature of lesions. Sunscreen and sun protection reviewed. Should any areas change in size, shape or color, bleed or become tender, the patient will contact the office for evaluation sooner than their interval appointment. Follow up: 1 year for Full Body Skin Check Intake by Camryn Agosto LPN The documentation for this note was completed by Rosemary Ramirez LPN acting as scribe for Reyna Charles APRN.CNP. I agree with the Chief Complaint, ROS, and Past Histories independently gathered by the clinical product support engineer and the remaining scribed note accurately describes my personal service to the patient. Reyna Charles APRN.CNP Department of Dermatology Rosemary Ramirez LPN 12/10/2024 2:22 P (more content not included)... Normal [facility] HISTORY PHYSICALon HISTORY PHYSICAL HNO ID: [id number] Author: SHYAM STOCK APRN.JESSE Service: ? Author Type: Nurse Practitioner Type: H&P Filed: 12/03/2024 13:33 Note Text: [facility] HISTORY AND PHYSICAL EXAMINATION SERVICE DATE: 12/03/2024 SERVICE TIME: 1:33 PM PRIMARY CARE PHYSICIAN: Jazmín Melendrez MD Assessment Patient has the following medical conditions which may affect stefanie-operative course: 1. Iliotibial band syndrome of right side (M76.31) - Intermittent right leg pain consistent with IT band syndrome; patient has previously undergone physical therapy. 2. History of myocardial infarction (I25.2) 3. Coronary stent patent (Z95.5) 4. Coronary artery disease involving [place] coronary artery of [place] heart without angina pectoris (I25.10) - History of [place] in 1995 with four stents placed over three separate procedures (1995, 2004, 2020); no current angina. - On metoprolol and ramipril for secondary prevention. - Hold Plavix 5 days prior to surgery (last dose 12/21); continue baby aspirin during this period. - Advised to avoid ibuprofen, Advil, Aleve 7 days prior to surgery. Office Visit with Denzel Gore MD (03/18/2024) Stable CAD - prescribed patient rosuvastatin 40 mg PO once daily - advised patient I would like to order a Doppler US carotid arteries due to history of stents and a prior [place]. - patient takes Plavix 75 mg daily - Patient wanted to know about future symptoms of coronary artery disease like angina and if he would be in future need nuclear SPECT scan and catheterization and stent procedures that can be done either at [facility] and [facility] respectively. HTN - Blood pressure controlled - patient checks blood pressure at home on as needed basis. Patient is counseled and educated about the symptoms and treatment plan. F/u in 1 year with me - sooner if patient becomes symptomatic 5. Hyperlipidemia, unspecified hyperlipidemia type (E78.5) - Continue Crestor as prescribed. 6. Essential hypertension (I10) - No current hypertension; ramipril continued for secondary prevention post-[place]. Stable and compliant with medications. Follows with PCP. Last 3 Encounter BP Readings: Date: BP: 12/03/2024 104/72 10/16/2024 103/71 09/21/2024 110/76 7. Stenosis of left carotid artery (I65.22) - Less than 50% stenosis; no current intervention required. 8. Ulcerative colitis - Advised to hold mesalamine on day of surgery. 9. Psoriatic arthritis (HCC) (L40.50) - On Stelara injections every 12 weeks; last dose approximately 10-12 weeks ago. - Advised to delay next Stelara injection until after surgery. - Mild psoriasis present on face and buttocks; no open wounds or infections. ANESTHESIA FINDINGS: Intubation History: No history of difficult intubation. No abnormal airway history Significant Anesthesia Considerations: none Airway History: No history of difficult airway No abnormal airway history Helm Activity Status Index: METS: Walk indoors, such as around the house (1.75 METs) Do light work around the house, such as dusting or washing dishes (2.70 METs) Take care of self; that is eating, dressing, bathing, using the toilet (2.75 METs) Walk a block or two on level ground (2.75 METs) Do moderate work around the house, such as vacuuming, sweeping floors, or carrying in groceries (3.50 METs) Climb a flight of stairs or walk up a hill (5.50 METs) DASI Score: 18.95 Patient denies any chest pain or undue shortness of breath with the above physical activity. Clinical Frailty Scale: 3. Well, with treated comorbid disease STOP-Bang Score: Daily loudly Has or is being treated for high blood pressure Patient over 50 years old Male patient Denies feeling tired, fatigued, or sleepy during the daytime Has not been observed to stop breathing or choking/gasping during sleep BMI less than or equal to 35 kg/m2 Does not have a large neck STOP-Bang Score: 4 I - PHYSICAL EVALUATION AIRWAY Patient intubated: No. Tracheostomy tube not present Mallampati: II. TM distance: >3 FB. Neck ROM: full ROM without neurological symptoms. Mouth openin FB. Short neck: no. Thick neck: no DENTAL Dental findings: teeth intact and implants. II - ANESTHESIA PLAN Anesthetic plan additional comments: *PACC/TCI - anesthesia choice. Informed Consent Prepared for Surgery: optimally prepared for surgery. Labs (10/23/24) reviewed and acceptable for procedure. CONSULTS: Patient does not require consults for optimization at this time Planned Anesthetic: anesthesia choice The Following Tests/Procedures Have Been Initiated: No orders of the defined types were placed in this encounter. REASON FOR VISIT: Roberto José is a 69 year old male who is scheduled for Procedure(s) with comments: ARTHROSCOPY KNEE MENISCECTOMY MEDIAL OR LATERAL (Right) - RIGHT knee scope at th (more content not included)... Normal [facility] CNOVon 11-27-2024 CNOV Office Visit (UROLMD ) ROBERTO JOSÉ ([id number]) 1955 M [place] Date Time Provider Department 11/27/24 2:30 PM NEO GROSS During your visit today, we recorded the following information about you: Weight Height 91.6 kg 1.829 m Neo Gross MD 12/29/2024 4:35 PM Signed [facility] UROLOGY ESTABLISHED PATIENT CLINIC NOTE [facility] Recording using OM Latam software for draft documentation of the visit was discussed with the patient/authorized medical collections representative; all questions welcomed and answered. Patient/authorized medical collections representative agreed to proceed PATIENT INFO: Roberto José AGE: [age] year old PCP: Jazmín Melendrez MD IMPRESSION/PLAN: 1. Benign prostatic hyperplasia with urinary hesitancy - ICD9: 600.01, 788.64, ICD10: N40.1, R39.11 (primary diagnosis) - Continue your current tamsulosin 0.4 mg once daily for prostate symptoms. - Start tadalafil 5 mg once daily to help with urinary flow and erectile function; the prescription has been sent to your pharmacy. 2. Erectile dysfunction, unspecified erectile dysfunction type - ICD9: 607.84, ICD10: N52.9 - luli to function at this time 3. Peyronie's disease - ICD9: 607.85, ICD10: N48.6 -able to function, does not require treatment 4. Prostate cancer screening - ICD9: V76.44, ICD10: Z12.5 - Have a PSA blood test drawn at this clinic any time after October 21; the order is already in the system. Will perform your annual prostate exam and review your PSA results. REASON FOR VISIT: follow up HPI: Roberto José returns for continuing evaluation and management. The patient is a 69-year-old male with a history of BPH, presenting for follow-up. BPH: - Currently taking tamsulosin 0.4 mg daily and tadalafil 5 mg daily. - Reports improvement in urinary stream strength. - No significant change in urinary frequency; able to hold urine for 2-3 hours without difficulty. - Denies taking additional medication prior to sexual activity. - Mild penile curvature but not affecting function. - Last PSA levels: - 0.63 (September 2023) - 0.53 (March 2022) - 0.46 (October 2020) INTERNATIONAL PROSTATE SYMPTOM SCORE (I-PSS) 1)INCOMPLETE EMPTYING Over the past month, how often have you had a sensation of not emptying your bladder completely after you finished urinating? SCORE: 0- Not at all 2)FREQUENCY Over the past month, how often have you had to urinate again less than two hours after you finished urinating? SCORE: 1- Less than 1 time in 5 3)INTERMITTENCY Over the past month, how often have you found you stopped and started again several times when you urinated? SCORE: 2- less than half the time 4)URGENCY Over the past month, how often have you found it difficult to postpone urination? SCORE: 0- Not at all 5)WEAK STREAM Over the past month, how often have you had a weak stream? SCORE: 2- less than half the time 6)STRAINING Over the past month, how often have you had to push or strain to begin urination SCORE: 0- Not at all 7)NOCTURIA Over the past month, how many times did you most typically get up to urinate from the time you went to bed at night until the time you get up in the morning? SCORE:1 TOTAL I-PSS SCORE: 6 QUALITY OF LIFE DUE TO URINARY SYMPTOMS If you were to spend the rest of yur life with your urinary condition just the way it is now, how would you feel about that? 2- Mostly Satisfied UROLOGICAL DATA: Urinalysis: GLUCOSE UA (POCT) Negative 11/27/2024 BILIRUBIN UA (POCT) Negative 11/27/2024 KETONE UA (POCT) Negative 11/27/2024 SPECIFIC GRAVITY UA (POCT) 1.020 11/27/2024 HEMOGLOBIN/BLOOD UA (POCT) Negative 11/27/2024 PH UA (POCT) 6.0 11/27/2024 PROTEIN UA (POCT) Negative 11/27/2024 UROBILINOGEN UA (POCT) 0.2 11/27/2024 NITRITE UA (POCT) Negative 11/27/2024 LEUKOCYTES UA (POCT) Negative 11/27/2024 COLOR UA (POCT) Yellow 11/27/2024 CLARITY UA (POCT) Clear 11/27/2024 Post Void Residual, Ultrasound: N/A cc OTHER DATA: No results found for: PSA, PSAPER No results found for: ISOPSA Creatinine Date Value Ref Range Status 10/23/2024 1.37 (H) 0.73 - 1.22 mg/dL Final 03/21/2024 1.24 (H) 0.73 - 1.22 mg/dL Final 11/16/2023 1.16 0.73 - 1.22 mg/dL Final 11/02/2023 1.28 (H) 0.73 - 1.22 mg/dL Final No results found for: TESTOST, TESTFREE PMHx/PSHx: see above, otherwise unchanged Rx: reviewed and unchanged ROS: see above, otherwise unchanged Labs: None Imaging: None MEDICATIONS: Current Outpatient Medications Medication Sig oxyCODONE IR (ROXICODONE) 5 mg immediate release tablet Take 1 tablet by mouth every 6 hours as needed for pain for up to [address] (PROTONIX) 20 mg tablet Take 1 tablet by mouth once daily for 14 days. docusate sodium (COLACE) 100 mg capsule Take 1 capsule by mouth two times a day. (more content not included)... Normal [facility] 11-20-2024 [facility] Telephone (RHINA) ROBERTO JOSÉ ([id number]) 1955 M [place] Date Time Provider Department 11/20/24 PRATEEK VALADEZ During your visit today, we recorded the following information about you: Prateek Valadez RN 11/20/2024 1:40 PM Signed Hello, Patient is scheduled for: ARTHROSCOPY KNEE MENISCECTOMY MEDIAL OR LATERAL - Right SURGEON : Dr. Shahriar Barros PROCEDURE DATE : 12/27/24 I am requesting patient hold Plavix for 5 days prior to procedure. Last office visit Office Visit with Denzel Gore MD (03/18/2024) . Thank you, Awilda Valadez RN PACC Resource Nurse Denzel Gore MD 11/20/2024 4:34 PM Signed Patient needs to take aspirin 81 mg daily for those 5 days when he is going to stop taking Plavix for surgery. Please make sure patient has 81 mg baby where aspirin [id number] for those 5 days before surgery. Prateek Valadez RN 11/21/2024 1:36 PM Signed I spoke with Juan: He agrees to buy ASA 81 mg and take it daily while he is off his Plavix for 5 days. He voiced understanding and had no additional questions. Awilda Valadez RN PACC Resource Nurse Allergies As of Date: 11/20/2024 (No Known Allergies) Date Reviewed: 10/16/2024 Reviewed by: Misty Min MA - Fully Assessed Reason for Visit: Preparations For Surgery [898] Cmt: Plavix instructions Prescriptions as of 11/21/2024 - Tadalafil (CIALIS) 5 mg tablet Take 1 tablet by mouth once daily. - Mesalamine (LIALDA) 1.2 gram EC tablet Take 2 tablets by mouth daily with breakfast. - diclofenac (VOLTAREN) 1 % topical gel Apply 2 g to affected area four times daily. - metoprolol tartrate, short acting, (LOPRESSOR) 25 mg tablet Take 1 tablet by mouth two times a day. - Benzoyl Peroxide 10 % external wash Use to wash buttocks once daily. Rinse well. - clopidogrel (PLAVIX) 75 mg tablet Take 1 tablet by mouth once daily. - rosuvastatin (CRESTOR) 40 mg tablet Take 1 tablet by mouth once daily. - clindamycin (CLEOCIN-T) 1 % gel Apply thin layer to buttocks once daily. - mupirocin (BACTROBAN) 2 % ointment Apply to open areas twice daily until healed - tamsulosin (FLOMAX) 0.4 mg Take one a day - ustekinumab (STELARA) 45 mg/0.5 mL sub-Q syringe Inject 45mg (1 syringe) subcutaneously on week 0, and week 4, then every 12 weeks thereafter - folic acid 400 mcg tablet Take 400 mcg by mouth once daily. - cholecalciferol (VITAMIN D3) 1,000 unit tab tablet Take 1,000 Units by mouth once daily. - ramipril(ALTACE 2.5 MG CAP) Take one(1) capsule daily. - MULTIVITAMIN TAB Take one(1) tablet daily. - METOPROLOL 50 MG TAB 1/2 tab twice daily Problem List As Of Date 11/20/2024 Noted Resolved Peyronie's Disease [N48.6] 03/23/2009 Chronic ulcer of other specified site [L98.499] 03/08/2011 CAD (coronary artery disease), [place] coronary *05/24/2012 Ulcerative pancolitis with rectal bleeding (HCC*12/05/2016 Malnutrition of moderate degree (HCC) [E44.0] 12/06/2016 08/24/2017 Abnormal kidney function [N28.9] 10/19/2023 Ulcerative colitis (HCC) [K51.90] 10/19/2023 Essential hypertension [I10] 10/19/2023 Iliotibial band syndrome of right side [M76.31] 11/21/2023 Coronary stent patent [Z95.5] 03/18/2024 Psoriatic arthritis (HCC) [L40.50] 10/01/2024 Encounter Status:Closed by PRATEEK VALADEZ on 11/21/24 Normal [facility] ALT SerPl-cCncon 10-23-2024 ALT [Catalytic activity/Vol] 18 U/L Normal 10-54 [facility] Comment on above: Order Comment: Speci men Type: BLOOD SPECIMENOrdering Facility: [facility] Address: [address] [place] [address] Performed By: #### 1 532-8, 54064-9, 4152-6 ####[facility] LYNDSEY [facility]ITALLEONELA [id number] [place] [address] [place] AST SerPl-cCncon 10-23-2024 AST [Catalytic activity/Vol] 23 U/L Normal 14-40 [facility] Comment on above: Order Comment: Speci men Type: BLOOD SPECIMENOrdering Facility: [facility] Address: [address] [place] [address] Performed By: #### 1 920-8, 22158-7, 1742-6 ####[facility] [id number] [place] [address] [place] CBC panel Auto (Bld)on 10-23 Erythrocyte distribution width (RBC) [Ratio] 13.2 % Normal 11.5-15.0 [facility] Comment on above: Order Comment: Speci men Type: BLOOD SPECIMENOrdering Facility: [facility] Address: [address] [place] [address] Performed By: #### 5 8410-2 ####[facility] [id number] [address] [place] Hematocrit (Bld) [Volume fraction] 45.1 % Normal 39.0-51.0 [facility] Comment on above: Order Comment: Speci men Type: BLOOD SPECIMENOrdering Facility: [facility] Address: [address] [place] [address] Performed By: #### 5 8410-2 ####[facility]ERNCA [id number] [address] [place] Hemoglobin (Bld) [Mass/Vol] 14.9 g/dL Normal 13.0-17.0 [facility] Comment on above: Order Comment: Speci men Type: BLOOD SPECIMENOrdering Facility: [facility] Address: [address] [place] [address] Performed By: #### 5 8410-2 ####[facility]ERNCLI [id number] [place] [address] [place] MCH (RBC) [Entitic mass] 30.5 pg Normal 26.0-34.0 [facility] Comment on above: Order Comment: Speci men Type: BLOOD SPECIMENOrdering Facility: [facility] Address: [address] [place] [address] Performed By: #### 5 8410-2 ####[facility] MAKIMarandaNCLEONELA [id number] [place] [address] [place] MCHC (RBC) [Mass/Vol] 33.0 g/dL Normal 30.5-36.[address] [facility] Comment on above: Order Comment: Speci men Type: BLOOD SPECIMENOrdering Facility: [facility] Address: [address] [place] [address] Performed By: #### 5 8410-2 ####[facility] [id number] [place] [address] [place] MCV (RBC) [Entitic vol] 92.4 fL Normal 80.0-100.0 [facility] Comment on above: Order Comment: Speci men Type: BLOOD SPECIMENOrdering Facility: [facility] Address: [address] [place] [address] Performed By: #### 5 8410-2 ####[facility]ERNCLIA [id number] [place] [address] [place] Nucleated RBC (Bld) [#/Vol] 10*3/uL Normal <0.01 [facility] Comment on above: Order Comment: Speci men Type: BLOOD SPECIMENOrdering Facility: [facility] Address: [address] [place] [address] Performed By: #### 5 8410-2 ####[facility]ERNCLIA [id number] [place] [address] [place] Platelet mean volume (Bld) [Entitic vol] 11.0 fL Normal 9.0-12.7 [facility] Comment on above: Order Comment: Speci men Type: BLOOD SPECIMENOrdering Facility: [facility] Address: [address] [place] [address] Performed By: #### 5 8410-2 ####[facility] MAKIMarandaNCLIA [id number] [place] [id number] [place] Platelets (Bld) [#/Vol] 164 10*3/uL Normal 150-400 [facility] Comment on above: Order Comment: Speci men Type: BLOOD SPECIMENOrdering Facility: [facility] Address: [address] [place], [place] [address] Performed By: #### 5 8410-2 ####[facility] MAKIBRUNSWICKNCLIA [id number] [place] [address] [place] RBC (Bld) [#/Vol] 4.88 10*6/uL Normal 4.20-6.00 [facility] Comment on above: Order Comment: Speci men Type: BLOOD SPECIMENOrdering Facility: [facility] Address: [address] [place] [address] Performed By: #### 5 8410-2 ####[facility] [id number] [place] [address] [place] WBC (Bld) [#/Vol] 6.07 10*3/uL Normal 3.70-11.00 [facility] Comment on above: Order Comment: Speci men Type: BLOOD SPECIMENOrdering Facility: [facility] Address: [address] [place], [place] [address] Performed By: #### 5 8410-2 ####[facility]ENTERNCLIA [id number] [place] [address] [place] Creatinine and Glomerular fi ltration rate.predicted panel (S/P/Bld)on 10-23-2024 Creatinine [Mass/Vol] 1.37 mg/dL High 0.73-1.[address] [facility] Comment on above: Order Comment: Speci men Type: BLOOD SPECIMENOrdering Facility: [facility] Address: [address] [place] [address] Performed By: #### 1 920-8, 33649-9, 1742-6 ####[facility] MAKIBRUNSWICKNCLIA [id number] [place] [address] [place] eGFRcr SerPlBld CKD-EPI 2020 55 mL/min/1.73m??? Low >=60 [facility] Comment on above: Order Comment: Speci men Type: BLOOD SPECIMENOrdering Facility: [facility] Address: [address] [place] [address] Result Comment: Gretta mated Glomerular Filtration Rate (eGFR) is calculated using the 2020 CKD-EPI creatinine equation. This equation utilizes serum creatinine, sex, and age as parameters. The creatinine assay has traceable calibration to isotope dilution-mass spectrometry. Refer to KDIGO guidelines for clinical interpretation. In patients with unstable renal function, e.g. those with acute kidney injury, the eGFR may not accurately reflect actual GFR. Performed By: #### 1 920-8, 25571-2, 1742-6 ####[facility] ERWNCLIA [id number] [place], [place] [id number] [place] [address] OF [facility] Christian 10-16-2024 CNOV Office Visit (ALEXUS ) ROBERTO JOSÉ ([id number]) 1955 M [place] Date Time Provider Department 10/16/24 11:40 AM MARGUERITE PEREYRA During your visit today, we recorded the following information about you: Temperature Pulse Blood pressure Weight 97.6 degrees 75/minute 103/71 89.6 kg Height 1.829 m Marguerite Pereyra MD 10/16/2024 12:01 PM Signed On 10/16/2024, I had the pleasure of seeing Roberto José at the [facility] for follow-up of inflammatory arthritis HPI: To review, Roberto José is a 68 year old male w/hx of UC and psoriasis - In 20s, with back pain (had an injury one summer). Better with activity. Worst time of day is morning. - Around , diagnosed with UC (testing not definitive, treatment has helped) - Sometime around Jul, with onset of ear psoriasis - Since Jan, with bilateral hip discomfort, laterally. Radiates down. - In April, reported UC was doing well on mesalamine. Never on a biologic. Diagnosed prednisone trial with 95% improvement in back pain/tightness and resolved hip pain. Advised to start humira - In May, started humira (first injection on 06/09) - In Jul, reported 75-80% improvement in pain with humira. Slept better at night. Could golf multiple days in a row. Psoriasis of L ear improved with humira - In Feb, reported stable joints with humira but stiffness was worse in the winter - In Sep, reported severe L plantar fasciitis despite 2 injections of steroids (in the past, it had cleared up with CSI). Some R hip/R knee pain worse with activity and worst in morning, radiated from hip down to lateral thigh along ITB. The stiffness improved in the summer compared to the winter. Humira switched to stelara. PT referral given, helped RLE - In Nov (12/19/23), s/p first stelara dose - In Feb, reported no change with stelara compared to humira. Did appreciate the less frequent injections with stelara. Overall stable. Just some mid to low back stiffness in the morning, improved after 1-2 hours of moving around. RLE is improving. L plantar fasciitis is significantly improved now, ended up having a third CSI in (doesn't recall when). Unclear if L foot is improved due to third CSI, PT vs stelara. Of note, trying to switch HL tx back to crestor to see if that doesn't cause aching like past statins did (remote use of crestor without such SE)-sees Dr. Gore - Today, reports doing ok. With a R meniscal tear to have repaired by Dr. Barros later this year. - Morning stiffness of the low back x1-2 hours - Went to [place] in summer PAST MEDICAL HISTORY Diagnosis Date Elevated cholesterol Irritable bowel [place] (myocardial infarction) (HCC) 1995-stent, 2004 second stent Peyronie disease Psoriasis Ulcerative pancolitis with rectal bleeding (HCC) 12/05/2016 Chronic diarrhea with mucous and blood, associated with abdominal pain and weight loss. Abdominal pain not related to food and no food aversion to suggest ischemia CT 11/08 : rectosigmoid colitis without abscess or perforation and fat stranding in the pelvis. Colonoscopy 11/18: significant colitis involving the distal 30cm of the colon with an entirely normal mucosa proximal to that point. Biopsy at that time negative for evidence of colitis with mild arhecticutual changes Previously given Cipro/Flagyl, mesalamine suppository, balsalazide, and budesonide without benefit. Noticed was when he was recently given IV steroid in ED. Flex sig 12/07 showing evidence of UC in the sigmoid - Started on methylprednisolone 20 TID, with quick transition to PO prednisone 40mg PAST SURGICAL HISTORY Procedure Laterality Date COLONOSCOPY FLX DX W/COLLJ SPEC WHEN PFRMD 10/21/2008 Colonoscopy PAST SURGICAL HISTORY OF 02/20/20092009 laser treatment for hemorrhoids PAST SURGICAL HISTORY OF heart stentx2 04/12 SIGMOIDOSCOPY FLX DX W/COLLJ SPEC BR/WA IF PFRMD 02/20/2010 Sigmoidoscopy ALLERGIES No Known Allergies MEDICATIONS: Current Outpatient Medications Medication Sig diclofenac (VOLTAREN) 1 % topical gel Apply 2 g to affected area four times daily. metoprolol tartrate, short acting, (LOPRESSOR) 25 mg tablet Take 1 tablet by mouth two times a day. Tadalafil (CIALIS) 5 mg tablet Take 1 tablet by mouth once daily. Benzoyl Peroxide 10 % external wash Use to wash buttocks once daily. Rinse well. clopidogrel (PLAVIX) 75 mg tablet Take 1 tablet by mouth once daily. rosuvastatin (CRESTOR) 40 mg tablet Take 1 tablet by mouth once daily. clindamycin (CLEOCIN-T) 1 % gel Apply thin layer to buttocks once daily. mupirocin (BACTROBAN) 2 % ointment Apply to open areas twice daily until healed Mesalamine (LIALDA) 1.2 gram EC tablet Take 2 tablets by mouth daily with breakfast. tamsulosin (FLOMAX) 0.4 mg Take one a day ustekinumab (STELAR (more content not included)... Normal [facility] CNOV Office Visit (ORLUOP ) ESTEFANÍAROBERTO ([id number]) 1955 M [place] Date Time Provider Department 10/16/24 8:40 AM SHAHRIAR BARROS ORCARLOS During your visit today, we recorded the following information about you: Shahriar Barros MD 10/16/2024 10:04 AM Signed Roberto José Follow-up right knee and to go over the results of his MRI. He has a complex lateral meniscus tear with a parameniscal cyst. We discussed treatment options and it is symptomatic. Assessment lateral meniscus tear. Recommendation arthroscopic debridement of his tear. Risks and benefits were discussed and all questions answered. Will schedule this as an outpatient later this fall. He is on Plavix which we will have him stop 5 days before the surgery. Shahriar Barros MD Allergies As of Date: 10/16/2024 (No Known Allergies) Date Reviewed: 10/16/2024 Reviewed by: Victor Hugo Norton MA - Fully Assessed Reason for Visit: Established Patient [175] Knee Pain [132] Primary Visit Diagnosis:Acute lateral meniscus tear of right knee, subsequent encounter [S83.281D] Order(s):WALKER FOLDING WHEELED W/O S [[id number]] Order #: [id number] CONSULT TO PHYSICAL THERAPY [9027] Order #: [id number]: 1 FUTURE Prescriptions as of 10/16/2024 - diclofenac (VOLTAREN) 1 % topical gel Apply 2 g to affected area four times daily. - metoprolol tartrate, short acting, (LOPRESSOR) 25 mg tablet Take 1 tablet by mouth two times a day. - Tadalafil (CIALIS) 5 mg tablet Take 1 tablet by mouth once daily. - Benzoyl Peroxide 10 % external wash Use to wash buttocks once daily. Rinse well. - clopidogrel (PLAVIX) 75 mg tablet Take 1 tablet by mouth once daily. - rosuvastatin (CRESTOR) 40 mg tablet Take 1 tablet by mouth once daily. - clindamycin (CLEOCIN-T) 1 % gel Apply thin layer to buttocks once daily. - mupirocin (BACTROBAN) 2 % ointment Apply to open areas twice daily until healed - Mesalamine (LIALDA) 1.2 gram EC tablet Take 2 tablets by mouth daily with breakfast. - tamsulosin (FLOMAX) 0.4 mg Take one a day - ustekinumab (STELARA) 45 mg/0.5 mL sub-Q syringe Inject 45mg (1 syringe) subcutaneously on week 0, and week 4, then every 12 weeks thereafter - folic acid 400 mcg tablet Take 400 mcg by mouth once daily. - cholecalciferol (VITAMIN D3) 1,000 unit tab tablet Take 1,000 Units by mouth once daily. - ramipril(ALTACE 2.5 MG CAP) Take one(1) capsule daily. - MULTIVITAMIN TAB Take one(1) tablet daily. - METOPROLOL 50 MG TAB 1/2 tab twice daily Problem List As Of Date 10/16/2024 Noted Resolved Peyronie's Disease [N48.6] 03/23/2009 Chronic ulcer of other specified site [L98.499] 03/08/2011 CAD (coronary artery disease), [place] coronary *05/24/2012 Ulcerative pancolitis with rectal bleeding (HCC*12/05/2016 Malnutrition of moderate degree (HCC) [E44.0] 12/06/2016 08/24/2017 Abnormal kidney function [N28.9] 10/19/2023 Ulcerative colitis (HCC) [K51.90] 10/19/2023 Essential hypertension [I10] 10/19/2023 Iliotibial band syndrome of right side [M76.31] 11/21/2023 Coronary stent patent [Z95.5] 03/18/2024 Psoriatic arthritis (HCC) [L40.50] 10/01/2024 Encounter Status:Closed by SHAHRIAR BARROS on 10/16/24 Normal [facility] CNOVon 10-03-2024 CNOV Office Visit (GASTMN ) ROBERTO JOSÉ ([id number]) 1955 M [place] Date Time Provider Department 10/03/24 12:30 PM LILLIAN GRANADOS GASTMN During your visit today, we recorded the following information about you: Lillian Granados MD, PhD 10/06/2024 10:15 PM Signed EST PT OFFICE VISIT CC: Patient presents with: Ulcerative Colitis Mr. José is here today for follow-up of: colitis. Recording using OM Latam software for draft documentation of the visit was discussed with the patient/authorized medical collections representative; all questions welcomed and answered. Patient/authorized medical collections representative agreed to proceed The patient is a 68-year-old male with ulcerative colitis and inflammatory arthritis, presenting for follow-up of chronic increased stool frequency. He is accompanied by his spouse, who provides additional history. He reports having approximately 6 bowel movements per day, with the majority occurring in the morning between 0630 and 0900, often requiring 4 separate trips to the bathroom during this time. Stools are described as solid but fragmented, and he does not typically experience straining. He denies nocturnal bowel movements. He notes that his morning routine is dominated by the need to evacuate his bowels, which requires significant planning and impacts his ability to participate in morning activities or travel. His spouse confirms that he must wake up 2-2.5 hours before any planned departure to ensure he has completed his bowel movements, and that their daily schedule is often adjusted to accommodate this routine. He reports anxiety related to his bowel habits, particularly when traveling or participating in activities that may limit bathroom access. He has been taking Metamucil as directed, but this has not significantly improved stool consistency or frequency. He previously tried Miralax, which he felt worsened his symptoms by increasing stool frequency and urgency. He has used Imodium as needed prior to longer activities, such as golfing, which he reports is effective in reducing stool frequency for the remainder of the day, but notes that it takes 1-2 days for his bowel habits to return to baseline after use. He was previously taking 2 mesalamine tablets daily, but decreased to 1 tablet daily after being told he was in remission. He subsequently experienced a perceived regression in symptoms and resumed 2 tablets daily on 06/26, which he feels has led to some improvement, though he is unsure if this is directly related to the medication change. He has been on Stelara for approximately 1 year for inflammatory arthritis, with some improvement in back and leg stiffness, but continues to experience significant morning stiffness. He is uncertain if Stelara is providing benefit for his colitis. He notes a seasonal increase in both nasal and rectal mucus in early spring, which has since improved. He denies new or worsening reflux or dysphagia. VITALS: There were no vitals taken for this visit. ALLERGIES: Patient has no known allergies. MEDICATIONS: Current Outpatient Medications Medication Sig Dispense Refill diclofenac (VOLTAREN) 1 % topical gel Apply 2 g to affected area four times daily. 20 g 0 metoprolol tartrate, short acting, (LOPRESSOR) 25 mg tablet Take 1 tablet by mouth two times a day. 180 tablet 4 Tadalafil (CIALIS) 5 mg tablet Take 1 tablet by mouth once daily. 30 tablet 5 Benzoyl Peroxide 10 % external wash Use to wash buttocks once daily. Rinse well. 227 mL 3 clopidogrel (PLAVIX) 75 mg tablet Take 1 tablet by mouth once daily. 90 tablet 3 rosuvastatin (CRESTOR) 40 mg tablet Take 1 tablet by mouth once daily. 90 tablet 3 clindamycin (CLEOCIN-T) 1 % gel Apply thin layer to buttocks once daily. 30 g 3 mupirocin (BACTROBAN) 2 % ointment Apply to open areas twice daily until healed 30 g 2 Mesalamine (LIALDA) 1.2 gram EC tablet Take 2 tablets by mouth daily with breakfast. 180 tablet 3 tamsulosin (FLOMAX) 0.4 mg Take one a day 90 capsule 3 ustekinumab (STELARA) 45 mg/0.5 mL sub-Q syringe Inject 45mg (1 syringe) subcutaneously on week 0, and week 4, then every 12 weeks thereafter (Patient taking differently: Inject 45mg (1 syringe) subcutaneously on week 0, and week 4, then every 12 weeks thereafter) 1.5 mL 1 folic acid 400 mcg tablet Take 400 mcg by mouth once daily. cholecalciferol (VITAMIN D3) 1,000 unit tab tablet Take 1,000 Units by mouth once daily. ramipril(ALTACE 2.5 MG CAP) Take one(1) capsule daily. 0 MULTIVITAMIN TAB Take one(1) tablet daily. 0 METOPROLOL 50 MG TAB 1/2 tab twice daily 0 No current facility-administered medications for this visit. Social History: SOCIAL HISTORY[1] Medical History: No changes since last visit. REVIEW OF SYSTEMS: GENERAL: weight stable, no fevers. CARDIOVASCULAR: No chest pain, no edema RESPIRATORY: No dys (more content not included)... Normal [facility] MR Knee - right WO contrasto n 10-02-2024 IMPRESSION: Complex lateral meniscal tear with 9 mm intrameniscal cyst in the anterior horn. Small partially ruptured Mercado's cyst. Service Center Representative: AURELIANO Transcribe Date/Time: Oct 02 2024 3:57P Dictated by : JEY ANDRADE MD This examination was interpreted and the report reviewed and electronically signed by: JEY ANDRADE MD on Oct 02 2024 4:03PM [facility] DIVISION OF RADIOLOGY * * *Final Report* * * DATE OF EXAM: Oct 02 2024 3:00PM [facility] 0213 - MRI KNEE WO IVCON RT / PROCEDURE REASON: Acute pain of right knee * * * * Physician Interpretation * * * * EXAMINATION: MRI RIGHT KNEE WITHOUT CONTRAST CLINICAL HISTORY: Acute knee pain TECHNIQUE: Routine non-contrast MRI of the knee MQ: MRK_2B COMPARISON: 09/21/2024 radiographs RESULT: MENISCI: Medial Meniscus: Degenerative changes without a tear in the posterior horn Lateral Meniscus: Complex tear in the anterior horn with 9 mm intrameniscal cyst formation (4:13). LIGAMENTS: ACL: Intact with mucoid degeneration PCL: Intact MCL: Intact LCL Complex: Intact CARTILAGE: Medial Femoral Condyle: Small area(s) of low grade (less than 50% thickness) partial thickness cartilage loss and or fissuring Medial Tibial Plateau: Normal Lateral Femoral Condyle: Normal Lateral Tibial Plateau: Normal Patella: Small area(s) of high grade (greater than 50% thickness) partial thickness cartilage loss and or fissuring Trochlea: Normal TENDONS: The distal quadriceps and patellar tendons are intact. The popliteus tendon is intact. BONES AND MARROW: No evidence of fracture or bone marrow replacing process. MUSCLES: Muscle bulk and signal intensity are normal. JOINT FLUID AND SYNOVIUM: No joint effusion. No synovitis. Small Mercado's cyst with leakage of fluid more distally along the calf musculature compatible with partial rupture. OTHER: No other significant abnormality identified. Localizer images: No additional findings. DIVISION OF RADIOLOGY Provider, [facility] - 10/02/2024 * * *Final Report* * * DATE OF EXAM: Oct 02 2024 3:00PM [facility] 0213 - MRI KNEE WO IVCON RT / PROCEDURE REASON: Acute pain of right knee * * * * Physician Interpretation * * * * EXAMINATION: MRI RIGHT KNEE WITHOUT CONTRAST CLINICAL HISTORY: Acute knee pain TECHNIQUE: Routine non-contrast MRI of the knee MQ: MRK_2B COMPARISON: 09/21/2024 radiographs RESULT: MENISCI: Medial Meniscus: Degenerative changes without a tear in the posterior horn Lateral Meniscus: Complex tear in the anterior horn with 9 mm intrameniscal cyst formation (4:13). LIGAMENTS: ACL: Intact with mucoid degeneration PCL: Intact MCL: Intact LCL Complex: Intact CARTILAGE: Medial Femoral Condyle: Small area(s) of low grade (less than 50% thickness) partial thickness cartilage loss and or fissuring Medial Tibial Plateau: Normal Lateral Femoral Condyle: Normal Lateral Tibial Plateau: Normal Patella: Small area(s) of high grade (greater than 50% thickness) partial thickness cartilage loss and or fissuring Trochlea: Normal TENDONS: The distal quadriceps and patellar tendons are intact. The popliteus tendon is intact. BONES AND MARROW: No evidence of fracture or bone marrow replacing process. MUSCLES: Muscle bulk and signal intensity are normal. JOINT FLUID AND SYNOVIUM: No joint effusion. No synovitis. Small Mercado's cyst with leakage of fluid more distally along the calf musculature compatible with partial rupture. OTHER: No other significant abnormality identified. Localizer images: No additional findings. IMPRESSION IMPRESSION: Complex lateral meniscal tear with 9 mm intrameniscal cyst in the anterior horn. Small partially ruptured Mercado's cyst. Service Center Representative: AURELIANO Transcribe Date/Time: Oct 02 2024 3:57P Dictated by : JEY ANDRADE MD This examination was interpreted and the report reviewed and electronically signed by: JEY ANDRADE MD on Oct 02 2024 4:03PM EST [facility] Radiology Study observation (narrative) [facility] MR Knee - right WO contrastO rdered By: [facility] Provider on 10-02-2024 [facility] MRI KNEE WO IVCON RTon 10-02 MRI KNEE WO IVCON RT * * *Final Report* * * DATE OF EXAM: Oct 02 2024 3:00PM [facility] 0213 - MRI KNEE WO IVCON RT / PROCEDURE REASON: Acute pain of right knee * * * * Physician Interpretation * * * * EXAMINATION: MRI RIGHT KNEE WITHOUT CONTRAST CLINICAL HISTORY: Acute knee pain TECHNIQUE: Routine non-contrast MRI of the knee MQ: MRK_2B COMPARISON: 09/21/2024 radiographs RESULT: MENISCI: Medial Meniscus: Degenerative changes without a tear in the posterior horn Lateral Meniscus: Complex tear in the anterior horn with 9 mm intrameniscal cyst formation (4:13). LIGAMENTS: ACL: Intact with mucoid degeneration PCL: Intact MCL: Intact LCL Complex: Intact CARTILAGE: Medial Femoral Condyle: Small area(s) of low grade (less than 50% thickness) partial thickness cartilage loss and or fissuring Medial Tibial Plateau: Normal Lateral Femoral Condyle: Normal Lateral Tibial Plateau: Normal Patella: Small area(s) of high grade (greater than 50% thickness) partial thickness cartilage loss and or fissuring Trochlea: Normal TENDONS: The distal quadriceps and patellar tendons are intact. The popliteus tendon is intact. BONES AND MARROW: No evidence of fracture or bone marrow replacing process. MUSCLES: Muscle bulk and signal intensity are normal. JOINT FLUID AND SYNOVIUM: No joint effusion. No synovitis. Small Mercado's cyst with leakage of fluid more distally along the calf musculature compatible with partial rupture. OTHER: No other significant abnormality identified. Localizer images: No additional findings. IMPRESSION: Complex lateral meniscal tear with 9 mm intrameniscal cyst in the anterior horn. Small partially ruptured Mercado's cyst. Service Center Representative: [facility] Transcribe Date/Time: Oct 02 2024 3:57P Dictated by : JEY ANDRADE MD This examination was interpreted and the report reviewed and electronically signed by: JEY ANDRADE MD on Oct 02 2024 4:03PM EST [id number] Normal [facility] US DVT LOWER RTon 10-02-2024 US DVT LOWER RT * * *Final Report* * * DATE OF EXAM: Oct 02 2024 4:36PM [facility] 1007 - US DVT LOWER RT / PROCEDURE REASON: M79.661-Right calf pain * * * * Physician Interpretation * * * * EXAMINATION: RIGHT LOWER EXTREMITY DEEP VENOUS ULTRASOUND WITH DOPPLER IMAGING CLINICAL HISTORY: Right calf pain TECHNIQUE: Grayscale with compression maneuvers, color Doppler and spectral Doppler imaging of the right proximal deep veins was performed. Grayscale with compression maneuvers of the peroneal and posterior tibial veins was performed. The right great and small saphenous veins were evaluated at their insertion to the deep system. The contralateral common femoral vein was imaged for comparison. Images were obtained and stored in a permanent archive. MQ: USLER_1 COMPARISON: None RESULT: RIGHT LOWER EXTREMITY PROXIMAL DEEP VEINS Distal External Iliac, Common Femoral and proximal Profunda Veins: Compression: Normal Doppler: Normal, spontaneous respirophasic flow. Normal response to augmentation. Femoral vein: Compression: Normal Doppler: Normal, spontaneous flow. Normal response to augmentation. Popliteal vein: Compression: Normal Doppler: Normal, spontaneous flow. Normal response to augmentation. CALF DEEP VEINS Peroneal veins: Normal compression. Posterior tibial veins: Normal compression. Gastrocnemius and Soleal veins: Not imaged. SUPERFICIAL VEINS Great saphenous: Patent and compressible at insertion into common femoral vein; not otherwise assessed. Small Saphenous: Patent and compressible in the proximal calf, not otherwise assessed. LEFT LOWER EXTREMITY (FOR COMPARISON) Common Femoral Vein: Compression: Normal Doppler: Normal, spontaneous respirophasic flow. Normal response to augmentation. IMPRESSION: Negative study for proximal DVT in the right lower extremity. Negative study for calf DVT in the right lower extremity. Negative study for superficial thrombophlebitis in the imaged segments of the right lower extremity. Service Center Representative: [facility] Transcribe Date/Time: Oct 03 2024 4:15P Dictated by : CALLY BRAND MD This examination was interpreted and the report reviewed and electronically signed by: CALLY BRAND MD on Oct 03 2024 4:16PM EST [id number] [facility] CNOVon 10-01-2024 CNOV Office Visit (ORTHST ) ROBERTO JOSÉ ([id number]) 1955 M [place] Date Time Provider Department 10/01/24 2:00 PM SHAHRIAR BARROS During your visit today, we recorded the following information about you: Shahriar Barros MD 10/01/2024 3:14 PM Signed Roberto José He is here with acute right knee pain. Started having pain while golfing recently. He does have history of inflammatory arthritis. Started having pain and mechanical symptoms in his right knee. He is on Eliquis for cardiac issues and has multiple stents in his heart. Unable to take oral NSAIDs. Using topical Voltaren gel. Has pain at rest and with physical activities. Some pain at night.Review of systems negative for fever, weight loss, malaise, fatigue, significant headache, vision changes, hearing loss, neck swelling, cough, chest pain, shortness of breath, dyspnea on exertion, abdominal pain, nausea, vomiting, diarrhea, urinary dysfunction, upper/lower extremity numbness/tingling/weak ness/edema, heat/cold intolerance On exam right knee trace effusion. Holds the knee flexed a few degrees and he can go into hyperextension on the left knee 5 degrees. Flexes his right knee to about 95 with pain at terminal flexion. Some mild joint line tenderness but no gross instability. Mild discomfort with Gretchen testing. He also has some mild calf swelling versus the left but no calf tenderness to deep palpation. X-rays of his right knee do show some mild degenerative changes. Assessment right knee arthritis and knee pain with possible meniscus pathology. Also right calf swelling. Plan MRI right knee to evaluate for possible meniscal tear. Duplex right leg to rule out DVT and wound check. Shahriar Barros MD Referring Provider: SELF [200] Allergies As of Date: 10/01/2024 (No Known Allergies) Date Reviewed: 10/01/2024 Reviewed by: Linda Call MA - Fully Assessed Reason for Visit: New [061413] Primary Visit Diagnosis:Right calf pain [M79.661] Other Visit Diagnoses:Acute pain of right knee [M25.561] Psoriatic arthritis (HCC) [L40.50] Primary osteoarthritis of right knee [M17.11] Order(s):MRI KNEE WO IVCON RIGHT [[id number]] Order #: [id number] FUTURE US DVT LOWER RIGHT [[id number]] Order #: [id number] FUTURE Prescriptions as of 10/01/2024 - diclofenac (VOLTAREN) 1 % topical gel Apply 2 g to affected area four times daily. - metoprolol tartrate, short acting, (LOPRESSOR) 25 mg tablet Take 1 tablet by mouth two times a day. - Tadalafil (CIALIS) 5 mg tablet Take 1 tablet by mouth once daily. - Benzoyl Peroxide 10 % external wash Use to wash buttocks once daily. Rinse well. - clopidogrel (PLAVIX) 75 mg tablet Take 1 tablet by mouth once daily. - rosuvastatin (CRESTOR) 40 mg tablet Take 1 tablet by mouth once daily. - clindamycin (CLEOCIN-T) 1 % gel Apply thin layer to buttocks once daily. - mupirocin (BACTROBAN) 2 % ointment Apply to open areas twice daily until healed - Mesalamine (LIALDA) 1.2 gram EC tablet Take 2 tablets by mouth daily with breakfast. - tamsulosin (FLOMAX) 0.4 mg Take one a day - ustekinumab (STELARA) 45 mg/0.5 mL sub-Q syringe Inject 45mg (1 syringe) subcutaneously on week 0, and week 4, then every 12 weeks thereafter - folic acid 400 mcg tablet Take 400 mcg by mouth once daily. - cholecalciferol (VITAMIN D3) 1,000 unit tab tablet Take 1,000 Units by mouth once daily. - ramipril(ALTACE 2.5 MG CAP) Take one(1) capsule daily. - MULTIVITAMIN TAB Take one(1) tablet daily. - METOPROLOL 50 MG TAB 1/2 tab twice daily Problem List As Of Date 10/01/2024 Noted Resolved Peyronie's Disease [N48.6] 03/23/2009 Chronic ulcer of other specified site [L98.499] 03/08/2011 CAD (coronary artery disease), [place] coronary *05/24/2012 Ulcerative pancolitis with rectal bleeding (HCC*12/05/2016 Malnutrition of moderate degree (HCC) [E44.0] 12/06/2016 08/24/2017 Abnormal kidney function [N28.9] 10/19/2023 Ulcerative colitis (HCC) [K51.90] 10/19/2023 Essential hypertension [I10] 10/19/2023 Iliotibial band syndrome of right side [M76.31] 11/21/2023 Coronary stent patent [Z95.5] 03/18/2024 Psoriatic arthritis (HCC) [L40.50] 10/01/2024 Encounter Status:Closed by SHAHRIAR BARROS on 10/01/24 Normal [facility] CNOVon 09-21-2024 CNOV Office Visit (WOUCA) ROBERTO JOSÉ ([id number]) 1955 M [place] Date Time Provider Department 09/21/24 10:15 AM DERICK SHI During your visit today, we recorded the following information about you: Temperature Pulse Respiration Blood pressure 97.5 degrees 60/minute 16/minute 110/76 Weight 91.7 kg Derick Shi PA 09/21/2024 11:02 AM Signed [facility] Subjective Roberto José is a 68 year old male. Patient presents with: Other: Knee injury - Entered by patient Right Knee Pain: X 4 days-cannot recall an injury HPI Right Knee Pain and Swelling: - Acute onset of right knee pain and swelling began [place]. - Denies feeling a pop or tear at onset. - Pain and swelling increased with continued walking; knee not functioning right during subsequent golf game. - Persistent pain and swelling since onset; unable to complete usual morning and evening walks. - Pain initially localized to the anterior knee, now affecting the posterior hamstring. - No history of knee issues. - Using ice for swelling; taking Advil sporadically, 1 tablet at a time, with minimal relief. - Scheduled to see an orthopedist on the . Review of Systems Musculoskeletal: (+) knee pain, (+) knee swelling, (+) hamstring pain, (+) difficulty walking, (-) calf pain Skin: (+) knee skin lesions Objective BP 110/76 Pulse 60 Temp 36.4 ?C (97.5 ?F) (Tympanic) Resp 16 Wt 91.7 kg (202 lb 2.6 oz) SpO2 98% BMI 28.20 kg/m? Physical Exam Vitals and nursing note reviewed. Constitutional: General: He is not in acute distress. Appearance: Normal appearance. He is not toxic-appearing. Musculoskeletal: Right knee: Swelling present. Normal range of motion. Tenderness present over the lateral joint line. No LCL laxity, MCL laxity, ACL laxity or PCL laxity. Normal pulse. Comments: Normal flexion extension right knee. No significant limping imminent laxity. Mild crepitation. Tenderness over right lateral joint line/base. Mild swelling noted over right lateral knee. Patient does have some scabbing present noted over the right lateral knee. No erythema, warmth or signs of infection. No posterior knee tenderness or fullness noted. No calf tenderness or swelling noted. Negative Homans' sign. Normal sensation right lower extremity. Popliteal pulse 2+. Skin: General: Skin is warm and dry. Neurological: Mental Status: He is alert. General: No acute distress. Skin: Erythematous benavidez on knee, consistent with possible ice piper. MSK/Ext: Right knee swelling, tenderness to palpation over anterior knee, full range of motion in knee, no calf pain or swelling. { 1. Acute pain of right knee (M25.561) - Acute right knee pain and swelling began during ambulation on the golf course; no prior knee issues reported. - Exam reveals swelling and tenderness over the anterior knee; no calf pain, swelling, or redness. - X-ray shows no acute bony abnormalities or severe arthritis. - Low suspicion for DVT based on location of pain and absence of calf symptoms/posterior knee pain; advised to seek emergency care if calf pain, swelling, or redness develops. - Start topical anti-inflammatory gel. - Advised to use a knee sleeve for support and swelling management during activity; avoid braces that keep the knee completely straight. - Advised to rest and limit activity as tolerated; ice and elevate knee for no more than 20 minutes at a time, 3-4 times daily. - Advised to use Tylenol Extra Strength 1000 mg TID for pain management; avoid NSAIDs due to Plavix use. - Follow-up with planning specialist on the . Recording using OM Latam software for draft documentation of the visit was discussed with the patient/authorized medical collections representative; all questions welcomed and answered. Patient/authorized medical collections representative agreed to proceed History and Record Review External record(s) reviewed: prior outpatient record. Differential Diagnoses - Knee sprain/strain is more likely for the following reason(s): suggested by HANDP - Fracture is less likely for the following reason(s): no evidence on imaging - DVT is less likely for the following reason(s): No calf pain, swelling, posterior knee pain or swelling., HANDP not suggestive Disposition The patient was discharged. OTC Medications were advised: Tylenol Procedures Allergies As of Date: 09/21/2024 (No Known Allergies) Date Reviewed: 09/21/2024 Reviewed by: Cheyanne Landon LPN - Fully Assessed Reason for Visit: Other [0] Cmt: Knee injury - Entered by patient Right Knee Pain [1209] Cmt: X 4 days-cannot recall an injury Primary Visit Diagnosis:Acute pain of right knee [M25.561] Order(s):XR KNEE GENERAL 4V AP BOTH/PA BOTH/LAT/MERC RIGHT [[id number]] Order #: [id number] FUTURE diclofenac (VOLTAREN) 1 % topical gelApp (more content not included)... Normal [facility] XR KNEE 4V AP/PA BOTH+LAT/ME R RTon 09-21-2024 XR KNEE 4V AP/PA BOTH+LAT/PRISCILLA RT * * *Final Report* * * DATE OF EXAM: Sep 21 2024 10:50AM WOX 5203 - XR KNEE 4V AP/PA BOTH+LAT/PRISCILLA RT / PROCEDURE REASON: Acute pain of right knee * * * * Physician Interpretation * * * * PROCEDURE: Right knee INDICATION: Acute pain of right knee . TECHNIQUE: XR KNEE 4V AP/PA BOTH+LAT/PRISCILLA RT COMPARISON: None FINDINGS: No fractures or dislocations are seen. No significant joint effusion or joint body is evident. The joint spaces are maintained without evidence for significant degenerative or arthritic change. IMPRESSION: Negative. Service Center Representative: PSCB Transcribe Date/Time: Sep 21 2024 10:54A Dictated by : MARY GIRON MD This examination was interpreted and the report reviewed and electronically signed by: MARY GIRON MD on Sep 21 2024 10:54AM EST [id number] Normal [facility] XR Knee - right 4 Viewson IMPRESSION: Negative. Service Center Representative: PSCB Transcribe Date/Time: Sep 21 2024 10:54A Dictated by : MARY GIRON MD This examination was interpreted and the report reviewed and electronically signed by: MARY GIRON MD on Sep 21 2024 10:54AM EST DIVISION OF RADIOLOGY * * *Final Report* * * DATE OF EXAM: Sep 21 2024 10:50AM WOX 5203 - XR KNEE 4V AP/PA BOTH+LAT/PRISCILLA RT / PROCEDURE REASON: Acute pain of right knee * * * * Physician Interpretation * * * * PROCEDURE: Right knee INDICATION: Acute pain of right knee . TECHNIQUE: XR KNEE 4V AP/PA BOTH+LAT/PRISCILLA RT COMPARISON: None FINDINGS: No fractures or dislocations are seen. No significant joint effusion or joint body is evident. The joint spaces are maintained without evidence for significant degenerative or arthritic change. DIVISION OF RADIOLOGY [facility]24 * * *Final Report* * * DATE OF EXAM: Sep 21 2024 10:50AM WOX 5203 - XR KNEE 4V AP/PA BOTH+LAT/PRISCILLA RT / PROCEDURE REASON: Acute pain of right knee * * * * Physician Interpretation * * * * PROCEDURE: Right knee INDICATION: Acute pain of right knee . TECHNIQUE: XR KNEE 4V AP/PA BOTH+LAT/PRISCILLA RT COMPARISON: None FINDINGS: No fractures or dislocations are seen. No significant joint effusion or joint body is evident. The joint spaces are maintained without evidence for significant degenerative or arthritic change. IMPRESSION IMPRESSION: Negative. Service Center Representative: PSCB Transcribe Date/Time: Sep 21 2024 10:54A Dictated by : MARY GIRON MD This examination was interpreted and the report reviewed and electronically signed by: MARY GIRON MD on Sep 21 2024 10:54AM EST [facility] Radiology Study observation (narrative) [facility] XR Knee - right 4 ViewsOrder ed By: Ccf Provider on 09-21-2024 [facility] CNOVon 06-17-2024 CNOV Office Visit (OTOLMM ) ROBERTO JOSÉ ([id number]) 1955 [place] Date Time Provider Department 06/17/24 1:45 PM ZANE BANKS OTOLMM During your visit today, we recorded the following information about you: Zane Banks MD 06/17/2024 3:24 PM Signed HPI Roberto José is a 68 year old male who presents with cervical adenopathy. Patient seen consultation by Dr. Gore Patient recently he had an ultrasound of the carotids and they noticed a slightly enlarged lymph node on the left side patient denies any constitutional symptoms or any complaints relating to the head and neck. ROS General Weight loss: No Fatigue: No Night sweats:No Cardiac Chest pain:No Fast heart rate:No Swelling in the feet:No Respiratory Short of breath:No Cough:No Wheezing:No Gastrointestinal Nausea:No Vomiting:No Indigestion:No Past medical history, family history, and social history reviewed. PE There were no vitals taken for this visit. General: Patient is awake, alert, NAD. Voice is normal. Skin: normal Eyes: Extraocular motion and Gaze is normal. Ears: Right external auditory canal is normal. TMJ: normal. Right tympanic membranes normal. Left external auditory canal is normal. Left tympanic membrane normal. Nose: Septum is normal. Turbinates are normal. Nasopharynx:normal Oral Cavity/Oropharynx: Lips normal Dentition normal Tongue normal. Tonsils normal. Palate and uvula normal. Pharynx posterior normal Hypopharynx: Base of tongue normal Pyriform sinus normal. Larynx: Vocal cords normal. Epiglottis normal. Post cricoid normal. Salivary glands: Parotid normal. Submandibular and sublingual normal. Thyroid: normal. Lymphatic/Neck: Lymph nodes normal. Neurologic: Facial nerve normal. Ultrasound reviewed ASSESSMENT/PLAN: 1. Lymphadenopathy, anterior cervical - ICD9: 785.6, ICD10: R59.0 Observe no follow-up needed Zane Banks MD Findings will be communicated to the referring physician via mail or electronic medical record. Referring Provider: DENZEL GORE [[id number]] Allergies As of Date: 06/17/2024 (No Known Allergies) Date Reviewed: 06/17/2024 Reviewed by: Ana Paula Mckinley Ma - Fully Assessed Reason for Visit: Neck Mass [1158] Cmt: Seen on Doppler as a enlarged lymph nodes. Referred by Enterprise Resource Planning Consultant. Visit Diagnosis:Lymphadenopa thy, anterior cervical [R59.0] Order(s):CONSULT TO ENT [9008] Order #: [id number]: 1 Prescriptions as of 06/17/2024 - metoprolol tartrate, short acting, (LOPRESSOR) 25 mg tablet Take 1 tablet by mouth two times a day. - Tadalafil (CIALIS) 5 mg tablet Take 1 tablet by mouth once daily. - Benzoyl Peroxide 10 % external wash Use to wash buttocks once daily. Rinse well. - clopidogrel (PLAVIX) 75 mg tablet Take 1 tablet by mouth once daily. - rosuvastatin (CRESTOR) 40 mg tablet Take 1 tablet by mouth once daily. - clindamycin (CLEOCIN-T) 1 % gel Apply thin layer to buttocks once daily. - mupirocin (BACTROBAN) 2 % ointment Apply to open areas twice daily until healed - Mesalamine (LIALDA) 1.2 gram EC tablet Take 2 tablets by mouth daily with breakfast. - tamsulosin (FLOMAX) 0.4 mg Take one a day - ustekinumab (STELARA) 45 mg/0.5 mL sub-Q syringe Inject 45mg (1 syringe) subcutaneously on week 0, and week 4, then every 12 weeks thereafter - folic acid 400 mcg tablet Take 400 mcg by mouth once daily. - cholecalciferol (VITAMIN D3) 1,000 unit tab tablet Take 1,000 Units by mouth once daily. - ramipril(ALTACE 2.5 MG CAP) Take one(1) capsule daily. - MULTIVITAMIN TAB Take one(1) tablet daily. - METOPROLOL 50 MG TAB 1/2 tab twice daily Problem List As Of Date 06/17/2024 Noted Resolved Peyronie's Disease [N48.6] 03/23/2009 Chronic ulcer of other specified site [L98.499] 03/08/2011 CAD (coronary artery disease), [place] coronary *05/24/2012 Ulcerative pancolitis with rectal bleeding (HCC*12/05/2016 Malnutrition of moderate degree (HCC) [E44.0] 12/06/2016 08/24/2017 Abnormal kidney function [N28.9] 10/19/2023 Ulcerative colitis (HCC) [K51.90] 10/19/2023 Essential hypertension [I10] 10/19/2023 Iliotibial band syndrome of right side [M76.31] 11/21/2023 Coronary stent patent [Z95.5] 03/18/2024 Encounter Status:Closed by ZANE BANKS on 06/17/24 Normal [facility] CNOVon 05-22-2024 CNOV Office Visit (UROLMD ) ROBERTO JOSÉ ([id number]) 1955 [facility] Date Time Provider Department 05/22/24 1:30 PM NEO GROSS UROANTONY During your visit today, we recorded the following information about you: Weight Height 93.4 kg 1.803 m Glendy Garcia LPN 07/08/2024 8:38 AM Signed Bladder scan obtained 0 ml of urine Neo Gross MD 07/08/2024 8:38 AM Signed [facility] UROLOGY NEW PATIENT CLINIC NOTE UROL [facility] PATIENT: Roberto José (68 year old) PCP: Shirlene Denson MD REFERRING PROVIDER: As above CHIEF COMPLAINT: Urgency and nocturia, history of BPH HISTORY OF PRESENT ILLNESS: Roberto José is a 68 year old male with history of urgency event and nocturia. Patient states that he urinates twice a night. Currently on Tamsulosin on 0.4mg daily for the last 10-15 years through a former urologist. Thinks he may have been on 2 capsules initially. Has bothersome moments of intermittency. See IPSS scores below. Also has a diagnosis Peyronie's for last 10-15 years. He recalls a moment of trauma or pop. Bends downward. Unable to provide degree of curvature. INTERNATIONAL PROSTATE SYMPTOM SCORE (I-PSS) 1)INCOMPLETE EMPTYING Over the past month, how often have you had a sensation of not emptying your bladder completely after you finished urinating? SCORE: 2- less than half the time 2)FREQUENCY Over the past month, how often have you had to urinate again less than two hours after you finished urinating? SCORE: 2- less than half the time 3)INTERMITTENCY Over the past month, how often have you found you stopped and started again several times when you urinated? SCORE: 4- More than half the time 4)URGENCY Over the past month, how often have you found it difficult to postpone urination? SCORE: 0- Not at all 5)WEAK STREAM Over the past month, how often have you had a weak stream? SCORE: 2- less than half the time 6)STRAINING Over the past month, how often have you had to push or strain to begin urination SCORE: 0- Not at all 7)NOCTURIA Over the past month, how many times did you most typically get up to urinate from the time you went to bed at night until the time you get up in the morning? SCORE:2 TOTAL I-PSS SCORE: 12 QUALITY OF LIFE DUE TO URINARY SYMPTOMS If you were to spend the rest of yur life with your urinary condition just the way it is now, how would you feel about that? 3- Mixed- equally satisfied and dissatisfied HISTORY: LABS: No results found for: PSA, PSAPER No results found for: ISOPSA Creatinine Date Value Ref Range Status 03/21/2024 1.24 (H) 0.73 - 1.22 mg/dL Final 11/16/2023 1.16 0.73 - 1.22 mg/dL Final 11/02/2023 1.28 (H) 0.73 - 1.22 mg/dL Final 10/17/2023 1.16 0.73 - 1.22 mg/dL Final OFFICE DATA: URINE POC GLUCOSE UA (POCT) Negative 05/22/2024 BILIRUBIN UA (POCT) Negative 05/22/2024 KETONE UA (POCT) Negative 05/22/2024 SPECIFIC GRAVITY UA (POCT) 1.020 05/22/2024 HEMOGLOBIN/BLOOD UA (POCT) Negative 05/22/2024 PH UA (POCT) 6.0 05/22/2024 PROTEIN UA (POCT) Negative 05/22/2024 UROBILINOGEN UA (POCT) 0.2 05/22/2024 NITRITE UA (POCT) Negative 05/22/2024 LEUKOCYTES UA (POCT) Negative 05/22/2024 COLOR UA (POCT) Yellow 05/22/2024 CLARITY UA (POCT) Clear 05/22/2024 POST-VOID RESIDUAL BLADDER VOLUME: 0cc , empties well PERTINENT IMAGING: IMPRESSION: Normal sonographic appearance of kidneys and bladder. Service Center Representative: AURELIANO Transcribe Date/Time: Nov 04 2023 6:42P Dictated by : MOLINA MCCARTHY MD This examination was interpreted and the report reviewed and electronically signed by: MOLINA MCCARTHY MD on Nov 04 2023 6:42PM EST Results-Findings * * *Final Report* * * DATE OF EXAM: Nov 02 2023 2:06PM [facility] 1055 - US KIDNEY/BLADDER / PROCEDURE REASON: Abnormal kidney function * * * * Physician Interpretation * * * * EXAMINATION: RENAL ULTRASOUND CLINICAL HISTORY: . Abnormal kidney function . TECHNIQUE: Sonography of the kidneys and urinary bladder was performed. Images were obtained and stored in a permanent archive. MQ: UR_1 COMPARISON: None RESULT: Right Kidney: -Renal length: 10.3 cm -Parenchyma: Normal echogenicity and thickness. -Collecting system: No hydronephrosis. -Calculus: None -Lesion: none Left Kidney: -Renal length: 9.6 cm -Parenchyma: Normal echogenicity and thickness. -Collecting system: No hydronephrosis. -Calculus: None -Lesion: none Bladder: Grossly unremarkable but not well distended with volume of 14 cc. REVIEW OF SYSTEMS: Reviewed and otherwise non-contributory. HISTORY: PAST MEDICAL HISTORY Diagnosis Date Elevated cholesterol Irritable bowel [place] (myocardial infarction) (HCC) 1995-stent, 2005 second stent Peyronie disease Psoriasis Ulcerative pancolitis with rectal bleeding (HCC) 12/05/2016 (more content not included)... Normal [facility] UA DIP, URINE (POC)on 2024 BILIRUBIN UA (POCT) Negative Negative [facility] CLARITY [facility] (POCT) [facility] COLOR UA (POCT) Yellow [facility] GLUCOSE UA (POCT) Negative Negative mg/dL [facility] Hemoglobin Ql (U) Negative Negative [facility] KETONE UA (POCT) Negative Negative mg/dL [facility] LEUKOCYTES UA (POCT) Negative Negative [facility] NITRITE UA (POCT) Negative Negative [facility] PH UA (POCT) 6 4.5 - 8.0 [facility] Protein Ql (U) Negative Negative mg/dL [facility] SPECIFIC GRAVITY UA (POCT) 1.02 1.005 - 1.030 [facility] UROBILINOGEN UA (POCT) 0.2 Dee l E.U./dL [facility] Location:[address], [id number] [place] [address] POINT OF CARE [facility] US CAROTID ARTERIES OLEG VAS LABon 04-05-2024 US CAROTID ARTERIES OLEG VAS LAB Non-Invasive Vascular Laboratory [facility] Carotid Duplex Bilateral/Complete Date of service/time: 04/05/2024 1:29:11 PM Name: MR. ROBERTO JOSÉ Date of : 1955 Age: 68 years Gender: M Medical History Carotid artery disease: Yes Clinical Indication Asymptomatic cervical bruit. TECHNIQUE -------- A carotid duplex ultrasound examination was performed, including grayscale imaging and color Doppler and spectral Doppler examination of the below mentioned arteries. FINDINGS -------- RIGHT SIDE Common carotid artery: Origin: PSV: 49 cm/s. EDV: 9 cm/s. Proximal: PSV: 90 cm/s. EDV: 21 cm/s. Mid: PSV: 97 cm/s. EDV: 21 cm/s. Distal: PSV: 63 cm/s. EDV: 17 cm/s. Internal carotid artery: Origin: PSV: 54 cm/s. EDV: 19 cm/s. Proximal: PSV: 42 cm/s. EDV: 20 cm/s. Mid: PSV: 28 cm/s. EDV: 11 cm/s. Distal: PSV: 60 cm/s. EDV: 25 cm/s. ICA/CCA Ratio: 0.9 External carotid artery: Proximal: PSV: 56 cm/s. EDV: 10 cm/s. Subclavian artery: Proximal: PSV: 84 cm/s. EDV: 0 cm/s. Innominate artery: PSV: 129 cm/s. EDV: 13 cm/s. Vertebral artery: PSV: 37 cm/s. EDV: 11 cm/s. LEFT SIDE Common carotid artery: Proximal: PSV: 86 cm/s. EDV: 19 cm/s. Mid: PSV: 96 cm/s. EDV: 27 cm/s. Distal: PSV: 65 cm/s. EDV: 19 cm/s. Internal carotid artery: Origin: PSV: 70 cm/s. EDV: 23 cm/s. Proximal: PSV: 58 cm/s. EDV: 24 cm/s. Mid: PSV: 56 cm/s. EDV: 22 cm/s. Distal: PSV: 42 cm/s. EDV: 18 cm/s. Mild heterogeneous calcified plaque from origin to proximal. ICA/CCA Ratio: 1.1 External carotid artery: Proximal: PSV: 50 cm/s. EDV: 12 cm/s. Subclavian artery: Proximal: PSV: 113 cm/s. EDV: 0 cm/s. Vertebral artery: PSV: 34 cm/s. EDV: 12 cm/s. IMPRESSION Please note: the new carotid interpretation criteria are used as recommended by [employer]. RIGHT SIDE Internal carotid artery: Normal study. External carotid artery: Patent. Vertebral artery: Patent and antegrade flow noted. Innominate artery: Patent. Subclavian artery: Patent. LEFT SIDE Internal carotid artery: <50% stenosis consistent with mild carotid artery disease. Lymph nodes noted, with the largest measuring 1.42 x 1.03 x .648cm. External carotid artery: Patent. Vertebral artery: Patent and antegrade flow noted. Subclavian artery: Patent. Technologist: Christine Leigh RVT Ordering physician: DENZEL GORE Interpreting physician: Kurt Cali MD, GRETCHEN Final CC [employer] Medical Image : [id number] See Link below for Image Normal [facility] ALT SerPl-cCncon 03-21-2024 ALT [Catalytic activity/Vol] 20 U/L Normal 10-54 [facility] Comment on above: Order Comment: Speci men Type: BLOOD SPECIMENOrdering Facility: [facility] Address: [address] [place] [address] Performed By: #### C IRWIN1, 17403-28, 1919-09 ####[facility] [id number] [place] [address] [place] AST SerPl-cCncon 03-21-2024 AST [Catalytic activity/Vol] 21 U/L Normal 14-40 [facility] Comment on above: Order Comment: Speci men Type: BLOOD SPECIMENOrdering Facility: [facility] Address: [address] [place] [address] Performed By: #### C RET1, 1746, 1919-09 ####[facility] [id number] [place] [address] [place] CBC panel Auto (Bld)on 03-21 Erythrocyte distribution width (RBC) [Ratio] 12.9 % Normal 11.5-15.0 [facility] Comment on above: Order Comment: Speci men Type: BLOOD SPECIMENOrdering Facility: [facility] Address: [address] [place] [address] Performed By: #### 5 8410-2 ####[facility] MAKIANTONINO [id number] [place] [address] [place] Hematocrit (Bld) [Volume fraction] 44.4 % Normal 39.0-51.0 [facility] Comment on above: Order Comment: Speci men Type: BLOOD SPECIMENOrdering Facility: [facility] Address: [address] [place] [address] Performed By: #### 5 8410-2 ####[facility] [id number] [place] [address] [place] Hemoglobin (Bld) [Mass/Vol] 14.9 g/dL Normal 13.0-17.0 [facility] Comment on above: Order Comment: Speci men Type: BLOOD SPECIMENOrdering Facility: [facility] Address: [address] [place] [address] Performed By: #### 5 8410-2 ####[facility] [id number] [place] [address] [place] MCH (RBC) [Entitic mass] 30.7 pg Normal 26.0-34.0 [facility] Comment on above: Order Comment: Speci men Type: BLOOD SPECIMENOrdering Facility: [facility] Address: [address] [place] [address] Performed By: #### 5 8410-2 ####[facility] [id number] [place] [address] [place] MCHC (RBC) [Mass/Vol] 33.6 g/dL Normal 30.5-36.[address] [facility] Comment on above: Order Comment: Speci men Type: BLOOD SPECIMENOrdering Facility: [facility] Address: [address] [place] [address] Performed By: #### 5 8410-2 ####[facility] [id number] [place] [address] [place] MCV (RBC) [Entitic vol] 91.4 fL Normal 80.0-100.0 [facility] Comment on above: Order Comment: Speci men Type: BLOOD SPECIMENOrdering Facility: [facility] Address: [address] [place] [address] Performed By: #### 5 8410-2 ####[facility] [id number] [place] [address] [place] Nucleated RBC (Bld) [#/Vol] 10*3/uL Normal <0.01 [facility] Comment on above: Order Comment: Speci men Type: BLOOD SPECIMENOrdering Facility: [facility] Address: [address] [place] [address] Performed By: #### 5 8410-2 ####[facility] [id number] [place] [address] [place] Platelet mean volume (Bld) [Entitic vol] 11.3 fL Normal 9.0-12.7 [facility] Comment on above: Order Comment: Speci men Type: BLOOD SPECIMENOrdering Facility: [facility] Address: [address] [place] [address] Performed By: #### 5 8410-2 ####[facility] [id number] [place] [address] [place] Platelets (Bld) [#/Vol] 169 10*3/uL Normal 150-400 [facility] Comment on above: Order Comment: Speci men Type: BLOOD SPECIMENOrdering Facility: [facility] Address: [address] [place] [address] Performed By: #### 5 8410-2 ####[facility] [id number] [place] [address] [place] RBC (Bld) [#/Vol] 4.86 10*6/uL Normal 4.20-6.00 [facility] Comment on above: Order Comment: Speci men Type: BLOOD SPECIMENOrdering Facility: [facility] Address: [address] [place] [address] Performed By: #### 5 8410-2 ####[facility] [id number] [place] [address] [place] WBC (Bld) [#/Vol] 4.83 10*3/uL Normal 3.70-11.00 [facility] Comment on above: Order Comment: Speci men Type: BLOOD SPECIMENOrdering Facility: [facility] Address: [address] [place] [address] Performed By: #### 5 8410-2 ####[facility] [id number] [place] [address] [place] CREATININE BLDon 03-21-2024 Creatinine [Mass/Vol] 1.24 mg/dL High 0.73-1.[address] [facility] Comment on above: Order Comment: Speci men Type: BLOOD SPECIMENOrdering Facility: [facility] Address: [address] [place] [address] Performed By: #### C RET1, 1742-6, 1920-8 ####[facility] [id number] [place] [address] [place] Creatinine and Glomerular filtration rate.predicted panel (S/P/Bld) 63 mL/min/1.73m??? Normal >=60 [facility] Comment on above: Order Comment: Speci men Type: BLOOD SPECIMENOrdering Facility: [facility] Address: [address] [place] [address] Result Comment: Gretta mated Glomerular Filtration Rate (eGFR) is calculated using the 2020 CKD-EPI creatinine equation. This equation utilizes serum creatinine, sex, and age as parameters. The creatinine assay has traceable calibration to isotope dilution-mass spectrometry. Refer to KDIGO guidelines for clinical interpretation. In patients with unstable renal function, e.g. those with acute kidney injury, the eGFR may not accurately reflect actual GFR. Performed By: #### C RET1, 1742-6, 0- ####[facility] LYNDSEY SIBLEYCHIO [id number] [address] CNOVon 03-20-2024 CNOV Office Visit (RHEUST ) ESTEFANÍAROBERTO ([id number]) 1955 [facility] Date Time Provider Department 03/20/24 10:20 AM MARGUERITE PEREYRA During your visit today, we recorded the following information about you: Temperature Pulse Blood pressure Weight 97.6 degrees 69/minute 118/81 93.8 kg Height 1.82 m Marguerite Pereyra MD 03/20/2024 10:44 AM Signed On 03/20/2024, I had the pleasure of seeing Roberto José at the [facility], [facility] for follow-up of inflammatory arthritis HPI: To review, Roberto José is a 68 year old male w/hx of UC and psoriasis - In 20s, with back pain (had an injury one summer). Better with activity. Worst time of day is morning. - Around '18, diagnosed with UC (testing not definitive, treatment has helped) - Sometime around Jul, with onset of ear psoriasis - Since Jan, with bilateral hip discomfort, laterally. Radiates down. - In April, reported UC was doing well on mesalamine. Never on a biologic. Diagnosed prednisone trial with 95% improvement in back pain/tightness and resolved hip pain. Advised to start humira - In May, started humira (first injection on 06/09) - In Jul, reported 75-80% improvement in pain with humira. Slept better at night. Could golf multiple days in a row. Psoriasis of L ear improved with humira - In Feb, reported stable joints with humira but stiffness was worse in the winter - In Sep, reported severe L plantar fasciitis despite 2 injections of steroids (in the past, it had cleared up with CSI). Some R hip/R knee pain worse with activity and worst in morning, radiated from hip down to lateral thigh along ITB. The stiffness improved in the summer compared to the winter. Humira switched to stelara. PT referral given, helped RLE - In Nov (12/19/23), s/p first stelara dose - Today, reports no change with stelara compared to humira. Does appreciate the less frequent injections with stelara. Overall stable. Just some mid to low back stiffness in the morning, improved after 1-2 hours of moving around. RLE is improving. L plantar fasciitis is significantly improved now, ended up having a third CSI in (doesn't recall when). Unclear if L foot is improved due to third CSI, PT vs stelara. Of note, trying to switch HL tx back to crestor to see if that doesn't cause aching like past statins did (remote use of crestor without such SE)-sees Dr. Gore - Went to [place] in summer PAST MEDICAL HISTORY Diagnosis Date Elevated cholesterol Irritable bowel [place] (myocardial infarction) (HCC) 1995-stent, 2004 second stent Peyronie disease Psoriasis Ulcerative pancolitis with rectal bleeding (HCC) 12/05/2016 Chronic diarrhea with mucous and blood, associated with abdominal pain and weight loss. Abdominal pain not related to food and no food aversion to suggest ischemia CT 11/08 : rectosigmoid colitis without abscess or perforation and fat stranding in the pelvis. Colonoscopy 11/18: significant colitis involving the distal 30cm of the colon with an entirely normal mucosa proximal to that point. Biopsy at that time negative for evidence of colitis with mild arhecticutual changes Previously given Cipro/Flagyl, mesalamine suppository, balsalazide, and budesonide without benefit. Noticed was when he was recently given IV steroid in ED. Flex sig 12/07 showing evidence of UC in the sigmoid - Started on methylprednisolone 20 TID, with quick transition to PO prednisone 40mg PAST SURGICAL HISTORY Procedure Laterality Date COLONOSCOPY FLX DX W/COLLJ SPEC WHEN PFRMD 10/21/2008 Colonoscopy PAST SURGICAL HISTORY OF 02/20/2009 2010 laser treatment for hemorrhoids PAST SURGICAL HISTORY OF heart stentx2 04/12 SIGMOIDOSCOPY FLX DX W/COLLJ SPEC BR/WA IF PFRMD 02/20/2010 Sigmoidoscopy ALLERGIES No Known Allergies MEDICATIONS: Current Outpatient Medications Medication Sig rosuvastatin (CRESTOR) 40 mg tablet Take 1 tablet by mouth once daily. clindamycin (CLEOCIN-T) 1 % gel Apply thin layer to buttocks once daily. mupirocin (BACTROBAN) 2 % ointment Apply to open areas twice daily until healed Mesalamine (LIALDA) 1.2 gram EC tablet Take 2 tablets by mouth daily with breakfast. tamsulosin (FLOMAX) 0.4 mg Take one a day ustekinumab (STELARA) 45 mg/0.5 mL sub-Q syringe Inject 45mg (1 syringe) subcutaneously on week 0, and week 4, then every 12 weeks thereafter (Patient taking differently: Inject 45mg (1 syringe) subcutaneously on week 0, and week 4, then every 12 weeks thereafter) Benzoyl Peroxide 10 % external wash Use to wash buttocks once daily. Rinse well. clopidogrel (PLAVIX) 75 mg tablet folic acid 400 mcg tablet Take 400 mcg by mouth once daily. cholecalciferol (VITAMIN D3) 1,000 unit tab tablet Take 1,000 Units by mouth once daily. ramipril(ALTACE 2.5 MG CAP) Take one(1) cap (more content not included)... Normal [facility] CNOVon 03-18-2024 CNOV Office Visit (CARDST ) ROBERTO JOSÉ ([id number]) 1955 M [place] Date Time Provider Department 03/18/24 1:30 PM SOFÍA, DENZEL JOHNSON During your visit today, we recorded the following information about you: Pulse Blood pressure Weight Height 71/minute 124/60 93.8 kg 1.82 m Denzel Gore MD 03/18/2024 2:04 PM Signed [facility] Department of Cardiovascular Medicine SECTION OF REGIONAL CARDIOLOGY [facility] 03/18/2024 OUTPATIENT VISIT TYPE NEW Patient Patient is being seen to establish care. The consult note will be sent to the requesting provider using [facility] medical records. HISTORY OF PRESENT ILLNESS: Mr. José is a 68 year old male with H/O CAD-s/p stent placement in 1995 in 2004 at [facility] and 2 stents were done in March 2020 at [facility], hypertension, abnormal kidney function (stage 2) and ulcerative colitis presents today for a consult regarding his heart health and establish care with a telephonic rn. Patient reports better results using rosuvastatin as compared to Lipitor. Patient came in expressing concerns of complications and anxiety from his stents done at [facility]. Patient is retired and is physically active by walking, lifting weights and rowing. Patient has no symptoms of chest pain. Patient has mild exertional shortness of breath. Dizziness - No Palpitations - No Leg swelling - No Fatigue - No Snoring - mild snoring Sleep apnea - No Social History Tobacco Use Smoking status: Never Smokeless tobacco: Never Substance Use Topics Alcohol use: Yes Comment: 1 beer per month Drug use: No FAMILY HISTORY Problem Relation Age of Onset Cancer Sister kidney Cancer Father lung? Heart Paternal Uncle [place] Heart Paternal Uncle bypass Hypertension Sister Hypertension Brother PAST MEDICAL HISTORY Diagnosis Date Elevated cholesterol Irritable bowel [place] (myocardial infarction) (HCC) 1995-stent, 2004 second stent Peyronie disease Psoriasis Ulcerative pancolitis with rectal bleeding (HCC) 12/05/2016 Chronic diarrhea with mucous and blood, associated with abdominal pain and weight loss. Abdominal pain not related to food and no food aversion to suggest ischemia CT 11/08 : rectosigmoid colitis without abscess or perforation and fat stranding in the pelvis. Colonoscopy 11/18: significant colitis involving the distal 30cm of the colon with an entirely normal mucosa proximal to that point. Biopsy at that time negative for evidence of colitis with mild arhecticutual changes Previously given Cipro/Flagyl, mesalamine suppository, balsalazide, and budesonide without benefit. Noticed was when he was recently given IV steroid in ED. Flex sig 12/07 showing evidence of UC in the sigmoid - Started on methylprednisolone 20 TID, with quick transition to PO prednisone 40mg PAST SURGICAL HISTORY Procedure Laterality Date COLONOSCOPY FLX DX W/COLLJ SPEC WHEN PFRMD 10/21/2008 Colonoscopy PAST SURGICAL HISTORY OF 02/20/20092009 laser treatment for hemorrhoids PAST SURGICAL HISTORY OF heart stentx2 04/12 SIGMOIDOSCOPY FLX DX W/COLLJ SPEC BR/WA IF PFRMD 02/20/2010 Sigmoidoscopy REVIEW OF SYSTEMS: SYSTEMIC: No fever, chills, or change in weight or appetite HEENT: No recent change in vision or hearing. Respiratory: No hemoptysis, cough. CARDIOVASCULAR: See HPI. GI: No recent nausea, vomiting or diarrhea. : No recent hematuria or dysuria. SKIN: No recent itching or eruption. PSYCH: No recent active anxiety or depression. HEMATOLOGY/ONCOLOGY: No recent diagnosis of bleeding or cancer. ENDOCRINE: No recent polyuria or heat intolerance. NEURO: No recent TIA, stroke or seizures. RHEUMATOLOGY: No recent active connective tissue disease. Rest of the review of system is unremarkable. CURRENT MEDICATIONS: clindamycin (CLEOCIN-T) 1 % gel Apply thin layer to buttocks once daily. mupirocin (BACTROBAN) 2 % ointment Apply to open areas twice daily until healed Mesalamine (LIALDA) 1.2 gram EC tablet Take 2 tablets by mouth daily with breakfast. tamsulosin (FLOMAX) 0.4 mg Take one a day ustekinumab (STELARA) 45 mg/0.5 mL sub-Q syringe Inject 45mg (1 syringe) subcutaneously on week 0, and week 4, then every 12 weeks thereafter (Patient taking differently: Inject 45mg (1 syringe) subcutaneously on week 0, and week 4, then every 12 weeks thereafter) Benzoyl Peroxide 10 % external wash Use to wash buttocks once daily. Rinse well. clopidogrel (PLAVIX) 75 mg tablet folic acid 400 mcg tablet Take 400 mcg by mouth once daily. cholecalciferol (VITAMIN D3) 1,000 unit tab tablet Take 1,000 Units by mouth once daily. ramipril(ALTACE 2.5 MG CAP) Take one(1) capsule daily. MULTIVITAMIN TAB Take one(1) tablet daily. METOPROLOL 5 (more content not included)... Normal [facility] CNPLouisa 03-18-2024 CNPN Telephone (INTMST) ROBERTO JOSÉ ([id number]) 1955 M [place] Date Time Provider Department 03/18/24 DENZEL GORE INTMST During your visit today, we recorded the following information about you: HortenciaEmma 03/18/2024 1:50 PM Signed [facility] pharmacy calling in regards to the rosuvastatin (CRESTOR) 40 mg tablet Take 1 tablet by mouth as directed. 90 tablet 3 ordered 03/18/2024 -- -- -- -- ORAL Summary: Take 1 tablet by mouth as directed. Normal, Disp-90 tablet, R-3, Long-term ReportDx Associated: Long-term: Start Date AND Time: 03/18/2024Dose, Route, Frequency: 40 mg, ORAL, DIRECTEDPharmacy: e- [id number] [place] [address] [id number] [facility] [phone] [id number]/Sold: 03/18/2024 (O)Ordered On: 03/18/2024 Ordering Department: [facility] Authorized By: Denzel Gore MD Order Details: Take 1 tablet by mouth as directed. Dispense: 90 tablet, Refills: 3 ordered They need a daily amount please advise. Amy Jose RN 03/18/2024 2:27 PM Signed YAKELIN: 03/18/2024- Sofía. Patient has been identified by name and date of : Yes Last office visit in this department: Visit date not found RX INSTRUCTIONS: Patient aware RX will be sent to pharmacy. No need to notify patient. Patient phones requesting refills as follows: Requested Prescriptions Pending Prescriptions Disp Refills rosuvastatin (CRESTOR) 40 mg tablet 90 tablet 3 Sig: Take 1 tablet by mouth once daily. Please review and advise. EDISON Mcclellan Qarab Hasnain, MD 03/18/2024 4:34 PM Signed I have signed and sent the prescription to the pharmacy today. Shamar Jesus RN 03/19/2024 8:26 AM Signed msg sent letting patient know that prescription for Crestor (Rosuvastatin) 40mg has been signed and sent to [facility] pharmacy by Dr Gore. Allergies As of Date: 03/18/2024 (No Known Allergies) Date Reviewed: 03/18/2024 Reviewed by: Denzel Gore MD - Fully Assessed Reason for Visit: Medication Problem [65] Order(s):rosuvastatin (CRESTOR) 40 mg tabletTake 1 tablet by mouth once daily.Disp: 90 tabletRfl: 3 Prescriptions as of 03/19/2024 - rosuvastatin (CRESTOR) 40 mg tablet Take 1 tablet by mouth once daily. - clindamycin (CLEOCIN-T) 1 % gel Apply thin layer to buttocks once daily. - mupirocin (BACTROBAN) 2 % ointment Apply to open areas twice daily until healed - Mesalamine (LIALDA) 1.2 gram EC tablet Take 2 tablets by mouth daily with breakfast. - tamsulosin (FLOMAX) 0.4 mg Take one a day - ustekinumab (STELARA) 45 mg/0.5 mL sub-Q syringe Inject 45mg (1 syringe) subcutaneously on week 0, and week 4, then every 12 weeks thereafter - Benzoyl Peroxide 10 % external wash Use to wash buttocks once daily. Rinse well. - clopidogrel (PLAVIX) 75 mg tablet - folic acid 400 mcg tablet Take 400 mcg by mouth once daily. - cholecalciferol (VITAMIN D3) 1,000 unit tab tablet Take 1,000 Units by mouth once daily. - ramipril(ALTACE 2.5 MG CAP) Take one(1) capsule daily. - MULTIVITAMIN TAB Take one(1) tablet daily. - METOPROLOL 50 MG TAB 1/2 tab twice daily Problem List As Of Date 03/18/2024 Noted Resolved Peyronie's Disease [N48.6] 03/23/2009 Chronic ulcer of other specified site [L98.499] 03/08/2011 CAD (coronary artery disease), [place] coronary *05/24/2012 Ulcerative pancolitis with rectal bleeding (HCC*12/05/2016 Malnutrition of moderate degree (HCC) [E44.0] 12/06/2016 08/24/2017 Abnormal kidney function [N28.9] 10/19/2023 Ulcerative colitis (HCC) [K51.90] 10/19/2023 Essential hypertension [I10] 10/19/2023 Iliotibial band syndrome of right side [M76.31] 11/21/2023 Coronary stent patent [Z95.5] 03/18/2024 Prescriptions ordered this encounter Disp Refills Start End ROSUVASTATIN 40 MG TABLET 90 t* 3 03/18/2024 Route: ORAL Sig: Take 1 tablet by mouth once daily. Medications Discontinued During This Encounter Prescriptions - rosuvastatin (CRESTOR) 40 mg tablet (Discontinued) Take 1 tablet by mouth as directed. Encounter Status:Closed by SHAMAR JESUS on 03/19/24 Normal [facility] ECG COMPLETEon 03-18-2024 Atrial Rate 71 BPM [facility] Calculated P [place] 65 degrees [facility] Calculated R [place] 33 degrees [facility] Calculated T [place] 42 degrees [facility] P-R Interval 150 ms [facility] QRS Duration 90 ms [facility] QT Interval 394 ms [facility] QTC Calculation (Bazett) 428 ms [facility] NORMAL ECG Confirmed by MD GORE QARAB ([id number]), rewrite editor CELIO CROFT ([id number]) on 03/18/2024 4:11:01 PM [facility] NAME : ROBERTO JOSÉ PID : [id number] : 1955 Gender : Male Race : ORD : [id number] Procedure Date : Mar 18 2024 13:28:48 Edit Date : Mar 18 2024 16:11:04 Diagnosis: NORMAL SINUS RHYTHM NORMAL ECG Confirmed by MD GORE QARAB ([id number]), rewrite editor CELIO CROFT ([id number]) on 03/18/2024 4:11:01 PM Test Reason : I25.10 Coronary artery disease involving [place] coronary artery of [place] heart Location : 137 : STCARD Overread By : MD GORE QARAB Edited By : CELIO CROFT Referred By : MARGUERITE PEREYRA Acquired by : luz elena, [facility] ECG COMPLETE Ventricular Rate : 7 1 BPM Atrial Rate : 71 BPM P-R Interval : 150 ms QRS Duration : 90 ms Q-T Interval : 394 ms QTC Calculation(Bazett) : 428 ms Calculated P [place] : 65 degrees Calculated R [place] : 33 degrees Calculated T [place] : 42 degrees NORMAL SINUS RHYTHM NORMAL ECG Confirmed by MD GORE QARAB ([id number]), rewrite editor CELIO CROFT ([id number]) on 03/18/2024 4:11:01 PM NAME : ROBEROT JOSÉ PID : [id number] : 1955 Gender : Male Race : ORD : [id number] Procedure Date : Mar 18 2024 13:28:48 Edit Date : Mar 18 2024 16:11:04 Diagnosis: NORMAL SINUS RHYTHM NORMAL ECG Confirmed by MD GORE QARAB ([id number]), rewrite editor CELIO CROFT ([id number]) on 03/18/2024 4:11:01 PM Test Reason : I25.10 Coronary artery disease involving [place] coronary artery of [place] heart Location : 137 : STCARD Overread By : MD GORE QARAB Edited By : CELIO CROFT Referred By : MARGUERITE PEREYRA Acquired by : Mónica laguna [facility] CNOVon 01-30-2024 CNOV Office Visit (DERMST ) ROBERTO JOSÉ ([id number]) 1955 M [facility] Date Time Provider Department 01/30/24 11:40 AM REYNA CHARLES DERM During your visit today, we recorded the following information about you: Reyna Charles APRN.CNP 01/30/2024 12:16 PM Signed EST PATIENT YAKELIN in Dermatology: 11/01/2023 Chief Complaint: Actinic Keratosis (Follow up PDT) History of Present Ilness: Roberto José is a 68 year old male who presents today for a focused skin examination. Actinic keratosis follow up Location: full face Symptoms/Course: patient still notes flaking Current Treatment: none Past Treatment: PDT 12/19/2023 Pertinent History: History of skin cancer: No History of atypical nevi: No History of immunosuppression/orga n transplant: yes, Humira Pertinent Family medical history: History of melanoma: No History of non melanoma skin cancer: No Other family history (autoimmune, dermatologic, etc): None Past Medical History is reviewed. Medication List is reviewed. ROS: Skin as above. Physical Exam: Rodriguez skin type: II The patient is a pleasant male in no apparent distress. Alert and oriented x 3. A skin exam performed of the face is significant for: Left Malar Cheek Erythematous papules with gritty adherent scale. Left Buccal Cheek, Right Buccal Cheek Monomorphic, folliculocentric, erythematous papules Assessment and Plan: Actinic keratosis Left Malar Cheek Discussed etiology and possibility of transformation to SCC. Discussed treatment options and the risks and benefits of each including liquid nitrogen treatment, treatment with 5-fluorouracil (efudex), and photodynamic therapy; patient elects for liquid nitrogen treatment today. CRYOTHERAPY SKIN LESION - Left Malar Cheek Complexity: simple Destruction method: cryotherapy Informed consent: discussed and consent obtained Informed consent comment: Verbal Lesion destroyed using liquid nitrogen: Yes Region frozen until ice ball extended beyond lesion: Yes Cryotherapy cycles: 2 Outcome: patient tolerated procedure well with no complications Post-procedure details: wound care instructions given Additional details: Patient elects for treatment with Cryotherapy: Risks, benefits, alternatives, complications, and personnel required for cryosurgery were reviewed with the patient. Specifically, the risks of permanent scarring, loss or darkening of skin color, blister, incomplete treatment, and recurrence of the lesion were discussed. The patient verbalizes understanding and wishes to proceed. Patient tolerated well and wound care was discussed. Return if lesions fail to fully resolve. Folliculitis Left Buccal Cheek; Right Buccal Cheek Shaving, occlusion, and chronic rubbing may incite or exacerbate folliculitis. Cleanse area with benzoyl peroxide 4% wash once daily on face, may continue benzoyl peroxide 10% wash to affected areas on buttock Continue Clindamycin 1% lotion once to twice daily, refill sent R/b/a for the medication(s) including possible side effects discussed and reviewed with patient. Related Medications Benzoyl Peroxide 10 % external wash Use to wash buttocks once daily. Rinse well. mupirocin (BACTROBAN) 2 % ointment Apply to open areas twice daily until healed Follow up: 1 year and PRN Rooming intake by Linda De MA I agree with the Chief Complaint, ROS, and Past Histories independently gathered by the clinical product support engineer and the remaining scribed note accurately describes my personal service to the patient. Reyna Charles APRN.AGRONOMY INSTRUCTOR Allergies As of Date: 01/30/2024 (No Known Allergies) Date Reviewed: 12/19/2023 Reviewed by: Rosie Frausto RN - Fully Assessed Reason for Visit: Actinic Keratosis [3604] Cmt: Follow up PDT Primary Visit Diagnosis:Actinic keratosis [L57.0] Other Visit Diagnosis:Folliculitis [L73.9] Order(s):clindamycin (CLEOCIN-T) 1 % gelApply thin layer to buttocks once daily.Disp: 30 gRfl: 3 CRYOTHERAPY SKIN LESION [3139263] Order #: [id number]: 1 Prescriptions as of 01/30/2024 - clindamycin (CLEOCIN-T) 1 % gel Apply thin layer to buttocks once daily. - mupirocin (BACTROBAN) 2 % ointment Apply to open areas twice daily until healed - Mesalamine (LIALDA) 1.2 gram EC tablet Take 2 tablets by mouth daily with breakfast. - tamsulosin (FLOMAX) 0.4 mg Take one a day - ustekinumab (STELARA) 45 mg/0.5 mL sub-Q syringe Inject 45mg (1 syringe) subcutaneously on week 0, and week 4, then every 12 weeks thereafter - Benzoyl Peroxide 10 % external wash Use to wash buttocks once daily. Rinse well. - atorvastatin (LIPITOR) 40 mg tablet Take 40 mg by mouth once daily. - clopidogrel (PLAVIX) 75 mg tablet - folic acid 400 mcg tablet Take 400 mcg by mouth once daily. - cholecalciferol (VITAMIN D3) 1,000 unit tab tablet Take 1,0 (more content not included)... Normal [facility] CRYOTHERAPY SKIN LESIONon Complexity: simple Destruction method: cryotherapy Informed consent: discussed and consent obtained Informed consent comment: Verbal Lesion destroyed using liquid nitrogen: Yes Region frozen until ice ball extended beyond lesion: Yes Cryotherapy cycles: 2 Outcome: patient tolerated procedure well with no complications Post-procedure details: wound care instructions given Additional details: Patient elects for treatment with Cryotherapy: Risks, benefits, alternatives, complications, and personnel required for cryosurgery were reviewed with the patient. Specifically, the risks of permanent scarring, loss or darkening of skin color, blister, incomplete treatment, and recurrence of the lesion were discussed. The patient verbalizes understanding and wishes to proceed. Patient tolerated well and wound care was discussed. Return if lesions fail to fully resolve. [facility] PT D/C Summary (1)on 024 PT D/C Summary (1) [facility] Physical Therapy [facility] [address] [place] [address]. [address] [place] [address] / REHABILITATION SERVICES DISCHARGE SUMMARY MR#: [id number] Acct: [id number] Name: ROBERTO JOSÉ JrJeremy Rep #: [id number] : 1955 68 From: Mary Aponte PT, Cert. MD [place], [facility] Referring Dr.: MILLICENT Corrales Status: REG R Insurance: MEDICARE PART A B [facility] Discharge Summary D/C summary: It has been my pleasure to treat ROBERTO ESTEFANÍA Crockett referred by Dr. Jamila Corrales DPM, with the diagnosis of PLANTAR FASCITIS LEFT FOOT for a total of 9 visit(s). Discharge Date: Please see the following information for a summary of their discharge status. 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) pes planus wide forefoot ,calcaneal valgus , forefoot valgus GAIT: antalgic gait left side PALPATION: mod/severe tender calcaneus soft tissue nodules ,and mod mid G-S NEURO: denies paresthesia/tingling AROM ANKLE: dorsiflexion 5 degrees ,plantar flexion 60 degrees ,eversion 5 degrees ,inversion 35 degrees MMT: ankle stabilizers 5/5 soreness with G-S GTE 4/5 Goals Goal 1:: Patient to be I with HEP for planatrfasctits Goal 2:: Patient to demonstrate 50% improvement with less pain and improved gait Goal 3:: Patient to improve LFES score by 5 points to improve QOL and function with gait Goal 4:: Patient to normalize gait Goal 5:: Patient to have min pain with palpation of heel and plantar facsia Plan Plan: RTD D/C Information d/c sentence: If there are questions or concerns regarding this patient's physical therapy, please feel free to call me at [phone]. Thank you for the referral of this patient. Sincerely, Mary Aponte, PT, Cert MDT, OCS Balance/Gait/Functiona l tests Balance/Special Test Scores Lower Extremity Functional Score: 41 Improvement % Improvement: 15 11/20/231924 CC: DPJuliann Corrales; Dr. Shirlene Denson MD JLA Signed Normal [facility] ALANINE AMINOTRANSFERASE / S [facility] 10-17-2023 ALT [Catalytic activity/Vol] 20 U/L 10 - 54 U/L [facility] ASPARTATE AMINOTRANSFERASE/S [facility] 10-17-2023 AST [Catalytic activity/Vol] 19 U/L 14 - 40 U/L [facility] CBC panel Auto (Bld)on 10-16 Erythrocyte distribution width (RBC) [Ratio] 12.9 % 11.5 - 15.0 % [facility] Hematocrit (Bld) [Volume fraction] 45.7 % 39.0 - 51.0 % [facility] Hemoglobin (Bld) [Mass/Vol] 15.0 g/dL 13.0 - 17.0 g/dL [facility] Interpretation and review of laboratory results Normal [facility] MCH (RBC) [Entitic mass] 30.6 pg 26.0 - 34.0 pg [facility] MCHC (RBC) [Mass/Vol] 32.8 g/dL 30.5 - 36.0 g/dL [facility] MCV (RBC) [Entitic vol] 93.3 fL 80.0 - 100.0 fL [facility] Nucleated RBC (Bld) [#/Vol] NINF [facility] Platelet mean volume (Bld) [Entitic vol] 11.3 fL 9.0 - 12.7 fL [facility] Platelets (Bld) [#/Vol] 162 10*3/uL [facility] RBC (Bld) [#/Vol] 4.90 10*6/uL 4.20 - 6.0 0 m/uL [facility] WBC (Bld) [#/Vol] 5.56 10*3/uL [facility] CREATININE BLDOrdered By: Yayn St on 10-17-2023 Creatinine [Mass/Vol] 1.16 mg/dL 0.73 - 1.22 mg/dL [facility] GFR/1.73 sq M.predicted among non-blacks MDRD (S/P/Bld) [Vol rate/Area] 69 mL/min/{1.73_m2} - PINF [facility] Comment on above: Estimated Glomerular Filtration Rate (eGFR) is calculated using the 2020 CKD-EPI creatinine equation. This equation utilizes serum creatinine, sex, and age as parameters. The creatinine assay has traceable calibration to isotope dilution-mass spectrometry. Refer to KDIGO guidelines for clinical interpretation. In patients with unstable renal function, e.g. those with acute kidney injury, the eGFR may not accurately reflect actual GFR. Interpretation and review of laboratory results Normal [facility] No Panel Informationon 10-16 Interpretation and review of laboratory results Normal [facility] Protein+Creatinine Ratio,Uri neon 10-16-2023 PROT:CRE RATIO 78 mg/g CRE Normal 0-200 [facility] Comment on above: Performed By: #### L 501.0900 #### [facility] Laboratory [address] [place], [place], [id number] Protein (U) [Mass/Vol] 8.0 mg/dL Normal <11.9 [facility] Comment on above: Performed By: #### L 501.0900 #### [facility] [address] [place], [address] UR CREAT 103.00 mg/dL Normal NO RANGE EST. [facility] Comment on above: Performed By: #### L 501.0900 #### [facility] [address] [place], [address] Basic Metabolic Profile (BMP )on 10-10-2023 BUN/CRE 15.7 RATIO Normal 10-20 [facility] Comment on above: Performed By: #### L 501.9910, L500.2500 #### [facility] [address] [place], [address] CA,Total 9.9 mg/dL Normal 8.5-10.1 [facility] Comment on above: Performed By: #### L 501.9910, L500.2500 #### [facility] [address] [place], [address] Chloride [Moles/Vol] 108 mmol/L High 98-107 [facility] Comment on above: Performed By: #### L 501.9910, L500.2500 #### [facility] [address] [place], [address] CO2 [Moles/Vol] 30.0 mmol/L Normal 21.0-32.0 [facility] Comment on above: Performed By: #### L 501.9910, L500.2500 #### [facility] [address] [place], [address] Creatinine [Mass/Vol] 1.34 mg/dL High 0.70-1.30 [facility] Comment on above: Result Comment: The validity of the calculated GFR GFRAA in patients over 70 years has not been determined. Clinical correlation is essential. Performed By: #### L 501.9910, L500.2500 #### [facility] [address] [place], [address] EST GFR - AA 68 mL/min Normal >60 [facility] Comment on above: Result Comment: Afri can German GFR Calc Performed By: #### L 501.9910, L500.2500 #### [facility] [address] [place], [address] GAP 2 Low 5-15 [facility] Comment on above: Performed By: #### L 501.9910, L500.2500 #### [facility] [address] [place], [address] GFR/1.73 sq M.predicted among non-blacks MDRD (S/P/Bld) [Vol rate/Area] 56 mL/min/{1.73_m2} Low >60 [facility] Comment on above: Result Comment: Non- GFR Calc Performed By: #### L 501.9910, L500.2500 #### [facility] [address] [place], [address] Glucose [Mass/Vol] 96 mg/dL Normal 74-106 [facility] Comment on above: Performed By: #### L 501.9910, L500.2500 #### [facility] [address] [place], [address] Potassium [Moles/Vol] 4.2 mmol/L Normal 3.5-5.1 [facility] Comment on above: Performed By: #### L 501.9910, L500.2500 #### [facility] [address] [place], [address] Sodium [Moles/Vol] 140 mmol/L Normal 136-145 [facility] Comment on above: Performed By: #### L 501.9910, L500.2500 #### [facility] [address] [place], [address] Urea nitrogen [Mass/Vol] 21 mg/dL High 7-18 [facility] Comment on above: Performed By: #### L 501.9910, L500.2500 #### [facility] [address] [place], [address] PSA,Total - Annual Screenon 10-10-2023 PSA,TOT SCREEN 0.63 ng/mL Normal 0.00-4.00 [facility] Comment on above: Result Comment: This test was performed using the TPSA assay method for the Nep[employer] chemistry system. Values obtained with different assay methods cannot be used interchangably. When changing PSA assays in the course of monitoring a patient, additional sequential testing should be carried out to confirm baseline values. Performed By: #### L 501.9910, L500.2500 #### [facility] [address] [place], [place], [address] Inital Evaluation (1) - PTon 10-02-2023 Inital Evaluation (1) - PT [facility] Physical Therapy [facility] [address] [place] [address] / REHABILITATION SERVICES INITIAL EVALUATION MR#: [id number] Acct: [id number] Name: ROBERTO JOSÉ Jr. Rep #: [id number] : 1955 67 From: Rafat Ventura PT. MD Estrella, OCS Referring Dr.: Dr. Jamila Corrales DPM Status: REG RCR Insurance: MEDICARE PART A B [facility] Patient's Visit Information Visit Information Visit Information: ROBERTO JOSÉ Jr. is a 67 year old M referred to Physical Therapy by Dr. Jamila Corrales DPM with a diagnosis of PLANTAR FASCITIS LEFT FOOT. Date of Evaluation: 10/02/23 Physical Therapist: Mary Aponte PT, Cert T, OCS Visit Plan Frequency: 2x /Week Duration: 4 Weeks Plan: PT INTERVENTIONS MANUAL THERAPY STM CALF/HEEL -HAWK/STICK ,MOBILIZATION CALCANEUS,FLEXABILITY CALF/PLANTARFACSIA ,AND US/CP Subjective Subjective: This 67 y/o male presents to physical therapy with left plantar fasciitis . Patient has had pain foot several months. Patient had pain since April. Seen Dr tried 2 cortisone injection which did not help. Patient then had x-rays -. Patient had MRI showed cyst achilles. Patient pain located calcaneal plantar aspect. Aggravating factors AM worse ,inactivity. Alleviating factors moving. Denies paresthesia/tingling . Pain affects sleeping. Patient tried night splint. Patient condition affects QOL and function with pain. Patient goals to have no pain. Patient has h/o PF pain bilateral feet. 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) pes planus wide forefoot ,calcaneal valgus , forefoot valgus GAIT: antalgic gait left side PALPATION: mod/severe tender calcaneus ,and mod mid G-S NEURO: denies paresthesia/tingling AROM ANKLE: dorsiflexion 0 degrees ,plantar flexion 60 degrees ,eversion 5 degrees ,inversion 35 degrees MMT: ankle stabilizers 5/5 soreness with G-S GTE 4/5 Balance/Special Test Scores Lower Extremity Functional Score: 41 Goals Goal 1:: Patient to be I with HEP for planatrfasctits Goal Time Frame: 4-6 Weeks Goal 2:: Patient to demonstrate 50% improvement with less pain and improved gait Goal Time Frame: 4-6 Weeks Goal 3:: Patient to improve LFES score by 5 points to improve QOL and function with gait Goal Time Frame: 4-6 Weeks Goal 4:: Patient to normalize gait Goal Time Frame: 4-6 Weeks Goal 5:: Patient to have min pain with palpation of heel and plantar facsia Goal Time Frame: 4-6 Weeks Rehabilitation Potential Physical Therapy Diagnosis: Patient has left plantar fascia pain with pain with palpation of heel ,pain with walking and standing with antalgic gait thus benefit from skilled PT Rehabilitation Potential: Good Anticipated Interventions Patient/Client Instruction: Educate patient on: Condition and Plan of Care For the Purpose of:: To decrease pain, To increase ROM, To improve muscle performance and motor function, To improve ability to perform ADL's, To increase tolerance to activity/condition/pos ition, To improve ability of physical actions for home/community/work/le isure, To improve gait and locomotor functions, To improve health of tissue, To decrease soft tissue restriction, To increase flexibility/ROM, To reduce risk of recurrence, To prevent re-injury and To improve tolerance to ADL's Therapeutic Exercise to Include: Postural training, Flexibilty training and Active ROM Comment: G-S For the Purpose of:: To decrease pain, To increase ROM, To improve nutrient delivery to tissue, To increase oxygenation perfusion, To improve muscle performance and motor function, To improve ability of physical actions for home/community/work/le isure, To improve health of tissue, To decrease soft tissue restriction, To increase flexibility/ROM and To reduce risk of recurrence Manual Therapy Techniques to Include: Mobilization and Soft tissue mobilization Comment: HEEL For the Purpose of:: To decrease pain, To increase ROM, To improve nutrient delivery to tissue, To increase oxygenation perfusion, To improve health of tissue, To decrease soft tissue restriction and To increase flexibility/ROM Cryotherapy (ice pack, ice massage): Yes Ultrasound (thermal/non thermal): Yes Text: Thank you for the opportunity to evaluate your patient. For Medicare and Medicare HMO plans, please review the plan of care and approve it. It will need to be FAXED BACK to us at [phone] for Medicare purposes. For Medicare only, by signing this I certify the plan of care. Please let me know if there are questions or concerns regarding this plan of care. Physician Signature: Date:__ 10/02/23 1558 CC: MILLICENT Corrales; Dr. Garber (more content not included)... Normal [facility] MR Ankle - left WO contrasto n 09-20-2023 IMPRESSION: PLANTAR FASCITIS. MILD ACHILLES ACHILLES TENDINOSIS AND PERITENDINITIS. Service Center Representative: AURELIANO Transcribe Date/Time: Sep 20 2023 12:46P Dictated by : OMARI BENNETT MD This examination was interpreted and the report reviewed and electronically signed by: OMARI BENNETT MD on Sep 20 2023 1:04PM [facility] DIVISION OF RADIOLOGY * * *Final Report* * * DATE OF EXAM: Sep 20 2023 7:54AM [facility] 0163 - MRI ANKLE WO IVCON LT / PROCEDURE REASON: lt ankle wo * * * * Physician Interpretation * * * * Dated MRI LEFT ANKLE INDICATION: Pain plantar surface left hindfoot. Patient has had 2 injections no relief. History of plantar fasciitis. .. COMPARISON: None available. TECHNIQUE: Multiplanar PD, T1 and T2 weighted images. RESULT: Anterior talofibular ligament: Within normal limits. Posterior talofibular ligament: Within normal limits. Anterior-inferior tibiofibular ligament: Within normal limits. Posterior tibiofibular ligament: Within normal limits. Calcaneofibular ligament: Within normal limits. Deltoid ligament: Within normal limits. Spring ligament: Within normal limits. Posterior tibial tendon: Within normal limits. Flexor digitorum longus tendon: Within normal limits. Flexor hallucis longus tendon: Within normal limits. Peroneal tendons: Within normal limits. Extensor tendons: Within normal limits. Achilles' tendon: Mild tendinosis and peritendinitis. Bone marrow: No fracture or bone marrow replacing process. Small subcortical cyst in the tuberosity calcaneus at the Achilles tendon insertion. Talar dome: Within normal limits. Plantar fascia: Thickened, with heterogeneous signal and adjacent bone marrow and soft tissue edema. The tarsal tunnel and sinus tarsi are within normal limits. Joint fluid: No joint effusion or synovitis. Other: No other significant abnormality identified. Localizer image: No additional findings. DIVISION OF RADIOLOGY Provider, [facility] - 09/20/2023 * * *Final Report* * * DATE OF EXAM: Sep 20 2023 7:54AM [facility] 0163 - MRI ANKLE WO IVCON LT / PROCEDURE REASON: lt ankle wo * * * * Physician Interpretation * * * * Dated MRI LEFT ANKLE INDICATION: Pain plantar surface left hindfoot. Patient has had 2 injections no relief. History of plantar fasciitis. .. COMPARISON: None available. TECHNIQUE: Multiplanar PD, T1 and T2 weighted images. RESULT: Anterior talofibular ligament: Within normal limits. Posterior talofibular ligament: Within normal limits. Anterior-inferior tibiofibular ligament: Within normal limits. Posterior tibiofibular ligament: Within normal limits. Calcaneofibular ligament: Within normal limits. Deltoid ligament: Within normal limits. Spring ligament: Within normal limits. Posterior tibial tendon: Within normal limits. Flexor digitorum longus tendon: Within normal limits. Flexor hallucis longus tendon: Within normal limits. Peroneal tendons: Within normal limits. Extensor tendons: Within normal limits. Achilles' tendon: Mild tendinosis and peritendinitis. Bone marrow: No fracture or bone marrow replacing process. Small subcortical cyst in the tuberosity calcaneus at the Achilles tendon insertion. Talar dome: Within normal limits. Plantar fascia: Thickened, with heterogeneous signal and adjacent bone marrow and soft tissue edema. The tarsal tunnel and sinus tarsi are within normal limits. Joint fluid: No joint effusion or synovitis. Other: No other significant abnormality identified. Localizer image: No additional findings. IMPRESSION IMPRESSION: PLANTAR FASCITIS. MILD ACHILLES ACHILLES TENDINOSIS AND PERITENDINITIS. Service Center Representative: PSCB Transcribe Date/Time: Sep 20 2023 12:46P Dictated by : OMARI BENNETT MD This examination was interpreted and the report reviewed and electronically signed by: OMARI BENNETT MD on Sep 20 2023 1:04PM EST [facility] Radiology Study observation (narrative) [facility] MR Ankle - left WO contrastO rdered By: [facility] Provider on 09-20-2023 [facility] Foot min 3 Viewson Foot min 3 Views [facility] Imaging Services [address] [place] [id number] Foot min 3 Views MR#: [id number] Acct: [id number] Name: ROBERTO JOSÉ JrJeremy Rep #: [id number] : 1955 67 From: Waldo Fierro MD PCP: Dr. Shirlene Denson MD Status: REG CLI Study: Foot min 3 Views Date of Exam: 08/29/23 Exam# [id number] Ordering Dr: Jamila Corrales [facility] ADDENDUM by Dr. Waldo Fierro MD on 08/29/23 at 1255 [id number] STUDY: X-RAY - LEFT FOOT CLINICAL: Male, 67 years old. PAIN TECHNIQUE: 3 view(s) of the foot. COMPARISON: None. FINDINGS: Normal talus, calcaneus, and tarsal bones. Normal visualized subtalar, talonavicular, calcaneocuboid, tarsal and tarsometatarsal articulations. Irregularity of the tibial cortex at the base of the second metatarsal bone and correlation with CT and MRI may be useful to exclude Lisfranc injury. Normal metatarsophalangeal joint of the great toe. Normal tibial and fibular sesamoid bones. Normal interphalangeal joint of the great toe. Normal phalanges of the great toe. Normal second through fifth metatarsophalangeal joints. Normal interphalangeal joints and phalanges of the lesser toes. The soft tissue structures are unremarkable. 08/29/23 1255 Date cc: DPM Dr. Jamila Corrales; Dr. Shirlene Denson MD * Signed ADDENDUM by Dr. Waldo Fierro MD on 08/29/23 at 1255 RAD/Foot min 3 Views IMPRESSION: Irregularity of the tibial cortex of the base of the second metatarsal bone and correlation with CT and MRI may be useful to exclude Lisfranc injury. N.B. : The above Results were Read Back by Waldo Fierro MD to Jamila Corrales MD, and understanding confirmed on 08/29/2023 12:59:21 (ET). Electronically Signed: Waldo Fierro MD at 12:55 EDT , 08/29/23 1306 Date cc: DPJuliann Corrales; Dr. Shirlene Denson MD * Signed We are attempting to reach an attending provider to discuss findings. An addendum with communication details will be sent when the communication is complete. [id number] STUDY: X-RAY - LEFT FOOT CLINICAL: Male, 67 years old. PAIN TECHNIQUE: 3 view(s) of the foot. COMPARISON: None. FINDINGS: Normal talus, calcaneus, and tarsal bones. Normal visualized subtalar, talonavicular, calcaneocuboid, tarsal and tarsometatarsal articulations. Irregularity of the tibial cortex at the base of the second metatarsal bone and correlation with CT and MRI may be useful to exclude Lisfranc injury. Normal metatarsophalangeal joint of the great toe. Normal tibial and fibular sesamoid bones. Normal interphalangeal joint of the great toe. Normal phalanges of the great toe. Normal second through fifth metatarsophalangeal joints. Normal interphalangeal joints and phalanges of the lesser toes. The soft tissue structures are unremarkable. RAD/Foot min 3 Views IMPRESSION: Irregularity of the tibial cortex of the base of the second metatarsal bone and correlation with CT and MRI may be useful to exclude Lisfranc injury. Electronically Signed: Waldo Fierro MD at 12:55 EDT , CC: DPJuliann Corrales; Dr. Shirlene Denson MD Service Center Representative: Signed Normal [facility] Cardiology Visit Reporton Cardiology Visit Report [facility] [address] [place] [address]. [address] [place] [address] OFFICE VISIT Date of Service: 08/18/23 MR#: [id number] Acct: [id number] Name: ROBERTO JOSÉ JrJeremy Rep #: [id number] : 1955 Provider: BILL oneal Age/Sex: 67/M Location: [facility] Status: Signed [facility] History of Present Illness Details: ROBERTO JOSÉ, is a 67 M who presents to the office today for a follow-up visit. He is a gentleman with a history of remote coronary artery disease with stenting of the circumflex artery in 1995 as well as 2004. He has a history of hyperlipidemia supra ventricular tachyarrhythmias. He has been doing well he is not had any neck arm or jaw discomfort suggest angina no dizziness or diaphoresis no near syncope or syncope. He is been compliant with all his medications. He has had no neck arm or jaw discomfort suggest angina. He tells me that he has retired and has been exercising a fair amount and has actually lost approximately 24 pounds in weight. His last stress test was approximately 5 years ago where he exercised to a high metabolic workload. Patient underwent stress test on 03/20/2020 that was negative for ischemia. He presented to the [facility] on 04/08/2020 with ongoing chest pain. Thus, he proceed with heart catheterization on 04/13/2020. This resulted in drug-eluting stent to mid and proximal RCA. He expressed right arm discomfort post catheterization and underwent vascular ultrasound 04/20/2020 that was negative for pseudoaneurysm or arteriovenous fistula. From a cardiac standpoint, the patient is doing well. He denies any palpitations, chest pain, pressure or heaviness. He denies SOB, Orthopnea, and PND. He denies any bleeding issues; no blood in urine, stool or nosebleeds. He denies any decrease in energy level, or claudication. He does acknowledge occasional myalgias. He does not have edema, or sudden weight gain. He denies dizziness, lightheadedness, syncopal or near syncopal episodes, and headaches. 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 Is patient in pain?: No Allergies rosuvastatin Adverse Reaction (Verified 08/18/23 15:41) myalgias Medications ???Medication ???Instructions ???Recorded ???Confirmed ???Type tamsulosin 0.4 mg capsule 0.4 mg PO DAILY 01/02/15 08/18/23 History cholecalciferol (vitamin D3) 25 1,000 unit PO DAILY vitamin 11/30/16 08/18/23 History mcg (1,000 unit) capsule folic acid 400 mcg tablet 0.4 mg PO DAILY@0800 vitamin 11/30/16 08/18/23 History mesalamine 1.2 gram tablet,delayed 2.4 g PO DAILY ulcerative colitis 01/01/19 08/18/23 History release multivitamin-minerals- lutein tablet 1 tab PO DAILY 01/01/19 08/18/23 History aspirin 81 mg tablet,delayed 81 mg PO DAILY health maintenance 04/08/20 08/18/23 History release ramipril 2.5 mg capsule See Rx Instructions .Route 03/20/23 08/18/23 Rx .COMPLEX #90 caps clopidogrel 75 mg tablet (Plavix) 75 mg PO QDAY #90 tabs 04/17/23 08/18/23 Rx metoprolol tartrate 25 mg tablet 25 mg PO BID heart #180 tabs 05/29/23 08/18/23 Rx atorvastatin 40 mg tablet 40 mg PO QPM #90 tabs 06/13/23 08/18/23 Rx adalimumab 40 mg/0.8 mL 40 mg subcut ONCE 08/18/23 08/18/23 History subcutaneous pen kit (Humira Pen) Have you fallen in the past year?: No PFSH Medical History Ulcerative colitis Obesity Paroxysmal supraventricular tachycardia Old posterior myocardial infarction (1995) Essential (primary) hypertension BPH (benign prostatic hyperplasia) Atherosclerosis of coronary artery of [place] heart with angina pectoris Hyperlipidemia Surgical History History of coronary artery stent placement (04/13/20) History of left heart catheterization (08/11/05) Family History Father Cancer Sister Cancer Renal Cancer Social History Smoking Status: Never smoker ROS Const Const: Negative for fatigue, weakness, fever(s), headache(s), chills, frequent falls, weight gain or weight loss Eyes Eyes: Negative for blind spots, loss of peripheral vision, transient loss of vision, blurry vision, change in vision, double vision, floaters or tunnel vision ENT ENT: Negative for headache(s), dizziness, Nosebleed/epistaxis, balance problems or neck pain Cardio Chest Pain: No Palpitations: No Edema: None Muscle aches with walking: N (more content not included)... Normal [facility] Lipid Profileon 07-18-2023 Cholesterol [Mass/Vol] 156 mg/dL Normal 200 [facility] Comment on above: Result Comment: <200 mg/dL Desirable 200-240 mg/dL Borderline >240 mg/dL High Risk Performed By: #### L 500.3400, L500.4100 #### [facility] [address] [place], [address] Cholesterol in HDL [Mass/Vol] 42 mg/dL Normal [facility] Comment on above: Result Comment: The drugs N-Acetylcysteine and Metamizole may falsely depress this assay. Reference Range HDL <40 mg/dL Low HDL Cholesterol HDL >or= 60 mg/dL High HDL Cholesterol Performed By: #### L 500.3400, L500.4100 #### [facility] [address] [place], [address] Cholesterol in LDL [Mass/Vol] 79 mg/dL Normal 0-130 [facility] Comment on above: Performed By: #### L 500.3400, L500.4100 #### [facility] [address] [place], [address] Cholesterol in VLDL [Mass/Vol] 35 mg/dL Normal 5-40 [facility] Comment on above: Performed By: #### L 500.3400, L500.4100 #### [facility] [address] [place], [address] Triglyceride [Mass/Vol] 173 mg/dL Normal [facility] Comment on above: Result Comment: The drugs N-Acetylcysteine and Metamizole may falsely depress this assay. Serum Triglycerides Reference Interval Normal <150 mg/dL Borderline high 150 - 199 mg/dL High 200 - 499 mg/dL Very High > or = 500 mg/dL Performed By: #### L 500.3400, L500.4100 #### [facility] [address] [place], [address] Liver Profileon 07-18-2023 Albumin [Mass/Vol] 3.9 g/dL Normal 3.2-5.0 [facility] Comment on above: Performed By: #### L 500.3400, L500.4100 #### [facility] [address] [place], [address] ALK P 55 U/L Normal 45-117 [facility] Comment on above: Performed By: #### L 500.3400, L500.4100 #### [facility] [address] [place], [address] ALT [Catalytic activity/Vol] 19 U/L Normal 16-61 [facility] Comment on above: Performed By: #### L 500.3400, L500.4100 #### [facility] [address] [place], [address] AST [Catalytic activity/Vol] 32 U/L Normal 15-37 [facility] Comment on above: Performed By: #### L 500.3400, L500.4100 #### [facility] [address] [place], [address] Bilirubin [Mass/Vol] 1.30 mg/dL High 0.20-1.00 [facility] Comment on above: Result Comment: For patients on eltrombopag therapy, use of Dimension [place] TBIL is not recommended. Performed By: #### L 500.3400, L500.4100 #### [facility] [address] [place], [address] Bilirubin.direct [Mass/Vol] 0.23 mg/dL Normal 0.00-0.30 [facility] Comment on above: Performed By: #### L 500.3400, L500.4100 #### [facility] [address] [place], [address] Globulin (S) [Mass/Vol] 3.8 g/dL Normal 2.2-4.2 [facility] Comment on above: Performed By: #### L 500.3400, L500.4100 #### [facility] [address] [place], [address] T PROT 7.7 g/dL Normal 6.4-8.2 [facility] Comment on above: Performed By: #### L 500.3400, L500.4100 #### [facility] [address] [place], [address] SURGICAL PATHOLOGYon 023 Case Report Surgical Pathology Report Case: [id number] Authorizing Provider: Lillian Granados MD, Collected: 12/26/2022 09:41 AM PhD Ordering Location: Gastroenterology Received: 12/26/2022 12:56 PM Pathologist: Anmol Hawthorne MD Specimens: A) - COLON RIGHT BIOPSY, r/o colitis B) - COLON LEFT BIOPSY, r/o colitis C) - RECTAL BIOPSY, r/o colitis [facility] FINAL DIAGNOSIS A. Right colon, biopsy: - Colonic mucosa with no significant pathologic changes. B. Left colon, biopsy: - Colonic mucosa with no significant pathologic changes. C. Rectum, biopsy: - Rectal mucosa with patchy architectural distortion, otherwise unremarkable. [facility] Gross Description A. COLON RIGHT BIOPS Y Received in formalin are multiple pieces of husain, soft tissue aggregating to 0.5 x 0.2 x 0.2 cm. Totally submitted in one cassette. B. COLON LEFT BIOPSY Received in formalin are multiple pieces of husain, soft tissue aggregating to 0.6 x 0.2 x 0.2 cm. Totally submitted in one cassette. C. RECTAL BIOPSY Received in formalin are multiple pieces of husain, soft tissue aggregating to 0.5 x 0.2 x 0.2 cm. Totally submitted in one cassette. EJL December 26, 2022 3:06 PM Gross examination performed at [facility], [address] [place] [address] [facility] Performing Lab Diagnostic interpretation performed at [facility], [address], [place] [address] CLIA# [id number] Rf Test Technician: Christy Peterson M.D. [facility] COLONOSCOPY SCREENINGon [facility] XR WRIST INJURY 4V PA/LAT/OB L/SCAPH LEFTon 09-07-2022 [facility] XR Wrist - left 4 Viewson IMPRESSION: No acute radiographic abnormalities seen in the left wrist. Service Center Representative: AURELIANO Transcribe Date/Time: Sep 07 2022 4:27P Dictated by : AMY AVILA MD This examination was interpreted and the report reviewed and electronically signed by: AMY AVILA MD on Sep 07 2022 4:29PM [facility] DIVISION OF RADIOLOGY * * *Final Report* * * DATE OF EXAM: Sep 07 2022 4:22PM WOX 5272 - XR WRIST 4V PA/LAT/OBL/SCAPH LT / PROCEDURE REASON: Wrist pain, acute, left * * * * Physician Interpretation * * * * EXAM TITLE: XR WRIST 4V PA/LAT/OBL/SCAPH LT EXAM DATE/TIME: 09/07/2022 4:22 PM COMPARISON: None. CLINICAL INDICATION/HISTORY: Wrist pain. TECHNIQUE: PA, lateral, oblique and scaphoid views of left wrist are presented. FINDINGS: No acute fractures or subluxations are noted. The joint spaces are well preserved. The mineralization of the bones is normal. There is no significant soft tissue swelling. DIVISION OF RADIOLOGY Provider, [facility] - 09/07/2022 * * *Final Report* * * DATE OF EXAM: Sep 07 2022 4:22PM WOX 5272 - XR WRIST 4V PA/LAT/OBL/SCAPH LT / PROCEDURE REASON: Wrist pain, acute, left * * * * Physician Interpretation * * * * EXAM TITLE: XR WRIST 4V PA/LAT/OBL/SCAPH LT EXAM DATE/TIME: 09/07/2022 4:22 PM COMPARISON: None. CLINICAL INDICATION/HISTORY: Wrist pain. TECHNIQUE: PA, lateral, oblique and scaphoid views of left wrist are presented. FINDINGS: No acute fractures or subluxations are noted. The joint spaces are well preserved. The mineralization of the bones is normal. There is no significant soft tissue swelling. IMPRESSION IMPRESSION: No acute radiographic abnormalities seen in the left wrist. Service Center Representative: [facility] Transcribe Date/Time: Sep 07 2022 4:27P Dictated by : AMY AVILA MD This examination was interpreted and the report reviewed and electronically signed by: AMY AVILA MD on Sep 07 2022 4:29PM EST [facility] Radiology Study observation (narrative) [facility] XR Wrist - left 4 ViewsOrder ed By: Ccf Provider on 09-07-2022 [facility] CBC panel Auto (Bld)on 08-16 Erythrocyte distribution width (RBC) [Ratio] 13.2 % 11.5 - 15.0 % [facility] Hematocrit (Bld) [Volume fraction] 47.6 % 39.0 - 51.0 % [facility] Hemoglobin (Bld) [Mass/Vol] 15.4 g/dL 13.0 - 17.0 g/dL [facility] MCH (RBC) [Entitic mass] 30.3 pg 26.0 - 34.0 pg [facility] MCHC (RBC) [Mass/Vol] 32.4 g/dL 30.5 - 36.0 g/dL [facility] MCV (RBC) [Entitic vol] 93.5 fL 80.0 - 100.0 fL [facility] Nucleated RBC (Bld) [#/Vol] <0.01 k/uL [facility] Platelet mean volume (Bld) [Entitic vol] 11.8 fL 9.0 - 12.7 fL [facility] Platelets (Bld) [#/Vol] 178 10*3/uL 150 - 400 k/uL [facility] RBC (Bld) [#/Vol] 5.09 10*6/uL 4.20 - 6.0 0 m/uL [facility] WBC (Bld) [#/Vol] 5.95 10*3/uL 3.70 - 11. 00 k/uL [facility] CREATININE BLDon 08-16-2022 Creatinine [Mass/Vol] 1.14 mg/dL 0.73 - 1.22 mg/dL [facility] Estimated Glomerular Filtration Rate 70 mL/min/1.73m >=60 mL/min/1.73m [facility] ESR Westergren method (Bld) [Velocity]on 04-27-2022 ESR (Bld) [Velocity] 2 mm/h 0 - 15 mm/hr [facility] No Panel Informationon 04-27 IMPRESSION: No radiographic evidence of sacroiliitis or acute osseous abnormality. Partially imaged lower lumbar spine degenerative changes. Service Center Representative: AURELIANO Transcribe Date/Time: Apr 27 2022 4:08P Dictated by : PRAVIN NOLEN MD This examination was interpreted and the report reviewed and electronically signed by: PRAVIN NOLEN MD on Apr 27 2022 4:10PM [facility] DIVISION OF RADIOLOGY Radiology Study observation (narrative) [facility] No Panel InformationOrdered By: Ccf Provider on 04-27-2022 [facility] XR HIP BILATERAL 5V PEL/AP/L AT EACH HIPon 04-27-2022 * * *Final Report* * * DATE OF EXAM: Apr 27 2022 3:57PM STX 5353 - XR HIP OLEG 5V PEL+ AP/LAT EA HIP / PROCEDURE REASON: Pain in joint, multiple sites * * * * Physician Interpretation * * * * HISTORY: Pain in joint, multiple sites . CHRONIC PELVIC AND HIP PAIN / BASELINE TECHNIQUE: XR HIP OLEG 5V PEL+ AP/LAT EA HIP, XR SI JTS 2V AP PELV/PENA Laterality: BILATERAL (accession [id number]), NOT APPLICABLE (accession [id number]) Number of different views (projections): 5 (accession [id number]), 2 (accession [id number]) COMPARISON: None RESULT: Pelvis and bilateral hips: No acute fracture or dislocation. Right hip joint space is maintained. Left hip joint space is maintained. Pubic is maintained. Mild bilateral pelvic enthesopathy. Degenerative changes of the included lower lumbar spine. Sacroiliac joints: No acute displaced fracture is visualized. Sacroiliac joints are maintained laterally without diastasis or evidence of erosion. DIVISION OF RADIOLOGY Provider, [facility] - 04/27/2022 * * *Final Report* * * DATE OF EXAM: Apr 27 2022 3:57PM STX 5353 - XR HIP OLEG 5V PEL+ AP/LAT EA HIP / PROCEDURE REASON: Pain in joint, multiple sites * * * * Physician Interpretation * * * * HISTORY: Pain in joint, multiple sites . CHRONIC PELVIC AND HIP PAIN / BASELINE TECHNIQUE: XR HIP OLEG 5V PEL+ AP/LAT EA HIP, XR SI JTS 2V AP PELV/PENA Laterality: BILATERAL (accession [id number]), NOT APPLICABLE (accession [id number]) Number of different views (projections): 5 (accession [id number]), 2 (accession [id number]) COMPARISON: None RESULT: Pelvis and bilateral hips: No acute fracture or dislocation. Right hip joint space is maintained. Left hip joint space is maintained. Pubic is maintained. Mild bilateral pelvic enthesopathy. Degenerative changes of the included lower lumbar spine. Sacroiliac joints: No acute displaced fracture is visualized. Sacroiliac joints are maintained laterally without diastasis or evidence of erosion. IMPRESSION IMPRESSION: No radiographic evidence of sacroiliitis or acute osseous abnormality. Partially imaged lower lumbar spine degenerative changes. Service Center Representative: [facility] Transcribe Date/Time: Apr 27 2022 4:08P Dictated by : PRAVIN NOLEN MD This examination was interpreted and the report reviewed and electronically signed by: PRAVIN NOLEN MD on Apr 27 2022 4:10PM [facility] XR Hand - bilateral PA and L ateral and Obliqueon 04-27-2022 IMPRESSION: Minimal degenerative changes. Service Center Representative: [facility] Transcribe Date/Time: Apr 27 2022 4:10P Dictated by : PRAVIN NOLEN MD This examination was interpreted and the report reviewed and electronically signed by: PRAVIN NOLEN MD on Apr 27 2022 4:13PM [facility] DIVISION OF RADIOLOGY * * *Final Report* * * DATE OF EXAM: Apr 27 2022 3:57PM STX 5556 - XR HAND 3V PA/LAT/OBL OLEG / PROCEDURE REASON: Pain in joint, multiple sites * * * * Physician Interpretation * * * * HISTORY: Pain in joint, multiple sites . CHRONIC HAND PAIN / BASELINE TECHNIQUE: XR HAND 3V PA/LAT/OBL OLEG Laterality: BILATERAL Number of different views (projections): 3 EACH COMPARISON: None RESULT: Right hand: No acute fracture or dislocation. Nonspecific cystlike lucency with thin sclerotic margin overlying the distal ulna. Mild scattered IP joint space narrowing and tiny osteophytes. No definite erosion. Soft tissues are unremarkable. Left hand: No acute fracture or dislocation. Tiny cystlike lucencies of the lunate, distal scaphoid, and trapezium. Tiny first CMC. Mild scattered IP joint space narrowing and tiny osteophytes. No definite erosion. DIVISION OF RADIOLOGY Provider, [facility] - 04/27/2022 * * *Final Report* * * DATE OF EXAM: Apr 27 2022 3:57PM STX 5556 - XR HAND 3V PA/LAT/OBL OLEG / PROCEDURE REASON: Pain in joint, multiple sites * * * * Physician Interpretation * * * * HISTORY: Pain in joint, multiple sites . CHRONIC HAND PAIN / BASELINE TECHNIQUE: XR HAND 3V PA/LAT/OBL OLEG Laterality: BILATERAL Number of different views (projections): 3 EACH COMPARISON: None RESULT: Right hand: No acute fracture or dislocation. Nonspecific cystlike lucency with thin sclerotic margin overlying the distal ulna. Mild scattered IP joint space narrowing and tiny osteophytes. No definite erosion. Soft tissues are unremarkable. Left hand: No acute fracture or dislocation. Tiny cystlike lucencies of the lunate, distal scaphoid, and trapezium. Tiny first CMC. Mild scattered IP joint space narrowing and tiny osteophytes. No definite erosion. IMPRESSION IMPRESSION: Minimal degenerative changes. Service Center Representative: [facility] Transcribe Date/Time: Apr 27 2022 4:10P Dictated by : PRAVIN NOLEN MD This examination was interpreted and the report reviewed and electronically signed by: PRAVIN NOLEN MD on Apr 27 2022 4:13PM [facility] XR Sacroiliac Joint Viewson 04-27-2022 * * *Final Report* * * DATE OF EXAM: Apr 27 2022 3:57PM STX 5245 - XR SI JTS 2V AP PELV/PENA / PROCEDURE REASON: Pain in joint, multiple sites * * * * Physician Interpretation * * * * HISTORY: Pain in joint, multiple sites . CHRONIC PELVIC AND HIP PAIN / BASELINE TECHNIQUE: XR HIP OLEG 5V PEL+ AP/LAT EA HIP, XR SI JTS 2V AP PELV/PENA Laterality: BILATERAL (accession [id number]), NOT APPLICABLE (accession [id number]) Number of different views (projections): 5 (accession [id number]), 2 (accession [id number]) COMPARISON: None RESULT: Pelvis and bilateral hips: No acute fracture or dislocation. Right hip joint space is maintained. Left hip joint space is maintained. Pubic is maintained. Mild bilateral pelvic enthesopathy. Degenerative changes of the included lower lumbar spine. Sacroiliac joints: No acute displaced fracture is visualized. Sacroiliac joints are maintained laterally without diastasis or evidence of erosion. DIVISION OF RADIOLOGY Provider, [facility] - 04/27/2022 * * *Final Report* * * DATE OF EXAM: Apr 27 2022 3:57PM STX 5245 - XR SI JTS 2V AP PELV/PENA / PROCEDURE REASON: Pain in joint, multiple sites * * * * Physician Interpretation * * * * HISTORY: Pain in joint, multiple sites . CHRONIC PELVIC AND HIP PAIN / BASELINE TECHNIQUE: XR HIP OLEG 5V PEL+ AP/LAT EA HIP, XR SI JTS 2V AP PELV/PENA Laterality: BILATERAL (accession [id number]), NOT APPLICABLE (accession [id number]) Number of different views (projections): 5 (accession [id number]), 2 (accession [id number]) COMPARISON: None RESULT: Pelvis and bilateral hips: No acute fracture or dislocation. Right hip joint space is maintained. Left hip joint space is maintained. Pubic is maintained. Mild bilateral pelvic enthesopathy. Degenerative changes of the included lower lumbar spine. Sacroiliac joints: No acute displaced fracture is visualized. Sacroiliac joints are maintained laterally without diastasis or evidence of erosion. IMPRESSION IMPRESSION: No radiographic evidence of sacroiliitis or acute osseous abnormality. Partially imaged lower lumbar spine degenerative changes. [facility] Transcribe Date/Time: Apr 27 2022 4:08P Dictated by : PRAVIN NOLEN MD This examination was interpreted and the report reviewed and electronically signed by: PRAVIN NOLEN MD on Apr 27 2022 4:10PM [facility] Absolute lymphocyte countOrd ered By: Dr. Denson on 03-29-2022 Lymphocytes Auto (Unsp spec) [#/Vol] 1.50 10*3/uL 0.83-4.51 [facility] Basophil percentageOrdered B y: Dr. Denson on 03-29-2022 Basophils/100 WBC (Bld) 0.7 % 0-1 [facility] Bilirubin [Mass/Vol] 0.70 mg/dL 0.20-1.00 [facility] Comment on above: For patients on eltr ombopag therapy, use of Dimension [place] TBIL is not recommended. Chloride [Moles/Vol] 109 mmol/L 98-107 [facility] Cholesterol [Mass/Vol] 161 mg/dL <200 [facility] Comment on above: <200 mg/dL Desirable 200-240 mg/dL Borderline >240 mg/dL High Risk Eosinophils/100 WBC (Bld) 2.0 % 0-5 [facility] Glucose [Mass/Vol] 74 mg/dL 74-106 [facility] Neutrophils (Bld) [#/Vol] 3.8 10*3/uL 2.0-7.7 [facility] Neutrophils/100 WBC (Bld) 62.5 % 47-70 [facility] Potassium [Moles/Vol] 3.9 mmol/L 3.5-5.1 [facility] Protein [Mass/Vol] 7.7 g/dL 6.4-8.2 [facility] Sodium [Moles/Vol] 142 mmol/L 136-145 [facility] Triglyceride [Mass/Vol] 230 mg/dL <199 [facility] Comment on above: The drugs N-Acetylcy steine and Metamizole may falsely depress this assay.Serum Triglycerides Reference Interval Normal <150 mg/dL Borderline high 150 - 199 mg/dL High 200 - 499 mg/dL Very High > or = 500 mg/dL WBC (Bld) [#/Vol] 6.0 10*3/uL 4.4-11.0 [facility] Blood erythrocytes count (nu mber/volume)Ordered By: Dr. Denson on 03-29-2022 RBC (Bld) [#/Vol] 5.04 10*6/uL 4.6-6.2 [facility] Blood hemoglobin measurement (mass/volume)Ordered By: Dr. Denson on 03-29-2022 Hemoglobin (Bld) [Mass/Vol] 15.2 g/dL 13.0-16.5 [facility] Blood lymphocytes/100 leukoc ytesOrdered By: Dr. Denson on 03-29-2022 Lymphocytes/100 WBC (Bld) 24.8 % 19-41 [facility] Blood monocytes/100 leukocyt esOrdered By: Dr. Denson on 03-29-2022 Monocytes/100 WBC (Bld) 9.8 % 0-10 [facility] Blood platelet mean volumeOr dered By: Dr. Denson on 03-29-2022 Platelet mean volume (Bld) [Entitic vol] 11.9 fL 6.2-12.0 [facility] Determination of erythrocyte mean corpuscular volume (MCV)Ordered By: Dr. Denson on 03-29-2022 MCV (RBC) [Entitic vol] 94.8 fL 80-94 [facility] Hematocrit Auto (Bld) [Volum e fraction]Ordered By: Dr. Denson on 03-29-2022 Hematocrit (Bld) [Volume fraction] 47.8 % 40-54 [facility] Laboratory - Chemistry and C hemistry - challengeOrdered By: Dr. Denson on 03-29-2022 ALP [Catalytic activity/Vol] 49 U/L 45-117 [facility] ALT [Catalytic activity/Vol] 31 U/L 16-61 [facility] CO2 [Moles/Vol] 26.0 mmol/L 21.0-32.0 [facility] Globulin (S) [Mass/Vol] 3.7 g/dL 2.2-4.2 [facility] Urea nitrogen/Creatinine [Mass ratio] 18.9 mg/mg 10-20 [facility] - Hematology and Cell countsOrdered By: Dr. Denson on 03-29-2022 Erythrocyte distribution width (RBC) [Entitic vol] 45.4 fL 35.1-43.9 [facility] Erythrocyte distribution width (RBC) [Ratio] 13.0 % 11.6-14.6 [facility] Immature granulocytes/100 WBC (Bld) 0.200 % 0.0-0.9 [facility] Comment on above: IG% - Immature Granu locytes (promyelocytes, myelocytes and metamyelocytes) > 1% indicates that a LEFT SHIFT is Present. MCH (RBC) [Entitic mass] 30.2 pg 27.0-32.0 [facility] Nucleated RBC/100 WBC (Bld) [Ratio] 0 % 0-5 [facility] MCHC Auto (RBC) [Mass/Vol]Or dered By: Dr. Denson on 03-29-2022 MCHC (RBC) [Mass/Vol] 31.8 g/dL 32-36 [facility] No Panel InformationOrdered By: Dr. Denson on 03-29-2022 Estimated GFR (MDRD) Amer 70 mL/min >60 [facility] Comment on above: GFR Calc Estimated GFR (MDRD) Non-Af Amer 57 mL/min >60 [facility] Comment on above: Non- GFR Calc Prostate Specific Antigen Screen 0.53 ng/mL 0.00-4.00 [facility] Comment on above: This test was perfor med using the TPSA assay method for [employer] chemistry system. Values obtained with differentassay methods cannot be used interchangably.When changing PSA assays in the course of monitoring apatient, additional sequential testing should be carriedout to confirm baseline values. Platelets bldOrdered By: Dr. Denson on 03-29-2022 Platelets (Bld) [#/Vol] 171 10*3/uL 150-450 [facility] Serum or plasma albumin kuhrram urement (mass/volume)Ordered By: Dr. Denson on 03-29-2022 Albumin [Mass/Vol] 4.0 g/dL 3.2-5.0 [facility] Serum or plasma albumin/glob ulin mass ratioOrdered By: Dr. Denson on 03-29-2022 Albumin/Globulin [Mass ratio] 1.1 {ratio} 0.9-2.4 [facility] Serum or plasma calcium khurram urement (mass/volume)Ordered By: Dr. Denson on 03-29-2022 Calcium [Mass/Vol] 9.8 mg/dL 8.5-10.1 [facility] Serum or plasma cholesterol in HDL measurement (mass/volume)Ordered By: Dr. Denson on 03-29-2022 Cholesterol in HDL [Mass/Vol] 40 mg/dL >40 [facility] Comment on above: The drugs N-Acetylcy steine and Metamizole may falsely depress this assay. Reference Range HDL <40 mg/dL Low HDL Cholesterol HDL >or= 60 mg/dL High HDL Cholesterol Serum or plasma cholesterol in VLDL measurement (mass/volume)Ordered By: Dr. Denson on 03-29-2022 Cholesterol in VLDL [Mass/Vol] 46 mg/dL 5-40 [facility] Serum or plasma creatinine m easurement (mass/volume)Ordered By: Dr. Denson on 03-29-2022 Creatinine [Mass/Vol] 1.32 mg/dL 0.70-1.30 [facility] Comment on above: The validity of the calculated GFR & GFRAA in patients over 70 years has not been determined. Clinical correlation is essential. Serum or plasma low density lipoprotein (LDL) cholesterol measurement (mass/volume)Ordered By: Dr. Denson on 03-29-2022 Cholesterol in LDL [Mass/Vol] 75 mg/dL 0-130 [facility] Serum or plasma urea nitroge n measurement (mass/volume)Ordered By: Dr. Denson on 03-29-2022 Urea nitrogen [Mass/Vol] 25 mg/dL 7-18 [facility] Thin prep Papanicolaou smear with manual screeningOrdered By: Dr. Denson on 03-29-2022 Thin prep Papanicolaou smear with manual screening 28 U/L 15 [facility] Thin prep Papanicolaou smear with manual screening 7 5-15 [facility] Lab Report: Lipid Profileon 10-28-2016 Cholesterol 151 mg/dL Invalid Interpretation Code 200 [place] [employer] Work Phone: [phone] HDL Cholesterol 39 mg/dL Low [facility] Work Phone: [phone] LDL Cholesterol 68 mg/dL Invalid Interpretation Code 0-130 [place] [employer] Work Phone: [phone] Triglyceride 220 mg/dL High [facility] Work Phone: [phone] very low density lipoproteins 44 mg/dL High 5-40 [facility] [employer] Work Phone: [phone]) Lab Report: Liver Profileon 10-28-2016 Alanine aminotransferase (ALT) 31 U/L Invalid Interpretation Code 12-78 [place] [employer] Work Phone: [phone] Albumin 4.0 g/dL Invalid Interpretation Code 3.4-5.0 [place] [employer] Work Phone: [phone] Alkaline phosphatase (ALP) 52 U/L Invalid Interpretation Code 45-117 [place] [employer] Work Phone: [phone] Aspartate aminotransferase (AST) 24 U/L Invalid Interpretation Code 15-37 [employer] Work Phone: [phone] Bilirubin (direct) 0.21 mg/dL Invalid Interpretation Code 0.00-0.30 [employer] Work Phone: [phone] Bilirubin (total) 1.00 mg/dL Invalid Interpretation Code 0.20-1.00 [facility] Digital Phone: [phone] Globulin 3.9 g/dL High 2.3-3.5 [facility] Work Phone: [phone] Protein 7.9 g/dL Invalid Interpretation Code 6.4-8.2 [facility] [employer] Phone: [phone] Office Visiton 11-12-2015 Dietary management education, guidance, and counseling (procedure) yes Invalid Interpretation Code [facility] [employer] Phone: [phone] Documentation of current medications (procedure) Done Invalid Interpretation Code [facility] [employer] Phone: [phone] Tobacco use CPHS Never smoker Invalid Interpretation Code [facility] [employer] Phone: [phone] Lab Report: PSA,Total - Haley al Screenon 08-21-2014 PSA,TOT SCREEN 0.40 ng/mL Invalid Interpretation Code 0.00-4.00 [facility] [employer] Phone: [phone] EKG Report: [place] ECG Obse rvationson 04-10-2014 EKG QRS axis 31 deg Invalid Interpretation Code [facility] [employer] Phone: [phone] Interpretation Sinus Rhythm WITHIN NORMAL LIMITS Invalid Interpretation Code [facility] [employer] Phone: [phone] P [place] 58 deg Invalid Interpretation Code [facility] Work Phone: [phone] CT Interval 138 ms Invalid Interpretation Code [facility] Work Phone: [phone] Pulse (Heart Rate) 74 /min Invalid Interpretation Code [facility] [employer] Phone: [phone] QRS Duration 102 ms Invalid Interpretation Code [facility] [employer] Phone: [phone] QT Interval new path ms Invalid Interpretation Code [facility] [employer] Phone: [phone] QTc [place] 420 ms Invalid Interpretation Code [facility] [employer] Phone: [phone] T [place] 39 deg Invalid Interpretation Code [facility] [employer] Phone: [phone] Office Visiton 04-10-2014 cardiac risk group C Invalid Interpretation Code [facility] Work Phone: [phone] General cardiovascular disease 10Y risk [#] Carrington.Antonio'Filippo N/A Invalid Interpretation Code [facility] Work Phone: [phone] Lab Report: BMPon 04-02-2012 Calcium 10.3 mg/dL High 8.5-10.1 [facility] Work Phone: [phone] Chloride 102 mmol/L Normal 98-107 [facility] Work Phone: [phone] Creatinine 1.1 mg/dL Normal 0.8-1.3 [facility] Work Phone: [phone] Glucose mass conc 94 mg/dL Normal 70-110 [facility] Work Phone: [phone] Potassium molar conc 3.8 mmol/L Normal 3.5-5.1 [facility] Work Phone: [phone] Sodium 142 mmol/L Normal 136-145 [facility] Work Phone: [phone] Urea nitrogen 17 mg/dL Normal 7-18 [facility] Work Phone: [phone] Lab Report: MGon 04-02-2012 Magnesium 2.2 mg/dL Normal 1.8-2.4 [facility] Work Phone: [phone] Replaced Document: CBCDon Erythrocytes (RBC) 4.60 10*6/uL Normal 4.6-6.2 [facility] Work Phone: [phone] Hematocrit (HCT) 42.0 % Normal 40-54 [facility] Work Phone: [phone] Hemoglobin mass conc (Bld) 13.8 g/dL Normal 13.0-16.5 [facility] Work Phone: [phone] Platelets 180 10*3/mm3 Normal 150-450 [facility] Work Phone: [phone] WBC (Leukocytes) 5.1 10*3/uL Normal 4.4-11.0 [facility] Work Phone: [phone] Replaced Document: [facility] E CG Observationson 03-29-2012 Pulse (Heart Rate) 408 ms Invalid Interpretation Code [facility] Work Phone: [phone] Office Visiton 07-11-2011 Alcoholism counseling (procedure) no Invalid Interpretation Code [facility] Work Phone: [phone] CRYOTHERAPY SKIN LESION [facility] Vital Signs Date Time Vital Sign Value Performing Clinician Faci lity 10-16-2024 11:31-0400 Body height 182.9 cm Marguerite Pereyra MD Work Phone: [facility] 10-16-2024 11:31-0400 Body mass index (BMI) [Ratio] 26.79 kg/m2 Marguerite Pereyra MD Work Phone: [facility] 10-16-2024 11:31-0400 Body temperature 97.59 [degF] Marguerite Pereyra MD Work Phone: [facility] 10-16-2024 11:31-0400 Body weight 89.6 kg Marguerite Pereyra MD Work Phone: [facility] 10-16-2024 11:31-0400 Diastolic blood pressure 71 mm[Hg] Marguerite Pereyra MD Work Phone: [facility] 10-16-2024 11:31-0400 Heart rate 75 /min Marguerite Pereyra MD Work Phone: [facility] 10-16-2024 11:31-0400 Systolic blood pressure 103 mm[Hg] Marguerite Pereyra MD Work Phone: [facility] 09-21-2024 10:19-0400 Body mass index (BMI) [Ratio] 28.2 kg/m2 Krislyn Aberegg PA Work Phone: [facility] 09-21-2024 10:19-0400 Body temperature 97.5 [degF] Krislyn Aberegg PA Work Phone: [facility] 09-21-2024 10:19-0400 Body weight 91.7 kg Krislyn Aberegg PA Work Phone: [facility] 09-21-2024 10:19-0400 Diastolic blood pressure 76 mm[Hg] Krislyn Aberegg PA Work Phone: [facility] 09-21-2024 10:190400 Heart rate 60 /min Krislyn Aberegg PA Work Phone: [facility] 09-21-2024 10:190400 Respiratory rate 16 /min Krislyn Aberegg PA Work Phone: [facility] 09-21-2024 10:190400 SaO2% (BldA) [Mass fraction] 98 % Krislyn Aberegg PA Work Phone: [facility] 09-21-2024 10:19040 Systolic blood pressure 110 mm[Hg] Krislyn Aberegg PA Work Phone: [facility] 05-22-2024 13:18-0400 Body height 180.3 cm Neo Gross MD Work Phone: [facility] 05-22-2024 13:18-0400 Body mass index (BMI) [Ratio] 28.73 kg/m2 Neo Gross MD Work Phone: [facility] 05-22-2024 13:18-0400 Body weight 93.44 kg Neo Gross MD Work Phone: [facility] 03-20-2024 10:04-0500 Body height 182 cm Marguerite Pereyra MD Work Phone: [facility] 03-20-2024 10:04-0500 Body mass index (BMI) [Ratio] 28.32 kg/m2 Marguerite Pereyra MD Work Phone: [facility] 03-20-2024 10:04-0500 Body temperature 97.59 [degF] Marguerite Pereyra MD Work Phone: [facility] 03-20-2024 10:04-0500 Body weight 93.8 kg Marguerite Pereyra MD Work Phone: [facility] 01-29-2025 10:04-0500 Diastolic blood pressure 81 mm[Hg] Marguerite Pereyra MD Work Phone: [facility] 03-20-2024 10:04-0500 Heart rate 69 /min Marguerite Pereyra MD Work Phone: [facility] 03-20-2024 10:04-0500 Systolic blood pressure 118 mm[Hg] Marguerite Pereyra MD Work Phone: [facility] 03-18-2024 13:20-0500 Body height 182 cm Denzel Gore MD Work Phone: [facility] 03-18-2024 13:20-0500 Body mass index (BMI) [Ratio] 28.32 kg/m2 Denzel Gore MD Work Phone: [facility] 03-18-2024 13:20-0500 Body weight 93.8 kg Denzel Gore MD Work Phone: [facility] 03-18-2024 13:20-0500 Diastolic blood pressure 60 mm[Hg] Denzel Gore MD Work Phone: [facility] 03-18-2024 13:20-0500 Heart rate 71 /min Denzel Gore MD Work Phone: [facility] 03-18-2024 13:20-0500 Systolic blood pressure 124 mm[Hg] Denzel Gore MD Work Phone: [facility] 10-19-2023 15:42-0400 Body mass index (BMI) [Ratio] 26.72 kg/m2 Radha Rincon MD Work Phone: [facility] 10-19-2023 15:42-0400 Body temperature 97.7 [degF] Radha Rincon MD Work Phone: [facility] 10-19-2023 15:42-0400 Body weight 89.36 kg Radha Rincon MD Work Phone: [facility] 10-19-2023 15:42-0400 Diastolic blood pressure 80 mm[Hg] Radha Rincon MD Work Phone: [facility] 10-19-2023 15:42-0400 Heart rate 78 /min Radha Rincon MD Work Phone: [facility] 10-19-2023 15:42-0400 Systolic blood pressure 116 mm[Hg] Radha Rincon MD Work Phone: [facility] 10-17-2023 10:48-0400 Diastolic blood pressure 85 mm[Hg] Marguerite Pereyra MD Work Phone: [facility] 10-17-2023 10:48-0400 Heart rate 62 /min Marguerite Pereyra MD Work Phone: [facility] 10-17-2023 10:48-0400 Systolic blood pressure 122 mm[Hg] Marguerite Pereyra MD Work Phone: [facility] 10-17-2023 10:45-0400 Body height 182.9 cm Marguerite Pereyra MD Work Phone: [facility] 10-17-2023 10:45-0400 Body mass index (BMI) [Ratio] 26.79 kg/m2 Marguerite Pereyra MD Work Phone: [facility] 10-17-2023 10:45-0400 Body temperature 97 [degF] Marguerite Pereyra MD Work Phone: [facility] 10-17-2023 10:45-0400 Body weight 89.6 kg Marguerite Pereyra MD Work Phone: [facility] 12-26-2022 10:10-0500 Diastolic blood pressure 73 mm[Hg] Lillian Granados MD, PhD Work Phone: [facility] 12-26-2022 10:10-0500 Heart rate 100 /min Lillian Granados MD, PhD Work Phone: [facility] 12-26-2022 10:10-0500 Respiratory rate 18 /min Lillian Granados MD, PhD Work Phone: [facility] 12-26-2022 10:10-0500 SaO2% (BldA) [Mass fraction] 95 % Lillian Granados MD, PhD Work Phone: [facility] 12-26-2022 10:10-0500 Systolic blood pressure 104 mm[Hg] Lillian Granados MD, PhD Work Phone: [facility] 12-26-2022 09:04-0500 Body height 182.9 cm Lillian Granados MD, PhD Work Phone: [facility] 12-26-2022 09:04-0500 Body temperature 97 [degF] Lillian Granados MD, PhD Work Phone: [facility] 12-26-2022 09:04-0500 Body weight 86.18 kg Lillian Granados MD, PhD Work Phone: [facility] 09-07-2022 15:56-0400 Body temperature 97.81 [degF] Jeanie Athy PA-C Work Phone: [facility] 09-07-2022 15:56-0400 Body weight 94.89 kg Jeanie Athy PA-C Work Phone: [facility] 09-07-2022 15:56-0400 Diastolic blood pressure 64 mm[Hg] Jeanie Athy PA-C Work Phone: [facility] 09-07-2022 15:56-0400 Heart rate 92 /min Jeanie Athy PA-C Work Phone: [facility] 09-07-2022 15:56-0400 Respiratory rate 16 /min Jeanie Athy PA-C Work Phone: [facility] 09-07-2022 15:56-0400 SaO2% (BldA) [Mass fraction] 96 % Jeanie Athy PA-C Work Phone: [facility] 09-07-2022 15:56-0400 Systolic blood pressure 102 mm[Hg] Jeanie Athy PA-C Work Phone: [facility] 08-16-2022 10:54-0400 Body height 182.9 cm Marguerite Pereyra MD Work Phone: [facility] 08-16-2022 10:54-0400 Body temperature 97.3 [degF] Marguerite Pereyra MD Work Phone: [facility] 08-16-2022 10:54-0400 Body weight 96.62 kg Marguerite Pereyra MD Work Phone: [facility] 08-16-2022 10:54-0400 Diastolic blood pressure 84 mm[Hg] Marguerite Pereyra MD Work Phone: [facility] 08-16-2022 10:54-0400 Heart rate 63 /min Marguerite Pereyra MD Work Phone: [facility] 08-16-2022 10:54-0400 Systolic blood pressure 125 mm[Hg] Marguerite Pereyra MD Work Phone: [facility] 04-27-2022 14:54-0500 Body height 182.9 cm Marguerite Pereyra MD Work Phone: [facility] 04-27-2022 14:54-0500 Body temperature 97.81 [degF] Marguerite Pereyra MD Work Phone: [facility] 04-27-2022 14:54-0500 Body weight 95.25 kg Marguerite Pereyra MD Work Phone: [facility] 04-27-2022 14:54-0500 Diastolic blood pressure 88 mm[Hg] Marguerite Pereyra MD Work Phone: [facility] 04-27-2022 14:54-0500 Heart rate 91 /min Marguerite Pereyra MD Work Phone: [facility] 04-27-2022 14:54-0500 Systolic blood pressure 136 mm[Hg] Marguerite Pereyra MD Work Phone: [facility] 03-24-2022 14:19-0500 Body height 182.9 cm Lillian Granados MD, PhD Work Phone: [facility] 03-24-2022 14:19-0500 Body temperature 97 [degF] Lillian Granados MD, PhD Work Phone: [facility] 03-24-2022 14:19-0500 Body weight 94.26 kg Lillian Granados MD, PhD Work Phone: [facility] 03-24-2022 14:19-0500 Diastolic blood pressure 81 mm[Hg] Lillian Granados MD, PhD Work Phone: [facility] 03-24-2022 14:19-0500 Heart rate 80 /min Lillian Granados MD, PhD Work Phone: [facility] 03-24-2022 14:19-0500 SaO2% (BldA) [Mass fraction] 98 % Lillian Granados MD, PhD Work Phone: [facility] 03-24-2022 14:19-0500 Systolic blood pressure 129 mm[Hg] Lillian Granados MD, PhD Work Phone: [facility] 11-12-2015 13:08-0400 BMI (Body Mass Index) 30.11 kg/m2 [facility] Work Phone: 11-12-2015 13:08-0400 BP Diastolic 60 mm[Hg] [facility] Work Phone: 11-12-2015 13:08-0400 BP Systolic 116 mm[Hg] [facility] Work Phone: 11-12-2015 13:08-0400 BSA (Body Surface Area) 2.23 m2 [facility] Work Phone: 11-12-2015 13:08-0400 Height 182.88 cm [facility] Work Phone: 11-12-2015 13:08-0400 Pulse (Heart Rate) 78 /min [facility] Work Phone: 11-12-2015 13:08-0400 Respiratory Rate 18 /min Mary Lou Holloway RN [facility] Work Phone: 11-12-2015 13: Weight 100.7 kg Mary Lou Holloway RN [facility] Work Phone: Encounters Encounter Date Encounter Type Care Provider Facility Start: 01-01-2025 End: 01-01-2025 ambulatory CHALON ANEESH Facility:[facility] Start: 12-27-2024 End: 12-27-2024 ambulatory SHAHRIAR BARROS Facility:[facility] Start: 12-10-2024 End: 12-10-2024 ambulatory CHALON NAEESH Facility:[facility] Start: 12-03-2024 End: 12-03-2024 ambulatory CHALON ANEESH Facility:[facility] Start: 11-27-2024 End: 11-27-2024 ambulatory CHALON ANEESH Facility:[facility] Start: 10-25-2024 End: 10-25-2024 ambulatory Shahriar Barros MD Work Phone: Orthopaedics Start: 10-23-2024 End: 10-23-2024 ambulatory CHALON ANEESH Facility:[facility] Start: 10-16-2024 End: 10-16-2024 Patient encounter procedure Marguerite Pereyra MD Work Phone: Rheumatology Comment on above: Seronegative spondyl oarthropathy (Primary Dx); Long-term use of immunosuppressant medication; Ulcerative pancolitis with rectal bleeding (HCC); Other tear of meniscus of right knee, unspecified meniscus, unspecified whether old or current tear, subsequent encounter Start: 10-16-2024 End: 10-16-2024 ambulatory CHALON ANEESH Facility:[facility] Start: 10-16-2024 End: 10-16-2024 ambulatory CHALON ANEESH Facility:[facility] Start: 10-16-2024 End: 10-16-2024 Patient encounter procedure Shahriar Barros MD Work Phone: Orthopaedics Comment on above: Acute lateral menisc us tear of right knee, subsequent encounter (Primary Dx) Start: 10-03-2024 End: 10-03-2024 Patient encounter procedure Lillian Granados MD, PhD Work Phone: Gastroenterology Comment on above: Inflammatory bowel d isease (Primary Dx); Irritable bowel syndrome with diarrhea Start: 10-03-2024 End: 10-03-2024 ambulatory SHIRLENE ZACARIAS JOLLIFF Facility:[facility] Start: 10-02-2024 [facility] Start: 10-02-2024 End: 10-02-2024 Subsequent hospital visit by physician [facility] Work Phone: Radiology Comment on above: Right calf pain [M79 .661] Start: 10-02-2024 End: 10-02-2024 ambulatory [facility] Facility:[facility] Start: 10-02-2024 End: 10-02-2024 Subsequent hospital visit by physician [employer] (I-Stat/1.5t) Work Phone: Radiology Comment on above: Acute pain of right knee [M25.561] Start: 10-01-2024 End: 10-01-2024 Patient encounter procedure Shahriar Barros MD Work Phone: Orthopaedics Comment on above: Right calf pain (Yenni rachel Dx); Acute pain of right knee; Psoriatic arthritis (HCC); Primary osteoarthritis of right knee Start: 10-01-2024 End: 10-01-2024 ambulatory [facility] Facility:[facility] Start: 09-21-2024 End: 09-21-2024 Subsequent hospital visit by physician Xr [facility] Work Phone: Radiology Comment on above: Acute pain of right knee [M25.561] Start: 09-21-2024 End: 09-21-2024 Patient encounter procedure Derick MCCARTHY Work Phone: Urgent Care [place] Comment on above: Acute pain of right knee (Primary Dx) Start: 09-21-2024 End: 09-21-2024 ambulatory [facility] Facility:[facility] Start: 06-17-2024 End: 06-17-2024 Patient encounter procedure Zane Banks MD Work Phone: Otolaryngology Comment on above: Lymphadenopathy, ant erior cervical Start: 06-17-2024 End: 06-17-2024 ambulatory SHIRLENE DENSON Facility:[facility] Start: 05-22-2024 End: 05-22-2024 Refill Denzel Gore MD Work Phone: Cardiology Comment on above: Benign prostatic hyp erplasia with urinary hesitancy (Primary Dx); Peyronie's disease; Erectile dysfunction, unspecified erectile dysfunction type; Screening for genitourinary condition Start: 05-21-2024 End: 05-22-2024 ambulatory Denzel Gore MD Work Phone: Cardiology Comment on above: Metoprol Start: 04-29-2024 ambulatory Oksana Quique Facility :[facility] Start: 04-23-2024 End: 04-23-2024 ambulatory Denzel Gore MD Work Phone: Cardiology Comment on above: Clopidogrel -75mg Refill Request Start: 04-08-2024 End: 06-08-2024 Follow-up encounter Denzel Gore MD Work Phone: [place] Provider Adult Start: 04-05-2024 End: 04-08-2024 ambulatory SHIRLENE DENSON Facility:[facility] Start: 03-28-2024 End: 03-28-2024 ambulatory Lillian Granados MD, PhD Work Phone: Gastroenterology Start: 03-28-2024 End: 03-28-2024 Patient encounter procedure Lillian Granados MD, PhD Work Phone: Gastroenterology Comment on above: Annual appt. Start: 03-21-2024 End: 03-21-2024 ambulatory SHIRLENE DENSON Facility:[facility] Start: 03-20-2024 End: 03-20-2024 ambulatory SHIRLENE DENSON Facility:[facility] Start: 03-20-2024 End: 03-20-2024 Patient encounter procedure Marguerite Pereyra MD Work Phone: Rheumatology Comment on above: Seronegative spondyl oarthropathy (Primary Dx); Ulcerative pancolitis with rectal bleeding (HCC); Long-term use of immunosuppressant medication; Plantar fasciitis of left foot; Iliotibial band syndrome of right side Start: 03-19-2024 End: 03-26-2024 ambulatory Lillian Granados MD, PhD Work Phone: Gastroenterology Start: 03-19-2024 End: 03-26-2024 Patient encounter procedure Lillian Granados MD, PhD Work Phone: Gastroenterology Comment on above: Annual appt. Start: 03-18-2024 End: 03-19-2024 Telephone encounter Denzel Gore MD Work Phone: Internal Medicine [place] Comment on above: Medication Problem Start: 03-18-2024 End: 03-18-[address] [facility] Facility:[facility] Start: 03-18-2024 End: 03-18-2024 Patient encounter procedure Denzel Gore MD Work Phone: Cardiology Comment on above: Coronary artery dise ase involving [place] coronary artery of [place] heart without angina pectoris (Primary Dx); Essential hypertension; 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); Coronary stent patent; Carotid bruit, unspecified laterality Start: 01-30-2024 End: 01-30-[address] [facility] Facility:[facility] Start: 01-30-2024 End: 01-30-2024 Patient encounter procedure Reyna Charles APRN.AGRONOMY INSTRUCTOR Work Phone: Dermatology Comment on above: Actinic keratosis (P rimary Dx); Folliculitis Start: 12-21-2023 End: 12-21-2023 ambulatory Monster Dobbs PT Work Phone: [place] [facility] Physical Therapy Comment on above: Iliotibial band synd juan pablo of right side (Primary Dx) Start: 12-19-2023 End: 12-19-2023 Nursing evaluation of patient and report Nurse Martine [facility] Work Phone: Rheumatology Comment on above: Seronegative spondyl oarthropathy (Primary Dx) Start: 12-19-2023 End: 12-20-2023 ambulatory Marguerite Pereyra MD Work Phone: Rheumatology Comment on above: Rashawn Start: 12-19-2023 End: 12-19-2023 Patient encounter procedure Nurse Derm [facility] Work Phone: Dermatology Comment on above: Actinic keratosis (P rimary Dx) Start: 12-14-2023 End: 12-14-2023 ambulatory Monsternicholas Dobbs PT Work Phone: [facility] Physical Therapy Comment on above: Iliotibial band synd juan pablo of right side (Primary Dx) Start: 12-07-2023 End: 12-07-2023 ambulatory Marguerite Pereyra MD Work Phone: Rheumatology Comment on above: Rashawn approval Iliotibial band synd juan pablo of right side (Primary Dx) Start: 12-04-2023 End: 12-04-2023 ambulatory Radha Crowder MD Work Phone: Kidney Medicine Comment on above: Abnormal kidney func tion (Primary Dx); Essential hypertension; Ulcerative colitis with other complication, unspecified location (HCC) Start: 12-04-2023 End: 12-04-2023 Telemedicine consultation with patient Radha Rincon MD Work Phone: Kidney Medicine Start: 11-30-2023 End: 11-30-2023 ambulatory Monsternicholas oDbbs PT Work Phone: [facility] Physical Therapy Comment on above: Iliotibial band synd juan [place]ablo of right side (Primary Dx) Start: 11-21-2023 End: 11-21-2023 ambulatory Monster Ramona PT Work Phone: [facility] Physical Therapy Comment on above: Iliotibial band synd juan pablo of right side (Primary Dx) Start: 11-10-2023 End: 11-16-2023 Telephone encounter Marguerite Pereyra MD Work Phone: Rheumatology Comment on above: Dinora patient assi stance program Start: 11-08-2023 End: 11-09-2023 Telephone encounter Radha Crowder MD Work Phone: Kidney Medicine Comment on above: Results Start: 11-02-2023 End: 11-02-2023 Subsequent hospital visit by physician [facility] Work Phone: Radiology Comment on above: Abnormal kidney func tion [N28.9] Start: 11-01-2023 End: 11-04-2023 Telephone encounter Marguerite Pereyra MD Work Phone: Rheumatology Comment on above: Forms Start: 11-01-2023 End: 11-01-2023 Patient encounter procedure Reyna Charles APRN.AGRONOMY INSTRUCTOR Work Phone: Dermatology Comment on above: Actinic keratosis (P rimary Dx); Folliculitis; Seborrheic keratosis; Psoriasis vulgaris Start: 10-31-2023 End: 10-31-[address] [facility] Facility:[facility] Start: 10-24-2023 End: 11-06-2023 Get Medical Advice Lillian Granados MD, PhD Work Phone: Gastroenterology Comment on above: Mesalamine refill Refill Request Insurance Authorizat ion Start: 10-19-2023 End: 10-19-2023 Patient encounter procedure Radha Crowder MD Work Phone: Kidney Medicine Comment on above: Abnormal kidney func tion (Primary Dx); Essential hypertension; Ulcerative colitis with other complication, unspecified location (HCC) Start: 10-17-2023 End: 10-17-2023 ambulatory Maggie Boone [facility] Start: 10-17-2023 End: 10-17-2023 Patient encounter procedure Margeurite Pereyra MD Work Phone: Rheumatology Comment on above: Seronegative spondyl oarthropathy (Primary Dx); Ulcerative pancolitis with rectal bleeding (HCC); Long-term use of immunosuppressant medication; Plantar fasciitis of left foot; Iliotibial band syndrome of right side SPP Inflammatory Con ditions - Treatment Referral (Rashawn); Insurance Authorization ([place] Submission Pending) Start: 10-16-2023 End: 10-16-2023 ambulatory Shirlene S Jolliff Facility:[facility] Start: 10-10-2023 End: 10-10-2023 ambulatory Shirlene S Jolliff Facility:[facility] Start: 10-02-2023 ambulatory Shirlene S Jolliff Facility: [facility] Start: 09-20-2023 End: 09-20-2023 Subsequent hospital visit by physician Mri [facility] Wstr (I-Stat/1.5t) Work Phone: Radiology Start: 09-13-2023 Telephone encounter Reyna Charles APRN.AGRONOMY INSTRUCTOR Work Phone: Dermatology Comment on above: Patient Question Start: 08-29-2023 End: 08-29-2023 ambulatory Jamila Corrales Facility:[facility] Start: 08-18-2023 End: 08-18-2023 ambulatory Ann Castro NP Facility:[facility] Start: 07-18-2023 End: 07-18-2023 ambulatory Hill Boucher HAND BOOKED FOLDER AND STITCHER Facility:[facility] Start: 01-02-2023 ambulatory Lillian trevino MD, PhD Work Phone: [facility] Start: 01-02-2023 Patient encounter procedure Lillian Granados MD, PhD Work Phone: Gastroenterology Comment on above: Next appointment Start: 12-26-2022 End: 12-26-2022 Subsequent hospital visit by physician Lillian Granados MD, PhD Work Phone: Gastroenterology Comment on above: IBD (inflammatory jeimy wel disease) [K52.9] Start: 12-19-2022 Telephone encounter Ann Almendarez RNpaint line operator Comment on above: Appointment Start: 12-18-2022 ambulatory Lillian trevino MD, PhD Work Phone: Gastroenterology Comment on above: Colonoscopy prep Start: 11-14-2022 ambulatory Marguerite Pereyra MD Work Phone: Rheumatology Comment on above: Flu shot / Covid egan ster Start: 10-13-2022 End: 10-13-[address] Work Phone: Gastroenterology Comment on above: Inflammatory bowel a rthritis (Primary Dx) Start: 10-13-2022 End: 10-13-2022 Telemedicine consultation with patient Kurt Mcnally RD Work Phone: [facility] Start: 10-03-2022 End: 10-03-2022 ambulatory [facility] Work Phone: Start: 10-03-2022 End: 10-03-2022 Patient encounter procedure [facility]-Radiology, [place] Work Phone: Start: 09-07-2022 End: 09-07-2022 Subsequent hospital visit by physician [facility] Work Phone: Radiology Comment on above: Wrist pain, acute, l eft [M25.532] Start: 09-07-2022 End: 09-07-2022 Patient encounter procedure Jeanie Potts PA-C Work Phone: [facility] Comment on above: Wrist pain, acute, l eft (Primary Dx) Start: 08-23-2022 Refill Lillian trevino MD, PhD Work Phone: Gastroenterology Comment on above: Refill Request Start: 08-16-2022 End: 08-16-2022 Patient encounter procedure Marguerite Pereyra MD Work Phone: Rheumatology Comment on above: Seronegative spondyl oarthropathy (Primary Dx); Psoriasis vulgaris; Ulcerative pancolitis with rectal bleeding (HCC); Long-term use of immunosuppressant medication; Pain in joint, multiple sites Start: 08-03-2022 End: 08-03-2022 Patient encounter procedure Jane Hobson PA-C Work Phone: Dermatology Comment on above: Psoriasis vulgaris ( Primary Dx); Folliculitis; Actinic keratosis Start: 06-23-2022 ambulatory Marguerite Pereyra MD Work Phone: Rheumatology Comment on above: Testing after Humira shots Start: 06-22-2022 End: 06-22-2022 Patient encounter procedure Nurse Judah [facility] Work Phone: Dermatology Comment on above: Actinic keratosis (P rimary Dx) Start: 06-09-2022 End: 06-09-2022 ambulatory Treatment [address] Hematology/Oncology Comment on above: Psoriasis vulgaris ( Primary Dx) Start: 05-12-2022 ambulatory Parish Medrano (Pharmacist) [facility] Start: 05-12-2022 Patient encounter procedure Parish Medrano (Pharmacist) [facility] Comment on above: SPP Inflammatory Con ditions - Treatment Referral (Humira); Insurance Authorization ([place] Submission Pending) Start: 05-11-2022 ambulatory Marguerite Pereyra MD Work Phone: Rheumatology Comment on above: Humira - Financial A ssist Start: 05-09-2022 ambulatory Marguerite Pereyra MD Work Phone: Rheumatology Comment on above: Humira Start: 05-08-2022 ambulatory Marguerite Pereyra MD Work Phone: Rheumatology Comment on above: Humira Start: 05-05-2022 ambulatory Marguerite Pereyra MD Work Phone: [facility] Start: 05-05-2022 Follow-up encounter Marguerite Temple MD Work Phone: Rheumatology Comment on above: Medication follow up Start: 04-27-2022 End: 04-27-2022 Subsequent hospital visit by physician [facility] Work Phone: Radiology Comment on above: Pain in joint, multi ple sites [M25.50] Start: 04-27-2022 End: 04-27-2022 Patient encounter procedure Marguerite Pereyra MD Work Phone: Rheumatology Comment on above: Pain in joint, multi ple sites (Primary Dx); Psoriasis vulgaris; Ulcerative pancolitis with rectal bleeding (HCC) Start: 04-27-2022 Telephone encounter Jane carvajal PA-C Work Phone: Dermatology Comment on above: Medication Problem Start: 03-29-2022 End: 03-29-2022 ambulatory [facility] Work Phone: Start: 03-29-2022 End: 03-29-2022 Patient encounter procedure [facility] Start: 03-24-2022 End: 03-24-2022 Patient encounter procedure Lillian Granados MD, PhD Work Phone: Gastroenterology Comment on above: IBD (inflammatory jeimy wel disease) (Primary Dx) Start: 08-24-2021 Refill Lillian trevino MD, PhD Work Phone: Gastroenterology Comment on above: Refill Request Procedures Date Procedure Procedure Detail Performing Clinician Start: 10-02-2024 Mri any jt lower extrem w/o contrast matrl Shahriar Barros MD Work Phone: Start: 09-21-2024 Radiologic exam knee complete 4/more views Derick Shi PA Work Phone: Start: 05-22-2024 Urnls dip stick/tablet rgnt auto w/o microscopy Neo Gross MD Work Phone: Start: 03-18-2024 Ecg routine ecg w/least 12 lds i&r only Denzel Gore MD Work Phone: Start: 01-30-2024 CRYOTHERAPY SKIN LESION Reyna Andjason ik LOG SNAKER.AGRONOMY INSTRUCTOR Work Phone: Start: 09-20-2023 Mri any jt lower extrem w/o contrast matrl [facility] Start: 12-26-2022 SURGICAL PATHOLOGY Lillian Alvarez, PhD Work Phone: Start: 12-26-2022 Colonoscopy flx dx w/collj spec when pfrmd Lillian Granados MD, PhD Work Phone: Start: 12-26-2022 Colonoscopy Lillian Granados MD, PhD Work Phone: Start: 10-03-2022 Plain x-ray of wrist Start: 09-07-2022 Radex wrist complete minimum 3 views Jeanie Potts PA-C Work Phone: Start: 08-03-2022 CRYOTHERAPY SKIN LESION Dory Amisha PAMeganC Work Phone: Start: 04-27-2022 Radex hips bilateral with pelvis minimum 5 views Marguerite Pereyra MD Work Phone: Start: 04-13-2020 History of placement of stent for coronary artery disease History of coronary artery stent placement Start: 02-05-2018 Justino Granados MD, PhD Work Phone: Start: 05-03-2016 End: 08-16-2016 *Hepatic Function Panel Juliann Rodríguez Start: 05-03-2016 End: 08-16-2016 Lipid Lenin panel - Serum or Plasma Anthony Mujica MD Start: 11-12-2015 End: 11-12-2015 ROSALEE Mujica MD Start: 11-12-2015 End: 11-12-2015 Follow Up Appt 1 year Anthony Mujica MD Start: 02-23-2015 End: 11-12-2015 *Hepatic Function Panel Juliann Rodríguez Start: 02-23-2015 End: 11-12-2015 Lipid Lenin panel - Serum or Plasma Anthony Mujica MD Start: 11-11-2014 End: 11-11-2014 ROSALEE Mujica MD Start: 11-11-2014 End: 11-12-2014 Documentation of current medications Anthony Mujica MD Start: 11-11-2014 End: 11-11-2014 Follow Up Appt 1 year Anthony Mujica MD Start: 05-19-2014 End: 08-21-2014 *Hepatic Function Panel Juliann Rodríguez Start: 05-19-2014 End: 08-21-2014 Lipid Lenin panel - Serum or Plasma Anthony Mujica MD Start: 04-10-2014 End: 04-11-2014 Documentation of current medications Anthony Mujica MD Start: 04-10-2014 End: 04-10-2014 Follow Up Appt 6 months Juliann Rodríguez Start: 04-10-2014 End: 04-10-2014 ROSALINDA Mujica MD Start: 04-10-2014 End: 04-21-2014 Nuclear stress test -exercise Anthony Mujica MD Start: 11-12-2013 End: 11-12-2013 SUPERINTENDENT AUTOMOTIVE Anthony Mujica MD Start: 11-12-2013 End: 11-12-2013 Follow Up Appt 1 year Anthony uMjica MD Start: 10-21-2013 End: 11-19-2013 *Hepatic Function Panel Juliann Rodríguez Start: 10-21-2013 End: 11-19-2013 Lipid 1996 panel - Serum or Plasma Anthony Mujica MD Start: 04-25-2013 End: 04-25-2013 ROSALEE Pierson PA-C Work Phone: Start: 04-25-2013 End: 04-25-2013 Follow Up Appt 6 months Funmi hay PA-C Work Phone: Start: 04-20-2013 End: 05-01-2013 *Hepatic Function Panel Juliann Rodríguez Start: 04-20-2013 End: 05-01-2013 Lipid Lenin panel - Serum or Plasma Anthony Mujica MD Start: 10-23-2012 End: 10-23-2012 Follow Up Appt 6 months Juliann Rodríguez Start: 10-23-2012 End: 10-23-2012 ROSALINDA Mujica MD Start: 04-19-2012 End: 10-25-2012 *Hepatic Function Panel Jony Alexander MD Start: 04-19-2012 End: 04-19-2012 Follow Up Appt 6 months Jony Alexander MD Start: 04-19-2012 End: 10-25-2012 Lipid 1996 panel - Serum or Plasma Jony Alexander MD Start: 03-29-2012 End: 04-16-2012 *BMP Jony Alexander MD Start: 03-29-2012 End: 04-16-2012 *CBC with Differential Jony Alexander MD Start: 03-29-2012 End: 04-16-2012 Chest x-ray Jony Alexander MD Start: 03-29-2012 End: 03-29-2012 Ecg routine ecg w/least 12 lds w/i&r Jony Alexander MD Start: 03-29-2012 End: 04-05-2012 Echocardiography Jony Alexander MD Start: 03-29-2012 End: 04-16-2012 Magnesium [Mass/volume] in Serum or Plasma Jony Alexander MD Start: 03-29-2012 End: 04-04-2012 Nuclear stress test -exercise Jony Alexander MD Start: 01-17-2012 End: 01-17-2012 Follow Up Appt 1 year Jony Alexander MD Start: 12-28-2011 End: 01-17-2012 *Hepatic Function Panel Jony Alexander MD Start: 12-28-2011 End: 01-17-2012 Lipid 1996 panel - Serum or Plasma Jony Alexander MD Start: 07-11-2011 End: 07-11-2011 Follow Up Appt 6 months Jony Alexander MD Plan of Treatment Date Care Activity Detail Author Start: 11-15-2026 Diabetes Screening Diabetes Screening [facility] Start: 10-20-2025 End: 10-20-2025 Patient encounter procedure 10/20/2025 11:20 AM EDT Office Visit Rheumatology [address] [place] [address] Marguerite Pereyra MD [address] [place] [address] yr follow up Rheumatology Comment on above: yr follow up Start: 03-18-2025 BP Controlled (<130/80) BP Controlled (<130/80) [facility] Start: 03-18-2025 End: 03-18-2025 Patient encounter procedure 03/18/2025 1:00 PM EST Office Visit Rheumatology [address] [place] [address] Marguerite Pereyra MD [address] [place], [place] [id number] 1 yr f/u Rheumatology Comment on above: 1 yr f/u Start: 03-17-2025 End: 03-17-2025 Patient encounter procedure 03/17/2025 1:30 PM EST Office Visit Cardiology [address] [place] [address] [place] [address] [place] [id number] 1 yr f/u Cardiology Comment on above: 1 yr f/u Start: 03-17-2025 End: 03-17-2025 Patient encounter procedure 03/17/2025 11:40 AM EST Office Visit Rheumatology [address] [phone] Marguerite Pereyra MD [address] [place], [place] [phone] 1 yr f/u Rheumatology Comment on above: 1 yr f/u Start: 01-17-2025 End: 01-17-2025 Patient encounter procedure 01/17/2025 3:00 PM EST Office Visit Gastroenterology [address] [place] [address] Lillian Granados MD, PhD [address] [place] [address] IBS Gastroenterology Comment on above: IBS Start: 12-27-2024 Subsequent hospital visit by physician 12/27/2024 Hospital Encounter [facility] [address] [address] Shahriar Barros MD [address] [address] Tear of lateral meniscus of right knee, current, unspecified tear type, subsequent encounter [S83.281D] [facility] Comment on above: Tear of lateral meniscus of right knee, current, unspecified tear type, subsequent encounter [D03.281D] Start: 12-23-2024 End: 12-23-2024 ambulatory 12/23/2024 11:00 AM EST OT/PT/Speech Visit [facility] [address] [place] [address] Lillian Franklin, PT recovery time frame [facility] Comment on above: recovery time frame Start: 12-10-2024 End: 12-10-2024 Patient encounter procedure 12/10/2024 1:45 PM EDT Office Visit Dermatology [address] [place] [address] Reyna Charles, ESVIN.AGRONOMY INSTRUCTOR [address] [place] [address] annual skin check and a tag removal Dermatology Comment on above: annual skin check and a tag removal Start: 12-06-2024 End: 12-06-2024 Patient encounter procedure 12/06/2024 3:20 PM EDT Office Visit [facility] [address] [place] [address] Bala Parekh MD [address] [place] [address] establish care (prev. PCP retiring) Family [facility] Comment on above: establish care (prev. PCP retiring) Start: 11-27-2024 End: 11-27-2024 Patient encounter procedure Urology Comment on above: 27 wk follow up Start: 10-21-2024 Influenza vaccination Influenza Vaccine (#1) [facility] Start: 10-16-2024 End: 10-16-2025 Alanine aminotransferase [Enzymatic activity/volume] in Serum or Plasma ALANINE AMINOTRANSFERASE / SGPT Lab Routine Long-term use of immunosuppressant medication Expected: 10/16/2024, Expires: 10/16/2025 [facility] Comment on above: Expected: 10/16/2024, Expires: Start: 10-16-2024 End: 10-16-2025 Aspartate aminotransferase [Enzymatic activity/volume] in Serum or Plasma ASPARTATE AMINOTRANSFERASE/SGOT Lab Routine Long-term use of immunosuppressant medication Expected: 10/16/2024, Expires: 10/16/2025 [facility] Comment on above: Expected: 10/16/2024, Expires: Start: 10-16-2024 End: 10-16-2025 CBC panel - Blood by Automated count COMPLETE BLOOD COUNT Lab Routine Long-term use of immunosuppressant medication Expected: 10/16/2024, Expires: 10/16/2025 [facility] Work Phone: Comment on above: Expected: 10/16/2024, Expires: Start: 10-16-2024 End: 10-16-2025 Creatinine and Glomerular filtration rate.predicted panel - Serum, Plasma or Blood CREATININE BLD Lab Routine Long-term use of immunosuppressant medication Expected: 10/16/2024, Expires: 10/16/2025 [facility] Comment on above: Expected: 10/16/2024, Expires: Start: 10-16-2024 End: 10-16-2024 Patient encounter procedure Rheumatology Comment on above: 1 yr f/u Start: 10-16-2024 End: 10-16-2024 Patient encounter procedure 10/16/2024 8:40 AM EDT Office Visit Orthopaedics [address] [address] Shahriar Barros MD [address] [address] right knee mri and US results Orthopaedics Comment on above: right knee mri and US results Start: 10-03-2024 End: 10-03-2024 Patient encounter procedure 10/03/2024 12:30 PM EDT Office Visit Gastroenterology [address] [phone] Lillian Granados MD, PhD [address] [place] [address] follow up Gastroenterology Comment on above: follow up Start: 10-02-2024 End: 10-02-2024 Patient encounter procedure Radiology Comment on above: Dx: Acute pain of right knee [M25.561] us dvt lower right Start: 10-01-2024 End: 10-01-2024 Patient encounter procedure Radiology Comment on above: XR KNEE GENERAL 4V AP BOTH/PA BOTH/LAT/M ERC RIGHT New consult-R knee i njury Start: 09-19-2024 End: 09-19-2024 Patient encounter procedure 09/19/2024 2:00 PM EDT Office Visit Gastroenterology [address] [address] Lillian Granados MD, PhD [address] [facility] [place] [address] follow up Gastroenterology Comment on above: follow up Start: 09-05-2024 End: 09-05-2024 Patient encounter procedure 09/05/2024 1:30 PM EDT Office Visit Gastroenterology [address] [address] Lillian Granados MD, PhD [address] [facility] [place] [address] follow up visit / Ulcerative Pancolitis Gastroenterology Comment on above: follow up visit / Ulcerative Pancolitis Start: 06-20-2024 Covid-19 Vaccine (7 - Moderna risk season) Covid-19 Vaccine (7 - Moderna risk season) [facility] Start: 06-17-2024 End: 06-17-2024 Patient encounter procedure 06/17/2024 1:45 PM EDT Office Visit Otolaryngology [address] [address] Zane Banks MD [address] [address] Lymphadenopathy, anterior cervical [R59.0] Otolaryngology Comment on above: Lymphadenopathy, anterior cervical [R59. 0] Start: 06-03-2024 End: 12-03-2024 Protein/Creatinine [Mass Ratio] in Urine PROTEIN / CREATININE RATIO Lab Routine Abnormal kidney function Expected: 06/03/2024, Expires: 12/03/2024 [facility] Comment on above: Expected: 06/03/2024, Expires: Start: 06-03-2024 End: 12-03-2024 Renal function 2000 panel - Serum or Plasma RENAL FUNCTION PANEL Lab Routine Abnormal kidney function Essential hypertension Ulcerative colitis with other complication, unspecified location (HCC) Expected: 06/03/2024, Expires: 12/03/2024 [facility] Work Phone: Comment on above: Expected: 06/03/2024, Expires: Start: 06-03-2024 End: 12-03-2024 Urate [Mass/volume] in Serum or Plasma URIC ACID Lab Routine Abnormal kidney function Expected: 06/03/2024, Expires: 12/03/2024 [facility] Comment on above: Expected: 06/03/2024, Expires: Start: 06-03-2024 End: 12-03-2024 Urinalysis complete panel - Urine URINALYSIS, WITH MICROSCOPIC Lab Routine Abnormal kidney function Expected: 06/03/2024, Expires: 12/03/2024 [facility] Comment on above: Expected: 06/03/2024, Expires: Start: 05-22-2024 End: 05-22-2024 Patient encounter procedure 05/22/2024 1:30 PM EDT Office Visit Urology [address] [address] Neo Gross MD [address] [place] [address] urinary incontinence issues Urology Comment on above: urinary incontinence issues Start: 04-05-2024 End: 04-05-2024 Patient encounter procedure 04/05/2024 1:30 PM EST Office Visit Vascular Surgery [address] [address] Carotid bruit, unspecified laterality [R09.89] Vascular Surgery Comment on above: Carotid bruit, unspecified laterality [R 09.89] Start: 03-20-2024 End: 03-20-2025 Alanine aminotransferase [Enzymatic activity/volume] in Serum or Plasma ALANINE AMINOTRANSFERASE / SGPT Lab Routine Long-term use of immunosuppressant medication Expected: 03/20/2024, Expires: 03/20/2025 [facility] Comment on above: Expected: 03/20/2024, Expires: Start: 03-20-2024 End: 03-20-2025 Aspartate aminotransferase [Enzymatic activity/volume] in Serum or Plasma ASPARTATE AMINOTRANSFERASE/SGOT Lab Routine Long-term use of immunosuppressant medication Expected: 03/20/2024, Expires: 03/20/2025 [facility] Comment on above: Expected: 03/20/2024, Expires: Start: 03-20-2024 End: 03-20-2025 CBC panel - Blood by Automated count COMPLETE BLOOD COUNT Lab Routine Long-term use of immunosuppressant medication Expected: 03/20/2024, Expires: 03/20/2025 [facility] Work Phone: Comment on above: Expected: 03/20/2024, Expires: Start: 03-20-2024 End: 03-20-2025 CREATININE BLD CREATININE BLD Lab Routine Long-term use of immunosuppressant medication Expected: 03/20/2024, Expires: 03/20/2025 [facility] Comment on above: Expected: 03/20/2024, Expires: Start: 03-20-2024 End: 03-20-2024 Patient encounter procedure Rheumatology Comment on above: Return in about 1 year (around 03/20/2024 ). Start: 03-18-2024 End: 03-18-2024 Patient encounter procedure 03/18/2024 1:30 PM EST Office Visit Cardiology [address] [place] [address] [place] [address] [place] [address] advised to establish care-heart attack and stents in PT's history Cardiology Comment on above: advised to establish care-heart attack a nd stents in PT's history Start: 03-06-2024 End: 03-06-2024 Patient encounter procedure 03/06/2024 1:00 PM EST Office Visit Cardiology [address] [place] [address] [place] [address] [place] [address] advised to establish care-heart attack and stents in PT's history Cardiology Comment on above: advised to establish care-heart attack a nd stents in PT's history Start: 02-21-2024 Advance Directive Discussion Advance Directive Discussion [facility] Start: 02-16-2024 Covid-19 Vaccine ( season) Covid-19 Vaccine () [facility] Start: 01-30-2024 End: 01-30-2024 Patient encounter procedure 01/30/2024 11:40 AM EST Office Visit Dermatology [address] [place] [address] Reyna Charles, ESVIN.AGRONOMY INSTRUCTOR [address] [place] [address] follow up PDT Dermatology Comment on above: follow up PDT Start: 12-27-2023 Colonoscopy Colonoscopy [facility] Start: 12-27-2023 Colorectal Cancer Screening Colorectal Cancer Screening [facility] Start: 12-27-2023 Screening for malignant neoplasm of colon [facility] Start: 12-21-2023 End: 12-21-2023 ambulatory 12/21/2023 2:15 PM EDT OT/PT/Speech Visit [facility] [address] [place] [address] Monster Dobbs, PT [address] [place] [address] Dx: Iliotibial band syndrome of right side [M76.31 (ICD-10-CM)] [facility] Comment on above: Dx: Iliotibial band syndrome of right si de [M76.31 (ICD-10-CM)] Start: 12-21-2023 End: 12-21-2023 Documentation procedure 12/21/2023 Plan of Care Documentation [facility] [address] [place] [address] [facility] Start: 12-19-2023 End: 12-19-2023 Nursing evaluation of patient and report 12/19/2023 2:30 PM EDT Nurse Visit Rheumatology [address] [place], [place] [id number] Stro, Nurse Rheu [address] [address] Injection teaching Rheumatology Comment on above: Injection teaching Start: 12-19-2023 End: 12-19-2023 Patient encounter procedure 12/19/2023 1:00 PM EDT Office Visit Dermatology [address] [place] [address] Stro, Nurse Derm [address] [address] PDT Dermatology Comment on above: PDT Start: 12-14-2023 End: 12-14-2023 ambulatory 12/14/2023 2:15 PM EDT OT/PT/Speech Visit [facility] [address] [place] [address] Monster Dobbs, PT [address] [place], [place] [id number] Dx: Iliotibial band syndrome of right side [M76.31 (ICD-10-CM)] [facility] Comment on above: Dx: Iliotibial band syndrome of right si de [M76.31 (ICD-10-CM)] Start: 12-07-2023 End: 12-07-2023 ambulatory 12/07/2023 2:15 PM EDT OT/PT/Speech Visit [facility] [address] [place] [address] Monster Dobbs, PT [address] [place], [place] [id number] Dx: Iliotibial band syndrome of right side [M76.31 (ICD-10-CM)] [facility] Comment on above: Dx: Iliotibial band syndrome of right si de [M76.31 (ICD-10-CM)] Start: 12-04-2023 End: 12-04-2023 ambulatory [facility] Comment on above: VV date and time per Dr. Crowder Start: 11-30-2023 End: 11-30-2023 ambulatory 11/30/2023 2:15 PM EDT OT/PT/Speech Visit [facility] [address] [place] [address] Monster Dobbs, PT [address] [place] [address] Dx: Iliotibial band syndrome of right side [M76.31 (ICD-10-CM)] [facility] Comment on above: Dx: Iliotibial band syndrome of right si de [M76.31 (ICD-10-CM)] Start: 11-28-2023 End: 11-28-2023 ambulatory 11/28/2023 10:45 AM EDT OT/PT/Speech Visit [facility] [address] [facility] [place] [address] Monster Dobbs, PT [address] [place] [address] Right hip/leg pain and lack of strengh [facility] [facility] Comment on above: Right hip/leg pain and lack of strengh Start: 11-22-2023 End: 02-21-2024 Basic metabolic 2000 panel - Serum or Plasma BASIC METABOLIC PANEL Lab Routine Abnormal kidney function Expected: 11/22/2023, Expires: 02/21/2024 [facility] Work Phone: Comment on above: Expected: 11/22/2023, Expires: Start: 11-21-2023 End: 11-21-2023 ambulatory 11/21/2023 10:45 AM EDT OT/PT/Speech Visit [facility] [address] [facility] [place] [address] Monster Dobbs, PT [address] [place], [place] [id number] Right hip/leg pain and lack of strengh [facility] Comment on above: Right hip/leg pain and lack of strengh Start: 11-16-2023 End: 10-18-2024 Protein/Creatinine [Mass Ratio] in Urine PROTEIN / CREATININE RATIO Lab Routine Abnormal kidney function Expected: 11/16/2023, Expires: 10/18/2024 [facility] Comment on above: Expected: 11/16/2023, Expires: Start: 11-16-2023 End: 10-18-2024 Renal function 2000 panel - Serum or Plasma RENAL FUNCTION PANEL Lab Routine Abnormal kidney function Ulcerative colitis with other complication, unspecified location (HCC) Expected: 11/16/2023, Expires: 10/18/2024 [facility] Work Phone: Comment on above: Expected: 11/16/2023, Expires: Start: 11-16-2023 End: 11-16-2023 ambulatory 11/16/2023 11:15 AM EDT Results Only [facility] [address] [place] [address] [facility] Start: 11-02-2023 End: 10-18-2024 Hematocrit [Volume Fraction] of Blood HEMATOCRIT Lab Routine Abnormal kidney function Expected: 11/02/2023, Expires: 10/18/2024 [facility] Comment on above: Expected: 11/02/2023, Expires: Start: 11-02-2023 End: 10-18-2024 Hemoglobin [Mass/volume] in Blood HEMOGLOBIN Lab Routine Abnormal kidney function Expected: 11/02/2023, Expires: 10/18/2024 [facility] Comment on above: Expected: 11/02/2023, Expires: Start: 11-02-2023 End: 10-18-2024 Parathyrin.intact [Mass/volume] in Serum or Plasma PTH INTACT Lab Routine Abnormal kidney function Expected: 11/02/2023, Expires: 10/18/2024 [facility] Comment on above: Expected: 11/02/2023, Expires: Start: 11-02-2023 End: 10-18-2024 Protein/Creatinine [Mass Ratio] in Urine PROTEIN / CREATININE RATIO Lab Routine Abnormal kidney function Expected: 11/02/2023, Expires: 10/18/2024 [facility] Comment on above: Expected: 11/02/2023, Expires: Start: 11-02-2023 End: 10-18-2024 Renal function 2000 panel - Serum or Plasma RENAL FUNCTION PANEL Lab Routine Abnormal kidney function Essential hypertension Ulcerative colitis with other complication, unspecified location ([facility]) Expected: 11/02/2023, Expires: 10/18/2024 [facility] Comment on above: Expected: 11/02/2023, Expires: Start: 11-02-2023 End: 10-18-2024 Urate [Mass/volume] in Serum or Plasma URIC ACID Lab Routine Abnormal kidney function Ulcerative colitis with other complication, unspecified location (HCC) Expected: 11/02/2023, Expires: 10/18/2024 [facility] Comment on above: Expected: 11/02/2023, Expires: Start: 11-02-2023 End: 10-18-2024 Urinalysis complete panel - Urine URINALYSIS, WITH MICROSCOPIC Lab Routine Abnormal kidney function Expected: 11/02/2023, Expires: 10/18/2024 [facility] Comment on above: Expected: 11/02/2023, Expires: Start: 11-02-2023 End: 11-02-2023 Patient encounter procedure 11/02/2023 1:45 PM EDT Appointment Radiology [address] [place] [address] US KIDNEY/BLADDER Radiology Comment on above: US KIDNEY/BLADDER Start: 11-01-2023 End: 11-01-2023 Patient encounter procedure 11/01/2023 12:40 PM EDT Office Visit Dermatology [id number] [place] [address] [id number] Reyna Charles, ESVIN.AGRONOMY INSTRUCTOR [address] [place] [address] Psoriasis, Foliculitis Dermatology Comment on above: Psoriasis, Foliculitis Start: 2023 Covid-19 Vaccine ( season) Covid-19 Vaccine ( season) [facility] Start: 2023 Covid-19 Vaccine ( season) Covid-19 Vaccine ( season) [facility] Start: 2023 Influenza vaccination [facility] Start: 10-19-2023 End: 10-19-2023 Patient encounter procedure 10/19/2023 3:40 PM EDT Office Visit Kidney Medicine [address] [place] [address] Radha Crowder I, MD [address] [place] [address] abnormal Kidney Function [facility] Comment on above: abnormal Kidney Function Start: 10-17-2023 End: 01-16-2024 BLOOD TB SCREEN [facility] Work Phone: Comment on above: Expected: 10/17/2023, Expires: Start: 10-17-2023 End: 10-17-2023 Patient encounter procedure Rheumatology Comment on above: Return for Feb and Sep with me, May and Dec w/HAND BOOKED [employer]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 [employer]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 Psoriasis, Foliculit is Start: 02-20-2023 Advance Directive Discussion Advance Directive Discussion [facility] Start: 01-17-2023 Covid-19 Vaccine () Covid-19 Vaccine () [facility] Start: 01-08-2023 DIABETES SCREEN DIABETES SCREEN [facility] Start: 01-08-2023 Diabetes Screening Diabetes Screening [facility] Start: 10-21-2022 Covid-19 Vaccine () Covid-19 Vaccine () [facility] Start: 10-21-2022 Influenza vaccination [facility] Start: 04-27-2022 End: 06-27-2022 BLOOD TB SCREEN [facility] Work Phone: Comment on above: Expected: 04/27/2022, Expires: 3 Start: 04-27-2022 End: 06-27-2022 C reactive protein [Mass/volume] in Serum or Plasma [facility] Work Phone: Comment on above: Expected: 04/27/2022, Expires: 3 Start: 04-27-2022 End: 06-27-2022 Chronic hepatitis differentiation between hepatitis B and C virus panel - Serum or Plasma [facility] Work Phone: Comment on above: Expected: 04/27/2022, Expires: 3 Start: 04-27-2022 End: 06-27-2022 Rheumatoid factor [Units/volume] in Serum or Plasma [facility] Work Phone: Comment on above: Expected: 04/27/2022, Expires: 3 Start: 03-24-2022 End: 03-24-2023 CBC panel - Blood by Automated count CBC Lab Routine IBD (inflammatory bowel disease) Expected: 03/24/2022, Expires: 03/24/2023 [facility] Work Phone: Comment on above: Expected: 03/24/2022, Expires: 4 Start: 03-24-2022 End: 03-24-2023 Comprehensive metabolic 2000 panel - Serum or Plasma COMP METABOLIC PANEL Lab Routine IBD (inflammatory bowel disease) Expected: 03/24/2022, Expires: 03/24/2023 [facility] Work Phone: Comment on above: Expected: 03/24/2022, Expires: 4 Start: 02-20-2022 ADVANCE DIRECTIVE DISCUSSION ADVANCE DIRECTIVE DISCUSSION [facility] Start: 02-20-2022 DEPRESSION ASSESSMENT DEPRESSION ASSESSMENT [facility] Start: 01-25-2022 COVID-19 VACCINE (5 - Booster for Moderna series) COVID-19 VACCINE (5 - Booster for Moderna series) [facility] Start: 01-25-2022 COVID-19 VACCINE (5 - Moderna risk series) COVID-19 VACCINE (5 - Moderna risk series) [facility] Start: 12-07-2021 COLORECTAL CANCER SCREENING COLORECTAL CANCER SCREENING [facility] Start: 12-07-2021 Screening for malignant neoplasm of colon Sigmoidoscopy [facility] Start: 12-07-2021 SIGMOIDOSCOPY SIGMOIDOSCOPY [facility] Start: 10-28-2021 Pneumococcal Vaccine: 50+ (2 of 2 - PCV) Pneumococcal Vaccine: 50+ (2 of 2 - PCV) [facility] Start: 10-28-2021 Pneumococcal Vaccine: 65+ (2 - PCV) Pneumococcal Vaccine: 65+ (2 - PCV) [facility] Start: 10-28-2021 Pneumococcal Vaccine: 65+ (2 of 2 - PCV) Pneumococcal Vaccine: 65+ (2 of 2 - PCV) [facility] Start: 10-28-2021 PNEUMOCOCCAL: 65+ (2 - PCV) PNEUMOCOCCAL: 65+ (2 - PCV) [facility] Start: 10-21-2021 Influenza vaccination INFLUENZA (#1) [facility] Start: 08-16-2021 LIPID SCREEN LIPID SCREEN [facility] Start: 05-03-2021 Lipid 1996 panel - Serum or Plasma Lipid Screening [facility] Start: 05-03-2021 Lipid panel Lipid Screening [facility] Start: 05-03-2021 LIPID SCREEN LIPID SCREEN [facility] Start: 02-20-2021 ADVANCE DIRECTIVE DISCUSSION ADVANCE DIRECTIVE DISCUSSION [facility] Start: 10-28-2020 COVID-19 VACCINE (3 - Booster for Moderna series) COVID-19 VACCINE (3 - Booster for Moderna series) [facility] Start: 2019 Medicare Annual Wellness Visit Medicare Annual Wellness Visit [facility] Start: 02-05-2019 Colonoscopy COLONOSCOPY [facility] Start: 08-16-2017 Hepatitis B surface antibody level LDL CHOLESTEROL [facility] Start: 05-03-2017 Hepatitis B surface antibody level LDL CHOLESTEROL [facility] Start: 04-27-2017 End: 10-31-2016 *Hepatic Function Panel *Hepatic Function Panel [facility] Work Phone: Start: 04-27-2017 End: 10-31-2016 Lipid panel [AGGREGATE] *Lipid Profile CC PCP [facility] Work Phone: Start: 12-22-2016 End: 12-22-2016 Appointment Appointment [facility] Work Phone: Start: 05-03-2016 End: 08-16-2016 *Hepatic Function Panel *Hepatic Function Panel [facility] Work Phone: Start: 05-03-2016 End: 08-16-2016 Lipid panel [AGGREGATE] *Lipid Profile CC PCP [facility] Work Phone: Start: 11-12-2015 End: 11-12-2015 SUPERINTENDENT AUTOMOTIVE SUPERINTENDENT AUTOMOTIVE [facility] Work Phone: Start: 11-12-2015 End: 11-12-2015 Follow Up Appt 1 year Follow Up Appt 1 year [facility] Work Phone: Start: 02-23-2015 End: 11-12-2015 *Hepatic Function Panel *Hepatic Function Panel [facility] Work Phone: Start: 02-23-2015 End: 11-12-2015 Lipid panel [AGGREGATE] *Lipid Profile CC PCP [facility] Work Phone: Start: 11-11-2014 End: 11-11-2014 SUPERINTENDENT AUTOMOTIVE SUPERINTENDENT AUTOMOTIVE [facility] Work Phone: Start: 11-11-2014 End: 11-11-2014 Follow Up Appt 1 year Follow Up Appt 1 year [facility] Work Phone: Start: 2014 Hepatitis B Vaccine (1 of 3 - Risk 3-dose series) Hepatitis B Vaccine (1 of 3 - Risk 3-dose series) [facility] Start: 2014 RSV Vaccine (1 - 1-dose 60+ series) RSV Vaccine (1 - 1-dose 60+ series) [facility] Start: 2014 RSV Vaccine (1 - Risk 60-74 years 1-dose series) RSV Vaccine (1 - Risk 60-74 years 1-dose series) [facility] Start: 05-19-2014 End: 08-21-2014 *Hepatic Function Panel *Hepatic Function Panel [facility] Work Phone: Start: 05-19-2014 End: 08-21-2014 Lipid panel [AGGREGATE] *Lipid Profile CC PCP [facility] Work Phone: Start: 04-10-2014 End: 04-10-2014 Follow Up Appt 6 months Follow Up Appt 6 months [facility] Work Phone: Start: 04-10-2014 End: 04-10-2014 MMM MMM [facility] Work Phone: Start: 04-10-2014 End: 04-10-2014 Nuclear stress test -exercise Nuclear stress test -exercise [facility] Work Phone: Start: 11-12-2013 End: 11-12-2013 SUPERINTENDENT AUTOMOTIVE SUPERINTENDENT AUTOMOTIVE [facility] Work Phone: Start: 11-12-2013 End: 11-12-2013 Follow Up Appt 1 year Follow Up Appt 1 year [facility] Work Phone: Start: 10-21-2013 End: 11-19-2013 *Hepatic Function Panel *Hepatic Function Panel [facility] Work Phone: Start: 10-21-2013 End: 11-19-2013 Lipid panel [AGGREGATE] *Lipid Profile CC PCP [facility] Work Phone: Start: 04-25-2013 End: 04-25-2013 SUPERINTENDENT AUTOMOTIVE SUPERINTENDENT AUTOMOTIVE [facility] Work Phone: Start: 04-25-2013 End: 04-25-2013 Follow Up Appt 6 months Follow Up Appt 6 months [facility] Work Phone: Start: 04-20-2013 End: 05-01-2013 *Hepatic Function Panel *Hepatic Function Panel [facility] Work Phone: Start: 04-20-2013 End: 05-01-2013 Lipid panel [AGGREGATE] *Lipid Profile CC PCP [facility] Work Phone: Start: 10-23-2012 End: 10-23-2012 Follow Up Appt 6 months Follow Up Appt 6 months [facility] Work Phone: Start: 10-23-2012 End: 10-23-2012 MMM MMM [facility] Work Phone: Start: 04-19-2012 End: 10-25-2012 *Hepatic Function Panel *Hepatic Function Panel [facility] Work Phone: Start: 04-19-2012 End: 04-19-2012 Follow Up Appt 6 months Follow Up Appt 6 months [facility] Work Phone: Start: 04-19-2012 End: 10-25-2012 Lipid panel [AGGREGATE] *Lipid Profile [facility] Work Phone: Start: 03-29-2012 End: 04-16-2012 *BMP *BMP [facility] Work Phone: Start: 03-29-2012 End: 04-16-2012 *CBC with Differential *CBC with Differential [employer] Work Phone: Start: 03-29-2012 End: 04-16-2012 Chest x-ray X-Ray, Chest, PA & Lateral [employer] Work Phone: Start: 03-29-2012 End: 03-29-2012 Ecg routine ecg w/least 12 lds w/i&r EKG (In office) [employer] Work Phone: Start: 03-29-2012 End: 03-29-2012 Echocardiography Echocardiogram (complete) [facility] Work Phone: Start: 03-29-2012 End: 03-29-2012 Follow up Appt 3 weeks Follow up Appt 3 weeks [employer] Work Phone: Start: 03-29-2012 End: 04-16-2012 Magnesium *Magnesium [facility] Work Phone: Start: 03-29-2012 End: 03-29-2012 Nuclear stress test -exercise Nuclear stress test -exercise [employer] Work Phone: Start: 01-17-2012 End: 01-17-2012 Follow Up Appt 1 year Follow Up Appt 1 year [employer] Work Phone: Start: 12-28-2011 End: 01-17-2012 *Hepatic Function Panel *Hepatic Function Panel [facility] Phone: Start: 12-28-2011 End: 01-17-2012 Lipid panel [AGGREGATE] *Lipid Profile [facility] Work Phone: Start: 07-11-2011 End: 07-11-2011 Follow Up Appt 6 months Follow Up Appt 6 months [employer] Work Phone: Start: 2009 PROSTATE CANCER SCREENING DISCUSSION PROSTATE CANCER SCREENING DISCUSSION [facility] Start: 2009 Prostate specific antigen measurement Prostate Cancer Screening Discussion [facility] Start: 2004 SHINGRIX VACCINE (1 of 2) SHINGRIX VACCINE (1 of 2) [facility] Start: 10-23-1999 COLOGUARD (FIT-DNA) COLOGUARD (FIT-DNA) [facility] Start: 10-23-[address] COLONOGRAPHY [facility] Start: 10-23-1999 FECAL OCCULT BLOOD FECAL OCCULT BLOOD [facility] Start: 10-23-1999 Screening for malignant neoplasm of colon [facility] Start: 1989 LIPID SCREEN LIPID SCREEN [facility] Start: 1973 Hepatitis A Vaccine (1 of 2 - Risk 2-dose series) Hepatitis A Vaccine (1 of 2 - Risk 2-dose series) [facility] Start: 1973 SHINGRIX VACCINE (1 of 2) SHINGRIX VACCINE (1 of 2) [facility] Start: 1973 Urine microalbumin profile [facility] Start: 1972 ANNUAL PCP TEAM CHRONIC DISEASE VISIT ANNUAL PCP TEAM CHRONIC DISEASE VISIT [facility] Start: 1972 Anxiety Screening Anxiety Screening [facility] Start: 1972 BP Controlled (<130/80) BP Controlled (<130/80) [facility] Start: 1972 Depression Screening Depression Screening [facility] Start: 1972 Hepatitis B surface antibody level LDL CHOLESTEROL [facility] Start: 1972 HEPATITIS C SCREENING HEPATITIS C SCREENING [facility] Start: 1972 MMR Vaccine (1 of 2 - Risk 2-dose series) MMR Vaccine (1 of 2 - Risk 2-dose series) [facility] Start: 1966 Adult depression screening assessment DEPRESSION SCREENING [facility] Start: 1964 Meningococcal B Vaccine: Consider Based On Risk (1 of 4 - Increased Risk) Meningococcal B Vaccine: Consider Based On Risk (1 of 4 - Increased Risk) [facility] Arthrs kne surg w/meniscectomy med/lat w/shvg ARTHROSCOPY KNEE MENISCECTOMY MEDIAL OR LATERAL Tear of lateral meniscus of right knee, current, unspecified tear type, subsequent encounter ELIJAH OR BLADDER SCAN BLADDER SCAN Pro cedures Routine Screening for genitourinary condition Ordered: 05/22/2024 [facility] Work Phone: Comment on above: Ordered: 05/22/2024 Hepatic function 200 0 panel - Serum or Plasma HEPATIC FUNCTION PNL Lab Routine Long-term use of immunosuppressant medication 08/16/2022 11:31 AM EDT [facility] Work Phone: End: 10-31-2025 MR Knee - right WO contrast MRI KNEE WO IVCON RIGHT Radiology Routine Acute pain of right knee 1 Occurrences starting 10/01/2024 until 10/31/2025 [facility] Work Phone: Comment on above: 1 Occurrences starting 10/01/2024 until 10/31/2025 Patient Education [facility] Work Phone: PHOTODYNAMIC THERAPY PHOTODYNAMI C THERAPY Procedures Routine Actinic keratosis Ordered: 11/01/2023 [facility] Work Phone: Comment on above: Ordered: 11/01/2023 End: 03-24-2023 Screening colonoscopy COLONOSCOPY SCREENING Endoscopy Routine IBD (inflammatory bowel disease) 1 Occurrences starting 03/24/2022 until 03/24/2023 [facility] Work Phone: Comment on above: 1 Occurrences starting 03/24/2022 until 03/24/2023 End: 03-18-2025 US Carotid arteries - bilateral US CAROTID ARTERIES OLEG VAS LAB Vascular Lab Routine Carotid bruit, unspecified laterality 1 Occurrences starting 03/18/2024 until 03/18/2025 [facility] Work Phone: Comment on above: 1 Occurrences starting 03/18/2024 until 03/18/2025 End: 11-17-2024 US Kidney - bilateral and Urinary bladder US KIDNEY/BLADDER Radiology Routine Abnormal kidney function 1 Occurrences starting 10/19/2023 until 11/17/2024 [facility] Comment on above: 1 Occurrences starting 10/19/2023 until 11/17/2024 US Kidney - bilatera l and Urinary bladder US KIDNEY/BLADDER Radiology Routine Abnormal kidney function 11/02/2023 2:06 PM EDT [facility] Work Phone: End: 10-31-2025 US Lower extremity vein - right US DVT LOWER RIGHT Radiology Routine Right calf pain 1 Occurrences starting 10/01/2024 until 10/31/2025 [facility] Comment on above: 1 Occurrences starting 10/01/2024 until 10/31/2025 US Lower extremity v ein - right US DVT LOWER RIGHT Radiology Routine Right calf pain 10/02/2024 4:36 PM EDT [facility] Work Phone: [facility] Immunizations Immunization Date Immunization Notes Care Provider Sudha [facility] 12-05-2023 influenza virus vacc ine, unspecified formulation Derick MCCARTHY Work Phone: [facility] 12-09-2022 influenza virus vacc ine, unspecified formulation Reyna Charles APRN.AGRONOMY INSTRUCTOR Work Phone: [facility] 12-17-2021 influenza virus vacc ine, unspecified formulation Marguerite Pereyra MD Work Phone: [facility] 11-20-2020 influenza, injectabl e, quadrivalent, preservative free Lillian Granados MD, PhD Work Phone: [facility] Work Phone: 10-28-2020 pneumococcal polysaccharide vaccine, 23 valent Lillain Granados MD, PhD Work Phone: [facility] Work Phone: 11-22-2019 influenza, injectabl e, quadrivalent, preservative free Lillian Granados MD, PhD Work Phone: [facility] Work Phone: 11-20-2019 Influenza virus vaccine [facility] 11-20-2019 influenza, seasonal, injectable, preservative free Lillian Granados MD, PhD Work Phone: [facility] Work Phone: Payers Date Payer Category Payer Self-pay [id number] 2019 Medicare MEDICARE MEDICAR E A AND B [id number] 2019-Present [phone] [place] [address] Medicare [id number] 2019 Medicare [id number] 2019 Private Health Insurance MMO MED ICARE SUPPLEMENT [id number] 2019 Unknown MMO MMO MEDICARE SUPPLEMENT [id number] 2019-Present [phone] [address] [place] [address] Indemnity [id number] 2019 Unknown MMO MMO MEDICARE SUPPLEMENT [id number] 2019-Present [phone] [address] [place] [address] Indemnity [id number] 2019 Medicare [id number] 2019 Unknown [id number] 2016 Unknown [facility] [employer] [id number] Unknown [id number] Unknown [id number] Unknown [id number] Unknown [id number] Unknown [id number] Unknown [id number] Unknown [id number] Unknown [id number] Social History Date Type Detail Facility Start: 03-24-2022 Tobacco smoking stat us MIIS Never smoked tobacco [facility] Start: 11-26-2020 End: 09-21-2024 Alcohol intake Current drinker of alcohol (finding) [facility] Start: 10-08-2018 History SDOH Alcohol Comment 1 beer per month [facility] Start: 1955 Sex Assigned At Not on file [facility] Start: 03-24-2022 Tobacco use and exposure Smokeless tobacco non-user [facility] Start: 05-06-2021 End: 05-17-2022 Tobacco smoking status MIIS Unknown if ever smoked [facility] Start: 04-13-2020 None [facility] Start: 04-08-2020 Spouse/ Signif icant Other [facility] Start: 05-22-2020 Non-smoker [facility] Start: 1955 Sex Assigned At Male [facility] Start: 01-28-2020 End: 09-07-2022 History of Social function [facility] Start: 01-28-2020 End: 09-07-2022 Tobacco use panel [facility] Start: 01-22-2012 Adult Depression Screening Assessment 0 [facility] Functional Status Date Assessment Result Facility 10-20-2017 Are you deaf, or do you have serious difficulty hearing No 12/09/2016 12:29 PM EDElizabeth Humphreys, EDISON No [facility] Work Phone: 12-09-2016 Are you blind, or do you have serious difficulty seeing, even when wearing glasses Yes 12/09/2016 12:29 PM EDElizabeth Humphreys, RN Yes [facility] 12-09-2016 Do you have serious difficulty walking or climbing stairs No 12/09/2016 12:29 PM EDElizabeth Humphreys, RN No [facility] 12-09-2016 Do you have difficul ty dressing or bathing No 12/09/2016 12:29 PM EDElizabeth Humphreys, RN No [facility] 12-09-2016 Because of a physica l, mental, or emotional condition, do you have difficulty doing errands alone such as visiting a physician's office or shopping No 12/09/2016 12:29 PM EDElizabeth Humphreys, RN No [facility] Mental Status Date Assessment Result Facility 12-09-2016 Because of a physica l, mental, or emotional condition, do you have serious difficulty concentrating, remembering, or making decisions No 12/09/2016 12:29 PM Elizabeth Tristan, EDISON No [facility] Clinical Notes 12-06-2016 to 01-01-2025 Marguerite Pereyra MD - 10/16/2024 11:33 AM Shahriar Nelson MD - 10/16/2024 9:44 AM EDTPatient Lillian Price MD, PhD - 10/03/2024 12:44 PM EDTPatient Instructions Note Date & Type Note Facility 01-01-2025 Note HNO ID: [id number] Author: MONSTER DOBBS PT Service: ? Author Type: Physical Therapist Type: Progress Notes Filed: 01/01/2025 12:08 Note Text: Episode Visit Count: 1 Therapist That Will Accept/Oversee The Plan Of Care: Monster Dobbs PT. Start of Care Date: 01/01/25 Onset Date: 12/27/24 Plan of Care Certification Date: 01/01/25 Next Certification Due Date: 01/24/25 Patient Identified by Name and Date of : Yes REHABILITATION AND SPORTS THERAPY PHYSICAL THERAPY EVALUATION PLAN OF CARE: Assessment: Roberto José presents 5 days s/p arthroscopic meniscectomy of the R Knee that interferes with running, physical activities, recreational activities, stair negotiation, heavy exertion (Jogging.) . The patient presents with impairments in ADL's, gait, range of motion, soft tissue healing, strength, and symptom management. PROMIS? (Patient-Reported Outcomes Measurement Information System) scores were reviewed and identified as within normal limits. Prognosis for therapy is Excellent due to: current objective clinical presentation, good overall health status, acuteness of condition . The patient will benefit from skilled therapy services to meet the goals established for this plan of care as noted below. Goals for Episode of Care: established 01/01/25 [place] in home exercise program. Patient will decrease pain to 0-1/10 with functional activities to allow patient to improve ambulation and standing tolerance for ADLs. Patient will increase active ROM of R Knee to equal to the unaffected to allow pt to to improve performance of ADLs and to improve gait mechanics / gait pattern . Patient will demonstrate increase in RLE strength to 4+/5 during manual muscle testing in order to improve function for leisure / recreation skills and prior functional tasks. Normal Gait 20 R SLR without pain or lag. Time Frame for Goals and Treatment : 01/29/25 Planned Interventions, Frequency, and Duration: Current Frequency: 1 visit Duration: 1 visit Total Number of Visits Planned: 1 Planned Treatment Interventions: Therapeutic exercise (27242), Neuromuscular re-education (76836), Manual therapy (15064), Therapeutic activities (71870), Self-custodial management (32468), Patient/Family/Caregiver Education, Gait Training (69314) PLAN FOR NEXT VISIT: Patient doing very well - will recheck in two weeks and progress his exercises. Patient demonstrates good understanding of plan of care and treatment. The above goals and plan of care were discussed and agreed upon by patient/family. SUBJECTIVE: Patient reports in early fall walking on a golf course and having pain in the Knee and calf swelling; saw Dr. Barros and it was revealed to be a lateral meniscal tear and mercado cyst. 5 days post-op Right Knee arthroscopic meniscectomy. Was NWB for 2 days and on crutches, walks into clinic without AD. States the R Knee feels great. States he can feel it increase with turning quickly. Also, complaining of R Achilles tightness. Functional Limitations: running, physical activities, recreational activities, stair negotiation, heavy exertion (Jogging.) Prior Level of Function: Independent without limitations Relevant History Employment: Retired Recreation / Current Exercise: Walks 3 Miles a day, resistance exercise everyday. Hobbies / Interests: Golfing; Pickleball; Biking. Intake Information: Prescription present Previous Treatment: Surgery , [place] Interview: No positive findings with falls interview Pain: Pain Pain Level: 0 Pain Location: Knee - Right Description: Dull Additional Pain Information : Location 2 Pain Level 2: 2 Pain Location 2: Calf - Right ([place]) Description 2: Aching PROMIS Scales 12/17/2024 09/25/2024 03/17/2024 Higher is Better Phys Func - T Score 48 (within normal limits) 46 (within normal limits) 53 (within normal limits) Phys Func - Percentile 42 34 62 Self-Eff Symptom - T Score 48 (Average) Self-Eff Symptom - Percentile 42 10/10/2024 03/17/2024 10/16/2023 Lower is Better Pain Interference - T Score 40 (within normal limits) 50 (within normal limits) 53 (within normal limits) Pain Interference - Percentile 84 50 38 T-Score and Percentile Interpretation T-scores: mean of general population = 50. 5 points is clinically meaningfully difference Percentiles provide an indication of how the patient's score ranks in relation to the general population. Higher percentile rankings indicate better function/quality of life. 50th percentile is the average of the general population and indicates half of respondents had a worse score. OBJECTIVE MEASURES WITH LEVEL OF FUNCTION: Knee Observations R Knee Presents with: Incision R Incision: Covered in strips and clear tape; clean, dry, no drainage or seeping. No redness or warmth. R Circumference 6 inches above mid-patella (inches): 17.5 inches R Circumference mid patella (i (more content not included)... [facility] 12-27-2024 Note HNO ID: [id number] Author: DAMIAN CRUZ APRN.RN HEART Service: Anesthesiology Author Type: Nurse Scarf Gluer Type: Anesthesia Procedure Notes Filed: 12/27/2024 14:51 Note Text: ANESTHESIOLOGY PROCEDURE NOTE Airway General Information Procedure Start Time/Medication Administration: 12/27/2024 2:48 PM Procedure End Time: 12/27/2024 2:48 PM Patient location during procedure: OR Staffing RN HEART: Damian Cruz APRN.RN HEART Performed by: RN HEART Indications and Patient Condition Indications for airway management: anesthesia Preoxygenated: yes anesthesia circuit Patient position: sniffing Method: asleep Difficult Mask: No Final Airway Details Final airway type: supraglottic airway Number of attempts at approach: 1 Final Supraglottic Airway: IGEL Size: 5Seal Adequate: yes Airway not difficult SIGNATURE: Damian Cruz APRN.RN HEART PATIENT NAME: Roberto José DATE: December 27, 2024 TIME: 2:51 PM CSN: [id number] [facility] 12-10-2024 Note HNO ID: [id number] Author: REYNA CHARLES APRN.AGRONOMY INSTRUCTOR Service: ? Author Type: Nurse Practitioner Type: Progress Notes Filed: 12/10/2024 16:41 Note Text: EST PATIENT YAKELIN in Dermatology: 01/30/2024 Chief Complaint: Full Body Skin Check History of Present Ilness: Roberto José is a 69 year old male who presents today for a full body skin examination. #1 Location: right ear Duration: unsure Symptoms: flaky Current Treatment: none Past Treatment: none Pertinent History: History of skin cancer: No History of atypical nevi: No History of immunosuppression/organ transplant: Yes, Stelera (follows rheumatology) Pertinent Family medical history: History of melanoma: No History of non melanoma skin cancer: No Other family history (autoimmune, dermatologic, etc): None Past Medical History is reviewed. Medication List is reviewed. ROS: Skin as above. Physical Exam: Rodriguez skin type: II The patient is a pleasant male in no apparent distress. Alert and oriented x 3. A skin exam performed of the Scalp, face, ears, neck, chest, back, abdomen, bilateral upper extremities, bilateral lower extremities, buttocks, hands, feet, nails and hair is significant for: Generalized Regular and symmetric hyperpigmented macules and papules throughout with regular pigment network under dermoscopy Generalized Stuck-on verrucous, variably pigmented papules and plaques throughout Generalized Densely scattered light husain macules noted on all sun exposed areas Generalized Small estrada red papules throughout Right Posterior Auricle Erythematous plaque Head - Anterior (Face) Erythematous papule with gritty adherent scale Left Buttock, Right Buttock Scattered follicular papules Assessment and Plan: SKIN EXAM, SCREENING FOR CANCER Generalized Advised sun protection with broad-spectrum SPF 30+, wide brim hats, sun glasses, protective clothing, and seeking shade during the peak hours of sun 10am-4pm Return for regular skin checks as discussed PSORIASIS VULGARIS Right Posterior Auricle Discussed etiology, course, prognosis and treatment options. Discussed using gentle, fragrance-free skin care and frequent application of emollients. Continue triamcinolone 0.1% cream twice daily for up to 21 days per month Continue Stelara and follow up care with rheumatology. This Visit - triamcinolone acetonide (KENALOG) 0.1 % cream - Apply to affected areas twice daily for 2 weeks then use as needed for flares. Avoid face, armpits, and groin. ACTINIC KERATOSIS Head - Anterior (Face) Discussed etiology and possibility of transformation to SCC. Discussed treatment options and the risks and benefits of each including liquid nitrogen treatment and photodynamic therapy. Patient agreeable to PDT today - will schedule accordingly. This Visit - PHOTODYNAMIC THERAPY FOLLICULITIS Left Buttock, Right Buttock Discussed etiology, course, prognosis, and treatment options. Shaving, occlusion, and chronic rubbing may incite or exacerbate folliculitis. Continue to cleanse area with benzoyl peroxide 4-10% wash once daily Continue Clindamycin 1% lotion once to twice daily R/b/a for the medication(s) including possible side effects discussed and reviewed with patient. Existing Treatments - mupirocin (BACTROBAN) 2 % ointment - Apply to open areas twice daily until healed - Benzoyl Peroxide 10 % external wash - Use to wash buttocks once daily. Rinse well. MULTIPLE BENIGN NEVI Generalized Reassured and educated on benign nature of lesions. Sunblock/sunscreen protection reviewed. Recommend observation and encouraged to notify office of changes. SEBORRHEIC KERATOSIS Generalized Reassured and educated on benign nature of lesions. LENTIGINES Generalized Reassured and educated on benign nature of lesions. Sunblock/sunscreen protection reviewed. Recommend observation and encouraged to notify office of changes. ESTRADA ANGIOMA Generalized Reassured and educated on benign nature of lesions. Sunscreen and sun protection reviewed. Should any areas change in size, shape or color, bleed or become tender, the patient will contact the office for evaluation sooner than their interval appointment. Follow up: 1 year for Full Body Skin Check Intake by Camryn Agosto LPN The documentation for this note was completed by Rosemary Ramirez LPN acting as scribe for Reyna Charles APRN.CNP. I agree with the Chief Complaint, ROS, and Past Histories independently gathered by the clinical product support engineer and the remaining scribed note accurately describes my personal service to the patient. Reyna Charles APRN.CNP Department of Dermatology [facility] 11-27-2024 Note HNO ID: [id number] Author: NEO GROSS MD Service: ? Author Type: Physician Type: Progress Notes Filed: 12/29/2024 16:35 Note Text: [facility] ESTABLISHED PATIENT CLINIC NOTE UROL [facility] Recording using OM Latam software for draft documentation of the visit was discussed with the patient/authorized medical collections representative; all questions welcomed and answered. Patient/authorized medical collections representative agreed to proceed PATIENT INFO: Roberto José AGE: [age] year old PCP: Jazmín Melendrez MD IMPRESSION/PLAN: 1. Benign prostatic hyperplasia with urinary hesitancy - ICD9: 600.01, 788.64, ICD10: N40.1, R39.11 (primary diagnosis) - Continue your current tamsulosin 0.4 mg once daily for prostate symptoms. - Start tadalafil 5 mg once daily to help with urinary flow and erectile function; the prescription has been sent to your pharmacy. 2. Erectile dysfunction, unspecified erectile dysfunction type - ICD9: 607.84, ICD10: N52.9 - luli to function at this time 3. Peyronie's disease - ICD9: 607.85, ICD10: N48.6 -able to function, does not require treatment 4. Prostate cancer screening - ICD9: V76.44, ICD10: Z12.5 - Have a PSA blood test drawn at this clinic any time after October 21; the order is already in the system. Will perform your annual prostate exam and review your PSA results. REASON FOR VISIT: follow up HPI: Roberto José returns for continuing evaluation and management. The patient is a 69-year-old male with a history of BPH, presenting for follow-up. BPH: - Currently taking tamsulosin 0.4 mg daily and tadalafil 5 mg daily. - Reports improvement in urinary stream strength. - No significant change in urinary frequency; able to hold urine for 2-3 hours without difficulty. - Denies taking additional medication prior to sexual activity. - Mild penile curvature but not affecting function. - Last PSA levels: - 0.63 (September 2023) - 0.53 (March 2022) - 0.46 (October 2020) INTERNATIONAL PROSTATE SYMPTOM SCORE (I-PSS) 1)INCOMPLETE EMPTYING Over the past month, how often have you had a sensation of not emptying your bladder completely after you finished urinating? SCORE: 0- Not at all 2)FREQUENCY Over the past month, how often have you had to urinate again less than two hours after you finished urinating? SCORE: 1- Less than 1 time in 5 3)INTERMITTENCY Over the past month, how often have you found you stopped and started again several times when you urinated? SCORE: 2- less than half the time 4)URGENCY Over the past month, how often have you found it difficult to postpone urination? SCORE: 0- Not at all 5)WEAK STREAM Over the past month, how often have you had a weak stream? SCORE: 2- less than half the time 6)STRAINING Over the past month, how often have you had to push or strain to begin urination SCORE: 0- Not at all 7)NOCTURIA Over the past month, how many times did you most typically get up to urinate from the time you went to bed at night until the time you get up in the morning? SCORE:1 TOTAL I-PSS SCORE: 6 QUALITY OF LIFE DUE TO URINARY SYMPTOMS If you were to spend the rest of yur life with your urinary condition just the way it is now, how would you feel about that? 2- Mostly Satisfied UROLOGICAL DATA: Urinalysis: GLUCOSE UA (POCT) Negative 11/27/2024 BILIRUBIN UA (POCT) Negative 11/27/2024 KETONE UA (POCT) Negative 11/27/2024 SPECIFIC GRAVITY UA (POCT) 1.020 11/27/2024 HEMOGLOBIN/BLOOD UA (POCT) Negative 11/27/2024 PH UA (POCT) 6.0 11/27/2024 PROTEIN UA (POCT) Negative 11/27/2024 UROBILINOGEN UA (POCT) 0.2 11/27/2024 NITRITE UA (POCT) Negative 11/27/2024 LEUKOCYTES UA (POCT) Negative 11/27/2024 COLOR UA (POCT) Yellow 11/27/2024 CLARITY UA (POCT) Clear 11/27/2024 Post Void Residual, Ultrasound: N/A cc OTHER DATA: No results found for: PSA, PSAPER No results found for: ISOPSA Creatinine Date Value Ref Range Status 10/23/2024 1.37 (H) 0.73 - 1.22 mg/dL Final 03/21/2024 1.24 (H) 0.73 - 1.22 mg/dL Final 11/16/2023 1.16 0.73 - 1.22 mg/dL Final 11/02/2023 1.28 (H) 0.73 - 1.22 mg/dL Final No results found for: TESTOST, TESTFREE PMHx/PSHx: see above, otherwise unchanged Rx: reviewed and unchanged ROS: see above, otherwise unchanged Labs: None Imaging: None MEDICATIONS: Current Outpatient Medications Medication Sig oxyCODONE IR (ROXICODONE) 5 mg immediate release tablet Take 1 tablet by mouth every 6 hours as needed for pain for up to [address] (PROTONIX) 20 mg tablet Take 1 tablet by mouth once daily for 14 days. docusate sodium (COLACE) 100 mg capsule Take 1 capsule by mouth two times a day. acetaminophen (TYLENOL EXTRA STRENGTH) 500 mg tablet Take 2 tablets by mouth every 8 hours as needed for pain for up to 7 days. Tadalafil (CIALIS) 5 mg tablet Take 1 tablet by mouth once daily. clindamycin (CLEOCIN-T) 1 % gel Apply thin (more content not included)... [facility] 11-20-2024 Note HNO ID: [id number] Author: PRATEEK VALADEZ RN Service: ? Author Type: Registered Nurse Type: Progress Notes Filed: 11/21/2024 13:34 Note Text: RN Pre Visit Questionnaire for upcoming PACC appointment PROCEDURE : ARTHROSCOPY KNEE MENISCECTOMY MEDIAL OR LATERAL - Right SURGEON : Dr. Shahriar Barros PROCEDURE DATE : 12/27/24 PACC APPT : 12/03/24 Prepared for surgery: Anticoagulant recommendations received: Yes RN Pre Visit Questionnaire completed by [facility] chart review and completed with patient. Do you see a telephonic rn, solar electric practitioner, gizzard peeler or other specialist within or outside of [facility]? SPECIALISTS: CARDIOLOGY: Office Visit with Denzel Gore MD (03/18/2024) RHEUMATOLOGY: Office Visit with Marguerite Pereyra MD (10/16/2024) GASTROENTEROLOGY: Office Visit with Lillian Granados MD, PhD (10/03/2024) ENT: Office Visit with Zane Banks MD (06/17/2024) UROLOGY: Office Visit with Neo Gross MD (05/22/2024) NEPHROLOGY: [facility] with Radha Crowder I, MD (12/04/2023) DERMATOLOGY: Office Visit with Reyna Charles APRN.CNP (01/30/2024) CAD CKD stage 2 HTN HLD [place] Ulcerative pancolitis 2017 Are you on an anticoagulant [facility] Anticoagulant: Yes Medication : Plavix (Clopidogrel) Previous surgery while on an anticoagulant within 1 year : Yes previous surgery/ No: No Stents: Yes, Coronary 2020 Have you been provided instructions: Yes Letter or Telephone encounter sent : Yes Anticoagulation recommendations : Found in telephone encounter on 11/20/24 Provider : Dr Denzel Gore Telephone with Prateek Valadez RN (11/20/2024) Juan states he will buy ASA 81 mg and take it the days he is off his Plavix. Implanted Devices: NONE DIAGNOSTIC TEST REVIEW: US CAROTID ARTERIES [facility] (04/05/2024 1:29 PM) EKG: Scan on 03/18/2024 1:28 PM by Denzel Gore MD [facility] ART COMPL J3-5 (12/06/2016 7:55 AM) Any new changes in your symptoms since you last saw your specialist? No Are you a Pre Diabetic/Diabetic/Weight loss/CHF medications No Dialysis No Skilled Facility Resident: no Any recent hospitalizations within [facility] or outside facilities in the past 3 months No Please have an up-to-date list of medications in preparation for your PACC visit. Instructions Given to Patient: Patient given verbal preop instructions and voices comprehension and compliance. SIGNATURE: Prateek Valadez RN PATIENT NAME: Roberto José DATE: November 20, 2024 TIME: 12:29 PM PAGER/CONTACT PHONE: [facility] 10-16-2024 Note HNO ID: [id number] Author: MARGUERITE PEREYRA MD Service: ? Author Type: Physician Type: Progress Notes Filed: 10/16/2024 12:01 Note Text: On 10/16/2024, I had the pleasure of seeing Roberto José at the [facility] for follow-up of inflammatory arthritis HPI: To review, Roberto José is a 68 year old male w/hx of UC and psoriasis - In 20s, with back pain (had an injury one summer). Better with activity. Worst time of day is morning. - Around , diagnosed with UC (testing not definitive, treatment has helped) - Sometime around Jul, with onset of ear psoriasis - Since Jan, with bilateral hip discomfort, laterally. Radiates down. - In April, reported UC was doing well on mesalamine. Never on a biologic. Diagnosed prednisone trial with 95% improvement in back pain/tightness and resolved hip pain. Advised to start humira - In May, started humira (first injection on 06/09) - In Jul, reported 75-80% improvement in pain with humira. Slept better at night. Could golf multiple days in a row. Psoriasis of L ear improved with humira - In Feb, reported stable joints with humira but stiffness was worse in the winter - In Sep, reported severe L plantar fasciitis despite 2 injections of steroids (in the past, it had cleared up with CSI). Some R hip/R knee pain worse with activity and worst in morning, radiated from hip down to lateral thigh along ITB. The stiffness improved in the summer compared to the winter. Humira switched to stelara. PT referral given, helped RLE - In Nov (12/19/23), s/p first stelara dose - In Feb, reported no change with stelara compared to humira. Did appreciate the less frequent injections with stelara. Overall stable. Just some mid to low back stiffness in the morning, improved after 1-2 hours of moving around. RLE is improving. L plantar fasciitis is significantly improved now, ended up having a third CSI in (doesn't recall when). Unclear if L foot is improved due to third CSI, PT vs stelara. Of note, trying to switch HL tx back to crestor to see if that doesn't cause aching like past statins did (remote use of crestor without such SE)-sees Dr. Gore - Today, reports doing ok. With a R meniscal tear to have repaired by Dr. Barros later this year. - Morning stiffness of the low back x1-2 hours - Went to [place] in summer PAST MEDICAL HISTORY Diagnosis Date Elevated cholesterol Irritable bowel [place] (myocardial infarction) (HCC) 1995-stent, 2004 second stent Peyronie disease Psoriasis Ulcerative pancolitis with rectal bleeding ([facility]) 12/05/2016 Chronic diarrhea with mucous and blood, associated with abdominal pain and weight loss. Abdominal pain not related to food and no food aversion to suggest ischemia CT 11/08 : rectosigmoid colitis without abscess or perforation and fat stranding in the pelvis. Colonoscopy 11/18: significant colitis involving the distal 30cm of the colon with an entirely normal mucosa proximal to that point. Biopsy at that time negative for evidence of colitis with mild arhecticutual changes Previously given Cipro/Flagyl, mesalamine suppository, balsalazide, and budesonide without benefit. Noticed was when he was recently given IV steroid in ED. Flex sig 12/07 showing evidence of UC in the sigmoid - Started on methylprednisolone 20 TID, with quick transition to PO prednisone 40mg PAST SURGICAL HISTORY Procedure Laterality Date COLONOSCOPY FLX DX W/COLLJ SPEC WHEN PFRMD 10/21/2008 Colonoscopy PAST SURGICAL HISTORY OF 02/20/2009 2010 laser treatment for hemorrhoids PAST SURGICAL HISTORY OF heart stentx2 04/12 SIGMOIDOSCOPY FLX DX W/COLLJ SPEC BR/WA IF PFRMD 02/20/2010 Sigmoidoscopy ALLERGIES No Known Allergies MEDICATIONS: Current Outpatient Medications Medication Sig diclofenac (VOLTAREN) 1 % topical gel Apply 2 g to affected area four times daily. metoprolol tartrate, short acting, (LOPRESSOR) 25 mg tablet Take 1 tablet by mouth two times a day. Tadalafil (CIALIS) 5 mg tablet Take 1 tablet by mouth once daily. Benzoyl Peroxide 10 % external wash Use to wash buttocks once daily. Rinse well. clopidogrel (PLAVIX) 75 mg tablet Take 1 tablet by mouth once daily. rosuvastatin (CRESTOR) 40 mg tablet Take 1 tablet by mouth once daily. clindamycin (CLEOCIN-T) 1 % gel Apply thin layer to buttocks once daily. mupirocin (BACTROBAN) 2 % ointment Apply to open areas twice daily until healed Mesalamine (LIALDA) 1.2 gram EC tablet Take 2 tablets by mouth daily with breakfast. tamsulosin (FLOMAX) 0.4 mg Take one a day ustekinumab (STELARA) 45 mg/0.5 mL sub-Q syringe Inject 45mg (1 syringe) subcutaneously on week 0, and week 4, then every 12 weeks thereafter (Patient taking differently: Inject 45mg (1 syringe) subcutaneously on week 0, and week 4, then every 12 weeks thereafter) folic acid 400 mcg tablet Take 400 mcg by mouth onc (more content not included)... [facility] 10-16-2024 History of Present illness Narrative On 10/16/2024, I had the pleasure of seeing Roberto José at the [facility] for follow-up of inflammatory arthritis HPI: To review, Roberto José is a 68 year old male w/hx of UC and psoriasis - In 20s, with back pain (had an injury one summer). Better with activity. Worst time of day is morning. - Around 17, diagnosed with UC (testing not definitive, treatment has helped) - Sometime around Jul, with onset of ear psoriasis - Since Jan, with bilateral hip discomfort, laterally. Radiates down. - In April, reported UC was doing well on mesalamine. Never on a biologic. Diagnosed prednisone trial with 95% improvement in back pain/tightness and resolved hip pain. Advised to start humira - In May, started humira (first injection on 06/09) - In Jul, reported 75-80% improvement in pain with humira. Slept better at night. Could golf multiple days in a row. Psoriasis of L ear improved with humira - In Feb, reported stable joints with humira but stiffness was worse in the winter - In Sep, reported severe L plantar fasciitis despite 2 injections of steroids (in the past, it had cleared up with CSI). Some R hip/R knee pain worse with activity and worst in morning, radiated from hip down to lateral thigh along ITB. The stiffness improved in the summer compared to the winter. Humira switched to stelara. PT referral given, helped RLE - In Nov (12/19/23), s/p first stelara dose - In Feb, reported no change with stelara compared to humira. Did appreciate the less frequent injections with stelara. Overall stable. Just some mid to low back stiffness in the morning, improved after 1-2 hours of moving around. RLE is improving. L plantar fasciitis is significantly improved now, ended up having a third CSI in (doesn't recall when). Unclear if L foot is improved due to third CSI, PT vs stelara. Of note, trying to switch HL tx back to crestor to see if that doesn't cause aching like past statins did (remote use of crestor without such SE)-sees Dr. Gore - Today, reports doing ok. With a R meniscal tear to have repaired by Dr. Barros later this year. - Morning stiffness of the low back x1-2 hours - Went to [place] in summer PAST MEDICAL HISTORY Diagnosis Date Elevated cholesterol Irritable bowel [place] (myocardial infarction) (HCC) 1995-stent, 2004 second stent Peyronie disease Psoriasis Ulcerative pancolitis with rectal bleeding (HCC) 12/05/2016 Chronic diarrhea with mucous and blood, associated with abdominal pain and weight loss. Abdominal pain not related to food and no food aversion to suggest ischemia CT 11/08 : rectosigmoid colitis without abscess or perforation and fat stranding in the pelvis. Colonoscopy 11/18: significant colitis involving the distal 30cm of the colon with an entirely normal mucosa proximal to that point. Biopsy at that time negative for evidence of colitis with mild arhecticutual changes Previously given Cipro/Flagyl, mesalamine suppository, balsalazide, and budesonide without benefit. Noticed was when he was recently given IV steroid in ED. Flex sig 12/07 showing evidence of UC in the sigmoid - Started on methylprednisolone 20 TID, with quick transition to PO prednisone 40mg PAST SURGICAL HISTORY Procedure Laterality Date COLONOSCOPY FLX DX W/COLLJ SPEC WHEN PFRMD 10/21/2008 Colonoscopy PAST SURGICAL HISTORY OF 02/20/20092009 laser treatment for hemorrhoids PAST SURGICAL HISTORY OF heart stentx2 04/12 SIGMOIDOSCOPY FLX DX W/COLLJ SPEC BR/WA IF PFRMD 02/20/2010 Sigmoidoscopy ALLERGIES No Known Allergies MEDICATIONS: Current Outpatient Medications Medication Sig diclofenac (VOLTAREN) 1 % topical gel Apply 2 g to affected area four times daily. metoprolol tartrate, short acting, (LOPRESSOR) 25 mg tablet Take 1 tablet by mouth two times a day. Tadalafil (CIALIS) 5 mg tablet Take 1 tablet by mouth once daily. Benzoyl Peroxide 10 % external wash Use to wash buttocks once daily. Rinse well. clopidogrel (PLAVIX) 75 mg tablet Take 1 tablet by mouth once daily. rosuvastatin (CRESTOR) 40 mg tablet Take 1 tablet by mouth once daily. clindamycin (CLEOCIN-T) 1 % gel Apply thin layer to buttocks once daily. mupirocin (BACTROBAN) 2 % ointment Apply to open areas twice daily until healed Mesalamine (LIALDA) 1.2 gram EC tablet Take 2 tablets by mouth daily with breakfast. tamsulosin (FLOMAX) 0.4 mg Take one a day ustekinumab (STELARA) 45 mg/0.5 mL sub-Q syringe Inject 45mg (1 syringe) subcutaneously on week 0, and week 4, then every 12 weeks thereafter (Patient taking differently: Inject 45mg (1 syringe) subcutaneously on week 0, and week 4, then every 12 weeks thereafter) folic acid 400 mcg tablet Take 400 mcg by mouth once daily. cholecalciferol (VITAMIN D3) 1,000 unit tab tablet Take 1,000 Units by mouth once daily. ramipril(ALTACE 2.5 MG CAP) Take one(1) capsule daily. MULTIVITAMIN TAB Take one(1) tablet daily. METOPROLOL 50 MG TAB 1/2 tab twice daily No current facility-administered medications for this visit. FAMILY HISTORY Problem Relation Age of Onset Cancer Sister kidney Cancer Father lung? Heart Paternal Uncle [place] Heart Paternal Uncle bypass Hypertension Sister Hypertension Brother SOCIAL HISTORY: Lives in [place] with spouse. 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 Niece is in [place]. Son is in the area, hasn't seen him in 3 yrs Tobacco use: None Alcohol use: None Drug use: None REVIEW OF SYSTEMS: reviewed 12/03 systems, as above PHYSICAL EXAM: VITALS: Blood pressure 103/71, pulse 75, temperature 36.4 C (97.6 F), temperature source Temporal, height 182.9 cm (6'), weight 89.6 kg (197 lb 8.5 oz). CONSTITUTIONAL: Well-appearing, in NAD. SKIN: No psoriasis. No sclerodactyly, calcinosis, telangiectasias, digital ulcers, or skin thickening. EYES: No scleral icterus or conjunctivitis ENT and Mouth: External ears normal. Nares normal. RESPIRATORY: Normal breath sounds, clear to auscultation. CARDIOVASCULAR: Regular rate and rhythm, no murmurs or rubs EXTREMITIES/LYMPH: No edema bilaterally NEURO: Awake, alert and oriented, Normal gait MUSCULOSKELETAL: JOINT APPEARANCE: No erythema or warmth of any upper or lower extremity joint. RANGE OF MOTION: Able to fully close fists and curl fingers bilaterally. SWOLLEN JOINTS/SYNOVITIS: No synovitis of any joint. TENDER JOINTS: None *April Widespread Pain Index: 3 (0-19) Symptoms Severity Scale: 1 (0-12) WPI>7 and SS Scale>5 OR WPI 3-6 and SS Scale >9 consistent with fibromyalgia LABORATORY: Latest Ref Rng 03/21/2024 WBC 3.70 - 11.00 k/uL 4.83 RBC 4.20 - 6.00 m/uL 4.86 Hemoglobin 13.0 - 17.0 g/dL 14.9 Platelet Count 150 - 400 k/uL 169 MPV 9.0 - 12.7 fL 11.3 Absolute nRBC <0.01 k/uL <0.01 Creatinine 0.73 - 1.22 mg/dL 1.24 (H) eGFR >=60 mL/min/1.73m 63 ALT 10 - 54 U/L 20 AST 14 - 40 U/L 21 Component Latest Ref Rng & Units 04/27/2022 Rheumatoid Factor <16 IU/mL <10 WSR 0 - 15 mm/hr 2 CRP <0.9 mg/dL <0.3 *April neg hep b/c, quant gold Component Latest Ref Rng & Units 08/24/2017 04/13/2018 01/09/2020 IgA 78 - 391 mg/dL 379 Transglutaminase Ab, IgA <20 Units 5 Interpretation (Celiac Screen) No serologic evidence of celiac disease. No serologic evidence of celiac disease. CRP <0.9 mg/dL 0.1 0.1 STUDIES: *April xray SI joints- No radiographic evidence of sacroiliitis or acute osseous abnormality. Partially imaged lower lumbar spine degenerative changes. *April xray hands- Minimal degenerative changes *Sep AXR- constipation IMPRESSION and PLAN: 1. Seronegative spondyloarthropathy: Prednisone responsive pain in the low back and lateral hips; back pain with inflammatory features per history (improved with activity, worst in morning, significant morning stiffness) in the setting of UC and psoriasis-PsA. Humira with significant improvement in joint symptoms but had some symptoms like L plantar fasciitis that raised concern about suboptimal control. Stelara with stable joints - Continue stelara 45mg SC every 12 weeks (last injection on 09/24/24). To have knee surgery in early Dec. Advised to hold the next stelara dose and resume 1-2 weeks after surgery, assuming all is healing well without infection and okayed by ortho - Check labs. Notify of results via [employer] 2. UC: - Continue GI management 3. Psoriasis: - Continue dermatology management 4. R ITB tightness: - Improved with PT 5. R meniscal tear: - Ortho management by Dr. Barros 6. General health maintenance: - Continue follow-up with PCP for routine health maintenance and malignancy screening Follow-up in 6 months. Patient was instructed to call if any questions or concerns. Thank you for allowing me to participate in the care of your patient. Marguerite Pereyra MD documented in this encounter [facility] 10-16-2024 Note HNO ID: [id number] Author: SHAHRIAR BARROS MD Service: ? Author Type: Physician Type: Progress Notes Filed: 10/16/2024 10:04 Note Text: Roberto Estefanía Follow-up right knee and to go over the results of his MRI. He has a complex lateral meniscus tear with a parameniscal cyst. We discussed treatment options and it is symptomatic. Assessment lateral meniscus tear. Recommendation arthroscopic debridement of his tear. Risks and benefits were discussed and all questions answered. Will schedule this as an outpatient later this fall. He is on Plavix which we will have him stop 5 days before the surgery. Shahriar Barros MD [facility] 10-16-2024 History of Present illness Narrative Roberto José Follow-up right knee and to go over the results of his MRI. He has a complex lateral meniscus tear with a parameniscal cyst. We discussed treatment options and it is symptomatic. Assessment lateral meniscus tear. Recommendation arthroscopic debridement of his tear. Risks and benefits were discussed and all questions answered. Will schedule this as an outpatient later this fall. He is on Plavix which we will have him stop 5 days before the surgery. Shahriar Barros MD documented in this encounter [facility] 10-03-2024 Instructions Lillian Granados MD, PhD - 10/03/2024 1:11 PM EDT 1/2 pill every other day Hold it if no bm for 24 hours Hold until gone a day We discussed your bowel movements and management of your symptoms: - Continue taking mesalamine 2 tablets daily, as this seems to help manage your symptoms better than 1 tablet. - Continue taking Metamucil as directed on the packaging to help with stool consistency. Do not reduce the amount of water when preparing it, as this could affect its effectiveness. - Begin taking Imodium (loperamide) as follows: - Start with half a pill every other day. - If you do not have a bowel movement for 24 hours, hold the Imodium until you have a bowel movement. - If you have an event or activity where you want to avoid frequent bowel movements, you may take a full pill as needed. - Monitor your symptoms and report back if there are any significant changes or concerns. We discussed the option of anorectal manometry to evaluate pelvic floor function: - This test measures the pressures of your pelvic floor and assesses your ability to evacuate stool. If dysfunction is identified, pelvic floor physical therapy may be recommended to improve your ability to fully evacuate your colon. - You are not ready to proceed with this test at this time, but you now have a better understanding of the procedure and its potential benefits. We discussed your anxiety related to bowel issues during travel or events: - Consider discussing short-term anxiety management options, such as as-needed medications, with your primary care provider. - Alternatively, you may explore working with an IBD psychologist who can teach techniques like self-hypnosis to help manage anxiety related to your symptoms. We discussed your inflammatory arthritis and psoriasis: - Continue Stelara as prescribed. You noted some improvement in symptoms, such as reduced stiffness in your back and legs, but you plan to discuss further evaluation of its effectiveness with your economic history teacher at your upcoming visit. We discussed your seasonal symptoms and mucus: - Seasonal variations in symptoms are common for some individuals with colitis, but there is no direct link between nasal mucus and colonic mucus. Continue monitoring for patterns and note any changes. Follow-Up: - Continue with your current medications and the Imodium trial as outlined above. - Follow up with your economic history teacher at the end of the month to discuss your arthritis and Stelara treatment. - If you decide to pursue anorectal manometry or need further assistance with anxiety management, please let us know. Please reach out if you have any questions or if your symptoms worsen. documented in this encounter [facility] 10-03-2024 Note HNO ID: [id number] Author: LILLIAN GRANADOS MD, PhD Service: ? Author Type: Physician Type: Progress Notes Filed: 10/06/2024 22:15 Note Text: EST PT OFFICE VISIT CC: Patient presents with: Ulcerative Colitis Mr. José is here today for follow-up of: colitis. Recording using [employer] software for draft documentation of the visit was discussed with the patient/authorized medical collections representative; all questions welcomed and answered. Patient/authorized medical collections representative agreed to proceed The patient is a 68-year-old male with ulcerative colitis and inflammatory arthritis, presenting for follow-up of chronic increased stool frequency. He is accompanied by his spouse, who provides additional history. He reports having approximately 6 bowel movements per day, with the majority occurring in the morning between 0630 and 0900, often requiring 4 separate trips to the bathroom during this time. Stools are described as solid but fragmented, and he does not typically experience straining. He denies nocturnal bowel movements. He notes that his morning routine is dominated by the need to evacuate his bowels, which requires significant planning and impacts his ability to participate in morning activities or travel. His spouse confirms that he must wake up 2-2.5 hours before any planned departure to ensure he has completed his bowel movements, and that their daily schedule is often adjusted to accommodate this routine. He reports anxiety related to his bowel habits, particularly when traveling or participating in activities that may limit bathroom access. He has been taking Metamucil as directed, but this has not significantly improved stool consistency or frequency. He previously tried Miralax, which he felt worsened his symptoms by increasing stool frequency and urgency. He has used Imodium as needed prior to longer activities, such as golfing, which he reports is effective in reducing stool frequency for the remainder of the day, but notes that it takes 1-2 days for his bowel habits to return to baseline after use. He was previously taking 2 mesalamine tablets daily, but decreased to 1 tablet daily after being told he was in remission. He subsequently experienced a perceived regression in symptoms and resumed 2 tablets daily on 06/26, which he feels has led to some improvement, though he is unsure if this is directly related to the medication change. He has been on Stelara for approximately 1 year for inflammatory arthritis, with some improvement in back and leg stiffness, but continues to experience significant morning stiffness. He is uncertain if Stelara is providing benefit for his colitis. He notes a seasonal increase in both nasal and rectal mucus in early spring, which has since improved. He denies new or worsening reflux or dysphagia. VITALS: There were no vitals taken for this visit. ALLERGIES: Patient has no known allergies. MEDICATIONS: Current Outpatient Medications Medication Sig Dispense Refill diclofenac (VOLTAREN) 1 % topical gel Apply 2 g to affected area four times daily. 20 g 0 metoprolol tartrate, short acting, (LOPRESSOR) 25 mg tablet Take 1 tablet by mouth two times a day. 180 tablet 4 Tadalafil (CIALIS) 5 mg tablet Take 1 tablet by mouth once daily. 30 tablet 5 Benzoyl Peroxide 10 % external wash Use to wash buttocks once daily. Rinse well. 227 mL 3 clopidogrel (PLAVIX) 75 mg tablet Take 1 tablet by mouth once daily. 90 tablet 3 rosuvastatin (CRESTOR) 40 mg tablet Take 1 tablet by mouth once daily. 90 tablet 3 clindamycin (CLEOCIN-T) 1 % gel Apply thin layer to buttocks once daily. 30 g 3 mupirocin (BACTROBAN) 2 % ointment Apply to open areas twice daily until healed 30 g 2 Mesalamine (LIALDA) 1.2 gram EC tablet Take 2 tablets by mouth daily with breakfast. 180 tablet 3 tamsulosin (FLOMAX) 0.4 mg Take one a day 90 capsule 3 ustekinumab (STELARA) 45 mg/0.5 mL sub-Q syringe Inject 45mg (1 syringe) subcutaneously on week 0, and week 4, then every 12 weeks thereafter (Patient taking differently: Inject 45mg (1 syringe) subcutaneously on week 0, and week 4, then every 12 weeks thereafter) 1.5 mL 1 folic acid 400 mcg tablet Take 400 mcg by mouth once daily. cholecalciferol (VITAMIN D3) 1,000 unit tab tablet Take 1,000 Units by mouth once daily. ramipril(ALTACE 2.5 MG CAP) Take one(1) capsule daily. 0 MULTIVITAMIN TAB Take one(1) tablet daily. 0 METOPROLOL 50 MG TAB 1/2 tab twice daily 0 No current facility-administered medications for this visit. Social History: SOCIAL HISTORY[1] Medical History: No changes since last visit. REVIEW OF SYSTEMS: GENERAL: weight stable, no fevers. CARDIOVASCULAR: No chest pain, no edema RESPIRATORY: No dyspnea The remainder of the review of systems are negative. Reviewed with patient during visit today. PHYSICAL EXAMINATION: GENERAL APPEARANCE: Well developed and well nourished. SKIN: Skin color, textur (more content not included)... [facility] 10-03-2024 History of Present illness Narrative EST PT OFFICE VISIT CC: Patient presents with: Ulcerative Colitis Mr. José is here today for follow-up of: colitis. Recording using [employer] software for draft documentation of the visit was discussed with the patient/authorized medical collections representative; all questions welcomed and answered. Patient/authorized medical collections representative agreed to proceed The patient is a 68-year-old male with ulcerative colitis and inflammatory arthritis, presenting for follow-up of chronic increased stool frequency. He is accompanied by his spouse, who provides additional history. He reports having approximately 6 bowel movements per day, with the majority occurring in the morning between 0630 and 0900, often requiring 4 separate trips to the bathroom during this time. Stools are described as solid but fragmented, and he does not typically experience straining. He denies nocturnal bowel movements. He notes that his morning routine is dominated by the need to evacuate his bowels, which requires significant planning and impacts his ability to participate in morning activities or travel. His spouse confirms that he must wake up 2-2.5 hours before any planned departure to ensure he has completed his bowel movements, and that their daily schedule is often adjusted to accommodate this routine. He reports anxiety related to his bowel habits, particularly when traveling or participating in activities that may limit bathroom access. He has been taking Metamucil as directed, but this has not significantly improved stool consistency or frequency. He previously tried Miralax, which he felt worsened his symptoms by increasing stool frequency and urgency. He has used Imodium as needed prior to longer activities, such as golfing, which he reports is effective in reducing stool frequency for the remainder of the day, but notes that it takes 1-2 days for his bowel habits to return to baseline after use. He was previously taking 2 mesalamine tablets daily, but decreased to 1 tablet daily after being told he was in remission. He subsequently experienced a perceived regression in symptoms and resumed 2 tablets daily on 06/26, which he feels has led to some improvement, though he is unsure if this is directly related to the medication change. He has been on Stelara for approximately 1 year for inflammatory arthritis, with some improvement in back and leg stiffness, but continues to experience significant morning stiffness. He is uncertain if Stelara is providing benefit for his colitis. He notes a seasonal increase in both nasal and rectal mucus in early spring, which has since improved. He denies new or worsening reflux or dysphagia. VITALS: There were no vitals taken for this visit. ALLERGIES: Patient has no known allergies. MEDICATIONS: Current Outpatient Medications Medication Sig Dispense Refill diclofenac (VOLTAREN) 1 % topical gel Apply 2 g to affected area four times daily. 20 g 0 metoprolol tartrate, short acting, (LOPRESSOR) 25 mg tablet Take 1 tablet by mouth two times a day. 180 tablet 4 Tadalafil (CIALIS) 5 mg tablet Take 1 tablet by mouth once daily. 30 tablet 5 Benzoyl Peroxide 10 % external wash Use to wash buttocks once daily. Rinse well. 227 mL 3 clopidogrel (PLAVIX) 75 mg tablet Take 1 tablet by mouth once daily. 90 tablet 3 rosuvastatin (CRESTOR) 40 mg tablet Take 1 tablet by mouth once daily. 90 tablet 3 clindamycin (CLEOCIN-T) 1 % gel Apply thin layer to buttocks once daily. 30 g 3 mupirocin (BACTROBAN) 2 % ointment Apply to open areas twice daily until healed 30 g 2 Mesalamine (LIALDA) 1.2 gram EC tablet Take 2 tablets by mouth daily with breakfast. 180 tablet 3 tamsulosin (FLOMAX) 0.4 mg Take one a day 90 capsule 3 ustekinumab (STELARA) 45 mg/0.5 mL sub-Q syringe Inject 45mg (1 syringe) subcutaneously on week 0, and week 4, then every 12 weeks thereafter (Patient taking differently: Inject 45mg (1 syringe) subcutaneously on week 0, and week 4, then every 12 weeks thereafter) 1.5 mL 1 folic acid 400 mcg tablet Take 400 mcg by mouth once daily. cholecalciferol (VITAMIN D3) 1,000 unit tab tablet Take 1,000 Units by mouth once daily. ramipril(ALTACE 2.5 MG CAP) Take one(1) capsule daily. 0 MULTIVITAMIN TAB Take one(1) tablet daily. 0 METOPROLOL 50 MG TAB 1/2 tab twice daily 0 No current facility-administered medications for this visit. Social History: SOCIAL HISTORY[1] Medical History: No changes since last visit. REVIEW OF SYSTEMS: GENERAL: weight stable, no fevers. CARDIOVASCULAR: No chest pain, no edema RESPIRATORY: No dyspnea The remainder of the review of systems are negative. Reviewed with patient during visit today. PHYSICAL EXAMINATION: GENERAL APPEARANCE: Well developed and well nourished. SKIN: Skin color, texture, turgor normal. No rashes or lesions. EYES: Conjunctiva normal without icterus. OROPHARYNX: lips, mucosa, and tongue normal, teeth and gums normal NECK: Supple, full range of motion, no lymphadenopathy, normal thyroid, LUNGS: Normal breath sounds, Clear to auscultation, No wheezes, No crackles. HEART:Normal PMI, Regular rate and rhythm, Normal heart sounds, S1 and S2 and No murmurs. NEURO: Alert and oriented in no acute distress. ABDOMEN: Normal bowel sounds, abdomen flat with no distention, Soft, non-tender, no hepatomegaly. no palpable masses, no abdominal bruits, no rebound and no rigidity. EXTREMITIES:Extremities normal, No deformities, No skin discoloration, No edema . Summary: His history is that he developed bloody diarrhea in November 2016 and found to have colitis. While biopsies were not suggestive of IBD he had response to steroids and when tapered down on mesalamine at first may have had some symptoms. Repeated 02/06 and no evidence of active colitis but this does not rule out treated colitis and endoscopically appeared consistent with treated colitis although this is not specific For surveillance unclear as to needs given his history please repeat 2022 2019 He is now on 2.4 g lialda. Does ok but frequent formed bm 2022 colon hair 0 repeat 5 years bx neg rectum patchy architectural distortion 2023 start stelara 2024 decreased mesalamine to 1.2 felt possible sx ASSESSMENT/PLAN: (K52.9) Inflammatory bowel disease (primary encounter diagnosis) (K58.0) Irritable bowel syndrome with diarrhea Developed left sided colitis acutely in 2016, good response to mesalamine Has fecal issues with frequent bm 1. 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 Patient experiences frequent bowel movements, approximately six times daily, primarily in the morning. Currently taking two mesalamine tablets daily, which has shown some improvement compared to one tablet. Stools are partially formed but not cohesive, with no significant straining reported. Previous trial of Miralax resulted in increased urgency and frequency. Patient experiences anxiety related to bowel movements, particularly when traveling or engaging in activities like golfing. Nocturnal bowel movements are not reported. Patient is currently on Metamucil as well. - Continue mesalamine 2 tablets daily. - Continue Metamucil as directed. - Initiate Imodium half tablet every other day; monitor for constipation and hold if no bowel movement for 24 hours. - Discussed anorectal manometry to assess pelvic floor function; patient to consider this diagnostic test. Discussed anxiety, he feels it is situational. - Follow-up appointment to reassess symptoms and treatment efficacy. Lillian Granados MD, PhD [1] Social History Tobacco Use Smoking status: Never Smokeless tobacco: Never Substance Use Topics Alcohol use: Yes Comment: 1 beer per month Drug use: No documented in this encounter [facility] 10-02-2024 History of Present illness Narrative Radiology Service Progress Note PATIENT NAME: Roberto José DATE OF SERVICE: October 02, 2024 TIME: 4:35 PM PATIENT IDENTITY VERIFICATION COMPLETED USING TWO (2) IDENTIFIERS: Name and Date of confirmed by patient verbally. FALL SCREENING: Has the patient had 2 falls in the last year or 1 fall with injury or currently using an Ambulatory Assistive Device (Walker, Cane, Wheelchair, Crutches, etc.)? No PATIENT GENDER DATA: na PATIENT RELEVANT IMPLANT DATA REVIEWED: Not Applicable PATIENT PRESENTS WITH AN IMPLANTABLE OR ATTACHED RIG SITE ENGINEER: na RADIOLOGY DEPARTMENT: Ultrasound PERIPHERAL IV DATA: Not applicable SIGNED BY: LETTY Mckay October 02, 2024 4:35 PM documented in this encounter [facility] 10-02-2024 Note HNO ID: [id number] Author: CARY JIMÉNEZ CT Service: Radiology Author Type: Technologist Type: Progress Notes Filed: 10/02/2024 16:35 Note Text: Radiology Service Progress Note PATIENT NAME: Roberto José DATE OF SERVICE: October 02, 2024 TIME: 4:35 PM PATIENT IDENTITY VERIFICATION COMPLETED USING TWO (2) IDENTIFIERS: Name and Date of confirmed by patient verbally. FALL SCREENING: Has the patient had 2 falls in the last year or 1 fall with injury or currently using an Ambulatory Assistive Device (Walker, Cane, Wheelchair, Crutches, etc.)? No PATIENT GENDER DATA: na PATIENT RELEVANT IMPLANT DATA REVIEWED: Not Applicable PATIENT PRESENTS WITH AN IMPLANTABLE OR ATTACHED RIG SITE ENGINEER: na RADIOLOGY DEPARTMENT: Ultrasound PERIPHERAL IV DATA: Not applicable SIGNED BY: LETTY Mckay October 02, 2024 4:35 PM [facility] 10-02-2024 History of Present illness Narrative Radiology Service Progress Note PATIENT NAME: Roberto José DATE OF SERVICE: October 02, 2024 TIME: 2:35 PM PATIENT IDENTITY VERIFICATION COMPLETED USING TWO (2) IDENTIFIERS: Name and Date of confirmed by patient verbally. FALL SCREENING: Has the patient had 2 falls in the last year or 1 fall with injury or currently using an Ambulatory Assistive Device (Walker, Cane, Wheelchair, Crutches, etc.)? No PATIENT GENDER DATA: Assigned male at PATIENT RELEVANT IMPLANT DATA REVIEWED: Yes PATIENT PRESENTS WITH AN IMPLANTABLE OR ATTACHED RIG SITE ENGINEER: No RADIOLOGY DEPARTMENT: MR; Exam(s) Completed: Lower MSK: Knee, right . Aromatherapy Administered: No PERIPHERAL IV DATA: Not applicable SIGNED BY: RT Marin(R) October 02, 2024 2:35 PM documented in this encounter [facility] 10-02-2024 Note HNO ID: [id number] Author: RACHEL HUGHES RT(R) Service: ? Author Type: Technologist Type: Progress Notes Filed: 10/02/2024 14:37 Note Text: Radiology Service Progress Note PATIENT NAME: Roberto José DATE OF SERVICE: October 02, 2024 TIME: 2:35 PM PATIENT IDENTITY VERIFICATION COMPLETED USING TWO (2) IDENTIFIERS: Name and Date of confirmed by patient verbally. FALL SCREENING: Has the patient had 2 falls in the last year or 1 fall with injury or currently using an Ambulatory Assistive Device (Walker, Cane, Wheelchair, Crutches, etc.)? No PATIENT GENDER DATA: Assigned male at PATIENT RELEVANT IMPLANT DATA REVIEWED: Yes PATIENT PRESENTS WITH AN IMPLANTABLE OR ATTACHED RIG SITE ENGINEER: No RADIOLOGY DEPARTMENT: MR; Exam(s) Completed: Lower MSK: Knee, right . Aromatherapy Administered: No PERIPHERAL IV DATA: Not applicable SIGNED BY: RT Marin(R) October 02, 2024 2:35 PM [facility] 10-01-2024 Note HNO ID: [id number] Author: SHAHRIAR BARROS MD Service: ? Author Type: Physician Type: Progress Notes Filed: 10/01/2024 15:14 Note Text: Roberto José He is here with acute right knee pain. Started having pain while golfing recently. He does have history of inflammatory arthritis. Started having pain and mechanical symptoms in his right knee. He is on Eliquis for cardiac issues and has multiple stents in his heart. Unable to take oral NSAIDs. Using topical Voltaren gel. Has pain at rest and with physical activities. Some pain at night.Review of systems negative for fever, weight loss, malaise, fatigue, significant headache, vision changes, hearing loss, neck swelling, cough, chest pain, shortness of breath, dyspnea on exertion, abdominal pain, nausea, vomiting, diarrhea, urinary dysfunction, upper/lower extremity numbness/tingling/weakness/edema, heat/cold intolerance On exam right knee trace effusion. Holds the knee flexed a few degrees and he can go into hyperextension on the left knee 5 degrees. Flexes his right knee to about 95 with pain at terminal flexion. Some mild joint line tenderness but no gross instability. Mild discomfort with Gretchen testing. He also has some mild calf swelling versus the left but no calf tenderness to deep palpation. X-rays of his right knee do show some mild degenerative changes. Assessment right knee arthritis and knee pain with possible meniscus pathology. Also right calf swelling. Plan MRI right knee to evaluate for possible meniscal tear. Duplex right leg to rule out DVT and wound check. Shahriar Barros MD [facility] 10-01-2024 History of Present illness Narrative Roberto José He is here with acute right knee pain. Started having pain while golfing recently. He does have history of inflammatory arthritis. Started having pain and mechanical symptoms in his right knee. He is on Eliquis for cardiac issues and has multiple stents in his heart. Unable to take oral NSAIDs. Using topical Voltaren gel. Has pain at rest and with physical activities. Some pain at night.Review of systems negative for fever, weight loss, malaise, fatigue, significant headache, vision changes, hearing loss, neck swelling, cough, chest pain, shortness of breath, dyspnea on exertion, abdominal pain, nausea, vomiting, diarrhea, urinary dysfunction, upper/lower extremity numbness/tingling/weakness/edema, heat/cold intolerance On exam right knee trace effusion. Holds the knee flexed a few degrees and he can go into hyperextension on the left knee 5 degrees. Flexes his right knee to about 95 with pain at terminal flexion. Some mild joint line tenderness but no gross instability. Mild discomfort with Gretchen testing. He also has some mild calf swelling versus the left but no calf tenderness to deep palpation. X-rays of his right knee do show some mild degenerative changes. Assessment right knee arthritis and knee pain with possible meniscus pathology. Also right calf swelling. Plan MRI right knee to evaluate for possible meniscal tear. Duplex right leg to rule out DVT and wound check. Shahriar Barros MD documented in this encounter [facility] 09-21-2024 History of Present illness Narrative Radiology Service Progress Note PATIENT NAME: Roberto José DATE OF SERVICE: September 21, 2024 TIME: 10:35 AM PATIENT IDENTITY VERIFICATION COMPLETED USING TWO (2) IDENTIFIERS: Name and Date of confirmed by patient verbally. FALL SCREENING: Has the patient had 2 falls in the last year or 1 fall with injury or currently using an Ambulatory Assistive Device (Walker, Cane, Wheelchair, Crutches, etc.)? No PATIENT GENDER DATA: Assigned male at PATIENT RELEVANT IMPLANT DATA REVIEWED: Yes PATIENT PRESENTS WITH AN IMPLANTABLE OR ATTACHED RIG SITE ENGINEER: No RADIOLOGY DEPARTMENT: General X-ray: Exam(s) Completed: Lower Extremity X-Ray(s): Knee, AP / Lat / Tunne / Merchant Right PERIPHERAL IV DATA: Not applicable SIGNED BY: RT Evelio(R) September 21, 2024 10:35 AM documented in this encounter [facility] 09-21-2024 Note HNO ID: [id number] Author: MECHELLE GUZMAN RT(R) Service: ? Author Type: Technologist Type: Progress Notes Filed: 09/21/2024 10:49 Note Text: Radiology Service Progress Note PATIENT NAME: Roberto José DATE OF SERVICE: September 21, 2024 TIME: 10:35 AM PATIENT IDENTITY VERIFICATION COMPLETED USING TWO (2) IDENTIFIERS: Name and Date of confirmed by patient verbally. FALL SCREENING: Has the patient had 2 falls in the last year or 1 fall with injury or currently using an Ambulatory Assistive Device (Walker, Cane, Wheelchair, Crutches, etc.)? No PATIENT GENDER DATA: Assigned male at PATIENT RELEVANT IMPLANT DATA REVIEWED: Yes PATIENT PRESENTS WITH AN IMPLANTABLE OR ATTACHED RIG SITE ENGINEER: No RADIOLOGY DEPARTMENT: General X-ray: Exam(s) Completed: Lower Extremity X-Ray(s): Knee, AP / Lat / Tunne / Merchant Right PERIPHERAL IV DATA: Not applicable SIGNED BY: RT Evelio(R) September 21, 2024 10:35 AM [facility] 09-21-2024 Note HNO ID: [id number] Author: DERICK SHI PA Service: ? Author Type: Physician Home Theatre Technician Type: Progress Notes Filed: 09/21/2024 11:02 Note Text: URGENT CARE [facility]ND[facility] Subjective Roberto José is a 68 year old male. Patient presents with: Other: Knee injury - Entered by patient Right Knee Pain: X 4 days-cannot recall an injury HPI Right Knee Pain and Swelling: - Acute onset of right knee pain and swelling began while walking [place] the [place]. - Denies feeling a pop or tear at onset. - Pain and swelling increased with continued walking; knee not functioning right during subsequent golf game. - Persistent pain and swelling since onset; unable to complete usual morning and evening walks. - Pain initially localized to the anterior knee, now affecting the posterior hamstring. - No history of knee issues. - Using ice for swelling; taking Advil sporadically, 1 tablet at a time, with minimal relief. - Scheduled to see an orthopedist on the . Review of Systems Musculoskeletal: (+) knee pain, (+) knee swelling, (+) hamstring pain, (+) difficulty walking, (-) calf pain Skin: (+) knee skin lesions Objective BP 110/76 Pulse 60 Temp 36.4 ?C (97.5 ?F) (Tympanic) Resp 16 Wt 91.7 kg (202 lb 2.6 oz) SpO2 98% BMI 28.20 kg/m? Physical Exam Vitals and nursing note reviewed. Constitutional: General: He is not in acute distress. Appearance: Normal appearance. He is not toxic-appearing. Musculoskeletal: Right knee: Swelling present. Normal range of motion. Tenderness present over the lateral joint line. No LCL laxity, MCL laxity, ACL laxity or PCL laxity. Normal pulse. Comments: Normal flexion extension right knee. No significant limping imminent laxity. Mild crepitation. Tenderness over right lateral joint line/base. Mild swelling noted over right lateral knee. Patient does have some scabbing present noted over the right lateral knee. No erythema, warmth or signs of infection. No posterior knee tenderness or fullness noted. No calf tenderness or swelling noted. Negative Homans' sign. Normal sensation right lower extremity. Popliteal pulse 2+. Skin: General: Skin is warm and dry. Neurological: Mental Status: He is alert. General: No acute distress. Skin: Erythematous benavidez on knee, consistent with possible ice piper. MSK/Ext: Right knee swelling, tenderness to palpation over anterior knee, full range of motion in knee, no calf pain or swelling. { 1. Acute pain of right knee (M25.561) - Acute right knee pain and swelling began during ambulation on the golf course; no prior knee issues reported. - Exam reveals swelling and tenderness over the anterior knee; no calf pain, swelling, or redness. - X-ray shows no acute bony abnormalities or severe arthritis. - Low suspicion for DVT based on location of pain and absence of calf symptoms/posterior knee pain; advised to seek emergency care if calf pain, swelling, or redness develops. - Start topical anti-inflammatory gel. - Advised to use a knee sleeve for support and swelling management during activity; avoid braces that keep the knee completely straight. - Advised to rest and limit activity as tolerated; ice and elevate knee for no more than 20 minutes at a time, 3-4 times daily. - Advised to use Tylenol Extra Strength 1000 mg TID for pain management; avoid NSAIDs due to Plavix use. - Follow-up with planning specialist on the . Recording using ambient [employer] software for draft documentation of the visit was discussed with the patient/authorized medical collections representative; all questions welcomed and answered. Patient/authorized medical collections representative agreed to proceed History and Record Review External record(s) reviewed: prior outpatient record. Differential Diagnoses - Knee sprain/strain is more likely for the following reason(s): suggested by HANDP - Fracture is less likely for the following reason(s): no evidence on imaging - DVT is less likely for the following reason(s): No calf pain, swelling, posterior knee pain or swelling., HANDP not suggestive Disposition The patient was discharged. OTC Medications were advised: Tylenol Procedures [facility] 09-21-2024 History of Present illness Narrative [facility] [place] Roberto José is a 68 year old male. Patient presents with: Other: Knee injury - Entered by patient Right Knee Pain: X 4 days-cannot recall an injury HPI Right Knee Pain and Swelling: - Acute onset of right knee pain and swelling began while walking [place] the [place]. - Denies feeling a pop or tear at onset. - Pain and swelling increased with continued walking; knee not functioning right during subsequent golf game. - Persistent pain and swelling since onset; unable to complete usual morning and evening walks. - Pain initially localized to the anterior knee, now affecting the posterior hamstring. - No history of knee issues. - Using ice for swelling; taking Advil sporadically, 1 tablet at a time, with minimal relief. - Scheduled to see an orthopedist on the . Review of Systems Musculoskeletal: (+) knee pain, (+) knee swelling, (+) hamstring pain, (+) difficulty walking, (-) calf pain Skin: (+) knee skin lesions Objective BP 110/76 Pulse 60 Temp 36.4 C (97.5 F) (Tympanic) Resp 16 Wt 91.7 kg (202 lb 2.6 oz) SpO2 98% BMI 28.20 kg/m Physical Exam Vitals and nursing note reviewed. Constitutional: General: He is not in acute distress. Appearance: Normal appearance. He is not toxic-appearing. Musculoskeletal: Right knee: Swelling present. Normal range of motion. Tenderness present over the lateral joint line. No LCL laxity, MCL laxity, ACL laxity or PCL laxity. Normal pulse. Comments: Normal flexion extension right knee. No significant limping imminent laxity. Mild crepitation. Tenderness over right lateral joint line/base. Mild swelling noted over right lateral knee. Patient does have some scabbing present noted over the right lateral knee. No erythema, warmth or signs of infection. No posterior knee tenderness or fullness noted. No calf tenderness or swelling noted. Negative Homans' sign. Normal sensation right lower extremity. Popliteal pulse 2+. Skin: General: Skin is warm and dry. Neurological: Mental Status: He is alert. General: No acute distress. Skin: Erythematous benavidez on knee, consistent with possible ice piper. MSK/Ext: Right knee swelling, tenderness to palpation over anterior knee, full range of motion in knee, no calf pain or swelling. { 1. Acute pain of right knee (M25.561) - Acute right knee pain and swelling began during ambulation [place] the golf course; no prior knee issues reported. - Exam reveals swelling and tenderness over the anterior knee; no calf pain, swelling, or redness. - X-ray shows no acute bony abnormalities or severe arthritis. - Low suspicion for DVT based on location of pain and absence of calf symptoms/posterior knee pain; advised to seek emergency care if calf pain, swelling, or redness develops. - Start topical anti-inflammatory gel. - Advised to use a knee sleeve for support and swelling management during activity; avoid braces that keep the knee completely straight. - Advised to rest and limit activity as tolerated; ice and elevate knee for no more than 20 minutes at a time, 3-4 times daily. - Advised to use Tylenol Extra Strength 1000 mg TID for pain management; avoid NSAIDs due to Plavix use. - Follow-up with planning specialist on the . Recording using [employer] software for draft documentation of the visit was discussed with the patient/authorized medical collections representative; all questions welcomed and answered. Patient/authorized medical collections representative agreed to proceed History and Record Review External record(s) reviewed: prior outpatient record. Differential Diagnoses - Knee sprain/strain is more likely for the following reason(s): suggested by H&P - Fracture is less likely for the following reason(s): no evidence on imaging - DVT is less likely for the following reason(s): No calf pain, swelling, posterior knee pain or swelling., H&P not suggestive Disposition The patient was discharged. OTC Medications were advised: Tylenol Procedures documented in this encounter [facility] 06-17-2024 Note HNO ID: [id number] Author: ZANE BANKS MD Service: ? Author Type: Physician Type: Progress Notes Filed: 06/17/2024 15:24 Note Text: TRAVIS José is a 68 year old male who presents with cervical adenopathy. Patient seen consultation by Dr. Gore Patient recently he had an ultrasound of the carotids and they noticed a slightly enlarged lymph node on the left side patient denies any constitutional symptoms or any complaints relating to the head and neck. ROS General Weight loss: No Fatigue: No Night sweats:No Cardiac Chest pain:No Fast heart rate:No Swelling in the feet:No Respiratory Short of breath:No Cough:No Wheezing:No Gastrointestinal Nausea:No Vomiting:No Indigestion:No Past medical history, family history, and social history reviewed. PE There were no vitals taken for this visit. General: Patient is awake, alert, NAD. Voice is normal. Skin: normal Eyes: Extraocular motion and Gaze is normal. Ears: Right external auditory canal is normal. TMJ: normal. Right tympanic membranes normal. Left external auditory canal is normal. Left tympanic membrane normal. Nose: Septum is normal. Turbinates are normal. Nasopharynx:normal Oral Cavity/Oropharynx: Lips normal Dentition normal Tongue normal. Tonsils normal. Palate and uvula normal. Pharynx posterior normal Hypopharynx: Base of tongue normal Pyriform sinus normal. Larynx: Vocal cords normal. Epiglottis normal. Post cricoid normal. Salivary glands: Parotid normal. Submandibular and sublingual normal. Thyroid: normal. Lymphatic/Neck: Lymph nodes normal. Neurologic: Facial nerve normal. Ultrasound reviewed ASSESSMENT/PLAN: 1. Lymphadenopathy, anterior cervical - ICD9: 785.6, ICD10: R59.0 Observe no follow-up needed Zane Banks MD Findings will be communicated to the referring physician via mail or electronic medical record. [facility] 06-17-2024 History of Present illness Narrative TRAVIS José is a 68 year old male who presents with cervical adenopathy. Patient seen consultation by Dr. Gore Patient recently he had an ultrasound of the carotids and they noticed a slightly enlarged lymph node on the left side patient denies any constitutional symptoms or any complaints relating to the head and neck. ROS General Weight loss: No Fatigue: No Night sweats:No Cardiac Chest pain:No Fast heart rate:No Swelling in the feet:No Respiratory Short of breath:No Cough:No Wheezing:No Gastrointestinal Nausea:No Vomiting:No Indigestion:No Past medical history, family history, and social history reviewed. PE There were no vitals taken for this visit. General: Patient is awake, alert, NAD. Voice is normal. Skin: normal Eyes: Extraocular motion and Gaze is normal. Ears: Right external auditory canal is normal. TMJ: normal. Right tympanic membranes normal. Left external auditory canal is normal. Left tympanic membrane normal. Nose: Septum is normal. Turbinates are normal. Nasopharynx:normal Oral Cavity/Oropharynx: Lips normal Dentition normal Tongue normal. Tonsils normal. Palate and uvula normal. Pharynx posterior normal Hypopharynx: Base of tongue normal Pyriform sinus normal. Larynx: Vocal cords normal. Epiglottis normal. Post cricoid normal. Salivary glands: Parotid normal. Submandibular and sublingual normal. Thyroid: normal. Lymphatic/Neck: Lymph nodes normal. Neurologic: Facial nerve normal. Ultrasound reviewed ASSESSMENT/PLAN: 1. Lymphadenopathy, anterior cervical - ICD9: 785.6, ICD10: R59.0 Observe no follow-up needed Zane Banks MD Findings will be communicated to the referring physician via mail or electronic medical record. documented in this encounter [facility] 05-22-2024 Note HNO ID: [id number] Author: NEO GROSS MD Service: ? Author Type: Physician Type: Progress Notes Filed: 07/08/2024 08:38 Note Text: [facility] UROLOGY NEW PATIENT CLINIC NOTE [facility]OL [facility] PATIENT: Roberto José (68 year old) PCP: Shirlene Denson MD REFERRING PROVIDER: As above CHIEF COMPLAINT: Urgency and nocturia, history of BPH HISTORY OF PRESENT ILLNESS: Roberto José is a 68 year old male with history of urgency event and nocturia. Patient states that he urinates twice a night. Currently on Tamsulosin on 0.4mg daily for the last 10-15 years through a former urologist. Thinks he may have been on 2 capsules initially. Has bothersome moments of intermittency. See IPSS scores below. Also has a diagnosis Peyronie's for last 10-15 years. He recalls a moment of trauma or pop. Bends downward. Unable to provide degree of curvature. INTERNATIONAL PROSTATE SYMPTOM SCORE (I-PSS) 1)INCOMPLETE EMPTYING Over the past month, how often have you had a sensation of not emptying your bladder completely after you finished urinating? SCORE: 2- less than half the time 2)FREQUENCY Over the past month, how often have you had to urinate again less than two hours after you finished urinating? SCORE: 2- less than half the time 3)INTERMITTENCY Over the past month, how often have you found you stopped and started again several times when you urinated? SCORE: 4- More than half the time 4)URGENCY Over the past month, how often have you found it difficult to postpone urination? SCORE: 0- Not at all 5)WEAK STREAM Over the past month, how often have you had a weak stream? SCORE: 2- less than half the time 6)STRAINING Over the past month, how often have you had to push or strain to begin urination SCORE: 0- Not at all 7)NOCTURIA Over the past month, how many times did you most typically get up to urinate from the time you went to bed at night until the time you get up in the morning? SCORE:2 TOTAL I-PSS SCORE: 12 QUALITY OF LIFE DUE TO URINARY SYMPTOMS If you were to spend the rest of yur life with your urinary condition just the way it is now, how would you feel about that? 3- Mixed- equally satisfied and dissatisfied HISTORY: LABS: No results found for: PSA, PSAPER No results found for: ISOPSA Creatinine Date Value Ref Range Status 03/21/2024 1.24 (H) 0.73 - 1.22 mg/dL Final 11/16/2023 1.16 0.73 - 1.22 mg/dL Final 11/02/2023 1.28 (H) 0.73 - 1.22 mg/dL Final 10/17/2023 1.16 0.73 - 1.22 mg/dL Final OFFICE DATA: URINE POC GLUCOSE UA (POCT) Negative 05/22/2024 BILIRUBIN UA (POCT) Negative 05/22/2024 KETONE UA (POCT) Negative 05/22/2024 SPECIFIC GRAVITY UA (POCT) 1.020 05/22/2024 HEMOGLOBIN/BLOOD UA (POCT) Negative 05/22/2024 PH UA (POCT) 6.0 05/22/2024 PROTEIN UA (POCT) Negative 05/22/2024 UROBILINOGEN UA (POCT) 0.2 05/22/2024 NITRITE UA (POCT) Negative 05/22/2024 LEUKOCYTES UA (POCT) Negative 05/22/2024 COLOR UA (POCT) Yellow 05/22/2024 CLARITY UA (POCT) Clear 05/22/2024 POST-VOID RESIDUAL BLADDER VOLUME: 0cc , empties well PERTINENT IMAGING: IMPRESSION: Normal sonographic appearance of kidneys and bladder. Service Center Representative: AURELIANO Transcribe Date/Time: Nov 04 2023 6:42P Dictated by : MOLINA MCCARTHY MD This examination was interpreted and the report reviewed and electronically signed by: MOLINA MCCARTHY MD on Nov 04 2023 6:42PM EST Results-Findings * * *Final Report* * * DATE OF EXAM: Nov 02 2023 2:06PM [facility] 1055 - US KIDNEY/BLADDER / PROCEDURE REASON: Abnormal kidney function * * * * Physician Interpretation * * * * EXAMINATION: RENAL ULTRASOUND CLINICAL HISTORY: . Abnormal kidney function . TECHNIQUE: Sonography of the kidneys and urinary bladder was performed. Images were obtained and stored in a permanent archive. MQ: UR_1 COMPARISON: None RESULT: Right Kidney: -Renal length: 10.3 cm -Parenchyma: Normal echogenicity and thickness. -Collecting system: No hydronephrosis. -Calculus: None -Lesion: none Left Kidney: -Renal length: 9.6 cm -Parenchyma: Normal echogenicity and thickness. -Collecting system: No hydronephrosis. -Calculus: None -Lesion: none Bladder: Grossly unremarkable but not well distended with volume of 14 cc. REVIEW OF SYSTEMS: Reviewed and otherwise non-contributory. HISTORY: PAST MEDICAL HISTORY Diagnosis Date Elevated cholesterol Irritable bowel [place] (myocardial infarction) (HCC) 1995-stent, 2004 second stent Peyronie disease Psoriasis Ulcerative pancolitis with rectal bleeding (HCC) 12/05/2016 Chronic diarrhea with mucous and blood, associated with abdominal pain and weight loss. Abdominal pain not related to food and no food aversion to suggest ischemia CT 11/08 : rectosigmoid colitis without abscess or perforation and fat stranding in the pelvis. Colonoscopy 11/18: significant colitis involving the distal 30cm (more content not included)... [facility] 05-22-2024 History of Present illness Narrative Images from the original note were not included. [facility] UROLOGY NEW PATIENT CLINIC NOTE UROL [facility] PATIENT: Roberto José (68 year old) PCP: Shirlene Denson MD REFERRING PROVIDER: As above CHIEF COMPLAINT: Urgency and nocturia, history of BPH HISTORY OF PRESENT ILLNESS: Roberto José is a 68 year old male with history of urgency event and nocturia. Patient states that he urinates twice a night. Currently on Tamsulosin on 0.4mg daily for the last 10-15 years through a former urologist. Thinks he may have been on 2 capsules initially. Has bothersome moments of intermittency. See IPSS scores below. Also has a diagnosis Peyronie's for last 10-15 years. He recalls a moment of trauma or pop. Bends downward. Unable to provide degree of curvature. INTERNATIONAL PROSTATE SYMPTOM SCORE (I-PSS) 1)INCOMPLETE EMPTYING Over the past month, how often have you had a sensation of not emptying your bladder completely after you finished urinating? SCORE: 2- less than half the time 2)FREQUENCY Over the past month, how often have you had to urinate again less than two hours after you finished urinating? SCORE: 2- less than half the time 3)INTERMITTENCY Over the past month, how often have you found you stopped and started again several times when you urinated? SCORE: 4- More than half the time 4)URGENCY Over the past month, how often have you found it difficult to postpone urination? SCORE: 0- Not at all 5)WEAK STREAM Over the past month, how often have you had a weak stream? SCORE: 2- less than half the time 6)STRAINING Over the past month, how often have you had to push or strain to begin urination SCORE: 0- Not at all 7)NOCTURIA Over the past month, how many times did you most typically get up to urinate from the time you went to bed at night until the time you get up in the morning? SCORE:2 TOTAL I-PSS SCORE: 12 QUALITY OF LIFE DUE TO URINARY SYMPTOMS If you were to spend the rest of yur life with your urinary condition just the way it is now, how would you feel about that? 3- Mixed- equally satisfied and dissatisfied HISTORY: LABS: No results found for: PSA, PSAPER No results found for: ISOPSA Creatinine Date Value Ref Range Status 03/21/2024 1.24 (H) 0.73 - 1.22 mg/dL Final 11/16/2023 1.16 0.73 - 1.22 mg/dL Final 11/02/2023 1.28 (H) 0.73 - 1.22 mg/dL Final 10/17/2023 1.16 0.73 - 1.22 mg/dL Final OFFICE DATA: URINE POC GLUCOSE UA (POCT) Negative 05/22/2024 BILIRUBIN UA (POCT) Negative 05/22/2024 KETONE UA (POCT) Negative 05/22/2024 SPECIFIC GRAVITY UA (POCT) 1.020 05/22/2024 HEMOGLOBIN/BLOOD UA (POCT) Negative 05/22/2024 PH UA (POCT) 6.0 05/22/2024 PROTEIN UA (POCT) Negative 05/22/2024 UROBILINOGEN UA (POCT) 0.2 05/22/2024 NITRITE UA (POCT) Negative 05/22/2024 LEUKOCYTES UA (POCT) Negative 05/22/2024 COLOR UA (POCT) Yellow 05/22/2024 CLARITY UA (POCT) Clear 05/22/2024 POST-VOID RESIDUAL BLADDER VOLUME: 0cc , empties well PERTINENT IMAGING: IMPRESSION: Normal sonographic appearance of kidneys and bladder. Service Center Representative: PSCB Transcribe Date/Time: Nov 04 2023 6:42P Dictated by : MOLINA MCCARTHY MD This examination was interpreted and the report reviewed and electronically signed by: MOLINA MCCARTHY MD on Nov 04 2023 6:42PM EST Results-Findings * * *Final Report* * * DATE OF EXAM: Nov 02 2023 2:06PM [facility] 1055 - US KIDNEY/BLADDER / PROCEDURE REASON: Abnormal kidney function * * * * Physician Interpretation * * * * EXAMINATION: RENAL ULTRASOUND CLINICAL HISTORY: . Abnormal kidney function . TECHNIQUE: Sonography of the kidneys and urinary bladder was performed. Images were obtained and stored in a permanent archive. MQ: UR_1 COMPARISON: None RESULT: Right Kidney: -Renal length: 10.3 cm -Parenchyma: Normal echogenicity and thickness. -Collecting system: No hydronephrosis. -Calculus: None -Lesion: none Left Kidney: -Renal length: 9.6 cm -Parenchyma: Normal echogenicity and thickness. -Collecting system: No hydronephrosis. -Calculus: None -Lesion: none Bladder: Grossly unremarkable but not well distended with volume of 14 cc. REVIEW OF SYSTEMS: Reviewed and otherwise non-contributory. HISTORY: PAST MEDICAL HISTORY Diagnosis Date Elevated cholesterol Irritable bowel [place] (myocardial infarction) (HCC) 1995-stent, 2004 second stent Peyronie disease Psoriasis Ulcerative pancolitis with rectal bleeding (HCC) 12/05/2016 Chronic diarrhea with mucous and blood, associated with abdominal pain and weight loss. Abdominal pain not related to food and no food aversion to suggest ischemia CT 11/08 : rectosigmoid colitis without abscess or perforation and fat stranding in the pelvis. Colonoscopy 11/18: significant colitis involving the distal 30cm of the colon with an entirely normal mucosa proximal to that point. Biopsy at that time negative for evidence of colitis with mild arhecticutual changes Previously given Cipro/Flagyl, mesalamine suppository, balsalazide, and budesonide without benefit. Noticed was when he was recently given IV steroid in ED. Flex sig 12/07 showing evidence of UC in the sigmoid - Started on methylprednisolone 20 TID, with quick transition to PO prednisone 40mg PAST SURGICAL HISTORY Procedure Laterality Date COLONOSCOPY FLX DX W/COLLJ SPEC WHEN PFRMD 10/21/2008 Colonoscopy PAST SURGICAL HISTORY OF 02/20/20092009 laser treatment for hemorrhoids PAST SURGICAL HISTORY OF heart stentx2 04/12 SIGMOIDOSCOPY FLX DX W/COLLJ SPEC BR/WA IF PFRMD 02/20/2010 Sigmoidoscopy Social History Tobacco Use Smoking status: Never Smokeless tobacco: Never Substance Use Topics Alcohol use: Yes Comment: 1 beer per month Drug use: No FAMILY HISTORY Problem Relation Age of Onset Cancer Sister kidney Cancer Father lung? Heart Paternal Uncle [place] Heart Paternal Uncle bypass Hypertension Sister Hypertension Brother MEDICATIONS: Current Outpatient Medications Medication Sig metoprolol tartrate, short acting, (LOPRESSOR) 25 mg tablet Take 1 tablet by mouth two times a day. clopidogrel (PLAVIX) 75 mg tablet Take 1 tablet by mouth once daily. rosuvastatin (CRESTOR) 40 mg tablet Take 1 tablet by mouth once daily. clindamycin (CLEOCIN-T) 1 % gel Apply thin layer to buttocks once daily. mupirocin (BACTROBAN) 2 % ointment Apply to open areas twice daily until healed Mesalamine (LIALDA) 1.2 gram EC tablet Take 2 tablets by mouth daily with breakfast. tamsulosin (FLOMAX) 0.4 mg Take one a day ustekinumab (STELARA) 45 mg/0.5 mL sub-Q syringe Inject 45mg (1 syringe) subcutaneously on week 0, and week 4, then every 12 weeks thereafter (Patient taking differently: Inject 45mg (1 syringe) subcutaneously on week 0, and week 4, then every 12 weeks thereafter) folic acid 400 mcg tablet Take 400 mcg by mouth once daily. cholecalciferol (VITAMIN D3) 1,000 unit tab tablet Take 1,000 Units by mouth once daily. ramipril(ALTACE 2.5 MG CAP) Take one(1) capsule daily. MULTIVITAMIN TAB Take one(1) tablet daily. METOPROLOL 50 MG TAB 1/2 tab twice daily Tadalafil (CIALIS) 5 mg tablet Take 1 tablet by mouth once daily. Benzoyl Peroxide 10 % external wash Use to wash buttocks once daily. Rinse well. No current facility-administered medications for this visit. PHYSICAL EXAMINATION: VITALS: Ht 180.3 cm (5' 11) Wt 93.4 kg (206 lb) BMI 28.73 kg/m GENERAL: alert, no distress, normal affect RESPIRATORY: normal effort ABDOMEN: soft, non-tender GENITOURINARY: Inguinal: No lesions, adenopathy, or hernias Phallus: normal, circumcised, no lesions Meatus: orthotopic, patent, no discharge Scrotum: no lesions, normal rugae Testes: Descended, nontender, and no masses bilaterally L: nl R:nl Epididymides: L nl R nl Vas deferens: palpable bilaterally Varicocele: none RHONDA: Refused by patient EXTREMITIES: warm, no dependent edema, no malformations SKIN: no abnormal bruising, no rashes, no cyanosis NEUROLOGIC: normal gait, good manual dexterity, no paralysis ASSESSMENT/PLAN: 1. Benign prostatic hyperplasia with urinary hesitancy - ICD9: 600.01, 788.64, ICD10: N40.1, R39.11 (primary diagnosis) - - The patient has lower urinary tract symptoms suggestive of benign prostatic hyperplasia. I discussed options of treatment including medications and surgery. I discussed the risks, benefits, and alternatives to both alpha blockers, 5-alpha reductase inhibitors, and PDE-5 inhibitors such as Viagra, Levitra, or Cialis. I also discussed the role of cystoscopy, urodynamics, and transrectal ultrasound of the prostate in diagnosing the nature of the symptoms, and the risks, benefits, alternatives to these procedures were explained. Additionally, I discussed the role of laser photovaporization of the prostate in this condition, Rezum, and UroLift procedures to correct voiding dysfunction secondary to BPH. Risks discussed include but are not limited to bleeding, infection, pain, damage to other to other tissues, clots in the legs and lungs, urinary leakage or blockage, retrograde ejaculation, or that the procedure does not improve or even worsens symptoms. All questions were answered. -Remain on tamsulosin and add daily TADALAFIL 5 MG TABLET 2. Peyronie's disease - ICD9: 607.85, ICD10: N48.6 -Would recommend further evaluation at patient's next visit. Patient will be recommended to complete PDQ 15 questionnaire prior to visit. Patient has been provided with goniometer to calculate his curvature prior to follow-up appointment. 3. Erectile dysfunction, unspecified erectile dysfunction type - ICD9: 607.84, ICD10: N52.9 - patient may benefit from daily tadalafil as prescribed above. 4. Screening for genitourinary condition - ICD9: V81.6, ICD10: Z13.89 - UA DIP, URINE (POC) - BLADDER SCAN Patient should return in 6 months or sooner if needed Consultation requested by Shirlene Denson MD ([facility] [place]) [address] [facility] [id number] for an opinion regarding Roberto José patient and my final recommendations will be communicated back to the requesting physician by way of shared Medical record or letter via US mail. Neo Gross MD, MS Associate Staff Center for [facility] Department of Urology [facility] Urological [place] [facility] Bladder scan obtained 0 ml of urine documented in this encounter [facility] 05-22-2024 Note HNO ID: [id number] Author: GLENDY GARCIA LPN Service: ? Author Type: LICENSED NURSE Type: Progress Notes Filed: 07/08/2024 08:38 Note Text: Bladder scan obtained 0 ml of urine [facility] 05-22-2024 Telephone encounter Note Can you send in a prescription for me Metoprol Tar 25mg ? I take two tablets per day. I cannot use the normal refill system as you have not written this script for me in the past. [facility] [place] to you at the Clinic. Please fill at [facility] in [place], [place]. Thank You, Roberto José [phone] [facility] 05-22-2024 Miscellaneous Notes Can you send in a prescription for me Metoprol Tar 25mg ? I take two tablets per day. I cannot use the normal refill system as you have not written this script for me in the past. I'm switching from the [facility] [place] to you at the Clinic. Please fill at [facility] in [place], [place]. Thank You, Roberto José [phone] Requested Prescriptions Pending Prescriptions Disp Refills metoprolol tartrate, short acting, (LOPRESSOR) 25 mg tablet 180 tablet 4 Sig: Take 1 tablet by mouth two times a day. Last Ov, 03/18/2024 Next Ov, 03/17/2025 documented in this encounter [facility] 05-22-2024 Telephone encounter Note Requested Prescriptions Pending Prescriptions Disp Refills metoprolol tartrate, short acting, (LOPRESSOR) 25 mg tablet 180 tablet 4 Sig: Take 1 tablet by mouth two times a day. Last Ov, 03/18/2024 Next Ov, 03/17/2025 [facility] 04-23-2024 Telephone encounter Note Patient has been identified by name and date of : Yes Patient electronically sent a request for the following prescription(s) If there are any questions regarding this prescription request, call at home at: [phone] (home) [phone] (cell) RX INSTRUCTIONS: Patient aware RX will be sent to pharmacy. No need to notify patient. Date of last office visit: 03-18-24 Sofía Date of last Distance Health visit: Visit date not found Date of future office visit: 03-17-25 Sofía Requested Prescriptions Pending Prescriptions Disp Refills clopidogrel (PLAVIX) 75 mg tablet 90 tablet 3 Sig: Take 1 tablet by mouth once daily. Prescriptions are usually addressed within 24-48 business hours. If patient states they cannot wait 24-48 business hours, please document details. Last 2 Encounter Wt Readings: Date: Wt: 03/20/2024 93.8 kg (206 lb 12.7 oz) 03/18/2024 93.8 kg (206 lb 12.7 oz) Last 2 Encounter BP Readings: Date: BP: 03/20/2024 118/81 03/18/2024 124/60 CMP: Glucose 86 11/16/2023 BUN 21 11/16/2023 Creatinine 1.24 03/21/2024 Sodium 140 11/16/2023 Potassium 3.9 11/16/2023 Chloride 102 11/16/2023 CO2 27 11/16/2023 Protein, Total 7.3 03/21/2023 Albumin 4.3 11/16/2023 Calcium 10.3 11/16/2023 Alkaline Phosphatase 56 03/21/2023 Bilirubin, Total 0.6 03/21/2023 AST 21 03/21/2024 ALT 20 03/21/2024 No results found for: CHOL No results found for: HDL No results found for: LDL No results found for: TG Shamar Jesus RN [facility] 04-23-2024 Miscellaneous Notes Patient has been identified by name and date of : Yes Patient electronically sent a request for the following prescription(s) If there are any questions regarding this prescription request, call at home at: [phone] (home) [phone] (cell) RX INSTRUCTIONS: Patient aware RX will be sent to pharmacy. No need to notify patient. Date of last office visit: 03-18-24 Sofía Date of last [facility] visit: Visit date not found Date of future office visit: 03-17-25 Sofía Requested Prescriptions Pending Prescriptions Disp Refills clopidogrel (PLAVIX) 75 mg tablet 90 tablet 3 Sig: Take 1 tablet by mouth once daily. Prescriptions are usually addressed within 24-48 business hours. If patient states they cannot wait 24-48 business hours, please document details. Last 2 Encounter Wt Readings: Date: Wt: 03/20/2024 93.8 kg (206 lb 12.7 oz) 03/18/2024 93.8 kg (206 lb 12.7 oz) Last 2 Encounter BP Readings: Date: BP: 03/20/2024 118/81 03/18/2024 124/60 CMP: Glucose 86 11/16/2023 BUN 21 11/16/2023 Creatinine 1.24 03/21/2024 Sodium 140 11/16/2023 Potassium 3.9 11/16/2023 Chloride 102 11/16/2023 CO2 27 11/16/2023 Protein, Total 7.3 03/21/2023 Albumin 4.3 11/16/2023 Calcium 10.3 11/16/2023 Alkaline Phosphatase 56 03/21/2023 Bilirubin, Total 0.6 03/21/2023 AST 21 03/21/2024 ALT 20 03/21/2024 No results found for: CHOL No results found for: HDL No results found for: LDL No results found for: TG Shamar Jesus RN documented in this encounter [facility] 04-23-2024 Telephone encounter Note Acknowledgement sent to patient via ms. Refill request will be created for Plavix 75mg daily. [facility] 04-23-2024 Miscellaneous Notes Acknowledgement sent to patient via msg. Refill request will be created for Plavix 75mg daily. documented in this encounter [facility] 03-28-2024 Telephone encounter Note Called patient and rescheduled 09/19/[address] [place] [address] Dr. Granados. Lillian Lynch RN [facility] 03-28-2024 Miscellaneous Notes Called patient and rescheduled 09/19/[address] [place] [address] Dr. Granados. Lillian Lynch RN documented in this encounter [facility] 03-26-2024 Telephone encounter Note Patient scheduled per [facility] 09/05/[address] Granados. Lillian Lynch RN [facility] 03-26-2024 Miscellaneous Notes Patient scheduled per [facility] 09/05/[address] Granados. Lillian Lynch RN documented in this encounter [facility] 03-20-2024 Note HNO ID: [id number] Author: MARGUERITE PEREYRA MD Service: ? Author Type: Physician Type: Progress Notes Filed: 03/20/2024 10:44 Note Text: On 03/20/2024, I had the pleasure of seeing Roberto José at the [facility] for follow-up of inflammatory arthritis HPI: To review, Roberto José is a 68 year old male w/hx of UC and psoriasis - In 20s, with back pain (had an injury one summer). Better with activity. Worst time of day is morning. - Around , diagnosed with UC (testing not definitive, treatment has helped) - Sometime around Jul, with onset of ear psoriasis - Since Jan, with bilateral hip discomfort, laterally. Radiates down. - In April, reported UC was doing well on mesalamine. Never on a biologic. Diagnosed prednisone trial with 95% improvement in back pain/tightness and resolved hip pain. Advised to start humira - In May, started humira (first injection on 06/09) - In Jul, reported 75-80% improvement in pain with humira. Slept better at night. Could golf multiple days in a row. Psoriasis of L ear improved with humira - In Feb, reported stable joints with humira but stiffness was worse in the winter - In Sep, reported severe L plantar fasciitis despite 2 injections of steroids (in the past, it had cleared up with CSI). Some R hip/R knee pain worse with activity and worst in morning, radiated from hip down to lateral thigh along ITB. The stiffness improved in the summer compared to the winter. Humira switched to stelara. PT referral given, helped RLE - In Nov (12/19/23), s/p first stelara dose - Today, reports no change with stelara compared to humira. Does appreciate the less frequent injections with stelara. Overall stable. Just some mid to low back stiffness in the morning, improved after 1-2 hours of moving around. RLE is improving. L plantar fasciitis is significantly improved now, ended up having a third CSI in (doesn't recall when). Unclear if L foot is improved due to third CSI, PT vs stelara. Of note, trying to switch HL tx back to crestor to see if that doesn't cause aching like past statins did (remote use of crestor without such SE)-sees Dr. Gore - Went to [place] in summer PAST MEDICAL HISTORY Diagnosis Date Elevated cholesterol Irritable bowel [place] (myocardial infarction) (HCC) 1995-stent, 2004 second stent Peyronie disease Psoriasis Ulcerative pancolitis with rectal bleeding (HCC) 12/05/2016 Chronic diarrhea with mucous and blood, associated with abdominal pain and weight loss. Abdominal pain not related to food and no food aversion to suggest ischemia CT 11/08 : rectosigmoid colitis without abscess or perforation and fat stranding in the pelvis. Colonoscopy 11/18: significant colitis involving the distal 30cm of the colon with an entirely normal mucosa proximal to that point. Biopsy at that time negative for evidence of colitis with mild arhecticutual changes Previously given Cipro/Flagyl, mesalamine suppository, balsalazide, and budesonide without benefit. Noticed was when he was recently given IV steroid in ED. Flex sig 12/07 showing evidence of UC in the sigmoid - Started on methylprednisolone 20 TID, with quick transition to PO prednisone 40mg PAST SURGICAL HISTORY Procedure Laterality Date COLONOSCOPY FLX DX W/COLLJ SPEC WHEN PFRMD 10/21/2008 Colonoscopy PAST SURGICAL HISTORY OF 02/20/2009 2010 laser treatment for hemorrhoids PAST SURGICAL HISTORY OF heart stentx2 04/12 SIGMOIDOSCOPY FLX DX W/COLLJ SPEC BR/WA IF PFRMD 02/20/2010 Sigmoidoscopy ALLERGIES No Known Allergies MEDICATIONS: Current Outpatient Medications Medication Sig rosuvastatin (CRESTOR) 40 mg tablet Take 1 tablet by mouth once daily. clindamycin (CLEOCIN-T) 1 % gel Apply thin layer to buttocks once daily. mupirocin (BACTROBAN) 2 % ointment Apply to open areas twice daily until healed Mesalamine (LIALDA) 1.2 gram EC tablet Take 2 tablets by mouth daily with breakfast. tamsulosin (FLOMAX) 0.4 mg Take one a day ustekinumab (STELARA) 45 mg/0.5 mL sub-Q syringe Inject 45mg (1 syringe) subcutaneously on week 0, and week 4, then every 12 weeks thereafter (Patient taking differently: Inject 45mg (1 syringe) subcutaneously on week 0, and week 4, then every 12 weeks thereafter) Benzoyl Peroxide 10 % external wash Use to wash buttocks once daily. Rinse well. clopidogrel (PLAVIX) 75 mg tablet folic acid 400 mcg tablet Take 400 mcg by mouth once daily. cholecalciferol (VITAMIN D3) 1,000 unit tab tablet Take 1,000 Units by mouth once daily. ramipril(ALTACE 2.5 MG CAP) Take one(1) capsule daily. MULTIVITAMIN TAB Take one(1) tablet daily. METOPROLOL 50 MG TAB 1/2 tab twice daily No current facility-administered medications for this visit. FAMILY HISTORY Problem Relation Age of Onset Cancer Sister kidney Cancer Father lung? Heart Paternal Uncle [place] Heart [employer] (more content not included)... [facility] 03-20-2024 History of Present illness Narrative On 03/20/2024, I had the pleasure of seeing Roberto José at the [facility] for follow-up of inflammatory arthritis HPI: To review, Roberto José is a 68 year old male w/hx of UC and psoriasis - In 20s, with back pain (had an injury one summer). Better with activity. Worst time of day is morning. - Around '18, diagnosed with UC (testing not definitive, treatment has helped) - Sometime around Jul, with onset of ear psoriasis - Since Jan, with bilateral hip discomfort, laterally. Radiates down. - In April, reported UC was doing well on mesalamine. Never on a biologic. Diagnosed prednisone trial with 95% improvement in back pain/tightness and resolved hip pain. Advised to start humira - In May, started humira (first injection on 06/09) - In Jul, reported 75-80% improvement in pain with humira. Slept better at night. Could golf multiple days in a row. Psoriasis of L ear improved with humira - In Feb, reported stable joints with humira but stiffness was worse in the winter - In Sep, reported severe L plantar fasciitis despite 2 injections of steroids (in the past, it had cleared up with CSI). Some R hip/R knee pain worse with activity and worst in morning, radiated from hip down to lateral thigh along ITB. The stiffness improved in the summer compared to the winter. Humira switched to stelara. PT referral given, helped RLE - In Nov (12/19/23), s/p first stelara dose - Today, reports no change with stelara compared to humira. Does appreciate the less frequent injections with stelara. Overall stable. Just some mid to low back stiffness in the morning, improved after 1-2 hours of moving around. RLE is improving. L plantar fasciitis is significantly improved now, ended up having a third CSI in (doesn't recall when). Unclear if L foot is improved due to third CSI, PT vs stelara. Of note, trying to switch HL tx back to crestor to see if that doesn't cause aching like past statins did (remote use of crestor without such SE)-sees Dr. Gore - Went to [place] in summer PAST MEDICAL HISTORY Diagnosis Date Elevated cholesterol Irritable bowel [place] (myocardial infarction) (HCC) 1995-stent, 2004 second stent Peyronie disease Psoriasis Ulcerative pancolitis with rectal bleeding (HCC) 12/05/2016 Chronic diarrhea with mucous and blood, associated with abdominal pain and weight loss. Abdominal pain not related to food and no food aversion to suggest ischemia CT 11/08 : rectosigmoid colitis without abscess or perforation and fat stranding in the pelvis. Colonoscopy 11/18: significant colitis involving the distal 30cm of the colon with an entirely normal mucosa proximal to that point. Biopsy at that time negative for evidence of colitis with mild arhecticutual changes Previously given Cipro/Flagyl, mesalamine suppository, balsalazide, and budesonide without benefit. Noticed was when he was recently given IV steroid in ED. Flex sig 12/07 showing evidence of UC in the sigmoid - Started on methylprednisolone 20 TID, with quick transition to PO prednisone 40mg PAST SURGICAL HISTORY Procedure Laterality Date COLONOSCOPY FLX DX W/COLLJ SPEC WHEN PFRMD 10/21/2008 Colonoscopy PAST SURGICAL HISTORY OF 02/20/2009 2010 laser treatment for hemorrhoids PAST SURGICAL HISTORY OF heart stentx2 04/12 SIGMOIDOSCOPY FLX DX W/COLLJ SPEC BR/WA IF PFRMD 02/20/2010 Sigmoidoscopy ALLERGIES No Known Allergies MEDICATIONS: Current Outpatient Medications Medication Sig rosuvastatin (CRESTOR) 40 mg tablet Take 1 tablet by mouth once daily. clindamycin (CLEOCIN-T) 1 % gel Apply thin layer to buttocks once daily. mupirocin (BACTROBAN) 2 % ointment Apply to open areas twice daily until healed Mesalamine (LIALDA) 1.2 gram EC tablet Take 2 tablets by mouth daily with breakfast. tamsulosin (FLOMAX) 0.4 mg Take one a day ustekinumab (STELARA) 45 mg/0.5 mL sub-Q syringe Inject 45mg (1 syringe) subcutaneously on week 0, and week 4, then every 12 weeks thereafter (Patient taking differently: Inject 45mg (1 syringe) subcutaneously on week 0, and week 4, then every 12 weeks thereafter) Benzoyl Peroxide 10 % external wash Use to wash buttocks once daily. Rinse well. clopidogrel (PLAVIX) 75 mg tablet folic acid 400 mcg tablet Take 400 mcg by mouth once daily. cholecalciferol (VITAMIN D3) 1,000 unit tab tablet Take 1,000 Units by mouth once daily. ramipril(ALTACE 2.5 MG CAP) Take one(1) capsule daily. MULTIVITAMIN TAB Take one(1) tablet daily. METOPROLOL 50 MG TAB 1/2 tab twice daily No current facility-administered medications for this visit. FAMILY HISTORY Problem Relation Age of Onset Cancer Sister kidney Cancer Father lung? Heart Paternal Uncle [place] Heart Paternal Uncle bypass Hypertension Sister Hypertension Brother SOCIAL HISTORY: Lives in [place] with spouse. 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 Niece is in [place]. Son is in the area, hasn't seen him in 3 yrs Tobacco use: None Alcohol use: None Drug use: None REVIEW OF SYSTEMS: reviewed 12/03 systems, as above PHYSICAL EXAM: VITALS: Blood pressure 118/81, pulse 69, temperature 36.4 C (97.6 F), temperature source Temporal, height 182 cm (5' 11.65), weight 93.8 kg (206 lb 12.7 oz). CONSTITUTIONAL: Well-appearing, in NAD. SKIN: No psoriasis. No sclerodactyly, calcinosis, telangiectasias, digital ulcers, or skin thickening. EYES: No scleral icterus or conjunctivitis ENT and Mouth: External ears normal. Nares normal. RESPIRATORY: Normal breath sounds, clear to auscultation. CARDIOVASCULAR: Regular rate and rhythm, no murmurs or rubs EXTREMITIES/LYMPH: No edema bilaterally NEURO: Awake, alert and oriented, Normal gait MUSCULOSKELETAL: JOINT APPEARANCE: No erythema or warmth of any upper or lower extremity joint. RANGE OF MOTION: Able to fully close fists and curl fingers bilaterally. SWOLLEN JOINTS/SYNOVITIS: No synovitis of any joint. TENDER JOINTS: None *April Widespread Pain Index: 3 (0-19) Symptoms Severity Scale: 1 (0-12) WPI>7 and SS Scale>5 OR WPI 3-6 and SS Scale >9 consistent with fibromyalgia LABORATORY: Latest Ref Rng 10/17/2023 11/02/2023 11/16/2023 Glucose 74 - 99 mg/dL 86 BUN 9 - 24 mg/dL 21 Creatinine 0.73 - 1.22 mg/dL 1.16 Sodium 136 - 144 mmol/L 140 Potassium 3.7 - 5.1 mmol/L 3.9 Chloride 98 - 107 mmol/L 102 CO2 22 - 30 mmol/L 27 Anion Gap 8 - 15 mmol/L 11 Calcium 8.5 - 10.2 mg/dL 10.3 (H) eGFR >=60 mL/min/1.73m 68 ALT 10 - 54 U/L 20 AST 14 - 40 U/L 19 Hemoglobin 13.0 - 17.0 g/dL 15.2 Component Latest Ref Rng & Units 04/27/2022 Rheumatoid Factor <16 IU/mL <10 WSR 0 - 15 mm/hr 2 CRP <0.9 mg/dL <0.3 *April neg hep b/c, quant gold Component Latest Ref Rng & Units 08/24/2017 04/13/2018 01/09/2020 IgA 78 - 391 mg/dL 379 Transglutaminase Ab, IgA <20 Units 5 Interpretation (Celiac Screen) No serologic evidence of celiac disease. No serologic evidence of celiac disease. CRP <0.9 mg/dL 0.1 0.1 STUDIES: *April xray SI joints- No radiographic evidence of sacroiliitis or acute osseous abnormality. Partially imaged lower lumbar spine degenerative changes. *April xray hands- Minimal degenerative changes *Sep AXR- constipation IMPRESSION and PLAN: 1. Seronegative spondyloarthropathy: Prednisone responsive pain in the low back and lateral hips; back pain with inflammatory features per history (improved with activity, worst in morning, significant morning stiffness) in the setting of UC and psoriasis-PsA. Humira with significant improvement in joint symptoms but had some symptoms like L plantar fasciitis that raised concern about suboptimal control. Stelara with stable joints, improved L plantar fasciitis (see HPI above). - Continue stelara 45mg SC every 12 weeks. Defers dose increase. - Check labs. Notify of results via twidoxhart 2. UC: - Continue GI management 3. Psoriasis: - Continue dermatology management 4. R ITB tightness: - Improved with PT 5. General health maintenance: - Continue follow-up with PCP for routine health maintenance and malignancy screening Follow-up in 6 months. Patient was instructed to call if any questions or concerns. Thank you for allowing me to participate in the care of your patient. Marguerite Pereyra MD documented in this encounter [facility] 03-19-2024 Telephone encounter Note msg sent letting patient know that prescription for Crestor (Rosuvastatin) 40mg has been signed and sent to [facility] pharmacy by Dr Gore. [facility] 03-19-2024 Miscellaneous Notes msg sent letting patient know that prescription for Crestor (Rosuvastatin) 40mg has been signed and sent to [facility] pharmacy by Dr Gore. I have signed and sent the prescription to the pharmacy today. YAKELIN: 03/18/2024- Sofía. Patient has been identified by name and date of : Yes Last office visit in this department: Visit date not found RX INSTRUCTIONS: Patient aware RX will be sent to pharmacy. No need to notify patient. Patient phones requesting refills as follows: Requested Prescriptions Pending Prescriptions Disp Refills rosuvastatin (CRESTOR) 40 mg tablet 90 tablet 3 Sig: Take 1 tablet by mouth once daily. Please review and advise. Amy Jose RN [facility] pharmacy calling in regards to the rosuvastatin (CRESTOR) 40 mg tablet Take 1 tablet by mouth as directed. 90 tablet 3 ordered 03/18/2024 -- -- -- -- ORAL Summary: Take 1 tablet by mouth as directed. Normal, Disp-90 tablet, R-3, Long-term ReportDx Associated: Long-term: Start Date & Time: 03/18/2024Dose, Route, Frequency: 40 mg, ORAL, DIRECTEDPharmacy: [id number] [place] [address] [id number] [facility] [phone] [id number]/Sold: 03/18/2024 (O)Ordered On: 03/18/2024 Ordering Department: [facility] Authorized By: Denzel Gore MD Order Details: Take 1 tablet by mouth as directed. Dispense: 90 tablet, Refills: 3 ordered They need a daily amount please advise. documented in this encounter [facility] 03-18-2024 Telephone encounter Note I have signed and sent the prescription to the pharmacy today. [facility] 03-18-2024 Telephone encounter Note YAKELIN: 03/18/2024- Sofía. Patient has been identified by name and date of : Yes Last office visit in this department: Visit date not found RX INSTRUCTIONS: Patient aware RX will be sent to pharmacy. No need to notify patient. Patient phones requesting refills as follows: Requested Prescriptions Pending Prescriptions Disp Refills rosuvastatin (CRESTOR) 40 mg tablet 90 tablet 3 Sig: Take 1 tablet by mouth once daily. Please review and advise. Amy Echstenkamper, RN [facility] 03-18-2024 Telephone encounter Note [facility] pharmacy calling in regards to the rosuvastatin (CRESTOR) 40 mg tablet Take 1 tablet by mouth as directed. 90 tablet 3 ordered 03/18/2024 -- -- -- -- ORAL Summary: Take 1 tablet by mouth as directed. Normal, Disp-90 tablet, R-3, Long-term ReportDx Associated: Long-term: Start Date & Time: 03/18/2024Dose, Route, Frequency: 40 mg, ORAL, DIRECTEDPharmacy: e- [id number] [place] [address] [id number] [facility] [phone] [id number]/Sold: 03/18/2024 (O)Ordered On: 03/18/2024 Ordering Department: [facility] Authorized By: Denzel Gore MD Order Details: Take 1 tablet by mouth as directed. Dispense: 90 tablet, Refills: 3 ordered They need a daily amount please advise. [facility] 03-18-2024 Instructions Denzel Gore MD - 03/18/2024 1:49 PM EST Coronary Artery Disease: The coronary arteries are the blood vessels that supply your heart with blood. Your heart needs this blood to work properly. Every day, your heart pumps about 3,000 gallons of blood through your body. What is coronary artery disease? Coronary artery disease is the narrowing or blockage of the coronary arteries. This condition is usually caused by atherosclerosis. Atherosclerosis is the build-up of cholesterol and fatty deposits (called plaques) on the inner curran of the arteries. These plaques can limit or stop blood flow to the heart muscle by clogging the artery or by causing damage to the arteries. If the heart does not get enough blood, it cannot get the oxygen and nutrients it needs to work properly. This can cause chest pain called angina. If the blood supply to an area of the heart muscle is completely blocked, or if the heart can t work as hard as it needs to because it lacks blood, you can have a heart attack. What causes the coronary arteries to narrow? Healthy coronary arteries are smooth and elastic. The inside of these muscular hollow tubes are lined with a layer of cells called the endothelium. The endothelium helps protect the vessel curran and keep the arteries working properly. Blood can flow freely. Coronary artery disease starts when you are very young. Before your teen years, the blood vessel curran start to show streaks of fat. As you get older, the fat builds up, causing minor damage to your blood vessel curran. With time, other substances that move through your blood stream, such as inflammatory cells, cellular waste products, proteins and calcium, stick to the vessel curran. These things combine with the fat and form plaque. Plaque deposits collect inside the arteries. They are different sizes, and many are soft on the inside with a hard, fibrous cap that covers the outside. If the hard surface cracks or tears, the soft, fatty inside is exposed. Platelets (disc-shaped particles in the blood that help form clots) move to the area, and blood clots form around the plaque. The endothelium can also become irritated and stop working properly, which causes the artery to squeeze at the wrong times. This causes the artery to narrow even more. Sometimes, the blood clot breaks apart and blood can flow through the area again. Other times, the blood clot (coronary thrombus) suddenly blocks the blood supply to the heart muscle (coronary occlusion), causing one of three serious conditions known as an acute coronary syndrome. Reduce your risk factors The first step in treatment for coronary artery disease is reducing your risk factors. This involves making changes in your lifestyle. Don t smoke. If you smoke or use tobacco products, quit. Talk to your doctor about ways to help you stop smoking, including medications. Manage health problems like high cholesterol, high blood pressure, diabetes. Eat a heart-healthy diet. Talk to your doctor or a registered dietitian about ways to change your diet to reduce your risk of heart disease. Limit alcohol use. Daily limits are one drink per day for women, two drinks per day for men. Increase your activity level. Exercise helps you lose weight, improve your physical condition and relieve stress. Most people can reduce their risk of heart attack by doing the equivalent of 30 minutes of walking 5 times per week or walking 10,000 steps per day It is important to talk to your doctor before you start any exercise program. Medications Your doctor may prescribe medication as part of your treatment plan for coronary artery disease. These can include medications to lower cholesterol levels and blood pressure or treat other health conditions you have. It is important to take all medications as prescribed. Ask your doctor if you have any questions about which medications you should take or how to take them. Interventional procedures Interventional procedures are not considered surgery. A telephonic rn (not a surgeon) performs these procedures to reduce plaque build-up in the arteries and prevent blockages. Common procedures are balloon angioplasty (PTCA) and stenting. During an interventional procedure, a long, thin tube called a catheter is inserted into an artery through a small incision. The catheter is guided to the blocked area of the artery, and the plaque build-up is cleared. Your doctor will give you more information if you need an interventional procedure as part of your treatment. documented in this encounter [facility] 03-18-2024 Note HNO ID: [id number] Author: DENZEL GORE MD Service: ? Author Type: Physician Type: Progress Notes Filed: 03/18/2024 14:04 Note Text: [facility] Department of Cardiovascular Medicine SECTION OF [facility] CARDIOLOGY [facility] 03/18/2024 OUTPATIENT VISIT TYPE NEW Patient Patient is being seen to establish care. The consult note will be sent to the requesting provider using [facility] medical records. HISTORY OF PRESENT ILLNESS: Mr. José is a 68 year old male with H/O CAD-s/p stent placement in 1995 in 2004 at [facility] and 2 stents were done in March 2020 at [facility], hypertension, abnormal kidney function (stage 2) and ulcerative colitis presents today for a consult regarding his heart health and establish care with a telephonic rn. Patient reports better results using rosuvastatin as compared to Lipitor. Patient came in expressing concerns of complications and anxiety from his stents done at [facility]. Patient is retired and is physically active by walking, lifting weights and rowing. Patient has no symptoms of chest pain. Patient has mild exertional shortness of breath. Dizziness - No Palpitations - No Leg swelling - No Fatigue - No Snoring - mild snoring Sleep apnea - No Social History Tobacco Use Smoking status: Never Smokeless tobacco: Never Substance Use Topics Alcohol use: Yes Comment: 1 beer per month Drug use: No FAMILY HISTORY Problem Relation Age of Onset Cancer Sister kidney Cancer Father lung? Heart Paternal Uncle [place] Heart Paternal Uncle bypass Hypertension Sister Hypertension Brother PAST MEDICAL HISTORY Diagnosis Date Elevated cholesterol Irritable bowel [place] (myocardial infarction) (HCC) 1995-stent, 2004 second stent Peyronie disease Psoriasis Ulcerative pancolitis with rectal bleeding (HCC) 12/05/2016 Chronic diarrhea with mucous and blood, associated with abdominal pain and weight loss. Abdominal pain not related to food and no food aversion to suggest ischemia CT 11/08 : rectosigmoid colitis without abscess or perforation and fat stranding in the pelvis. Colonoscopy 11/18: significant colitis involving the distal 30cm of the colon with an entirely normal mucosa proximal to that point. Biopsy at that time negative for evidence of colitis with mild arhecticutual changes Previously given Cipro/Flagyl, mesalamine suppository, balsalazide, and budesonide without benefit. Noticed was when he was recently given IV steroid in ED. Flex sig 12/07 showing evidence of UC in the sigmoid - Started on methylprednisolone 20 TID, with quick transition to PO prednisone 40mg PAST SURGICAL HISTORY Procedure Laterality Date COLONOSCOPY FLX DX W/COLLJ SPEC WHEN PFRMD 10/21/2008 Colonoscopy PAST SURGICAL HISTORY OF 02/20/2009 2010 laser treatment for hemorrhoids PAST SURGICAL HISTORY OF heart stentx2 04/12 SIGMOIDOSCOPY FLX DX W/COLLJ SPEC BR/WA IF PFRMD 02/20/2010 Sigmoidoscopy REVIEW OF SYSTEMS: SYSTEMIC: No fever, chills, or change in weight or appetite HEENT: No recent change in vision or hearing. Respiratory: No hemoptysis, cough. CARDIOVASCULAR: See HPI. GI: No recent nausea, vomiting or diarrhea. : No recent hematuria or dysuria. SKIN: No recent itching or eruption. PSYCH: No recent active anxiety or depression. HEMATOLOGY/ONCOLOGY: No recent diagnosis of bleeding or cancer. ENDOCRINE: No recent polyuria or heat intolerance. NEURO: No recent TIA, stroke or seizures. RHEUMATOLOGY: No recent active connective tissue disease. Rest of the review of system is unremarkable. CURRENT MEDICATIONS: clindamycin (CLEOCIN-T) 1 % gel Apply thin layer to buttocks once daily. mupirocin (BACTROBAN) 2 % ointment Apply to open areas twice daily until healed Mesalamine (LIALDA) 1.2 gram EC tablet Take 2 tablets by mouth daily with breakfast. tamsulosin (FLOMAX) 0.4 mg Take one a day ustekinumab (STELARA) 45 mg/0.5 mL sub-Q syringe Inject 45mg (1 syringe) subcutaneously on week 0, and week 4, then every 12 weeks thereafter (Patient taking differently: Inject 45mg (1 syringe) subcutaneously on week 0, and week 4, then every 12 weeks thereafter) Benzoyl Peroxide 10 % external wash Use to wash buttocks once daily. Rinse well. clopidogrel (PLAVIX) 75 mg tablet folic acid 400 mcg tablet Take 400 mcg by mouth once daily. cholecalciferol (VITAMIN D3) 1,000 unit tab tablet Take 1,000 Units by mouth once daily. ramipril(ALTACE 2.5 MG CAP) Take one(1) capsule daily. MULTIVITAMIN TAB Take one(1) tablet daily. METOPROLOL 50 MG TAB 1/2 tab twice daily rosuvastatin (CRESTOR) 40 mg tablet Take 1 tablet by mouth as directed. ALLERGIES No Known Allergies PHYSICAL EXAM: BP 124/60 Pulse 71 Ht 5' 11.654 (1.82m) Wt 206 lb 12.7 oz (93.8kg) BMI 28.32 kg/(m2). Last 2 Encounter Wt Readings (more content not included)... [facility] 03-18-2024 History of Present illness Narrative Images from the original note were not included. [facility] Department of Cardiovascular Medicine SECTION OF [facility] 03/18/2024 OUTPATIENT VISIT TYPE NEW Patient Patient is being seen to establish care. The consult note will be sent to the requesting provider using [facility] medical records. HISTORY OF PRESENT ILLNESS: Mr. José is a 68 year old male with H/O CAD-s/p stent placement in 1995 in 2004 at [facility] and 2 stents were done in March 2020 at [facility], hypertension, abnormal kidney function (stage 2) and ulcerative colitis presents today for a consult regarding his heart health and establish care with a telephonic rn. Patient reports better results using rosuvastatin as compared to Lipitor. Patient came in expressing concerns of complications and anxiety from his stents done at [facility]. Patient is retired and is physically active by walking, lifting weights and rowing. Patient has no symptoms of chest pain. Patient has mild exertional shortness of breath. Dizziness - No Palpitations - No Leg swelling - No Fatigue - No Snoring - mild snoring Sleep apnea - No Social History Tobacco Use Smoking status: Never Smokeless tobacco: Never Substance Use Topics Alcohol use: Yes Comment: 1 beer per month Drug use: No FAMILY HISTORY Problem Relation Age of Onset Cancer Sister kidney Cancer Father lung? Heart Paternal Uncle [place] Heart Paternal Uncle bypass Hypertension Sister Hypertension Brother PAST MEDICAL HISTORY Diagnosis Date Elevated cholesterol Irritable bowel [place] (myocardial infarction) (HCC) 1995-stent, 2004 second stent Peyronie disease Psoriasis Ulcerative pancolitis with rectal bleeding (HCC) 12/05/2016 Chronic diarrhea with mucous and blood, associated with abdominal pain and weight loss. Abdominal pain not related to food and no food aversion to suggest ischemia CT 11/08 : rectosigmoid colitis without abscess or perforation and fat stranding in the pelvis. Colonoscopy 11/18: significant colitis involving the distal 30cm of the colon with an entirely normal mucosa proximal to that point. Biopsy at that time negative for evidence of colitis with mild arhecticutual changes Previously given Cipro/Flagyl, mesalamine suppository, balsalazide, and budesonide without benefit. Noticed was when he was recently given IV steroid in ED. Flex sig 12/07 showing evidence of UC in the sigmoid - Started on methylprednisolone 20 TID, with quick transition to PO prednisone 40mg PAST SURGICAL HISTORY Procedure Laterality Date COLONOSCOPY FLX DX W/COLLJ SPEC WHEN PFRMD 10/21/2008 Colonoscopy PAST SURGICAL HISTORY OF 02/20/2009 2010 laser treatment for hemorrhoids PAST SURGICAL HISTORY OF heart stentx2 04/12 SIGMOIDOSCOPY FLX DX W/COLLJ SPEC BR/WA IF PFRMD 02/20/2010 Sigmoidoscopy REVIEW OF SYSTEMS: SYSTEMIC: No fever, chills, or change in weight or appetite HEENT: No recent change in vision or hearing. Respiratory: No hemoptysis, cough. CARDIOVASCULAR: See HPI. GI: No recent nausea, vomiting or diarrhea. : No recent hematuria or dysuria. SKIN: No recent itching or eruption. PSYCH: No recent active anxiety or depression. HEMATOLOGY/ONCOLOGY: No recent diagnosis of bleeding or cancer. ENDOCRINE: No recent polyuria or heat intolerance. NEURO: No recent TIA, stroke or seizures. RHEUMATOLOGY: No recent active connective tissue disease. Rest of the review of system is unremarkable. CURRENT MEDICATIONS: clindamycin (CLEOCIN-T) 1 % gel Apply thin layer to buttocks once daily. mupirocin (BACTROBAN) 2 % ointment Apply to open areas twice daily until healed Mesalamine (LIALDA) 1.2 gram EC tablet Take 2 tablets by mouth daily with breakfast. tamsulosin (FLOMAX) 0.4 mg Take one a day ustekinumab (STELARA) 45 mg/0.5 mL sub-Q syringe Inject 45mg (1 syringe) subcutaneously on week 0, and week 4, then every 12 weeks thereafter (Patient taking differently: Inject 45mg (1 syringe) subcutaneously on week 0, and week 4, then every 12 weeks thereafter) Benzoyl Peroxide 10 % external wash Use to wash buttocks once daily. Rinse well. clopidogrel (PLAVIX) 75 mg tablet folic acid 400 mcg tablet Take 400 mcg by mouth once daily. cholecalciferol (VITAMIN D3) 1,000 unit tab tablet Take 1,000 Units by mouth once daily. ramipril(ALTACE 2.5 MG CAP) Take one(1) capsule daily. MULTIVITAMIN TAB Take one(1) tablet daily. METOPROLOL 50 MG TAB 1/2 tab twice daily rosuvastatin (CRESTOR) 40 mg tablet Take 1 tablet by mouth as directed. ALLERGIES No Known Allergies PHYSICAL EXAM: BP 124/60 Pulse 71 Ht 5' 11.654 (1.82m) Wt 206 lb 12.7 oz (93.8kg) BMI 28.32 kg/(m^2). Last 2 Encounter Wt Readings: Date: Wt: 03/18/2024 93.8 kg (206 lb 12.7 oz) 10/19/2023 89.4 kg (197 lb) Awake, alert, oriented times 3. Patient is not in acute respiratory distress. SKIN: No petechial rash or ecchymosis noted. Head : Normocephalic. Face is symmetrical NECK: Supple. No JVD. Mild carotid bruit. No thyromegaly. ENT: Pharyngeal structures are not crowded and uvula is visualized. Mallampati 1 LUNGS: Clear to auscultation bilaterally. CARDIAC: Normal S1 and S2, no systolic murmur. ABDOMEN: Soft, nontender, bowel sounds present. EXTREMITY: No cyanosis, clubbing, edema. PULSES: Peripheral pulses palpable. NEURO: Non-focal. Moves all extremities. Musculoskeletal: No significant deformities. Last Labs: CMP: Sodium Date Value Ref Range Status 11/16/2023 140 136 - 144 mmol/L Final Potassium Date Value Ref Range Status 11/16/2023 3.9 3.7 - 5.1 mmol/L Final Chloride Date Value Ref Range Status 11/16/2023 102 98 - 107 mmol/L Final CO2 Date Value Ref Range Status 11/16/2023 27 22 - 30 mmol/L Final Glucose Date Value Ref Range Status 11/16/2023 86 74 - 99 mg/dL Final Comment: The [place] Diabetes [employer] (ADA) provides guidance for cutoff values for fasting glucose and random glucose. The ADA defines fasting as no caloric intake for at least 8 hours. Fasting plasma glucose results between 100 to 125 mg/dL indicate increased risk for diabetes (prediabetes). Fasting plasma glucose results greater than or equal to 126 mg/dL meet the criteria for diagnosis of diabetes. In the absence of unequivocal hyperglycemia, results should be confirmed by repeat testing. In a patient with classic symptoms of hyperglycemia or hyperglycemic crisis, random plasma glucose results greater than or equal to 200 mg/dL meet the criteria for diagnosis of diabetes. Reference: Standards of Medical Care in Diabetes 2016, [place] Diabetes Association. Diabetes Care. 2016.39(Suppl 1). BUN Date Value Ref Range Status 11/16/2023 21 9 - 24 mg/dL Final Creatinine Date Value Ref Range Status 11/16/2023 1.16 0.73 - 1.22 mg/dL Final Calcium, Total Date Value Ref Range Status 11/16/2023 10.3 (H) 8.5 - 10.2 mg/dL Final Albumin Date Value Ref Range Status 11/16/2023 4.3 3.9 - 4.9 g/dL Final Protein, Total Date Value Ref Range Status 03/21/2023 7.3 6.3 - 8.0 g/dL Final AST Date Value Ref Range Status 10/17/2023 19 14 - 40 U/L Final ALT Date Value Ref Range Status 10/17/2023 20 10 - 54 U/L Final Alkaline Phosphatase Date Value Ref Range Status 03/21/2023 56 38 - 113 U/L Final Bilirubin, Total Date Value Ref Range Status 03/21/2023 0.6 0.2 - 1.3 mg/dL Final PT INR Date Value Ref Range Status 12/05/2016 1.1 0.9 - 1.3 Final Comment: Vitamin K Antagonist (VKA) Therapeutic Range: INR 2 to 3 (Target INR of 2.5) Note: For patients treated with VKA drugs, such as warfarin, the [employer] 2012 Guideline recommends a therapeutic INR range of 2 to 3 (target INR of 2.5). This recommendation includes high-risk patients with antiphospholipid syndrome with previous arterial or venous thromboembolism, current-generation mechanical or bioprosthetic aortic heart valve replacement. Note: Patients with mechanical aortic valve replacement and additional risk factors for thromboembolic events (atrial fibrillation, previous thromboembolism, LV dysfunction, hypercoagulable conditions) or an older generation mechanical AVR (i.e., ball in-Cage) or any mechanical MVR should have a INR therapeutic range of 2.5 to 3.5 (target INR of 3). Mike GH, et al. Chest 2012, 141:7S-47S Dante RA, et al. [facility] 2017, 70: 252-289 Cardiovascular Testing: I reviewed personally. I have personally reviewed the Electrocardiogram, Chest X-ray, Laboratory Testing. EKG 03/18/24 shows normal sinus rhythm. IMPRESSION / RECOMMENDATIONS / PLAN: Encounter Diagnosis ICD-10-CM 1. Coronary artery disease involving [place] coronary artery of [place] heart without angina pectoris I25.10 ECG COMPLETE 2. Essential hypertension I10 3. 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 Coronary stent patent Z95.5 5. Carotid bruit, unspecified laterality R09.89 US CAROTID ARTERIES OLEG VAS LAB Stable CAD - prescribed patient rosuvastatin 40 mg PO once daily - advised patient I would like to order a Doppler US carotid arteries due to history of stents and a prior [place]. - patient takes Plavix 75 mg daily - Patient wanted to know about future symptoms of coronary artery disease like angina and if he would be in future need nuclear SPECT scan and catheterization and stent procedures that can be done either at [facility] and [facility] respectively. HTN - Blood pressure controlled - patient checks blood pressure at home on as needed basis. Patient is counseled and educated about the symptoms and treatment plan. F/u in 1 year with me - sooner if patient becomes symptomatic Denzel Gore MD, FACC. Internet Site Designer, Dept of Medicine, [facility]. Order Entry of Ambulatory Cardiology, [facility]. Order Entry of Cardiac Catheterization laboratory, [facility]. Clinical Asst. avionic technician, [facility] and [facility] Staff Enterprise Resource Planning Consultant, Heart, Vascular [facility] Thoracic [place], [facility] Department of Cardiovascular Medicine. documented in this encounter [facility] 02-26-2024 Note HNO ID: [id number] Author: MONSTER DOBBS PT Service: ? Author Type: Physical Therapist Type: Progress Notes Filed: 02/26/2024 10:13 Note Text: 02/26/2024 [facility] PHYSICAL THERAPY DISCONTINUANCE OF CARE Plan of Care Period: Start of Care Date: 11/21/23 Last Visit Date: 12/21/2023 Therapy Program: The following is a summary of the interventions provided for this episode of care; Therapeutic exercise Assessment: The following is the goal status: Updated: 12/21/23. Goals for Episode of Care: established 11/21/23 to 02/02/24. [place] in home exercise program. (Goal Met) Patient will decrease pain rating by 2 points to meet minimal clinical important difference for numeric pain rating scale. (Progressing Towards) Perform bed mobility without pain/sxs reproduction. (Goal Met) Sleep through the night without pain/sxs for improved QOL. (Improved, Progressing Towards) Increased strength of R Hip Flex/ER/ABD to 5/5 for improved ADL/IADLs. Improve flexibility of B HS AND Quads. (Goal Met) Patient will report improved pain reduction and overall function for return to PLOF in 6 weeks or less. (Goal Met) Patient Goals: Alleviate Pain. Based on the most recent progress report, patient was progressing as expected toward functional goals based on home exercise program compliance, pain levels, documented subjective information on progress, and appointment compliance. Reason for Discontinuation of Care: Patient was to call or message therapist if he had a decline in functional status AND/or pain/sxs during self-maintenance of indep. HEP completion. As of 02/26/24, patient has not reached out therefore with discontinue therapy services. Monster Dobbs, PT [facility] 01-30-2024 History of Present illness Narrative EST PATIENT YAKELIN in Dermatology: 11/01/2023 Chief Complaint: Actinic Keratosis (Follow up PDT) History of Present Ilness: Roberto José is a 68 year old male who presents today for a focused skin examination. Actinic keratosis follow up Location: full face Symptoms/Course: patient still notes flaking Current Treatment: none Past Treatment: PDT 12/19/2023 Pertinent History: History of skin cancer: No History of atypical nevi: No History of immunosuppression/organ transplant: yes, Pinky Pertinent Family medical history: History of melanoma: No History of non melanoma skin cancer: No Other family history (autoimmune, dermatologic, etc): None Past Medical History is reviewed. Medication List is reviewed. ROS: Skin as above. Physical Exam: Rodriguez skin type: II The patient is a pleasant male in no apparent distress. Alert and oriented x 3. A skin exam performed of the face is significant for: Left Malar Cheek Erythematous papules with gritty adherent scale. Left Buccal Cheek, Right Buccal Cheek Monomorphic, folliculocentric, erythematous papules Assessment and Plan: Actinic keratosis Left Malar Cheek Discussed etiology and possibility of transformation to SCC. Discussed treatment options and the risks and benefits of each including liquid nitrogen treatment, treatment with 5-fluorouracil (efudex), and photodynamic therapy; patient elects for liquid nitrogen treatment today. CRYOTHERAPY SKIN LESION - Left Malar Cheek Complexity: simple Destruction method: cryotherapy Informed consent: discussed and consent obtained Informed consent comment: Verbal Lesion destroyed using liquid nitrogen: Yes Region frozen until ice ball extended beyond lesion: Yes Cryotherapy cycles: 2 Outcome: patient tolerated procedure well with no complications Post-procedure details: wound care instructions given Additional details: Patient elects for treatment with Cryotherapy: Risks, benefits, alternatives, complications, and personnel required for cryosurgery were reviewed with the patient. Specifically, the risks of permanent scarring, loss or darkening of skin color, blister, incomplete treatment, and recurrence of the lesion were discussed. The patient verbalizes understanding and wishes to proceed. Patient tolerated well and wound care was discussed. Return if lesions fail to fully resolve. Folliculitis Left Buccal Cheek; Right Buccal Cheek Shaving, occlusion, and chronic rubbing may incite or exacerbate folliculitis. Cleanse area with benzoyl peroxide 4% wash once daily on face, may continue benzoyl peroxide 10% wash to affected areas on buttock Continue Clindamycin 1% lotion once to twice daily, refill sent R/b/a for the medication(s) including possible side effects discussed and reviewed with patient. Related Medications Benzoyl Peroxide 10 % external wash Use to wash buttocks once daily. Rinse well. mupirocin (BACTROBAN) 2 % ointment Apply to open areas twice daily until healed Follow up: 1 year and PRN Rooming intake by Linda De MA I agree with the Chief Complaint, ROS, and Past Histories independently gathered by the clinical product support engineer and the remaining scribed note accurately describes my personal service to the patient. Reyna Charles APRN.AGRONOMY INSTRUCTOR documented in this encounter [facility] 01-30-2024 Note HNO ID: [id number] Author: REYNA CHARLES APRN.CNP Service: ? Author Type: Nurse Practitioner Type: Progress Notes Filed: 01/30/2024 12:16 Note Text: EST PATIENT YAKELIN in Dermatology: 11/01/2023 Chief Complaint: Actinic Keratosis (Follow up PDT) History of Present Ilness: Roberto José is a 68 year old male who presents today for a focused skin examination. Actinic keratosis follow up Location: full face Symptoms/Course: patient still notes flaking Current Treatment: none Past Treatment: PDT 12/19/2023 Pertinent History: History of skin cancer: No History of atypical nevi: No History of immunosuppression/organ transplant: yes, Pinky Pertinent Family medical history: History of melanoma: No History of non melanoma skin cancer: No Other family history (autoimmune, dermatologic, etc): None Past Medical History is reviewed. Medication List is reviewed. ROS: Skin as above. Physical Exam: Rodriguez skin type: II The patient is a pleasant male in no apparent distress. Alert and oriented x 3. A skin exam performed of the face is significant for: Left Malar Cheek Erythematous papules with gritty adherent scale. Left Buccal Cheek, Right Buccal Cheek Monomorphic, folliculocentric, erythematous papules Assessment and Plan: Actinic keratosis Left Malar Cheek Discussed etiology and possibility of transformation to SCC. Discussed treatment options and the risks and benefits of each including liquid nitrogen treatment, treatment with 5-fluorouracil (efudex), and photodynamic therapy; patient elects for liquid nitrogen treatment today. CRYOTHERAPY SKIN LESION - Left Malar Cheek Complexity: simple Destruction method: cryotherapy Informed consent: discussed and consent obtained Informed consent comment: Verbal Lesion destroyed using liquid nitrogen: Yes Region frozen until ice ball extended beyond lesion: Yes Cryotherapy cycles: 2 Outcome: patient tolerated procedure well with no complications Post-procedure details: wound care instructions given Additional details: Patient elects for treatment with Cryotherapy: Risks, benefits, alternatives, complications, and personnel required for cryosurgery were reviewed with the patient. Specifically, the risks of permanent scarring, loss or darkening of skin color, blister, incomplete treatment, and recurrence of the lesion were discussed. The patient verbalizes understanding and wishes to proceed. Patient tolerated well and wound care was discussed. Return if lesions fail to fully resolve. Folliculitis Left Buccal Cheek; Right Buccal Cheek Shaving, occlusion, and chronic rubbing may incite or exacerbate folliculitis. Cleanse area with benzoyl peroxide 4% wash once daily on face, may continue benzoyl peroxide 10% wash to affected areas on buttock Continue Clindamycin 1% lotion once to twice daily, refill sent R/b/a for the medication(s) including possible side effects discussed and reviewed with patient. Related Medications Benzoyl Peroxide 10 % external wash Use to wash buttocks once daily. Rinse well. mupirocin (BACTROBAN) 2 % ointment Apply to open areas twice daily until healed Follow up: 1 year and PRN Rooming intake by Linda De MA I agree with the Chief Complaint, ROS, and Past Histories independently gathered by the clinical product support engineer and the remaining scribed note accurately describes my personal service to the patient. Reyna Charles APRN.[facility] 12-21-2023 Note Addended by: MONSTER KEITH on: 12/21/2023 03:01 PM Modules accepted: Orders [facility] 12-21-2023 Miscellaneous Notes Addended by: MONSTER DOBBS on: 12/21/2023 03:01 PM Modules accepted: Orders documented in this encounter [facility] 12-21-2023 History of Present illness Narrative Program_ID:[id number] Access Code: [email or web address] URL: [email or web address] Date: 12-21-2023 Prepared By: Monster Dobbs Program Notes Exercises - Side Stepping with Resistance at Thighs - 2 x daily - 5-7 x weekly - 2-3 sets - reps - Sidelying Hip Abduction with Resistance at Ankle - 2 x daily - 5-7 x weekly - 2-3 sets - 10 reps - Supine Hip Flexion with Resistance - 2 x daily - 5-7 x weekly - 2-3 sets - 10 reps - Crossover Step Up - 2 x daily - 5-7 x weekly - 2-3 sets - 8 reps - Standing 3-Way Leg Reach with Resistance at Ankles and Counter Support - 2 x daily - 7 x weekly - 2 sets - 8-10 reps - Marching with Resistance - 2 x daily - 7 x weekly - 2 sets - 10 reps - Supine Lower Trunk Rotation - 2 x daily - 7 x weekly - 2 sets - 10 reps - Cat Cow - 2 x daily - 5-7 x weekly - 2 sets - 10-15 reps - Seated Chantelle Stretch w/ Trunk Bend - 2 x daily - 7 x weekly - 3 sets - reps - Prone Quadriceps Stretch with Strap - 2 x daily - 7 x weekly - 3 sets - reps - Hooklying Hamstring Stretch with Strap - 2 x daily - 7 x weekly - 3 sets - reps Episode Visit Count: 5 Therapist That Will Accept/Oversee The Plan Of Care: Monster Dobbs, PT. Start of Care Date: 11/21/23 Onset Date: 11/20/21 Plan of Care Certification Date: 12/26/23 Next Certification Due Date: 02/02/24 REHABILITATION AND SPORTS THERAPY PHYSICAL THERAPY PROGRESS REPORT PLAN OF CARE UPDATE: Assessment: Roberto José demonstrates moderate improvement in walking, rolling ability, right lower extremity strength, stairs, as well as less pain and improved function. The patient has progressed toward goals. Patient continues to present with impairments in ADL's, joint mobility, overall function, and tissue tenderness that interfere with sleeping . Current prognosis is Excellent due to: current objective clinical presentation, good overall health status, positive past response to therapy, within-session changes . The patient will benefit from continued skilled therapy services to meet the updated goals for this plan of care as noted below. Updated: 12/21/23. Goals for Episode of Care: established 11/21/23 to 02/02/24. [place] in home exercise program. (Goal Met) Patient will decrease pain rating by 2 points to meet minimal clinical important difference for numeric pain rating scale. (Progressing Towards) Perform bed mobility without pain/sxs reproduction. (Goal Met) Sleep through the night without pain/sxs for improved QOL. (Improved, Progressing Towards) Increased strength of R Hip Flex/ER/ABD to 5/5 for improved ADL/IADLs. Improve flexibility of B HS & Quads. (Goal Met) Patient will report improved pain reduction and overall function for return to PLOF in 6 weeks or less. (Goal Met) Patient Goals: Alleviate Pain. Time Frame for Goals and Treatment : 02/02/24 Planned Interventions, Frequency, and Duration: 1 visit (1 Visit in 6 Weeks.), 1 visit Total Number of Visits Planned: 1 Patient to be seen for Therapeutic exercise (40163), Neuromuscular re-education (13585), Manual therapy (21494), Therapeutic activities (19357), Self-custodial management (83962), Patient/Family/Caregiver Education PLAN FOR NEXT VISIT: Follow Up in 6 Weeks if Needed. SUBJECTIVE: Reports switching to Stelera and having first injection 2 days ago. Another in 4 weeks. States he is slightly better overall, not perfect. Thinks PT has been helpful. Compliance with HEP. Functional Limitations: sleeping Pain: Pain Pain Level: 1 Pain Location: Leg - Left Description: Stiffness PROMIS Scales 12/20/2023 11/18/2023 10/16/2023 Higher is Better Phys Func - Score 48 (within normal limits) 50 (within normal limits) 51 (within normal limits) Phys Func - Percentile 42 50 54 Self-Eff Symptom - Score 48 (Average) 49 (Average) Self-Eff Symptom - Percentile 42 46 T-scores: mean of general population = 50. 5 points is clinically meaningfully difference Percentiles provide an indication of how the patient's score ranks in relation to the general population. Higher percentile rankings indicate better function/quality of life. 50th percentile is the average of the general population and indicates half of respondents had a worse score. OBJECTIVE MEASURES WITH LEVEL OF FUNCTION: Mobility dysfunctions in the lumbar spine. View previous note for SFMA breakouts. Hip Observations R Hip Palpation Tenderness Comments: ASIS, Proximal Sartorius, Psoas. LE PROM R LE PROM: No pain when being placed into passive chantelle LE Strength R LE Strength: Grossly 5/5; Improvements in Hip Flex/ER/ABD. Gait Gait Observation: Non-remarkable. TREATMENT: Therapeutic Exercise: 1: Stationary Upright Bike: x6Min, discussed HEP and subjective taken. 2: *W Lateral Walks: 3 Laps of [address], BTB around ankles.. 3: FWD/BWD Monster Walks: 2 Laps of 10feet, BTB around ankles. 4: R Hip Flexor Lift Offs: 3x10, 5#, Blue Box. 5: R Hip Flexor Lift Offs: 3x10, 5#, 2 Blue Boxes 6: Standing Hip D1 Flexion: 2x10. 7: Re-assessment per above, discussion on patient's progress, discussed POC and agreed upon f/u in 6 weeks. 8: *New bands cut. Low back mobility program sent home with patient, handout given. Skilled Intervention: Patient was educated in proper exercise technique and purpose for exercises. Reviewed and educated patient on additions/changes for home exercise program as above (*). Skilled judgment was used in selection of appropriate interventions. Provided written instruction for home exercise program to facilitate proper performance and compliance. Correct performance of therapeutic exercises was facilitated with verbal cuing. Patient education as noted. Billing Therapeutic Exercise Treatment Minutes: 40 Skilled Treatment Time Minutes (timed and untimed codes): 40 Total Session Time (minutes): 40 Session Start Time : 1414 Session Stop Time : 1454 Monster Dobbs, CHEN documented in this encounter [facility] 12-19-2023 History of Present illness Narrative Pt here for teaching of Stelara injections with . I reviewed technique, storage and dosage with patient who verbalized understanding. Patient will prime each new syringe and take medication as ordered. Reviewed dosing schedule. Patient was able to give first injection in the office. Patient state she has discussed proper syringe disposal with [place]. Instructed to call or reach out via [employer] with any questions or concerns. Patient provided her own medication from home for today's visit Stelara injection 45 mg administered into RLQ Abdomen subcutaneously Expiration date verified. 07/2025 Fatemeh Miller RN documented in this encounter [facility] 12-19-2023 Instructions Rosie Frausto RN - 12/19/2023 12:58 PM EDT After Care Instructions Photodynamic Therapy with Levulan and Blue Light Expected skin changes after PDT: The treated skin will likely turn red and may appear slightly swollen 24-48 h after treatment, but you should not see any blistering. Redness usually peaks one-to-two days after treatment and gets better within a week. Actinic keratosis lesions may not be gone until about four weeks after treatment. The skin may be itchy or change color slightly after treatment, but these changes are temporary. Photosensitivity: Levulan remains in the skin for 48 hours, so further reactions (redness and a tingling or burning sensation) can be caused by light exposure if one is not careful. Therefore, for about 2 days after the treatment, you should take care to protect the treated areas from light. Stay out of strong, direct light. Stay indoors as much as possible. Wear protective clothing and wide-brimmed hats to avoid sunlight when outdoors. Avoid beaches, snow, light colored concrete, or other reflective surfaces. After Care steps for you to do at home: Again, avoid direct light for 48 hours. Gently wash area twice a day with Cetaphil, Neutrogena or other mild cleanser. Do not scrub! After cleansing, use Aquaphor or Vaseline twice a day to keep the area moist and free of crust. Apply the topical steroid ointment that your doctor has prescribed for you (or alternatively, you can use 1% hydrocortisone ointment available at any pharmacy) to the entire treated area, twice a day as needed for 2-4 days, to help decrease redness and irritation. Apply the steroid BEFORE applying Aquaphor ointment, not afterwards. Apply cool compresses as needed for comfort during the first few days. After day 3, gently exfoliate with a soft washcloth and warm water twice a day. Then apply either Aquaphor or Vaseline. To address swelling and redness, you may also take nmpi-try-oxaunwr oral medications: Claritin (loratidine) 10 mg in the morning, Benadryl (diphenhydramine) 25-50 mg nightly (may cause drowsiness) and/or Ibuprofen as directed. If you absolutely must go outdoors during the first 48 hours, cover yourself with a broad-brimmed hat and use Neutrogena sensitive skin (chemical free) sunscreen SPF 30, or other titanium-dioxide type of sunscreen, in a thick layer to protect you from sunlight If you have questions or concerns, call the following number(s): [facility] [phone] documented in this encounter [facility] 12-19-2023 History of Present illness Narrative PHOTODYNAMIC THERAPY December 19, 2023 Dx: Actinic Keratosis Pt ID verified with patient: Yes Procedure verified against order and with patient: Yes Skin prepped with 70% isopropyl alcohol Yes Area treated: Full face Number of Levulan sticks applied: 2 Lot # [id number] Exp 02/2026 Time before Blue Light exposure: 15 minutes Area treated: Full face Pt exposed to light for 30 minutes Patient reaction during treatment: None, patient tolerated procedure well. Patient reaction after treatment: None, patient tolerated procedure well. Aftercare instructions given. Patient verbalizes understanding. Follow up with Reyna Charles APRN.AGRONOMY INSTRUCTOR . Rosie Frausto RN documented in this encounter [facility] 12-14-2023 History of Present illness Narrative Program_ID:[id number] Access Code: [email or web address] URL: [email or web address] Date: 12-14-2023 Prepared By: Monster Dobbs Program Notes Exercises - Side Stepping with Resistance at Thighs - 2 x daily - 5-7 x weekly - 2-3 sets - reps - Sidelying Hip Abduction with Resistance at Ankle - 2 x daily - 5-7 x weekly - 2-3 sets - 10 reps - Supine Hip Flexion with Resistance - 2 x daily - 5-7 x weekly - 2-3 sets - 10 reps - Crossover Step Up - 2 x daily - 5-7 x weekly - 2-3 sets - 8 reps - Hooklying Hamstring Stretch with Strap - 2 x daily - 7 x weekly - 3 sets - reps - Prone Quadriceps Stretch with Strap - 2 x daily - 7 x weekly - 3 sets - reps - Standing 3-Way Leg Reach with Resistance at Ankles and Counter Support - 2 x daily - 7 x weekly - 2 sets - 8-10 reps - Marching with Resistance - 2 x daily - 7 x weekly - 2 sets - 10 reps Episode Visit Count: 4 Therapist That Will Accept/Oversee The Plan Of Care: Monster Dobbs PT. Start of Care Date: 11/21/23 Onset Date: 11/20/21 Plan of Care Certification Date: 11/21/23 Next Certification Due Date: 12/26/23 REHABILITATION AND SPORTS THERAPY PHYSICAL THERAPY TREATMENT NOTE ASSESSMENT: Roberto Estefanía tolerated the session with expected muscle soreness. He demonstrated tenderness with palpation of the R Sartorius. The patient will continue to benefit from ongoing skilled physical therapy to progress toward set goals. PLAN FOR NEXT VISIT: CT SUBJECTIVE: 2 days ago he golfed 9 holes, walking and pulling a car - very shortly after when sitting to drive patient had pain from the R ASIS and then crossing anterior thigh to medial knee. Mystery to patient regarding if his pain is muscle or psoriatic arthritis. Thinks most of his pain is with WB. States he is being taken off humira and changed to stelara. Biked 14 miles in a day this past week. Pain: Pain Pain Level: 1 Pain Location: Leg - Right Description: Stiffness OBJECTIVE MEASURES WITH LEVEL OF FUNCTION: SFMA Active Cervical Flexion: DN - Dysfunctional Non-painful Active Cervical Extension: DN - Dysfunctional Non-painful R Cervical Rotation: DN - Dysfunctional Non-painful L Cervical Rotation: DN - Dysfunctional Non-painful R Upper Extremity Pattern 1 (MRE): DN - Dysfunctional Non-painful L Upper Extremity Pattern 1 (MRE): DN - Dysfunctional Non-painful R Upper Extremity Pattern 2 (LRF): DN - Dysfunctional Non-painful L Upper Extremity Pattern 2 (LRF): DN - Dysfunctional Non-painful Multi-Segmental Flexion: DN - Dysfunctional Non-painful Multi-Segmental Extension: DN - Dysfunctional Non-painful R Multi-Segmental Rotation: DN - Dysfunctional Non-painful L Multi-Segmental Rotation: DN - Dysfunctional Non-painful R Single-Leg Stance: DN - Dysfunctional Non-painful L Single-Leg Stance: DN - Dysfunctional Non-painful Feet Together Deep Air Squat: DN - Dysfunctional Non-painful Multi-Segmental Flexion Breakout L R Finding Long sitting test DN Active SLR (70 deg) DN DN Stabilized ASLR (70 deg) DN DN Passive SLR (80 deg) DN DN Supine Knee To Chest (120 deg) DN DN Prone Rocking Test DN Spine & Hip Flexion MD Multi-Segmental Extension Breakout Spine/Upper Body L R Finding Prone Press Up Test DN Active Lumbar Locked (IR) Extension/Rotation Test (50 deg) DN DN Passive Lumbar Locked Extension/Rotation Test (50 deg) DN DN Thorax Ext/Rot MD Active Prone on Elbow Extension/Rotation Test (30 deg) DN DN Passive Prone on Elbow Extension/Rotation Test (30 deg) DN DN Lumbar Ext/Rot MD Active Prone Shoulder Girdle Flexion Test (170 deg) DN DN Passive Prone Shoulder Girdle Flexion Test (170 deg) FN FN Shoulder Flexion SMCD Lower Body CHANTELLE Test FN DN Stabilized CHANTELLE Test FN Core/Pelvic SMCD Modified Anmol Test FN FN Active Prone Hip Extension Test (10 deg) DN DN Passive Prone Hip Extension test (10 deg) DN DN Hip EXT MD Multi-Segmental Rotation Breakout Spine L R Finding Seated Torso Rotation Test (50 deg) DN DN Active Lumbar Locked (IR) Extension/Rotation Test (50 deg) DN DN Passive Lumbar Locked Extension/Rotation Test (50 deg) DN DN Active Prone on Elbow Extension/Rotation Test (30 deg) DN DN Passive Prone on Elbow Extension/Rotation Test (30 deg) DN DN Thorax + Lumbar Ext/Rot MD Lower Quarter External Rotation Active Prone Hip ER Test (40 deg) FN FN Stabilized Prone Hip ER Test (40 deg) Passive Prone Hip ER Test (40 deg) Active Seated Tibial ER Test (20 deg) FN FN Passive Tibial ER Test (20 deg) Normal Lower Quarter Internal Rotation Active Prone Hip IR Test (30 deg) DN DN Stabilized Prone Hip IR Test (30 deg) DN DN Passive Prone Hip IR Test (30 deg) DN DN Hip internal rotation MD Active Seated Tibial IR Test (20 deg) DN DN Passive Tibial IR Test (20 deg) DN DN Tibial internal rotation MD TREATMENT: Therapeutic Exercise: 1: Stationary Upright Bike: x6Min, discussed HEP and subjective taken. 2: W Lateral Walks: 3 Laps of [address], GTB around ankles.. 3: Hip Clocks: 2x8, GTB. 4: Alt. Hip Marches w/ GTB: 2x10 ea. 5: Standing Hip D1 Flexion: 2x10. 6: FA Breakouts & Discussed Implications. Skilled Intervention: Patient was educated in proper exercise technique and purpose for exercises. Skilled judgment was used in selection of appropriate interventions. Patient education as noted. Billing Therapeutic Exercise Treatment Minutes: 61 Skilled Treatment Time Minutes (timed and untimed codes): 61 Total Session Time (minutes): 61 Session Start Time : 1415 Session Stop Time : 1516 Monster Dobbs PT documented in this encounter [facility] 12-07-2023 History of Present illness Narrative Program_ID:[id number] Access Code: [email or web address] URL: [email or web address] Date: 12-07-2023 Prepared By: Monster Dobbs Program Notes Exercises - Side Stepping with Resistance at Thighs - 2 x daily - 5-7 x weekly - 2-3 sets - reps - Sidelying Hip Abduction with Resistance at Ankle - 2 x daily - 5-7 x weekly - 2-3 sets - 10 reps - Supine Hip Flexion with Resistance - 2 x daily - 5-7 x weekly - 2-3 sets - 10 reps - Crossover Step Up - 2 x daily - 5-7 x weekly - 2-3 sets - 8 reps - Hooklying Hamstring Stretch with Strap - 2 x daily - 7 x weekly - 3 sets - reps - Prone Quadriceps Stretch with Strap - 2 x daily - 7 x weekly - 3 sets - reps - Standing 3-Way Leg Reach with Resistance at Ankles and Counter Support - 2 x daily - 7 x weekly - 2 sets - 8-10 reps Episode Visit Count: 3 Therapist That Will Accept/Oversee The Plan Of Care: Monster Dobbs PT. Start of Care Date: 11/21/23 Onset Date: 11/20/21 Plan of Care Certification Date: 11/21/23 Next Certification Due Date: 12/26/23 REHABILITATION AND SPORTS THERAPY PHYSICAL THERAPY TREATMENT NOTE ASSESSMENT: Roberto José tolerated the session with expected muscle soreness and no issues. He demonstrated tolerance to added load through exercises today. The patient will continue to benefit from ongoing skilled physical therapy to progress toward set goals. PLAN FOR NEXT VISIT: Alt. Hip Marches with Band. Standing D1 Flexion. SUBJECTIVE: R Leg pain/sxs comes and goes per report. Continued progress overall. Does not notice in pain in legs when sleeping, pt reports which is good. Doing HEP 2x a day. Pain: Pain Pain Level: 1 Pain Location: Leg - Right Description: (Discomfort in Lateral R Hip.) Post Treatment Pain Post Treatment Pain Location: Hip - Right Post Treatment Pain Description: Sore OBJECTIVE MEASURES WITH LEVEL OF FUNCTION: Verbal and tactile cues given regarding proper completion of Hip ABD (0-100%) and (50-100%). Discussed top leg back and where he should feel appropriate muscle activation. TREATMENT: Therapeutic Exercise: 1: Stationary Upright Bike: x5Min, discussed HEP and subjective taken. 2: Lateral Walks: 3 Laps of [address], GTB around ankles.. 3: W Lateral Walks: 3 Laps of [address], GTB around ankles.. 4: *R Hip ABD in S/L (50-100%).: 3x10, 1#cuff. 5: R Hip ABD in S/L: 2x10, 3#cuff. 6: R Hip ABD Walkouts: 12 Laps, BTB. 7: *Hip Clocks: 2x8, GTB. 8: Supine Hip D1 Flexion: 3x12, bodyweight. Skilled Intervention: Patient was educated in proper exercise technique and purpose for exercises. Reviewed and educated patient on additions/changes for home exercise program as above (*). Skilled judgment was used in selection of appropriate interventions. Provided written instruction for home exercise program to facilitate proper performance and compliance. Correct performance of therapeutic exercises was facilitated with verbal and tactile cuing. Billing Therapeutic Exercise Treatment Minutes: 44 Skilled Treatment Time Minutes (timed and untimed codes): 44 Total Session Time (minutes): 44 Session Start Time : 1415 Session Stop Time : 1459 Monster Dobbs PT documented in this encounter [facility] 12-07-2023 Telephone encounter Note Spoke with patient. Scheduled teaching visit for December 18 after dermatology appointment. Patient states he will start Stelara when his next Humira would have been due. He took Humira today -will be due in two weeks. Advised to bring medication and needles to visit. Fatemeh Miller RN [facility] 12-07-2023 Miscellaneous Notes Spoke with patient. Scheduled teaching visit for December 18 after dermatology appointment. Patient states he will start Stelara when his next Humira would have been due. He took Humira today -will be due in two weeks. Advised to bring medication and needles to visit. Fatemeh Miller RN documented in this encounter [facility] 12-04-2023 History of Present illness Narrative Images from the original note were not included. [facility]. Name:Roberto José This is a virtual visit. It required patient-provider interaction for the medical decision making as documented below. I have communicated my name and active licensure. The patient's identity and physical location were verified at the time of this visit. Either the patient or their legal medical collections representative has been informed of the risks and benefits of -- and alternatives to -- treatment through a remote evaluation and consents to proceed with the evaluation remotely. The patient, Roberto José's, identity was verified by name and MRN. Pt is accompanied today by his . Consultation requested by Dr. Lillian Granados ,for my opinion regarding Abnormal kidney function. My final recommendations will be communicated back to the requesting physician by way of shared Medical record or letter . PCP:Shirlene Denson MD HPI: Roberto José is a very pleasant, 68-year-old male with H/O CAD-s/p stent placement, hypertension, ulcerative colitis-on Humira, Peyronie's disease,BPH and DJD-seen for evaluation of abnormal kidney function. Intermittent elevation in serum creatinine noted to be 1.35 mg/dL on 03/21/2023 at 1.35 mg/dL. Repeat creatinine level from 10/10/23(outside lab) was 1.34 with subsequent levels in the normal range. Denies CP, SOB, orthopnea, PND or palpitations. Denies progressive leg edema No fever, chills or dizziness. No nausea, emesis, abdominal pain or persistent diarrhea-on Humira for ulcerative colitis with fair control.Has not switched to Stelara yet. No dysuria, gross hematuria or new flank pain-he is on Flomax for incomplete bladder emptying. Denies generalized skin rash or arthralgias. I have reviewed current medications and allergies Current Outpatient Medications Medication Sig mupirocin (BACTROBAN) 2 % ointment Apply to open areas twice daily until healed Mesalamine (LIALDA) 1.2 gram EC tablet Take 2 tablets by mouth daily with breakfast. tamsulosin (FLOMAX) 0.4 mg Take one a day ustekinumab (STELARA) 45 mg/0.5 mL sub-Q syringe Inject 45mg (1 syringe) subcutaneously on week 0, and week 4, then every 12 weeks thereafter (Patient not taking: Reported on 10/19/2023) clindamycin (CLEOCIN-T) 1 % gel Apply thin layer to buttocks once daily. Benzoyl Peroxide 10 % external wash Use to wash buttocks once daily. Rinse well. acetylcysteine (NAC) 600 mg capsule Take 1 capsule by mouth two times a day. (Patient not taking: Reported on 11/01/2023) adalimumab (HUMIRA,CF, PEN) 40 mg/0.4 mL pen kit Inject 40mg (1 pen) subcutaneously every 2 weeks. triamcinolone acetonide (KENALOG) 0.1 % cream Apply to psoriasis twice daily for 2 weeks, then 3 times weekly as needed for maintenance. (Patient not taking: Reported on 11/01/2023) atorvastatin (LIPITOR) 40 mg tablet Take 40 mg by mouth once daily. clopidogrel (PLAVIX) 75 mg tablet folic acid 400 mcg tablet Take 400 mcg by mouth once daily. cholecalciferol (VITAMIN D3) 1,000 unit tab tablet Take 1,000 Units by mouth once daily. rosuvastatin calcium(CRESTOR 40 MG TAB) Take by mouth. ramipril(ALTACE 2.5 MG CAP) Take one(1) capsule daily. MULTIVITAMIN TAB Take one(1) tablet daily. METOPROLOL 50 MG TAB 1/2 tab twice daily No current facility-administered medications for this visit. PAST MEDICAL HISTORY Diagnosis Date Elevated cholesterol Irritable bowel [place] (myocardial infarction) (HCC) 1995-stent, 2004 second stent Peyronie disease Psoriasis Ulcerative pancolitis with rectal bleeding (HCC) 12/05/2016 Chronic diarrhea with mucous and blood, associated with abdominal pain and weight loss. Abdominal pain not related to food and no food aversion to suggest ischemia CT 11/08 : rectosigmoid colitis without abscess or perforation and fat stranding in the pelvis. Colonoscopy 11/18: significant colitis involving the distal 30cm of the colon with an entirely normal mucosa proximal to that point. Biopsy at that time negative for evidence of colitis with mild arhecticutual changes Previously given Cipro/Flagyl, mesalamine suppository, balsalazide, and budesonide without benefit. Noticed was when he was recently given IV steroid in ED. Flex sig 12/07 showing evidence of UC in the sigmoid - Started on methylprednisolone 20 TID, with quick transition to PO prednisone 40mg PAST SURGICAL HISTORY Procedure Laterality Date COLONOSCOPY FLX DX W/COLLJ SPEC WHEN PFRMD 10/21/2008 Colonoscopy PAST SURGICAL HISTORY OF 02/20/2009 2010 laser treatment for hemorrhoids PAST SURGICAL HISTORY OF heart stentx2 04/12 SIGMOIDOSCOPY FLX DX W/COLLJ SPEC BR/WA IF PFRMD 02/20/2010 Sigmoidoscopy SOCIAL HISTORY: Social History Tobacco Use Smoking status: Never Smokeless tobacco: Never Substance Use Topics Alcohol use: Yes Comment: 1 beer per month Drug use: No Employer And Job Title: None on file Years Of Education Completed: Not specified Marital Status: FAMILY HISTORY: FAMILY HISTORY Problem Relation Age of Onset Cancer Sister kidney Cancer Father lung? Heart Paternal Uncle [place] Heart Paternal Uncle bypass Hypertension Sister Hypertension Brother REVIEW OF SYSTEMS: Pertinent positives and negatives in HPI. All other systems reviewed and negative PHYSICAL EXAMINATION: There were no vitals taken for this visit. Last BP 10/19/23 : 116/80 10/17/23 : 122/85 03/20/23 : 124/82 Last Wt 10/19/23 89.4 kg (197 lb) 10/17/23 89.6 kg (197 lb 8.5 oz) 03/20/23 91.2 kg (201 lb) BRIEF (VIDEO-ENABLED ) PHYSICAL EXAMINATION: GENERAL: Pleasant, alert and in no acute distress Speech pattern: Normal HEENT: EOMI Neurology: Alert and oriented 3 Psychiatry: Appropriate mood and affect REVIEWED LABS : Latest Ref Rng & Units 08/16/2022 03/21/2023 10/17/2023 11/02/2023 11/02/2023 11/16/2023 11/16/2023 CKD LAB FLOWSHEET EGFR, All Other >=60 mL/min/1.73m 70 57 69 61 68 Creatinine 0.73 - 1.22 mg/dL 1.14 1.35 1.16 1.28 1.16 BUN 9 - 24 mg/dL 22 21 Sodium 136 - 144 mmol/L 139 140 Potassium 3.7 - 5.1 mmol/L 3.8 3.9 Chloride 98 - 107 mmol/L 103 102 CO2 22 - 30 mmol/L 25 27 Glucose 74 - 99 mg/dL 96 86 Calcium 8.5 - 10.2 mg/dL 10.6 10.3 Phosphorus 2.7 - 4.8 mg/dL 2.9 2.7 Albumin 3.9 - 4.9 g/dL 4.4 4.4 4.5 4.3 ALT 10 - 54 U/L 23 25 20 WBC 3.70 - 11.00 k/uL 5.95 5.23 5.56 HGB 13.0 - 17.0 g/dL 15.4 15.0 15.0 15.2 PLT 150 - 400 k/uL 178 173 162 PTH, Intact 15 - 65 pg/mL 52 Protein Urine Random 0 - 20 mg/dL 5 5 Creatinine Urine Random 20.0 - 300.0 mg/dL 135.7 95.7 Protein/Creatinine Ratio <0.15 mg/mg 0.04 0.05 Uric Acid 4.0 - 8.1 mg/dL 8.6 Kidney ultrasound done on 11/02/2023: RESULT: Right Kidney: -Renal length: 10.3 cm -Parenchyma: Normal echogenicity and thickness. -Collecting system: No hydronephrosis. -Calculus: None -Lesion: none Left Kidney: -Renal length: 9.6 cm -Parenchyma: Normal echogenicity and thickness. -Collecting system: No hydronephrosis. -Calculus: None -Lesion: none Bladder: Grossly unremarkable but not well distended with volume of 14 cc. ASSESSMENT: Roberto José is a pleasant, 68-year-old male with H/O CAD-s/p stent placement, hypertension, ulcerative colitis-on Humira, Peyronie's disease,BPH and DJD-seen for evaluation of abnormal kidney function. -Abnormal kidney function (primary encounter diagnosis): Elevated serum creatinine noted since February 2023 most likely secondary to prerenal factors. Last creatinine level from 11/16/2023 was in the normal range. UA without proteinuria,hematuria or pyuria. UPC ratio from was normal. Kidney ultrasound November 02, 2023 showed normal size kidneys without any hydronephrosis. -Essential hypertension: Controlled on ramipril 2.5 mg daily (started at the time of his [place]) and metoprolol 25 mg twice daily. -Ulcerative colitis with other complication, unspecified location (HCC)-currently in remission -he is on Humira. PLAN: Avoid Aleve,Advil,Naproxen,Indocin and other related medications called NSAIDS. Can take Tylenol if necessary. Avoid IV contrast Follow low salt and low-protein diet Continue current regimen. Renal function panel in 6 months F/U as needed Total of 20 minutes were spent in dedicated time for this E&M service on this date including time for: Chart preparation and review of recent visits, labs and studies;Obtaining and/or reviewing separately obtained history; Ordering medicines, tests, therapy and/or procedures; Independently interpreting results and counseling/discussion/education with the patient and patient representatives.Referring or communicating with other healthcare providers and Documenting clinical information in patient's medical record. SIGNATURE:Radha Crowder MD DATE: 12/04/2023 TIME: 11:46 AM CC: REFERRING PROVIDER: Lillian Granados MD* PRIMARY CARE PHYSICIAN: Shirlene Denson MD This note was generated with voice recognition software and may contain errors, including spelling, grammar, syntax and misrecognition of what was dictated, that are not fully corrected documented in this encounter [facility] 11-30-2023 History of Present illness Narrative Program_ID:[id number] Access Code: [email or web address] URL: [email or web address] Date: 11-30-2023 Prepared By: Monster Dobbs Program Notes Exercises - Side Stepping with Resistance at Thighs - 2 x daily - 5-7 x weekly - 2-3 sets - reps - Sidelying Hip Abduction with Resistance at Ankle - 2 x daily - 5-7 x weekly - 2-3 sets - 10 reps - Supine Hip Flexion with Resistance - 2 x daily - 5-7 x weekly - 2-3 sets - 10 reps - Crossover Step Up - 2 x daily - 5-7 x weekly - 2-3 sets - 8 reps - Hooklying Hamstring Stretch with Strap - 2 x daily - 7 x weekly - 3 sets - reps - Prone Quadriceps Stretch with Strap - 2 x daily - 7 x weekly - 3 sets - reps Episode Visit Count: 2 Therapist That Will Accept/Oversee The Plan Of Care: Monster Dobbs PT. Start of Care Date: 11/21/23 Onset Date: 11/20/21 Plan of Care Certification Date: 11/21/23 Next Certification Due Date: 12/26/23 REHABILITATION AND SPORTS THERAPY PHYSICAL THERAPY TREATMENT NOTE ASSESSMENT: Roberto José tolerated the session with expected muscle soreness. He demonstrated fatigue with supine R Hip D1 PNF Pattern.The patient will continue to benefit from ongoing skilled physical therapy to progress toward set goals and to continue with post-operative protocol. PLAN FOR NEXT VISIT: Alt. Hip Marches with Band. SUBJECTIVE: Patient reports PT is helping; notes slightly improved. Trying to do them at least 2-3 times a day. Pain: Pain Pain Level: 0 Pain Location: Leg - Right Description: Dull Post Treatment Pain Post Treatment Symptoms: R Leg Fatigue. OBJECTIVE MEASURES WITH LEVEL OF FUNCTION: Light form correction for hips rolled forward on sidelying hip abd. TREATMENT: Therapeutic Exercise: 1: Lateral Walks: 3 Laps of [address], GTB around ankles.. (Blue cut for home if desires around thighs.) 2: R SLR: 2x10, 2#. 3: R Hip ABD in S/L: 2x10. 4: *R Hip ABD in S/L (50-100%).: 2x8. 5: Seated R Hip ER: 3x10, 3#. 6: Supine Hip D1 Flexion: 3x12, bodyweight. 7: *R Crossover Step-Ups: 3x8. 8: New Handouts Printed, Bigger GTB cut. Discussed HEP overall. Skilled Intervention: Patient was educated in proper exercise technique and purpose for exercises. Reviewed and educated patient on additions/changes for home exercise program as above (*). Skilled judgment was used in selection of appropriate interventions. Provided written instruction for home exercise program to facilitate proper performance and compliance. Correct performance of therapeutic exercises was facilitated with verbal cuing. Billing Therapeutic Exercise Treatment Minutes: 39 Skilled Treatment Time Minutes (timed and untimed codes): 39 Total Session Time (minutes): 39 Session Start Time : 1414 Session Stop Time : 1453 Monster Dobbs PT documented in this encounter [facility] 11-21-2023 History of Present illness Narrative Program_ID:[id number] Access Code: [email or web address] URL: [email or web address] Date: 11-21-2023 Prepared By: Monster Dobbs Program Notes Exercises - Side Stepping with Resistance at Thighs - 2 x daily - 5-7 x weekly - 2-3 sets - reps - Supine Active Straight Leg Raise - 2 x daily - 5-7 x weekly - 3 sets - 10 reps - Sidelying Hip Abduction with Resistance at Ankle - 2 x daily - 5-7 x weekly - 2-3 sets - 10 reps - Hooklying Hamstring Stretch with Strap - 2 x daily - 7 x weekly - 3 sets - reps - Prone Quadriceps Stretch with Strap - 2 x daily - 7 x weekly - 3 sets - reps Episode Visit Count: 1 Therapist That Will Accept/Oversee The Plan Of Care: Monster Dobbs PT. Start of Care Date: 11/21/23 Onset Date: 11/20/21 Plan of Care Certification Date: 11/21/23 Next Certification Due Date: 12/26/23 Patient Identified by Name and Date of : Yes REHABILITATION AND SPORTS THERAPY PHYSICAL THERAPY EVALUATION PLAN OF CARE: Assessment: Roberto José presents with chief complaint of R Hip Pain with movement that interferes with stair negotiation, sleeping, bed mobility, walking in the community, physical activities .The patient presents with impairments in ADL's, independence in exercise, overall function, range of motion, strength, symptom management, and tissue tenderness. PROMIS (Patient-Reported Outcomes Measurement Information System) scores were reviewed and identified as within normal limits. Prognosis for therapy is Excellent due to: current objective clinical presentation, good overall health status, good support system/ coping skills . The patient will benefit from skilled therapy services to meet the goals established for this plan of care as noted below. Goals for Episode of Care: established 11/21/23 [place] in home exercise program. Patient will decrease pain rating by 2 points to meet minimal clinical important difference for numeric pain rating scale. Perform bed mobility without pain/sxs reproduction. Sleep through the night without pain/sxs for improved QOL. Increased strength of R Hip Flex/ER/ABD to 5/5 for improved ADL/IADLs. Improve flexibility of B HS & Quads. Patient will report improved pain reduction and overall function for return to PLOF in 6 weeks or less. Patient Goals: Alleviate Pain. Time Frame for Goals and Treatment : 01/02/24 Planned Interventions, Frequency, and Duration: Current Frequency: 1x/week Duration: 4 weeks Total Number of Visits Planned: 4 Planned Treatment Interventions: Therapeutic exercise (75777), Neuromuscular re-education (46142), Manual therapy (82239), Therapeutic activities (03068), Self-custodial management (24379), Patient/Family/Caregiver Education PLAN FOR NEXT VISIT: Review, correct and progress HEP to tolerance. Crossover stepups, banded hip marches. Patient demonstrates good understanding of plan of care and treatment. The above goals and plan of care were discussed and agreed upon by patient/family. SUBJECTIVE: Patient reports R Hip/Leg pain for the last 2 years; thought it was his psoriatic arthritis initially, now thinks muscle; NO JOSE; notes weakness and discomfort from the lateral thigh and runs diagonal to medial knee; reports can live with it however he would like to improve function/pain. Sleeping is bothered positioning travis, prefers side sleeping, does not use pillow inbetween knees. Describes pain in the R Hip with activities that require hip flexion, abd and ER. See functional limitations below. Notes past plantar fascitis in L Foot, thinking he might have compensated on the R Hip, L Foot is under control with injections. Patient Goals: Alleviate Pain. Functional Limitations: stair negotiation, sleeping, bed mobility, walking in the community, physical activities Prior Level of Function: Independent without limitations Relevant History Past Relevant Medical Conditions: (Heart Attack, 4 Stents.) Employment: Retired Recreation / Current Exercise: Walks 3 Miles a day, resistance exercise everyday. Hobbies / Interests: Golf Intake Information: Prescription present Previous Treatment: None Falls Interview: No positive findings with falls interview Pain: Pain Pain Level: 0 (Denies pain sitting here.) Pain Location: Leg - Right Description: Dull PROMIS Scales 11/18/2023 10/16/2023 03/19/2023 Higher is Better Phys Func - Score 50 (within normal limits) 51 (within normal limits) 49 (within normal limits) Phys Func - Percentile 50 54 46 Self-Eff Symptom - Score 49 (Average) Self-Eff Symptom - Percentile 46 T-scores: mean of general population = 50. 5 points is clinically meaningfully difference Percentiles provide an indication of how the patient's score ranks in relation to the general population. Higher percentile rankings indicate better function/quality of life. 50th percentile is the average of the general population and indicates half of respondents had a worse score. OBJECTIVE MEASURES WITH LEVEL OF FUNCTION: Posture / Alignment Leg Length Discrepency: Functional Limb Length Discrepency testing negative. Hip Observations R Hip Palpation Tenderness: Comments R Hip Palpation Tenderness Comments: ASIS, Proximal Sartorius, Psoas. Lumbar Spine AROM Lumbar Spine AROM Comments: Lumbar Spine AROM Normal without reproduction of cc pain/sxs. LE AROM R LE AROM: WNL Lumbar Spine Evaluated?: Yes LE PROM R LE PROM: Light Pain over proximal sartorius when placed into passive chantelle with overpressure in supine. Joint Mobility - Hip Hip Joint Mobility Comments: WNL Bilat. LE Strength R LE Strength: Grossly 5/5, limitations below when compared bilat, no pain. L LE Strength: Grossly 5/5 R Hip Flexion (L2): 4+/5 R Hip ABduction: 4+/5 R Hip External Rotation: 4+/5 Special Tests - Hip and Spine Hip and Spine Special Tests: SLR Test SLR Test: Right Negative, Left Negative Gait Weight Bearing Status: FWB Gait Observation: Normal. Slight elevation at L Hip and L Shoulder. Education: Education Learning Preferences: Demonstration, Explanation, Printed Materials Barriers: None Learning/educational needs: Procedure / Surgery, Home exercise program, Safety, Plan of Care, Gait Training Education Provided: Yes, see treatment interventions for education provided Education Provided To: Patient Education Mode/Type: Demonstration, Explanation/Discussion, Literature/Printed Materials Response to Education/Teach Back: States/Identifies TREATMENT: PT Treatment Interventions: Therapeutic Exercise Evaluation Therapeutic Exercise: 1: *Lateral Walks: 2Laps of [address], GTB around thighs. 2: *R Hip ABD in S/L: 1x10. Verbal/Tactile cues for form. 3: *R SLR: 1x10. 4: *HS & Quad Stretch given on HEP for secondary completion. Discussed parameters. 5: Patient educated on evaluation findings, rehabilitation process, timeframe for goals, and anatomy relevant to diagnosis. Used pictures of Sartorius muscle for better understanding, explained actions and correlated to deficits he is having functionally and had objectively on the exam. 6: Discussed bed positioning and sidelying with pillow between his knees. Skilled Intervention: Patient was educated in proper exercise technique and purpose for exercises. Reviewed and educated patient on additions/changes for home exercise program as above (*). Skilled judgment was used in selection of appropriate interventions. Provided written instruction for home exercise program to facilitate proper performance and compliance. Correct performance of therapeutic exercises was facilitated with verbal and tactile cuing. Billing * Evaluation Low Complexity: 1 Unit Therapeutic Exercise Treatment Minutes: 25 Skilled Treatment Time Minutes (timed and untimed codes): 45 Total Session Time (minutes): 49 Session Start Time : 1045 Session Stop Time : 1134 Monster Dobbs PT documented in this encounter [facility] 11-16-2023 Telephone encounter Note Received application, placed in providers in box for signiture. Fatemeh Miller RN [facility] 11-16-2023 Miscellaneous Notes Received application, placed in providers in box for signiture. Fatemeh Miller RN [facility] in regards to benefits the medical portion is covered 100% and pharmacy is 25% of the 8000 of out of pocket max if they do need JPAP they do need the updated form filled out they will fax over. This will be for the financial assistance. Spoke with Rashawn with me assistance program-[facility] Verified patient enrollment form authorization form is correct Assisted patient with finding form , he printed at home, will fax it once he fills out his portion, advised we will fax completed forms to [employer]. Fatemeh Miller RN Caller saying that the wrong form was faxed in for the patient assistance program. She provided the following address for the correct form: [employer] ([employer]document [email or web address] Please assist. documented in this encounter [facility] 11-15-2023 Telephone encounter Note Dinora calling in regards to benefits the medical portion is covered 100% and pharmacy is 25% of the 8000 of out of pocket max if they do need JP[employer] they do need the updated form filled out they will fax over. This will be for the financial assistance. [facility] 11-10-2023 Telephone encounter Note Spoke with Rashawn with me assistance [facility] Verified patient enrollment form authorization form is correct Assisted patient with finding form , he printed at home, will fax it once he fills out his portion, advised we will fax completed forms to [employer]. Fatemeh Miller RN [facility] 11-10-2023 Telephone encounter Note Caller saying that the wrong form was faxed in for the patient assistance program. She provided the following address for the correct form: [employer] ([employer]document [email or web address] Please assist. [facility] 11-09-2023 Telephone encounter Note Patient notified [facility] 11-09-2023 Miscellaneous Notes Patient notified Please inform patient that his kidney function is slightly worse than before. He needs to increase hydration and repeat blood work in 2 weeks documented in this encounter [facility] 11-08-2023 Telephone encounter Note Please inform patient that his kidney function is slightly worse than before. He needs to increase hydration and repeat blood work in 2 weeks [facility] 11-02-2023 History of Present illness Narrative Radiology Service Progress Note PATIENT NAME: Roberto José DATE OF SERVICE: November 02, 2023 TIME: 2:06 PM PATIENT IDENTITY VERIFICATION COMPLETED USING TWO (2) IDENTIFIERS: Name and Date of confirmed by patient verbally. FALL SCREENING: Has the patient had 2 falls in the last year or 1 fall with injury or currently using an Ambulatory Assistive Device (Walker, Cane, Wheelchair, Crutches, etc.)? No PATIENT GENDER DATA: Male PATIENT RELEVANT IMPLANT DATA REVIEWED: Not Applicable PATIENT PRESENTS WITH AN IMPLANTABLE OR ATTACHED RIG SITE ENGINEER: No RADIOLOGY DEPARTMENT: Ultrasound PERIPHERAL IV DATA: Not applicable SIGNED BY: Lillian Griggs RDMS [facility] November 02, 2023 2:06 PM documented in this encounter [facility] 11-01-2023 Telephone encounter Note Form has been faxed. Confirmation received. Patient has been notified. Misty Min MA [facility] 11-01-2023 Miscellaneous Notes Form has been faxed. Confirmation received. Patient has been notified. Misty Min MA From completed and placed in Dr. Pereyra in basket for signature. Misty Min MA Type of form: [facility] patient assistance program Form received via walk in When form is completed, Fax form to [facility] for authorization Form has been forwarded to Physician Mailbox: Dr. Elian Pino documented in this encounter [facility] 11-01-2023 Telephone encounter Note From completed and placed in Dr. Pereyra in basket for signature. Misty Min MA [facility] 11-01-2023 Telephone encounter Note Type of form: [facility] patient assistance program Form received via walk in When form is completed, Fax form to [facility] for authorization Form has been forwarded to Physician Mailbox: Dr. Elian Pino [facility] 11-01-2023 History of Present illness Narrative EST PATIENT YAKELIN in Dermatology: 01/31/2023 with Jane Hobson MS, PA-C Chief Complaint: Rash (Follow up) History of Present Ilness: Roberto José is a 68 year old male who presents today for a rash follow up #1 Psoriasis follow up Location: right posterior auricle - Resolved Past Treatment: Humira for psoriatic arthritis, TAC 0.1% #2 Folliculitis follow up Location: buttocks and left cheek Symptoms: scaling Current Treatment: BPO cleanser, clindamycin, Past Treatment: tretinoin 0.025%, acetylcysteine 600 mg #3 Lesions on the face. No associated symptoms noted. No treatments. Pertinent History: History of skin cancer: No History of atypical nevi: No History of immunosuppression/organ transplant: yes, Humira Pertinent Family medical history: History of melanoma: No History of non melanoma skin cancer: No Other family history (autoimmune, dermatologic, etc): None Past Medical History is reviewed. Medication List is reviewed. ROS: Skin as above. Physical Exam: Rodriguez skin type: II The patient is a pleasant male in no apparent distress. Alert and oriented x 3. A skin exam performed of the face and buttocks is significant for: Head - Anterior (Face) Erythematous papules with gritty adherent scale Buttocks Follicular papules and pustules Left Forearm - Posterior Stuck-on verrucous papule Assessment and Plan: Actinic keratosis Head - Anterior (Face) Discussed etiology and possibility of transformation to SCC. Discussed treatment options and the risks and benefits of each including liquid nitrogen treatment, treatment with 5-fluorouracil (efudex), and photodynamic therapy; patient elects for liquid nitrogen treatment today. PAINLESS PDT - Head - Anterior (Face) Folliculitis Buttocks Discussed etiology, course, prognosis, and treatment options. Shaving, occlusion, and chronic rubbing may incite or exacerbate folliculitis. Cleanse area with benzoyl peroxide wash once daily Continue Clindamycin 1% lotion once to twice daily R/b/a for the medication(s) including possible side effects discussed and reviewed with patient. mupirocin (BACTROBAN) 2 % ointment - Buttocks Apply to open areas twice daily until healed Related Medications acetylcysteine (NAC) 600 mg capsule Take 1 capsule by mouth two times a day. Benzoyl Peroxide 10 % external wash Use to wash buttocks once daily. Rinse well. Seborrheic keratosis Left Forearm - Posterior Observational course. Continue to monitor for growth and change. Psoriasis vulgaris Skin is clear on exam today. Continue Humira as prescribed by rheumatology. Follow up as needed for flares Follow up: as noted in plan or as needed Intake by Linda De MA The documentation for this note was completed by Linda De MA acting as scribe for Reyna Charles APRN.CNP. I agree with the Chief Complaint, ROS, and Past Histories independently gathered by the clinical product support engineer and the remaining scribed note accurately describes my personal service to the patient. Reyna Charles APRN.JESSE documented in this encounter [facility] 10-24-2023 Telephone encounter Note Spoke with patient. Patient will complete and sign [employer] Patient Assistance Program application. Patient will then send the application via [employer] to Dr. Pereyra to complete and fax to [facility] for authorization. Sandra Lester MA [facility] 10-24-2023 Miscellaneous Notes Spoke with patient. Patient will complete and sign [employer] Patient Assistance Program application. Patient will then send the application via [employer] to Dr. Pereyra to complete and fax to [facility] for authorization. Sandra Lester MA Spoke with patient, advised to complete his portion of the application and he will send it our office via [employer]- we will have provider complete then fax application for him. Fatemeh Miller RN Images from the original note were not included. Marguerite Pereyra MD Bradley, Callie, RPh; Sandra Lester MA; Misty Min MA; Fatemeh Miller, EDISON Absolutely, thanks. Misty Flores or Fatemeh, can you assist with this? Thanks. Previous Messages ----- Message ----- From: Maggie Boone RPh Sent: 10/24/2023 7:56 AM EDT To: Marguerite Pereyra MD Patient's copay for Stelara is unaffordable. They are interested in applying for the [employer] Patient Assistance (aka free drug) Program and the application has been sent to the patient. Your office will need to coordinate with the patient for completion/submission of this application. [facility] will not be handling the submission of this application. Thank you, Maggie documented in this encounter [facility] 10-24-2023 Telephone encounter Note Spoke with patient, advised to complete his portion of the application and he will send it our office via [employer]- we will have provider complete then fax application for him. Fatemeh Miller RN [facility] 10-24-2023 Telephone encounter Note Images from the original note were not included. Marguerite Pereyra MD Bradley, Callie, RPh; Sandra Lester MA; Misty Min MA; Fatemeh Miller RN Absolutely, thanks. Misty Flores or Fatemeh, can you assist with this? Thanks. Previous Messages ----- Message ----- From: Maggie Boone RPh Sent: 10/24/2023 7:56 AM EDT To: Marguerite Pereyra MD Patient's copay for Stelara is unaffordable. They are interested in applying for the Stel[employer] Patient Assistance (aka free drug) Program and the application has been sent to the patient. Your office will need to coordinate with the patient for completion/submission of this application. [facility] will not be handling the submission of this application. Thank you, Maggie [facility] 10-24-2023 Telephone encounter Note Requested Prescriptions Pending Prescriptions Disp Refills Mesalamine (LIALDA) 1.2 gram EC tablet 180 tablet 3 Sig: Take 2 tablets by mouth daily with breakfast. Last visit: 03/24/22 Last Labs: 10/19/23 Next Visit: nothing scheduled Lillian Lynch RN [facility] 10-24-2023 Miscellaneous Notes Requested Prescriptions Pending Prescriptions Disp Refills Mesalamine (LIALDA) 1.2 gram EC tablet 180 tablet 3 Sig: Take 2 tablets by mouth daily with breakfast. Last visit: 03/24/22 Last Labs: 10/19/23 Next Visit: nothing scheduled Lillian Lynch RN documented in this encounter [facility] 10-19-2023 Instructions Radha Crowder I, MD - 10/19/2023 4:07 PM EDT Avoid Advil ,Ibuprofen(Motrin),Aleve(Naproxen) ,Meloxicam and other pain/arthritis medications called NSAIDS. You can take Tylenol if necessary. Avoid intravenous contrast with imaging studies if possible. If this is needed, please have the ordering provider contact nephrology Follow low salt diet. Please stop by in 2 weeks and 4 weeks to have labs done. Follow up with Dr. Crowder on 12/04/23 at 5 pm as a virtual [id number] Please have you lab work done one week prior to your appointment. Please bring a complete list of your medications, the dosage and times taken- to every visit. We want to know that ALL of your concerns/needs relevant to this visit- were met today and that we have hopefully exceeded your expectations. If not-please let us know how we can improve our service to you by calling [phone] You may be receiving a survey regarding your care today. If you do, please take a few minutes to fill it out and send it back. It would be greatly appreciated. documented in this encounter [facility] 10-19-2023 History of Present illness Narrative Images from the original note were not included. [facility]. Name:Roberto José The patient, Roberto José's, identity was verified by name and MRN. Pt is accompanied in the office today by his . Consultation requested by Dr. Lillian Granados ,for my opinion regarding Abnormal kidney function. My final recommendations will be communicated back to the requesting physician by way of shared Medical record or letter . PCP:Shirlene Denson MD HPI: Roberto José is a pleasant, 67-year-old male with H/O CAD-s/p stent placement, hypertension, ulcerative colitis-on Humira, Peyronie's disease,BPH and DJD-seen for evaluation of abnormal kidney function. Serum creatinine was noted to be elevated on 03/21/2023 at 1.35 mg/dL. Repeat creatinine level from 10/10/23(outside lab) was 1.34 and last one on 10/17/2023 was in the normal range at 1.16 mg/dL. No H/O frequent bladder infections . History of kidney stone in the remote past. Denies NSAID use. Denies CP, SOB, orthopnea, PND or palpitations. Denies progressive leg edema No fever, chills or dizziness. No nausea, emesis, abdominal pain or persistent diarrhea. No dysuria, gross hematuria or new flank pain-he is on Flomax for incomplete bladder emptying. Saw urology in the past but not recently. Denies generalized skin rash or arthralgias. Detailed review of systems is as below. I have reviewed current medications and allergies Current Outpatient Medications Medication Sig clindamycin (CLEOCIN-T) 1 % gel Apply thin layer to buttocks once daily. Benzoyl Peroxide 10 % external wash Use to wash buttocks once daily. Rinse well. acetylcysteine (NAC) 600 mg capsule Take 1 capsule by mouth two times a day. Mesalamine (LIALDA) 1.2 gram EC tablet Take 2 tablets by mouth daily with breakfast. triamcinolone acetonide (KENALOG) 0.1 % cream Apply to psoriasis twice daily for 2 weeks, then 3 times weekly as needed for maintenance. atorvastatin (LIPITOR) 40 mg tablet Take 40 mg by mouth once daily. clopidogrel (PLAVIX) 75 mg tablet folic acid 400 mcg tablet Take 400 mcg by mouth once daily. cholecalciferol (VITAMIN D3) 1,000 unit tab tablet Take 1,000 Units by mouth once daily. rosuvastatin calcium(CRESTOR 40 MG TAB) Take by mouth. ramipril(ALTACE 2.5 MG CAP) Take one(1) capsule daily. MULTIVITAMIN TAB Take one(1) tablet daily. METOPROLOL 50 MG TAB 1/2 tab twice daily tamsulosin (FLOMAX) 0.4 mg Take one a day ustekinumab (STELARA) 45 mg/0.5 mL sub-Q syringe Inject 45mg (1 syringe) subcutaneously on week 0, and week 4, then every 12 weeks thereafter (Patient not taking: Reported on 10/19/2023) adalimumab (HUMIRA,CF, PEN) 40 mg/0.4 mL pen kit Inject 40mg (1 pen) subcutaneously every 2 weeks. No current facility-administered medications for this visit. PAST MEDICAL HISTORY No date: Elevated cholesterol No date: Irritable bowel No date: [place] (myocardial infarction) (HCC) Comment: 1995-stent, 2004 second stent No date: Peyronie disease No date: Psoriasis 12/05/2016: Ulcerative pancolitis with rectal bleeding (HCC) Comment: Chronic diarrhea with mucous and blood, associated with abdominal pain and weight loss. Abdominal pain not related to food and no food aversion to suggest ischemia CT 11/08 : rectosigmoid colitis without abscess or perforation and fat stranding in the pelvis. Colonoscopy 11/18: significant colitis involving the distal 30cm of the colon with an entirely normal mucosa proximal to that point. Biopsy at that time negative for evidence of colitis with mild arhecticutual changes Previously given Cipro/Flagyl, mesalamine suppository, balsalazide, and budesonide without benefit. Noticed was when he was recently given IV steroid in ED. Flex sig 12/07 showing evidence of UC in the sigmoid - Started on methylprednisolone 20 TID, with quick transition to PO prednisone 40mg PAST SURGICAL HISTORY 10/21/2008: COLONOSCOPY FLX DX W/COLLJ SPEC WHEN PFRMD Comment: Colonoscopy 02/20/2009: PAST SURGICAL HISTORY OF Comment: 2009 laser treatment for hemorrhoids No date: PAST SURGICAL HISTORY OF Comment: heart stentx2 04/1202/20/2010: SIGMOIDOSCOPY FLX DX W/COLLJ SPEC BR/WA IF PFRMD Comment: Sigmoidoscopy SOCIAL HISTORY: Social History Tobacco Use Smoking status: Never Smokeless tobacco: Never Substance Use Topics Alcohol use: Yes Comment: 1 beer per month Drug use: No Employer And Job Title: None on file Years Of Education Completed: Not specified Marital Status: FAMILY HISTORY: FAMILY HISTORY Problem Relation Age of Onset Cancer Sister kidney Cancer Father lung? Heart Paternal Uncle [place] Heart Paternal Uncle bypass Hypertension Sister Hypertension Brother REVIEW OF SYSTEMS: GENERAL: no fever, chills or weight loss HEENT: no blurred vision, JONES or oral lesions RESP: no SOB, cough, or pleuritic chest pain CARDIAC: no chest pain, palpitations or leg edema GASTROINTESTINAL:No nausea,emesis or abdominal pain;No diarrhea GENITO-URINARY: no dysuria or gross hematuria PERIPHERAL VASCULAR: no complaints stated RHEUMATOLOGICAL: DJD SKIN: no generalized skin rash or ulcers INFECTIOUS DISEASES: no complaints stated NEUROLOGICAL: no focal weakness or seizures PSYCHIATRIC: Denies depressive illness,anxiety disorder. PHYSICAL EXAMINATION: BP 116/80 Pulse 78 Temp 36.5 C (97.7 F) (Oral) Wt 89.4 kg (197 lb) BMI 26.72 kg/m Last BP 10/19/23 : 116/80 10/17/23 : 122/85 03/20/23 : 124/82 Last Wt 10/19/23 89.4 kg (197 lb) 10/17/23 89.6 kg (197 lb 8.5 oz) 03/20/23 91.2 kg (201 lb) GENERAL: alert, well appearing, and in no acute distress. HEENT: EOMI-nonicteric sclera. NECK: supple- no carotid bruit; No JVD, LN or thyromegaly LUNGS: clear to auscultation, normal respiratory effort. HEART: RRR; Normal S1, S2, no S3,S4-No murmurs or rub. ABDOMEN: Abdomen soft, nontender, organomegaly could not be excluded ; bowel sounds present. EXTREMITIES: no edema, no cyanosis MUSCULOSKELETAL: No spinal or CVA tenderness. NEURO: Alert and oriented 3; no focal deficit on limited exam SKIN: no generalized skin rash or ulcers PSYCHIATRY:Appropriate mood and affect REVIEWED LABS : Latest Ref Rng & Units 04/13/2018 10/19/2018 10/19/2018 01/09/2020 08/16/2022 03/21/2023 10/17/2023 CKD LAB FLOWSHEET EGFR, >60 >60 >60 EGFR, All Other >=60 mL/min/1.73m >60 57 57 70 57 69 Creatinine 0.73 - 1.22 mg/dL 1.18 1.28 1.27 1.14 1.35 1.16 BUN 9 - 24 mg/dL 15 26 18 Sodium 136 - 144 mmol/L 143 141 140 Potassium 3.7 - 5.1 mmol/L 4.4 3.9 4.4 Chloride 97 - 105 mmol/L 102 105 104 CO2 22 - 30 mmol/L 28 26 30 Glucose 74 - 99 mg/dL 106 83 105 Calcium 8.5 - 10.2 mg/dL 10.8 10.2 10.1 Albumin 3.9 - 4.9 g/dL 4.8 4.3 4.4 4.4 4.4 ALT 10 - 54 U/L 25 24 21 23 25 20 WBC 3.70 - 11.00 k/uL 5.19 6.22 5.85 5.95 5.23 5.56 HGB 13.0 - 17.0 g/dL 16.0 14.8 15.3 15.4 15.0 15.0 PLT 150 - 400 k/uL 176 174 174 178 173 162 ] CBC, Coags, BMP, Mg, Phos Recent Labs 10/17/23 1114 WBC 5.56 HB 15.0 HCT 45.7 PLT 162 CREAT 1.16 Office urinalysis: No results found for: UGLUCPOC, UBILIPOC, UKETONPOC, USGPOC, UHBPOC, UPHPOC, UPROPOC, UUROPOC, UNITPOC, UWBCPOC, UCOLPOC, UCLARPOC ASSESSMENT: Roberto José is a pleasant, 67-year-old male with H/O CAD-s/p stent placement, hypertension, ulcerative colitis-on Humira, Peyronie's disease,BPH and DJD-seen for evaluation of abnormal kidney function. -Abnormal kidney function (primary encounter diagnosis): Elevated serum creatinine noted since February 2023 most likely secondary to prerenal factors. Last creatinine level from 10/17/2023 was in the normal range. UPC ratio from outside labs on 10/10/2023-did not show any proteinuria to suggest GN. Will check trend of creatinine, kidney ultrasound and UA with microscopy to complete workup. Discussed need to manage risk factors and avoid NSAIDs, IV contrast and other nephrotoxins -Essential hypertension: Controlled on ramipril 2.5 mg daily (started at the time of his [place]) and metoprolol 25 mg twice daily. -Ulcerative colitis with other complication, unspecified location (HCC)-currently in remission he is on Humira. PLAN: Avoid Aleve,Advil,Naproxen,Indocin and other related medications called NSAIDS. Can take Tylenol if necessary. Avoid IV contrast Follow low salt and low-protein diet Office Visit on 10/19/23 US KIDNEY/BLADDER Due in 2 weeks: URIC ACID RENAL FUNCTION PANEL PTH INTACT PROTEIN / CREATININE RATIO URINALYSIS, WITH MICROSCOPIC HEMOGLOBIN HEMATOCRIT CONSULT TO KIDNEY MEDICINE tamsulosin (FLOMAX) 0.4 mg Renal function panel in 4 weeks F/U in 2 months as a virtual visit Thank you for the consult. SIGNATURE:Radha Crowder MD DATE: 10/19/2023 TIME: 6:07 PM CC: REFERRING PROVIDER: Lillian Granados MD* PRIMARY CARE PHYSICIAN: Shirlene Denson MD This note was generated with voice recognition software and may contain errors, including spelling, grammar, syntax and misrecognition of what was dictated, that are not fully corrected documented in this encounter [facility] 10-17-2023 History of Present illness Narrative [facility] received prescription(s) for Stelara from Dr. Pereyra's office. Benefits investigation was conducted, indicating that a prior authorization is required by patient's insurance plan with [employer]. Encounter will be updated once prior authorization has been submitted by [facility]. Rosie Dennison [facility] [phone] documented in this encounter [facility] 10-17-2023 History of Present illness Narrative On 10/17/2023, I had the pleasure of seeing Roberto José at the [facility] for follow-up of inflammatory arthritis HPI: To review, Roberto José is a 67 year old male w/hx of UC and psoriasis - In 20s, with back pain (had an injury one summer). Better with activity. Worst time of day is morning. - Around , diagnosed with UC (testing not definitive, treatment has helped) - Sometime around Jul, with onset of ear psoriasis - Since Jan, with bilateral hip discomfort, laterally. Radiates down. - In April, reported UC was doing well on mesalamine. Never on a biologic. Diagnosed prednisone trial with 95% improvement in back pain/tightness and resolved hip pain. Advised to start humira - In May, started humira (first injection on 06/09) - In Jul, reported 75-80% improvement in pain with humira. Slept better at night. Could golf multiple days in a row. Psoriasis of L ear improved with humira - In Feb, reported stable joints with humira but stiffness was worse in the winter - Today, reports severe L plantar fasciitis despite 2 injections of steroids (in the past, it had cleared up with CSI). Some R hip/R knee pain worse with activity and worst in morning, radiates from hip down to lateral thigh along ITB. The stiffness has improved with the summer compared to the winter. - Went to [place] in summer PAST MEDICAL HISTORY No date: Elevated cholesterol No date: Irritable bowel No date: [place] (myocardial infarction) ([facility]) Comment: 1995-stent, 2004 second stent No date: Peyronie disease No date: Psoriasis 12/05/2016: Ulcerative pancolitis with rectal bleeding ([facility]) Comment: Chronic diarrhea with mucous and blood, associated with abdominal pain and weight loss. Abdominal pain not related to food and no food aversion to suggest ischemia CT 11/08 : rectosigmoid colitis without abscess or perforation and fat stranding in the pelvis. Colonoscopy 11/18: significant colitis involving the distal 30cm of the colon with an entirely normal mucosa proximal to that point. Biopsy at that time negative for evidence of colitis with mild arhecticutual changes Previously given Cipro/Flagyl, mesalamine suppository, balsalazide, and budesonide without benefit. Noticed was when he was recently given IV steroid in ED. Flex sig 12/07 showing evidence of UC in the sigmoid - Started on methylprednisolone 20 TID, with quick transition to PO prednisone 40mg PAST SURGICAL HISTORY 10/21/2008: COLONOSCOPY FLX DX W/COLLJ SPEC WHEN PFRMD Comment: Colonoscopy 02/20/2009: PAST SURGICAL HISTORY OF Comment: 2009 laser treatment for hemorrhoids No date: PAST SURGICAL HISTORY OF Comment: heart stentx2 04/1202/20/2010: SIGMOIDOSCOPY FLX DX W/COLLJ SPEC BR/WA IF PFRMD Comment: Sigmoidoscopy ALLERGIES No Known Allergies MEDICATIONS: Current Outpatient Medications Medication Sig clindamycin (CLEOCIN-T) 1 % gel Apply thin layer to buttocks once daily. Benzoyl Peroxide 10 % external wash Use to wash buttocks once daily. Rinse well. tretinoin (RETIN-A) 0.025 % topical cream Apply pea-sized amount to entire face once nightly. Begin 2 times weekly and and gradually increase frequency to nightly as tolerated. acetylcysteine (NAC) 600 mg capsule Take 1 capsule by mouth two times a day. Mesalamine (LIALDA) 1.2 gram EC tablet Take 2 tablets by mouth daily with breakfast. adalimumab (HUMIRA,CF, PEN) 40 mg/0.4 mL pen kit Inject 40mg (1 pen) subcutaneously every 2 weeks. triamcinolone acetonide (KENALOG) 0.1 % cream Apply to psoriasis twice daily for 2 weeks, then 3 times weekly as needed for maintenance. atorvastatin (LIPITOR) 40 mg tablet Take 40 mg by mouth once daily. clopidogrel (PLAVIX) 75 mg tablet folic acid 400 mcg tablet Take 400 mcg by mouth once daily. cholecalciferol (VITAMIN D3) 1,000 unit tab tablet Take 1,000 Units by mouth once daily. aspirin, enteric coated (ASPIRIN, ENTERIC COATED) 81 mg EC tablet Take 81 mg by mouth once daily. tamsulosin (FLOMAX) 0.4 mg Take 0.4 mg by mouth twice daily. rosuvastatin calcium(CRESTOR 40 MG TAB) Take by mouth. ramipril(ALTACE 2.5 MG CAP) Take one(1) capsule daily. MULTIVITAMIN TAB Take one(1) tablet daily. METOPROLOL 50 MG TAB 1/2 tab twice daily No current facility-administered medications for this visit. FAMILY HISTORY Problem Relation Age of Onset Cancer Sister kidney Cancer Father lung? Heart Paternal Uncle [place] Heart Paternal Uncle bypass Hypertension Sister Hypertension Brother SOCIAL HISTORY: Lives in [place] with spouse. 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 Niece is in [place]. Son is in the area, hasn't seen him in 3 yrs Tobacco use: None Alcohol use: None Drug use: None REVIEW OF SYSTEMS: reviewed 12/03 systems, as above PHYSICAL EXAM: VITALS: Blood pressure 122/85, pulse 62, temperature 36.1 C (97 F), temperature source Temporal, height 182.9 cm (6'), weight 89.6 kg (197 lb 8.5 oz). CONSTITUTIONAL: Well-appearing, in NAD. SKIN: No psoriasis. No sclerodactyly, calcinosis, telangiectasias, digital ulcers, or skin thickening. EYES: No scleral icterus or conjunctivitis ENT and Mouth: External ears normal. Nares normal. RESPIRATORY: Normal breath sounds, clear to auscultation. CARDIOVASCULAR: Regular rate and rhythm, no murmurs or rubs EXTREMITIES/LYMPH: No edema bilaterally NEURO: Awake, alert and oriented, Normal gait MUSCULOSKELETAL: JOINT APPEARANCE: No erythema or warmth of any upper or lower extremity joint. RANGE OF MOTION: Able to fully close fists and curl fingers bilaterally. SWOLLEN JOINTS/SYNOVITIS: No synovitis of any joint. TENDER JOINTS: None *April Widespread Pain Index: 3 (0-19) Symptoms Severity Scale: 1 (0-12) WPI>7 and SS Scale>5 OR WPI 3-6 and SS Scale >9 consistent with fibromyalgia LABORATORY: Latest Ref Rng 03/21/2023 WBC 3.70 - 11.00 k/uL 5.23 RBC 4.20 - 6.00 m/uL 4.92 Hemoglobin 13.0 - 17.0 g/dL 15.0 Platelet Count 150 - 400 k/uL 173 MPV 9.0 - 12.7 fL 11.3 Absolute nRBC <0.01 k/uL <0.01 Albumin 3.9 - 4.9 g/dL 4.4 Bilirubin, Total 0.2 - 1.3 mg/dL 0.6 Bilirubin, Conjug <0.2 mg/dL <0.2 Alkaline Phosphatase 38 - 113 U/L 56 AST 14 - 40 U/L 25 ALT 10 - 54 U/L 25 Protein, Total 6.3 - 8.0 g/dL 7.3 Creatinine 0.73 - 1.22 mg/dL 1.35 (H) eGFR >=60 mL/min/1.73m 57 (L) Component Latest Ref Rng & Units 04/27/2022 Rheumatoid Factor <16 IU/mL <10 WSR 0 - 15 mm/hr 2 CRP <0.9 mg/dL <0.3 *April neg hep b/c, quant gold Component Latest Ref Rng & Units 08/24/2017 04/13/2018 01/09/2020 IgA 78 - 391 mg/dL 379 Transglutaminase Ab, IgA <20 Units 5 Interpretation (Celiac Screen) No serologic evidence of celiac disease. No serologic evidence of celiac disease. CRP <0.9 mg/dL 0.1 0.1 STUDIES: *April xray SI joints- No radiographic evidence of sacroiliitis or acute osseous abnormality. Partially imaged lower lumbar spine degenerative changes. *April xray hands- Minimal degenerative changes *Sep AXR- constipation IMPRESSION and PLAN: 1. Seronegative spondyloarthropathy: Prednisone responsive pain in the low back and lateral hips; back pain with inflammatory features per history (improved with activity, worst in morning, significant morning stiffness) in the setting of UC and psoriasis. Humira with significant improvement in joint symptoms. Currently with severe L plantar fasciitis. R hip/thigh pain more c/w ITB issue as below - Continue humira 40mg SC every 2 weeks for now. Consider switching to stelara 45mg SC at weeks 0, 4 and then every 12 weeks thereafter given L plantar fasciitis. Advised about increased infection risk/injection site rxn potential. He'd like to continue humira for now while seeing if PT will help the L foot. And if stelara cost is high, will remain on humira - Check labs. Notify of results via [employer] 2. UC: - Continue GI management 3. Psoriasis: - Continue dermatology management 4. R ITB tightness: - Given referral to PT 5. General health maintenance: - Continue follow-up with PCP for routine health maintenance and malignancy screening Follow-up in 6 months. Patient was instructed to call if any questions or concerns. Thank you for allowing me to participate in the care of your patient. Marguerite Pereyra MD documented in this encounter [facility] 09-20-2023 History of Present illness Narrative Radiology Service Progress Note PATIENT NAME: Roberto José DATE OF SERVICE: September 20, 2023 TIME: 7:39 AM PATIENT IDENTITY VERIFICATION COMPLETED USING TWO (2) IDENTIFIERS: Name and Date of confirmed by patient verbally. FALL SCREENING: Has the patient had 2 falls in the last year or 1 fall with injury or currently using an Ambulatory Assistive Device (Walker, Cane, Wheelchair, Crutches, etc.)? No PATIENT GENDER DATA: Male PATIENT RELEVANT IMPLANT DATA REVIEWED: Yes PATIENT PRESENTS WITH AN IMPLANTABLE OR ATTACHED RIG SITE ENGINEER: No RADIOLOGY DEPARTMENT: MR; Exam(s) Completed: Lower MSK: Ankle/Hind Foot, left PERIPHERAL IV DATA: Not applicable SIGNED BY: RT Floresita(R) September 20, 2023 7:39 AM documented in this encounter [facility] 09-13-2023 Telephone encounter Note Spoke with patient. Rescheduled accordingly. [facility] 09-13-2023 Miscellaneous Notes Spoke with patient. Rescheduled accordingly. Patient is hoping he can minimize the number of trips from [place] in September. Would it be possible for Reyna Charles to see him on 10/17/23 instead of on 09/26/23, at a time that would coordinate with his 11a appointment with Dr Pereyra? Please call patient to advise. documented in this encounter [facility] 09-13-2023 Telephone encounter Note Patient is hoping he can minimize the number of trips from [place] in September. Would it be possible for Reyna Charles to see him on 10/17/23 instead of on 09/26/23, at a time that would coordinate with his 11a appointment with Dr Pereyra? Please call patient to advise. [facility] 12-26-2022 Nurse Note AMBULATORY PATIENT EDUCATION NOTE TOPIC: GI PROCEDURES: Colonoscopy with or without biopsies based on clinical findings READINESS TO LEARN INSTRUCTION PROVIDED TO: Patient and family member COGNITIVE ABILITY: Alert and oriented PTED MOTIVATION TO LEARN: Interested FAMILY SUPPORT: High - Very involved in pt care IPATIENT LEARNS BEST BY: Individual Instruction Written Instruction - Hand-outs Verbal Instruction FACTORS AFFECTING LEARNING: None PHYSICAL LIMITATIONS AFFECTING LEARNING: None LEARNING RESPONSE METHOD OF INSTRUCTION: Individual instruction PATIENT / FAMILY RESPONSE: Verbalizes understanding of: WORSENING CONDITION-Signs and symptoms of a worsening condition that warrant a call to the physician FOLLOW-UP PLAN: Recommend - Recommend continued instruction and follow up as directed SUPPLEMENTAL MATERIAL: Procedure Discharge Instructions REFERRAL (RECOMMENDATION): None Electronically Signed By: Charlette Garner RN PRE OP LEARNING ASSESSMENT PROCEDURE/SURGERY: GI PROCEDURES: Colonoscopy READINESS TO LEARN COGNITIVE ABILITY: Alert and oriented MOTIVATION TO LEARN: Eager FAMILY SUPPORT: None - Unavailable/disinterested PATIENT LEARNS BEST BY: Individual Instruction Written Instruction - Hand-outs Verbal Instruction FACTORS AFFECTING LEARNING: None PHYSICAL LIMITATIONS AFFECTING LEARNING: None Electronically Signed By: Rupert Hill RN In Department: GASTROENTEROLOGY documented in this encounter [facility] 12-26-2022 History and physical note PROCEDURAL SEDATION HISTORY AND PHYSICAL EXAM SERVICE DATE: 12/26/2022 SERVICE TIME: 9:19 AM Subjective HPI: This is a 67 year old male who presents with colonoscpy PAST ANESTHESIA HISTORY: No history of adverse event PAST MEDICAL HISTORY Diagnosis Date Elevated cholesterol Irritable bowel [place] (myocardial infarction) (HCC) 1995-stent, 2005 second stent Peyronie disease Psoriasis Ulcerative pancolitis with rectal bleeding (HCC) 12/05/2016 Chronic diarrhea with mucous and blood, associated with abdominal pain and weight loss. Abdominal pain not related to food and no food aversion to suggest ischemia CT 11/08 : rectosigmoid colitis without abscess or perforation and fat stranding in the pelvis. Colonoscopy 11/18: significant colitis involving the distal 30cm of the colon with an entirely normal mucosa proximal to that point. Biopsy at that time negative for evidence of colitis with mild arhecticutual changes Previously given Cipro/Flagyl, mesalamine suppository, balsalazide, and budesonide without benefit. Noticed was when he was recently given IV steroid in ED. Flex sig 12/07 showing evidence of UC in the sigmoid - Started on methylprednisolone 20 TID, with quick transition to PO prednisone 40mg PAST SURGICAL HISTORY Procedure Laterality Date COLONOSCOPY FLX DX W/COLLJ SPEC WHEN PFRMD 10/21/2008 Colonoscopy PAST SURGICAL HISTORY OF 02/20/20092009 laser treatment for hemorrhoids PAST SURGICAL HISTORY OF heart stentx2 04/12 SIGMOIDOSCOPY FLX DX W/COLLJ SPEC BR/WA IF PFRMD 02/20/2010 Sigmoidoscopy Prior to Admission medications as of 12/26/22 0903 Medication Sig Last Dose Taking Mesalamine (LIALDA) 1.2 gram EC tablet Take 2 tablets by mouth daily with breakfast. adalimumab (HUMIRA,CF, PEN) 40 mg/0.4 mL pen kit Inject 40mg (1 pen) subcutaneously every 2 weeks. triamcinolone acetonide (KENALOG) 0.1 % cream Apply to psoriasis twice daily for 2 weeks, then 3 times weekly as needed for maintenance. Benzoyl Peroxide 10 % external wash Use to wash buttocks once daily. Rinse well. clindamycin (CLEOCIN-T) 1 % gel Apply thin layer to buttocks once daily. atorvastatin (LIPITOR) 40 mg tablet Take 40 mg by mouth once daily. clopidogrel (PLAVIX) 75 mg tablet folic acid 400 mcg tablet Take 400 mcg by mouth once daily. cholecalciferol (VITAMIN D3) 1,000 unit tab tablet Take 1,000 Units by mouth once daily. aspirin, enteric coated (ASPIRIN, ENTERIC COATED) 81 mg EC tablet Take 81 mg by mouth once daily. tamsulosin (FLOMAX) 0.4 mg Take 0.4 mg by mouth twice daily. rosuvastatin calcium(CRESTOR 40 MG TAB) Take by mouth. ramipril(ALTACE 2.5 MG CAP) Take one(1) capsule daily. MULTIVITAMIN TAB Take one(1) tablet daily. METOPROLOL 50 MG TAB 1/2 tab twice daily ALLERGIES No Known Allergies Objective PHYSICAL EXAM: The remainder of the physical exam is noncontributory. AIRWAY: Airway Visualization of Uvula: Yes Mouth opening greater than 2 fingerbreadths: Yes Neck Full Range of Motion: Yes LUNGS: ctab CARDIAC: , rrr Assessment/Plan ASA Class: ASA Class:: Patient with severe systemic disease Active Problems: * No active hospital problems. * Resolved Problems: * No resolved hospital problems. * Medication and Non-Pharmacologic VTE Prophylaxis/Anticoagulants VTE Prophylaxis: none Provisional Diagnosis/Treatment Plan: colonoscpy SIGNATURE: Lillian Granados MD, PhD PATIENT NAME: Roberto José DATE: December 26, 2022 TIME: 9:19 AM documented in this encounter [facility] 12-19-2022 Miscellaneous Notes GI Pre-Procedure Spoke with patient: Yes Confirmed date scheduled and patient report time: Yes Procedure Planned:Colonoscopy with or without biopsies based on clinical findings Is the patient on blood thinners?no Procedure Instructions given to patient: Yes, and they verbalized their understanding of instructions given Patient instructed to take prescribed preparation prior to procedure:Yes, and they verbalized their understanding of instructions given Patient instructed to have family/friend present for procedure transport home:Patient/patient medical collections representative was told that if they do not have a responsible adult accompany them to their procedure; and remain in the endoscopy area until they are discharged; that their procedure cannot be done with sedation or anesthesia and may be cancelled. and They verbalized their understanding and agree to have a responsible adult accompany the patient to their procedure and remain in the endoscopy area. Any barriers to Patient learning: Patient/Patient Consulting Project Director responded appropriately on phone. Type of instruction given: Verbal by telephone contact. Ann Almendarez RN documented in this encounter [facility] 10-13-[address] - 10/13/2022 11:14 AM EDT Nutrition plan: Start low FODMAP reintroduction phase Look for the symptoms that improved: urgency, gas, heartburn Please update me week by week if you would like Continue the metamucil Please see below for full instructions Follow up with Kurt Mcnally RD, after all reintroductions are complete FODMAP Reintroduction: - Look for symptoms of looser stools, urgency, more frequent stools, gas, bloating, nausea, abdominal pain - If experiencing severe symptoms, do not need to continue to increase that food -- take 2 days off or longer if needed to reach baseline and then move to the next category. We can always try it again at the end. - Do not have to go in order of weeks, but do not try any new foods when you are in a reintroduction week - Do not have to keep a food journal, but if you have a bad episode, write down everything you ate 36 hours before Week 1: Fructan Grains (wheat, amounts measured are uncooked) Day 1: 1/4 cup white pasta Day 3: 1/2 cup white pasta Day 5: 1 cup white pasta Week 2: Try Dairy Free Diet - Avoid all milk, ice cream, cheese, yogurt. Choose plant based alternatives. Week 3: Fructan veggies Day 1: 1/4 clove garlic OR 1 Tbsp cooked onion Day 3: 1/2 clove garlic OR 2 Tbsp cooked onion Day 5: 1 clove garlic OR 1/4 cup cooked onion Week 4: Mannitol Day 1: 1/4 cup cooked cauliflower Day 3: 1/2 cup cooked cauliflower Day 5: 1 cup cooked cauliflower Week 5: Fructose Day 1: 1 tsp of honey OR 1/4 ripe wyatt Day 3: 1 Tbsp of honey OR 1/2 ripe wyatt Day 5: 2 Tbsp of honey OR 1 ripe wyatt Week 6: Sorbitol Day 1: 1/4 avocado OR 3 prunes Day 3: 1/2 avocado OR 5 prunes Day 5: 1 avocado OR 10 prunes Week 7: Galactans Day 1: 2 Tbsp black mcleod OR kidney beans Day 3: 1/4 cup black mcleod OR kidney beans Day 5: 1/2 cup black beans OR kidney beans documented in this encounter [facility] 10-13-2022 History of Present illness Narrative GI Nutrition Re Assessment TeleHealth Consult I have communicated my name and active licensure. The patient's identity and physical location were verified at the time of this visit. Either the patient or their legal medical collections representative has been informed of the risks and benefits of -- and alternatives to -- treatment through a remote evaluation and consents to proceed with the evaluation remotely. Some elements copied from my note on September 05, 2022 have been updated and all reflect current decision making from today, October 13, 2022 Nutrition Diagnosis: Altered Gastrointestinal Tract Function, related to, UC vs DGBI, as evidenced by 5-6 loose bowel movements daily . RECOMMENDED MALNUTRITION DIAGNOSIS: NO MALNUTRITION IDENTIFIED NUTRITION CARE PLAN Nutrition Intervention October 13, 2022: Diet: - Low FODMAP reintroduction - Trial of 1 week dairy free - correction will transition to low roughage mediterranean diet Vitamins/Minerals: - Continue MVI, folic acid, vitamin D Oral supplements: - Continue metamucil daily Nutrition Monitoring & Evaluation: Improvement in GI symptoms Criteria: per patient reports Need for Follow up: After reintroduction phase (8 weeks) PROGRESS: This is a 66 year old male with an underlying diagnosis of Ulcerative Colitis since 2017 who is followed by Dr. Granados. PMH also notable for psoriasis and seronegative spondyloarthropathy. Labs 03/29/2022 notable for GFR of 57, triglycerides of 230 (high), macrocytosis (MCV of 94.8), and VLDL of 46 (high). Currently on Humira and Mesalamine. Today, patient reports the following: - On FODMAP diet for 4 weeks. Notes it has been hard to stay on it, but 95% compliant. Frequency has not changed, though it was slightly reduced. Went from 5.4 -> 5 bowel movements daily. - Notes raw onions, raw garlic, and fructose are likely to be an issue. - Pro's on the diet, lost 7-8 lbs. Less gas. No heartburn at night. Less urgency. More solid stools. - No change in psoriasis Current Clinical Symptoms # of bowel movements daily: 5 per day # of liquid stools daily: 0 Consistency: loose, soft, mushy Bloody bowel movements: no Urgency: yes Abdominal pain: no Abdominal distention: no Nausea/vomiting: no Heartburn/reflux: no, improved Nutrition Intervention September 05, 2022: Diet: - Start low-FODMAP diet x4 weeks on 09/14/2022 (Mostly met) - If low FODMAP diet does not work, will transition to low roughage mediterranean diet (N/A) Vitamins/Minerals: - Continue MVI, folic acid, and vitamin D (Met) Oral supplements: - Continue metamucil daily (Met) Intake: Appetite is normal. Diet History: Breakfast - Cheerios with lactose free milk, BLT and hair on corn tortilla. 4 Grapes. Slice of boars head ham. Lunch - Chicken imelda and green mcleod salad (green beans, chopped meat, celery, ACV, tomato). Hamburger with wedding soup (no garlic/onion, rice instead of pasta) Snack - Blackberries, potato chips, peppermint imelda, cantaloupe Dinner - Armenian hamburg (hamburger meat with egg, parsley, panko bread crumbs, salt, pepper). Salad with cucumbers, tomato, red pepper, freedman and fried peppers. Chipotle (pork, rice, lettuce, cheese). Steak with air fried romansh fries. Snack - gluten free chocolate cake Eating Out: Chipotle, asain food (chicken and broccoli with white rice) Beverages - Water, iced tea (50/50). Pineapple juice. Vitamins/Supplements - - Metamucil (powder, 2 tsp, after dinner) - Folic acid (400 mcg) - MVI - Vitamin D 1000 international unit(s)/day Allergies/Intolerance: - Spicy stuff (more GI symptoms) - Lactose (diarrhea and urgency) - Beans (gas) Patient has no known allergies. Medications: Current Outpatient Medications Medication Sig Dispense Refill Mesalamine (LIALDA) 1.2 gram EC tablet Take 2 tablets by mouth daily with breakfast. 180 tablet 3 adalimumab (HUMIRA,CF, PEN) 40 mg/0.4 mL pen kit Inject 40mg (1 pen) subcutaneously every 2 weeks. 12 Each 3 triamcinolone acetonide (KENALOG) 0.1 % cream Apply to psoriasis twice daily for 2 weeks, then 3 times weekly as needed for maintenance. 45 g 1 Benzoyl Peroxide 10 % external wash Use to wash buttocks once daily. Rinse well. 227 mL 3 clindamycin (CLEOCIN-T) 1 % gel Apply thin layer to buttocks once daily. 30 g 3 atorvastatin (LIPITOR) 40 mg tablet Take 40 mg by mouth once daily. clopidogrel (PLAVIX) 75 mg tablet folic acid 400 mcg tablet Take 400 mcg by mouth once daily. cholecalciferol (VITAMIN D3) 1,000 unit tab tablet Take 1,000 Units by mouth once daily. aspirin, enteric coated (ASPIRIN, ENTERIC COATED) 81 mg EC tablet Take 81 mg by mouth once daily. tamsulosin (FLOMAX) 0.4 mg Take 0.4 mg by mouth twice daily. rosuvastatin calcium(CRESTOR 40 MG TAB) Take by mouth. 0 ramipril(ALTACE 2.5 MG CAP) Take one(1) capsule daily. 0 MULTIVITAMIN TAB Take one(1) tablet daily. 0 METOPROLOL 50 MG TAB 1/2 tab twice daily 0 No current facility-administered medications for this visit. Anthropometrics: Height: Date: Ht: 08/16/2022 182.9 cm (6') Weight history: Date: Wt: 10/13/2022 89.5 kg (197 lb, notes 7 lb weight loss from home scale) 09/05/2022 93.9 kg (207 lb) 08/16/2022 96.6 kg (213 lb) 04/27/2022 95.3 kg (210 lb) 03/24/2022 94.3 kg (207 lb 12.8 oz) Goal weight: 190 lbs BMI: 26.7 (overweight) Weight has decreased by 3.2kg over 1 month representing a 3.5% weight change- not significant. Estimated needs: Calories:1766 - 2100 kcals/day determined by MSJ with a 1.0- 1.2 activity factor Protein: 54 - 63 g/day determined by 0.6-0.4 g/kg for GFR consistent with CKD Malnutrition Screening Significant unintentional weight loss? No Eating less than 75% of usual intake for more than 2 weeks? No Potential Signs of Inflammation: unable to determine at this time Education Materials Provided: None this visit Referred/Supervised by: Dr. Granados/Dr. Curran MNT Billing Type: Initial Assess/15 min [address] documented in this encounter [facility] 09-07-2022 History of Present illness Narrative This note was created using [employer]. Subjective Roberto José is a 66 year old male. HPI Patient presents with a chief complaint of left wrist pain. He was playing pickle ball and went to brace himself on a fence but the latch on the door on the fence was broken and he went through falling on an outstretched left hand. He had pain immediately but then proceeded to play 9 holes of golf, and his wrist is even more sore. This all started this morning. Denies any other injury. Review of Systems Constitutional: Negative. HENT: Negative. Respiratory: Negative. Cardiovascular: Negative. Gastrointestinal: Negative. Musculoskeletal: Left wrist pain All other systems reviewed and are negative. PAST MEDICAL HISTORY Diagnosis Date Elevated cholesterol Irritable bowel [place] (myocardial infarction) (HCC) 1995-stent, 2005 second stent Peyronie disease Psoriasis Ulcerative pancolitis with rectal bleeding (HCC) 12/05/2016 Chronic diarrhea with mucous and blood, associated with abdominal pain and weight loss. Abdominal pain not related to food and no food aversion to suggest ischemia CT 11/08 : rectosigmoid colitis without abscess or perforation and fat stranding in the pelvis. Colonoscopy 11/18: significant colitis involving the distal 30cm of the colon with an entirely normal mucosa proximal to that point. Biopsy at that time negative for evidence of colitis with mild arhecticutual changes Previously given Cipro/Flagyl, mesalamine suppository, balsalazide, and budesonide without benefit. Noticed was when he was recently given IV steroid in ED. Flex sig 12/07 showing evidence of UC in the sigmoid - Started on methylprednisolone 20 TID, with quick transition to PO prednisone 40mg Current Outpatient Medications Medication Sig Dispense Refill Mesalamine (LIALDA) 1.2 gram EC tablet Take 2 tablets by mouth daily with breakfast. 180 tablet 3 adalimumab (HUMIRA,CF, PEN) 40 mg/0.4 mL pen kit Inject 40mg (1 pen) subcutaneously every 2 weeks. 12 Each 3 triamcinolone acetonide (KENALOG) 0.1 % cream Apply to psoriasis twice daily for 2 weeks, then 3 times weekly as needed for maintenance. 45 g 1 Benzoyl Peroxide 10 % external wash Use to wash buttocks once daily. Rinse well. 227 mL 3 clindamycin (CLEOCIN-T) 1 % gel Apply thin layer to buttocks once daily. 30 g 3 atorvastatin (LIPITOR) 40 mg tablet Take 40 mg by mouth once daily. clopidogrel (PLAVIX) 75 mg tablet folic acid 400 mcg tablet Take 400 mcg by mouth once daily. cholecalciferol (VITAMIN D3) 1,000 unit tab tablet Take 1,000 Units by mouth once daily. aspirin, enteric coated (ASPIRIN, ENTERIC COATED) 81 mg EC tablet Take 81 mg by mouth once daily. tamsulosin (FLOMAX) 0.4 mg Take 0.4 mg by mouth twice daily. rosuvastatin calcium(CRESTOR 40 MG TAB) Take by mouth. 0 ramipril(ALTACE 2.5 MG CAP) Take one(1) capsule daily. 0 MULTIVITAMIN TAB Take one(1) tablet daily. 0 METOPROLOL 50 MG TAB 1/2 tab twice daily 0 No current facility-administered medications for this visit. PAST SURGICAL HISTORY Procedure Laterality Date COLONOSCOPY FLX DX W/COLLJ SPEC WHEN PFRMD 10/21/2008 Colonoscopy PAST SURGICAL HISTORY OF 02/20/20092009 laser treatment for hemorrhoids PAST SURGICAL HISTORY OF heart stentx2 04/12 SIGMOIDOSCOPY FLX DX W/COLLJ SPEC BR/WA IF PFRMD 02/20/2010 Sigmoidoscopy FAMILY HISTORY Problem Relation Age of Onset Cancer Sister kidney Cancer Father lung? Heart Paternal Uncle [place] Heart Paternal Uncle bypass Hypertension Sister Hypertension Brother Social History Tobacco Use Smoking status: Never Smokeless tobacco: Never Substance Use Topics Alcohol use: Yes Comment: 1 beer per month Drug use: No Objective BP 102/64 Pulse 92 Temp 36.6 C (97.8 F) (Tympanic) Resp 16 Wt 94.9 kg (209 lb 3.2 oz) SpO2 96% BMI 28.37 kg/m Physical Exam Vitals reviewed. Constitutional: Appearance: Normal appearance. HENT: Head: Normocephalic and atraumatic. Musculoskeletal: Comments: Patient has swelling to the ventral aspect of the wrist with bruising. He has pain on flexion and extension of the wrist. Pain with pronation and supination of the forearm. No tenderness over the snuffbox. No specific point tenderness on palpation of the carpals or distal radius and ulna. Radial pulse 2+. Skin: General: Skin is warm and dry. Neurological: Mental Status: He is alert. Assessment and Plan ASSESSMENT/PLAN: 1. Wrist pain, acute, left - ICD9: 719.43, ICD10: M25.532 X-rays show no acute fractures. I feel he does have a sprain. He was placed in a wrist cock up splint. Instructed on rest, ice, Tylenol for pain. Follow-up with PCP if not improving over the next 1 to 2 weeks. - XR WRIST INJURY 4V PA/LAT/OBL/SCAPH LEFT Jeanie Potts PA-C documented in this encounter [facility] 08-24-2022 Miscellaneous Notes Requested Prescriptions Pending Prescriptions Disp Refills Mesalamine (LIALDA) 1.2 gram EC tablet 180 tablet 3 Sig: Take 2 tablets by mouth daily with breakfast. Last visit: 03/24/22 Last Labs: 04/27/22 Next Visit: nothing scheduled Lillian Lynch RN documented in this encounter [facility] 08-16-2022 History of Present illness Narrative On 08/16/2022, I had the pleasure of seeing Roberto José at the [facility] for follow-up of inflammatory arthritis HPI: To review, Roberto José is a 66 year old male w/hx of UC and psoriasis - In 20s, with back pain (had an injury one summer). Better with activity. Worst time of day is morning. - Around '18, diagnosed with UC (testing not definitive, treatment has helped) - Sometime around Jul, with onset of ear psoriasis - Since Jan, with bilateral hip discomfort, laterally. Radiates down. - In April, reported UC was doing well on mesalamine. Never on a biologic. Diagnosed prednisone trial with 95% improvement in back pain/tightness and resolved hip pain. Advised to start humira - In May, started humira (first injection on 06/09) - Today, reports 75-80% improvement in pain with humira. Sleeps better at night. Can golf multiple days in a row - Psoriasis of L ear seems better with humira - Going to [place] next month to visit his niece PAST MEDICAL HISTORY Diagnosis Date Elevated cholesterol Irritable bowel [place] (myocardial infarction) (HCC) 1995-stent, 2004 second stent Peyronie disease Psoriasis Ulcerative pancolitis with rectal bleeding ([facility]) 12/05/2016 Chronic diarrhea with mucous and blood, associated with abdominal pain and weight loss. Abdominal pain not related to food and no food aversion to suggest ischemia CT 11/08 : rectosigmoid colitis without abscess or perforation and fat stranding in the pelvis. Colonoscopy 11/18: significant colitis involving the distal 30cm of the colon with an entirely normal mucosa proximal to that point. Biopsy at that time negative for evidence of colitis with mild arhecticutual changes Previously given Cipro/Flagyl, mesalamine suppository, balsalazide, and budesonide without benefit. Noticed was when he was recently given IV steroid in ED. Flex sig 12/07 showing evidence of UC in the sigmoid - Started on methylprednisolone 20 TID, with quick transition to PO prednisone 40mg PAST SURGICAL HISTORY Procedure Laterality Date COLONOSCOPY FLX DX W/COLLJ SPEC WHEN PFRMD 10/21/2008 Colonoscopy PAST SURGICAL HISTORY OF 02/20/2009 2010 laser treatment for hemorrhoids PAST SURGICAL HISTORY OF heart stentx2 04/12 SIGMOIDOSCOPY FLX DX W/COLLJ SPEC BR/WA IF PFRMD 02/20/2010 Sigmoidoscopy ALLERGIES No Known Allergies MEDICATIONS: Current Outpatient Medications Medication Sig adalimumab (HUMIRA,CF, PEN) 40 mg/0.4 mL pen kit Inject 40mg (1 pen) subcutaneously every 2 weeks. triamcinolone acetonide (KENALOG) 0.1 % cream Apply to psoriasis twice daily for 2 weeks, then 3 times weekly as needed for maintenance. Benzoyl Peroxide 10 % external wash Use to wash buttocks once daily. Rinse well. predniSONE (DELTASONE) 10 mg tablet Take 3 tablets by mouth once daily. clindamycin (CLEOCIN-T) 1 % gel Apply thin layer to buttocks once daily. atorvastatin (LIPITOR) 40 mg tablet Take 40 mg by mouth once daily. Mesalamine (LIALDA) 1.2 gram EC tablet Take 2 tablets by mouth daily with breakfast. clopidogrel (PLAVIX) 75 mg tablet folic acid 400 mcg tablet Take 400 mcg by mouth once daily. cholecalciferol (VITAMIN D3) 1,000 unit tab tablet Take 1,000 Units by mouth once daily. aspirin, enteric coated (ASPIRIN, ENTERIC COATED) 81 mg EC tablet Take 81 mg by mouth once daily. tamsulosin (FLOMAX) 0.4 mg Take 0.4 mg by mouth twice daily. rosuvastatin calcium(CRESTOR 40 MG TAB) Take by mouth. ramipril(ALTACE 2.5 MG CAP) Take one(1) capsule daily. MULTIVITAMIN TAB Take one(1) tablet daily. METOPROLOL 50 MG TAB 1/2 tab twice daily No current facility-administered medications for this visit. FAMILY HISTORY Problem Relation Age of Onset Cancer Sister kidney Cancer Father lung? Heart Paternal Uncle [place] Heart Paternal Uncle bypass Hypertension Sister Hypertension Brother SOCIAL HISTORY: Lives in [place] with spouse. 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 Niece is in [place]. Son is in the area, hasn't seen him in 3 yrs Tobacco use: None Alcohol use: None Drug use: None REVIEW OF SYSTEMS: reviewed 12/03 systems, as above PHYSICAL EXAM: VITALS: Blood pressure 125/84, pulse 63, temperature 36.3 C (97.3 F), temperature source Temporal, height 182.9 cm (6'), weight 96.6 kg (213 lb). CONSTITUTIONAL: Well-appearing, in NAD. SKIN: No psoriasis. No sclerodactyly, calcinosis, telangiectasias, digital ulcers, or skin thickening. EYES: No scleral icterus or conjunctivitis ENT and Mouth: External ears normal. Nares normal. RESPIRATORY: Normal breath sounds, clear to auscultation. CARDIOVASCULAR: Regular rate and rhythm, no murmurs or rubs EXTREMITIES/LYMPH: No edema bilaterally NEURO: Awake, alert and oriented, Normal gait MUSCULOSKELETAL: JOINT APPEARANCE: No erythema or warmth of any upper or lower extremity joint. RANGE OF MOTION: Able to fully close fists and curl fingers bilaterally. SWOLLEN JOINTS/SYNOVITIS: No synovitis of any joint. TENDER JOINTS: None *April Widespread Pain Index: 3 (0-19) Symptoms Severity Scale: 1 (0-12) WPI>7 and SS Scale>5 OR WPI 3-6 and SS Scale >9 consistent with fibromyalgia LABORATORY: *Dec low gfr 57 with nl wbc, hgb, plt, alt, ast Component Latest Ref Rng & Units 04/27/2022 Rheumatoid Factor <16 IU/mL <10 WSR 0 - 15 mm/hr 2 CRP <0.9 mg/dL <0.3 *April neg hep b/c, quant gold Component Latest Ref Rng & Units 08/24/2017 04/13/2018 01/09/2020 IgA 78 - 391 mg/dL 379 Transglutaminase Ab, IgA <20 Units 5 Interpretation (Celiac Screen) No serologic evidence of celiac disease. No serologic evidence of celiac disease. CRP <0.9 mg/dL 0.1 0.1 STUDIES: *April xray SI joints- No radiographic evidence of sacroiliitis or acute osseous abnormality. Partially imaged lower lumbar spine degenerative changes. *April xray hands- Minimal degenerative changes *Sep AXR- constipation IMPRESSION and PLAN: 1. Seronegative spondyloarthropathy: Prednisone responsive pain in the low back and lateral hips; back pain with inflammatory features per history (improved with activity, worst in morning, significant morning stiffness) in the setting of UC and psoriasis. Humira with significant improvement in joint symptoms - Continue humira 40mg SC every 2 weeks. Advised there could be potential further improvement since we're still within the 3 month window of having started humira - Check labs. Notify of results via [employer] 2. UC: - Continue GI management 3. Psoriasis: - Continue dermatology management 4. General health maintenance: - Continue follow-up with PCP for routine health maintenance and malignancy screening Follow-up to be determined based on pending evaluation as above. Patient was instructed to call if any questions or concerns. Thank you for allowing me to participate in the care of your patient. Marguerite Pereyra MD documented in this encounter [facility] 08-03-2022 Instructions Dory Lion PA-C - 08/03/2022 2:41 PM EDT SKIN CARE AFTER CRYOSURGERY The skin's response to cryosurgery (freezing) can be mild to severe, depending on the depth of the freeze and location of the area treated. You may have minimal redness and swelling with little discomfort or significant discoloration and blistering with considerable discomfort. A burning sensation in the skin may last from several minutes to several hours after the procedure. Follow these instructions when caring for an area treated by cryosurgery: 1. Please clean the area every day with gentle soap and water. It is not necessary to cover the site with a bandage. However, it may be used for protection and it must be changed daily. Do not leave a soiled or wet bandage on the wound. 2. If you are experiencing discomfort you may use a cool compress, elevate the area or take over the counter pain relievers. 3. Apply Vaseline or Aquaphor daily to the site. This can help with itching, irritation, and discomfort. -The lesion may take 2-4 weeks to fully resolve. Depending on the severity of treatment and lesion treated, it may take longer. -DO NOT USE NEOSPORIN OR BACITRACIN as there is a fairly high incidence of allergic response to these products. -You may experience some mild discomfort, redness, swelling, and/or a clear discharge from the wound after your procedure. Severe pain, worsening swelling, and foul-smelling discharge from the site are NOT to be expected. If you have concerns about how your wounds are healing, please send your provider a [employer] message or call . documented in this encounter [facility] 08-03-2022 History of Present illness Narrative EST PATIENT Chief Complaint: Patient presents with: Psoriasis Folliculitis HPI: Roberto José is a 66 year old male who presents today for: Patient presents with: Psoriasis Folliculitis #1 Psoriasis Follow Up YAKELIN 04/27/22, recommended to be evaluated by rheumatology for possible arthritic component of psoriasis. Started Humira 06/09/22 by rheumatology, has received 4 injections so far, tolerating well. States that hip pain has resolved and other joint pain has been improving. Thinks psoriasis has also improved, also history of UC. Using TAC 0.1% cream TID x 3 weeks, now using 3x/weekly for right postauricular and also buttocks. Believes that he has psoriasis component instead of folliculitis on buttocks. #2 Folliculitis Follow Up Using BPO wash and clindamycin gel for buttocks with improvement. Also has tried TAC 0.1% cream over area because he felt that it was also related to psoriasis. #3 Post PDT Light Treatment Follow Up Also would like face re-evaluated after photodynamic therapy. Procedure went well and had good reaction. Notes a scaly red spot on right church. #4 Ingrown hairs Having increased breakouts on left cheek and unsure if it was related to blue light therapy. Has been plucking out hairs with tweezers. Would like recommendation on what to use. Pertinent History: History of skin cancer or atypical nevi: No Family history of skin cancer: No Organ transplant or immunosuppression: No Past Medical History is reviewed. Medication List is reviewed. ROS: Skin as above. Physical Exam: Rodriguez skin type: II The patient is a pleasant male in no apparent distress. Alert and oriented x 3. A skin exam performed of the ears and buttocks is significant for: Right Posterior Auricle Minimal erythema without scaling; significantly improved Gluteal Crease, Left Buccal Cheek Follicular pustules Left Zygomatic Area, Right Temporal Scalp Erythematous papules with gritty adherent scale. Variably hyperpigmented macules and papules, with generally good symmetry and internal consistency, widely distributed throughout the trunk and extremities. Overall benign-appearing Densely scattered light husain macules and small patches on all sun exposed areas Smooth estrada red papules scattered throughout trunk Stuck-on verrucous, variably pigmented papules and plaques throughout trunk and extremities Assessment and Plan: Psoriasis vulgaris Right Posterior Auricle Discussed etiology, course, prognosis and treatment options. On Humira, psoriasis and joint pain improving. Also history of UC. Discussed using gentle, fragrance-free skin care and frequent application of emollients. Continue TAC 0.1% cream as needed, proper use discussed. Continue Humira and follow up care with rheumatology. R/b/a for the medication(s) including possible side effects discussed and reviewed with patient. Related Medications triamcinolone acetonide (KENALOG) 0.1 % cream Apply to psoriasis twice daily for 2 weeks, then 3 times weekly as needed for maintenance. Folliculitis Gluteal Crease; Left Buccal Cheek Discussed etiology, course, prognosis and treatment options. Continue BPO wash and clindamycin gel, proper use discussed. Avoid use of close shaving or dull razors on face. Avoid plucking out hair. R/b/a for the medication(s) including possible side effects discussed and reviewed with patient. Related Medications Benzoyl Peroxide 10 % external wash Use to wash buttocks once daily. Rinse well. Actinic keratosis (2) Left Zygomatic Area; Right Temporal Scalp Discussed etiology, course, prognosis and treatment options. Post-PDT Blue Light therapy in June 2022. Advised treatment with LN2 today due to pre-cancerous nature Number of lesions treated with LN2: 2 CRYOTHERAPY SKIN LESION - Left Zygomatic Area, Right Temporal Scalp Complexity: simple Destruction method: cryotherapy Informed consent: discussed and consent obtained Informed consent comment: Verbal consent Timeout: patient name, date of , surgical site, and procedure verified Lesion destroyed using liquid nitrogen: Yes Region frozen until ice ball extended beyond lesion: Yes Cryotherapy cycles: 2 Outcome: patient tolerated procedure well with no complications Post-procedure details: wound care instructions given Additional details: We discussed liquid nitrogen treatment and the expected redness, as well as the risks of swelling, blistering, crusting, hypopigmentation and scarring. Alternatives including curettage, shave removal, and no treatment were discussed. The patient verbalized understanding and desires us to proceed. The nature of sun-induced photo-aging and skin cancers is discussed including the ABCDE's of melanoma. Sun avoidance, protective clothing, and the use of SPF 30+ sunscreens is advised. Patient is instructed to perform regular self skin exams. Observe for changing, symptomatic, or new skin lesions and return to dermatology if any lesions of concern are noted. Follow up as noted in plan or as needed. Intake: Lillian Guadalupe LPN I have reviewed and agree with the Chief Complaint, patient-reported HPI, ROS, and Past Histories independently gathered by the clinical product support engineer and the remaining scribed note accurately describes my personal service to the patient. Jane Hobson MS, BRANDON documented in this encounter [facility] 06-22-2022 History of Present illness Narrative PHOTODYNAMIC THERAPY June 22, 2022 Dx: Actinic Keratosis Pt ID verified with patient: Yes Procedure verified against order and with patient: Yes Skin prepped with 70% isopropyl alcohol Yes Area treated: Full face Number of Levulan sticks applied: 1 Lot # [id number] Exp 06/2025 Time before Blue Light exposure: 15 minutes Area treated: Full face Pt exposed to light for 30 minutes Patient reaction during treatment: None, patient tolerated procedure well. Patient reaction after treatment: None, patient tolerated procedure well. Aftercare instructions given. Patient verbalizes understanding. Follow up with Jane Hobson PA-C . Jamila Castañeda LPN documented in this encounter [facility] 06-22-2022 Instructions Jamila Castañeda - 06/22/2022 10:01 AM EDT After Care Instructions Photodynamic Therapy with Levulan and Blue Light Expected skin changes after PDT: The treated skin will likely turn red and may appear slightly swollen 24-48 h after treatment, but you should not see any blistering. Redness usually peaks one-to-two days after treatment and gets better within a week. Actinic keratosis lesions may not be gone until about four weeks after treatment. The skin may be itchy or change color slightly after treatment, but these changes are temporary. Photosensitivity: Levulan remains in the skin for 48 hours, so further reactions (redness and a tingling or burning sensation) can be caused by light exposure if one is not careful. Therefore, for about 2 days after the treatment, you should take care to protect the treated areas from light. Stay out of strong, direct light. Stay indoors as much as possible. Wear protective clothing and wide-brimmed hats to avoid sunlight when outdoors. Avoid beaches, snow, light colored concrete, or other reflective surfaces. After Care steps for you to do at home: Again, avoid direct light for 48 hours. Gently wash area twice a day with Cetaphil, Neutrogena or other mild cleanser. Do not scrub! After cleansing, use Aquaphor or Vaseline twice a day to keep the area moist and free of crust. Apply the topical steroid ointment that your doctor has prescribed for you (or alternatively, you can use 1% hydrocortisone ointment available at any pharmacy) to the entire treated area, twice a day as needed for 2-4 days, to help decrease redness and irritation. Apply the steroid BEFORE applying Aquaphor ointment, not afterwards. Apply cool compresses as needed for comfort during the first few days. After day 3, gently exfoliate with a soft washcloth and warm water twice a day. Then apply either Aquaphor or Vaseline. To address swelling and redness, you may also take [id number] oral medications: Claritin (loratidine) 10 mg in the morning, Benadryl (diphenhydramine) 25-50 mg nightly (may cause drowsiness) and/or Ibuprofen as directed. If you absolutely must go outdoors during the first 48 hours, cover yourself with a broad-brimmed hat and use Neutrogena sensitive skin (chemical free) sunscreen SPF 30, or other titanium-dioxide type of sunscreen, in a thick layer to protect you from sunlight If you have questions or concerns, call the following number(s): [facility] [phone] documented in this encounter [facility] 06-09-2022 History of Present illness Narrative Patient offered bathroom assistance throughout treatment? Yes AMBULATORY PATIENT EDUCATION NOTE TOPIC: SURVIVAL SKILLS: Medication Administration Humira injection READINESS TO LEARN COGNITIVE ABILITY: Alert and oriented MOTIVATION TO LEARN: Eager Interested FAMILY SUPPORT: High - Very involved in pt care INSTRUCTION PROVIDED TO: Patient and Spouse PATIENT LEARNS BEST BY: Multiple Methods FACTORS AFFECTING LEARNING: None PHYSICAL LIMITATIONS AFFECTING LEARNING: None LEARNING RESPONSE DIAGNOSIS: psoriasis vulgaris METHOD OF INSTRUCTION: Teach Back Pt able to verbal Individual instruction Written instruction - handouts Verbal instruction Demonstration-Hands on Learning Video PATIENT / FAMILY RESPONSE: Performs skill independently: SELF INJECTION- Able to administer self injection using clean technique FOLLOW-UP PLAN: Complete - No need for follow-up Contact information given. SUPPLEMENTAL MATERIAL: Medication instruction material-Humira injection pt ed handout REFERRAL (RECOMMENDATION): None Pt to call Humira for sharps container. Pt also instructed to use calender to keep track of day and site given. Pt can also check with his city for disposal instructions. Electronically Signed By: Mary Lou Peoples RN In Department: HEMATOLOGY/ONCOLOGY Time spent on patient education: 45 minutes. documented in this encounter [facility] 05-12-2022 History of Present illness Narrative [facility] received prescription(s) for Humira from Dr. Pereyra's office. Benefits investigation was conducted, indicating that a prior authorization is required by patient's insurance plan with [employer]. Encounter will be updated once prior authorization has been submitted by [facility]. Rosie Dennison, [facility] [phone] documented in this encounter [facility] 05-12-2022 Miscellaneous Notes Noted. Thank you. Sandra Lester MA Humira rx sent to [facility]. Will complete the form when I return to the office. Thanks! [employer] Assist application for Humira completed to the best of my ability and placed in Dr. Pereyra's in basket for signature. Please send prescription to [facility] pharmacy. Patient is notified and verbalized understanding. Thanks, Sandra Lester MA documented in this encounter [facility] 05-05-2022 Miscellaneous Notes Attempted to reach patient. No answer. LMTCB. It is okay for PSR to relay message as written below. Thanks, Sandra Lester MA Extensive reply sent. Please have him review this and let me know if any questions or if he'd like to start one of the meds. In the meantime, please assist with scheduling rheum apts: 08/16 at 11:20am with me, 6 & 9 months with Олег and 1 year with me. Thanks. documented in this encounter [facility] 04-27-2022 Miscellaneous Notes New Rx sent Pharmacy needing clarification for Clindamycin Phosphate 1 % In comes in a bunch of different forms - gel, foam, solution, and lotion. Please call to advise which is preferred. documented in this encounter [facility] 04-27-2022 History of Present illness Narrative Radiology Service Progress Note PATIENT NAME: Roberto José DATE OF SERVICE: April 27, 2022 TIME: 3:58 PM PATIENT IDENTITY VERIFICATION COMPLETED USING TWO (2) IDENTIFIERS: Name and Date of confirmed by patient verbally. FALL SCREENING: Has the patient had 2 falls in the last year or 1 fall with injury or currently using an Ambulatory Assistive Device (Walker, Cane, Wheelchair, Crutches, etc.)? No PATIENT GENDER DATA: Male PATIENT RELEVANT IMPLANT DATA REVIEWED: Not Applicable RADIOLOGY DEPARTMENT: General X-ray: Exam(s) Completed: Pelvis X-Ray: Pelvis with Hip Bilateral and sacroiliac joints Upper Extremity X-Ray(s): Hand, bilateral PERIPHERAL IV DATA: Not applicable SIGNED BY: RT Kierra(R) April 27, 2022 3:58 PM documented in this encounter [facility] 04-27-2022 Instructions Marguerite Pereyra MD - 04/27/2022 3:28 PM EST Take prednisone with food in the morning. Acetaminophen is ok to take while on prednisone-but avoid NSAID medications including ibuprofen while on prednisone as the combination can cause significant gastrointestinal issues. Please contact me after completion of the prednisone to let me know if your joint pain improves. If the joint pain does improve, I'd like to know which joints have improved and by what percentage they've improved. documented in this encounter [facility] 04-27-2022 History of Present illness Narrative On 04/27/2022, I had the pleasure of seeing Roberto José at the [facility]. Roberto José was referred by Jane Hobson for an opinion and advice regarding psoriasis. My findings and final recommendations will be communicated to the requesting health care provider by way of the shared medical record for internal providers or letter via the [employer] for external providers. Chief complaint: Psoriasis, back/hip pain HPI: To review, Roberto José is a 66 year old male w/hx of UC and psoriasis - In 20s, with back pain (had an injury one summer). Better with activity. Worst time of day is morning. - Around '18, diagnosed with UC (testing not definitive, treatment has helped) - Sometime around Jul, with onset of ear psoriasis - Since Jan, with bilateral hip discomfort, laterally. Radiates down. - Today, reports UC is doing well on mesalamine. Never on a biologic. - Doesn't take any analgesics - Morning stiffness x1-2 hours. Eases with stretching, exercises PAST MEDICAL HISTORY Diagnosis Date Elevated cholesterol Irritable bowel [place] (myocardial infarction) (HCC) 1995-stent, 2004 second stent Peyronie disease Psoriasis Ulcerative pancolitis with rectal bleeding (HCC) 12/05/2016 Chronic diarrhea with mucous and blood, associated with abdominal pain and weight loss. Abdominal pain not related to food and no food aversion to suggest ischemia CT 11/08 : rectosigmoid colitis without abscess or perforation and fat stranding in the pelvis. Colonoscopy 11/18: significant colitis involving the distal 30cm of the colon with an entirely normal mucosa proximal to that point. Biopsy at that time negative for evidence of colitis with mild arhecticutual changes Previously given Cipro/Flagyl, mesalamine suppository, balsalazide, and budesonide without benefit. Noticed was when he was recently given IV steroid in ED. Flex sig 12/07 showing evidence of UC in the sigmoid - Started on methylprednisolone 20 TID, with quick transition to PO prednisone 40mg PAST SURGICAL HISTORY Procedure Laterality Date COLONOSCOPY FLX DX W/COLLJ SPEC WHEN PFRMD 10/21/2008 Colonoscopy PAST SURGICAL HISTORY OF 02/20/20092009 laser treatment for hemorrhoids PAST SURGICAL HISTORY OF heart stentx2 04/12 SIGMOIDOSCOPY FLX DX W/COLLJ SPEC BR/WA IF PFRMD 02/20/2010 Sigmoidoscopy ALLERGIES No Known Allergies MEDICATIONS: Current Outpatient Medications Medication Sig triamcinolone acetonide (KENALOG) 0.1 % cream Apply to psoriasis twice daily for 2 weeks, then 3 times weekly as needed for maintenance. Benzoyl Peroxide 10 % external wash Use to wash buttocks once daily. Rinse well. Clindamycin Phosphate 1 % Apply to buttocks once daily. atorvastatin (LIPITOR) 40 mg tablet Take 40 mg by mouth once daily. Mesalamine (LIALDA) 1.2 gram EC tablet Take 2 tablets by mouth daily with breakfast. clopidogrel (PLAVIX) 75 mg tablet folic acid 400 mcg tablet Take 400 mcg by mouth once daily. cholecalciferol (VITAMIN D3) 1,000 unit tab tablet Take 1,000 Units by mouth once daily. aspirin, enteric coated (ASPIRIN, ENTERIC COATED) 81 mg EC tablet Take 81 mg by mouth once daily. tamsulosin (FLOMAX) 0.4 mg Take 0.4 mg by mouth twice daily. rosuvastatin calcium(CRESTOR 40 MG TAB) one tablet daily ramipril(ALTACE 2.5 MG CAP) Take one(1) capsule daily. MULTIVITAMIN TAB Take one(1) tablet daily. METOPROLOL 50 MG TAB 1/2 tab twice daily No current facility-administered medications for this visit. FAMILY HISTORY Problem Relation Age of Onset Cancer Sister kidney Cancer Father lung? Heart Paternal Uncle [place] Heart Paternal Uncle bypass Hypertension Sister Hypertension Brother SOCIAL HISTORY: Lives in [place] with spouse. 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 Tobacco use: None Alcohol use: None Drug use: None REVIEW OF SYSTEMS: reviewed 12/03 systems, as above and as below: Joint pain, back pain, morning stiffness PHYSICAL EXAM: VITALS: Blood pressure 136/88, pulse 91, temperature 36.6 C (97.8 F), temperature source Temporal, height 182.9 cm (6'), weight 95.3 kg (210 lb). CONSTITUTIONAL: Well-appearing, in NAD. SKIN: Psoriasis of R ear. No sclerodactyly, calcinosis, telangiectasias, digital ulcers, or skin thickening. EYES: No scleral icterus or conjunctivitis ENT and Mouth: External ears normal. Nares normal. RESPIRATORY: Normal breath sounds, clear to auscultation. CARDIOVASCULAR: Regular rate and rhythm, no murmurs or rubs EXTREMITIES/LYMPH: No edema bilaterally NEURO: Awake, alert and oriented, Normal gait MUSCULOSKELETAL: JOINT APPEARANCE: No erythema or warmth of any upper or lower extremity joint. RANGE OF MOTION: Able to fully close fists and curl fingers bilaterally. SWOLLEN JOINTS/SYNOVITIS: No synovitis of any joint. TENDER JOINTS: None SPECIAL MANEUVERS: Negative FABERs bilaterally Widespread Pain Index: 3 (0-19) Symptoms Severity Scale: 1 (0-12) WPI>7 and SS Scale>5 OR WPI 3-6 and SS Scale >9 consistent with fibromyalgia LABORATORY: *Mar low GFR 57 with unremarkable WBC, Hgb, Plt, ALT and AST Component Latest Ref Rng & Units 08/24/2017 04/13/2018 01/09/2020 IgA 78 - 391 mg/dL 379 Transglutaminase Ab, IgA <20 Units 5 Interpretation (Celiac Screen) No serologic evidence of celiac disease. No serologic evidence of celiac disease. CRP <0.9 mg/dL 0.1 0.1 STUDIES: *Sep AXR- constipation IMPRESSION and PLAN: 1. Joint pain: Pain in the low back and lateral hips; back pain with inflammatory features per history (improved with activity, worst in morning, significant morning stiffness) in the setting of UC and psoriasis. 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 Will assess further for inflammatory arthritis via labs, x-rays and diagnostic prednisone trial as below. Explained that there is also likely at least some osteoarthritis present - Extensively explained the clinical scenario as above - Check labs and x-rays. Notify of results via [employer] - Attempt a diagnostic trial of prednisone 30mg daily x5 days to see if any improvement in joint pain. If there is a significant improvement, this could suggest an inflammatory component of pain which may suggest a diagnosis of inflammatory arthritis. Explained potential side effects including increased appetite, upset stomach (advised taking with food), insomnia (advised taking in morning), increased infection risk, elevated blood glucose levels, elevated blood pressure, palpitations, mood changes and to avoid NSAIDs while on prednisone, tylenol prn ok. Advised to very closely monitor the joint symptoms and contact us to report status upon steroid completion. - Advised to avoid NSAIDs in general given hx of CAD and UC - If significant improvement with prednisone, then will advise humira (UC and psoriasis). If no significant improvement, will advise further focusing on osteoarthritis treatment, advise PT and tylenol (can follow-up every 1-2 yrs if desired) 2. UC: - Continue GI management 3. Psoriasis: - Continue dermatology management 4. General health maintenance: - Continue follow-up with PCP for routine health maintenance and malignancy screening Follow-up to be determined based on pending evaluation as above. Patient was instructed to call if any questions or concerns. Thank you for allowing me to participate in the care of your patient. Marguerite Pereyra MD I spent a total of 41 minutes on the date of the service which included preparing to see the patient, [id number] patient care, completing clinical documentation, obtaining and/or reviewing separately obtained history, performing a medically appropriate examination, counseling and educating the patient/family/caregiver, ordering medications, tests, or procedures, independently interpreting results (not separately reported), and communicating results to the patient/family/caregiver. documented in this encounter [facility] 03-24-2022 Instructions Lillian Granados MD, PhD - 03/24/2022 3:18 PM EST Imodium take as needed Mesalamine take 3 pills a day for 3 weeks Let me know how that goes documented in this encounter [facility] 03-24-2022 History of Present illness Narrative EST PT OFFICE VISIT CC: No chief complaint on file. Mr. José is a 66yoM with a L-sided colitis on mesalamine and metamucil. He was last seen 11/2020. He feels that he is doing well and his only complaint is the number of BMs he has per day. He has had 5 BM/day since he was diagnosed - no increase in # BMs/day. He feels that he has to schedule his life around his BMs. If he wants to go golfing, he doesn't go in the AM because he typically has a lot of BMs in the AM so he will play in the afternoon. He feels that the metamucil has decreased the # of BMs only a small amount. He has not taken imodium. He has been drinking tova-turmeric tea because a friend of his had UC and took that and the friend said it healed their UC. He has been taking it for a week and has noticed no changes in his symptoms. Current Clinical Symptoms # of bowel movements daily: 5 Consistency: formed and soft Bloody bowel movements: no Urgency: <10% of the time Abdominal pain: no Abdominal distention: no Nausea/vomiting: no Weight loss over last 3 months: no EIMs: - Joints: wakes up with back pain every AM that improves once he loosens up, blast furnace operator suggested that this was psoriatic arthritis - Skin: has psoriasis, planning to see a blast furnace operator at [facility] in April for a skin check - Eyes: no changes Vaccine mom was antivaxer, PCP told him she will give him the stuff that will kill him, the rest is optional Tetanus - has not had Pneumo had the infection not pneumonia - pneumovax 2020 Hep B - has not had PPD - has not had Hep A - has not had VZV thinks he had this Flu - 2021 Covid - up to date 2021 Pertussis - has not had Skin - has an appointment 04/2022 Bone - has not had VITALS: Blood pressure 129/81, pulse 80, temperature 36.1 C (97 F), temperature source Temporal, height 182.9 cm (6'), weight 94.3 kg (207 lb 12.8 oz), SpO2 98 %. ALLERGIES: Patient has no known allergies. MEDICATIONS: Current Outpatient Medications Medication Sig Dispense Refill atorvastatin (LIPITOR) 40 mg tablet Take 40 mg by mouth once daily. Mesalamine (LIALDA) 1.2 gram EC tablet Take 2 tablets by mouth daily with breakfast. 180 tablet 3 clopidogrel (PLAVIX) 75 mg tablet folic acid 400 mcg tablet Take 400 mcg by mouth once daily. cholecalciferol (VITAMIN D3) 1,000 unit tab tablet Take 1,000 Units by mouth once daily. aspirin, enteric coated (ASPIRIN, ENTERIC COATED) 81 mg EC tablet Take 81 mg by mouth once daily. tamsulosin (FLOMAX) 0.4 mg Take 0.4 mg by mouth twice daily. ramipril(ALTACE 2.5 MG CAP) Take one(1) capsule daily. 0 METOPROLOL 50 MG TAB 1/2 tab twice daily 0 rosuvastatin calcium(CRESTOR 40 MG TAB) one tablet daily 0 MULTIVITAMIN TAB Take one(1) tablet daily. 0 No current facility-administered medications for this visit. Social History: Social History Tobacco Use Smoking status: Never Smokeless tobacco: Never Substance Use Topics Alcohol use: Yes Comment: 1 beer per month Drug use: No Medical History: No changes since last visit. REVIEW OF SYSTEMS: GENERAL: weight stable, no fevers. CARDIOVASCULAR: No chest pain, no edema RESPIRATORY: No dyspnea The remainder of the review of systems are negative. Reviewed with patient during visit today. PHYSICAL EXAMINATION: GENERAL APPEARANCE: Well developed and well nourished. SKIN: Skin color, texture, turgor normal. No rashes or lesions. EYES: Conjunctiva normal without icterus. OROPHARYNX: lips, mucosa, and tongue normal, teeth and gums normal NECK: Supple, full range of motion, no lymphadenopathy, normal thyroid, LUNGS: Normal breath sounds, Clear to auscultation, No wheezes, No crackles. HEART:Normal PMI, Regular rate and rhythm, Normal heart sounds, S1 and S2 and No murmurs. NEURO: Alert and oriented in no acute distress. ABDOMEN: Normal bowel sounds, abdomen flat with no distention, Soft, non-tender, no hepatomegaly. no palpable masses, no abdominal bruits, no rebound and no rigidity. EXTREMITIES:Extremities normal, No deformities, No skin discoloration, No edema . Summary: His history is that he developed bloody diarrhea in November 2016 and found to have colitis. While biopsies were not suggestive of IBD he had response to steroids and when tapered down on mesalamine at first may have had some symptoms. Repeated 02/06 and no evidence of active colitis but this does not rule out treated colitis and endoscopically appeared consistent with treated colitis although this is not specific For surveillance unclear as to needs given his history please repeat 2022 2019 He is now on 2.4 g lialda. Does ok but frequent formed bm. ASSESSMENT/PLAN: (K52.9) IBD (inflammatory bowel disease) (primary encounter diagnosis) Developed left sided colitis acutely in 2016, good response to mesalamine Still having 5BM per day Fiber has decreased BMs only a little bit F/u 1 year Colonoscopy 2022 Consult nutrition for anti-inflammatory diet per patient request CBC and CMP due Increase lialda to 3 pills per day x3 weeks - report back regarding symptoms Recommend start taking imodium the night before he has something to do in the AM (plan to try this on a day he has nothing going on in the AM) Alma Gardiner MD Gastroenterology Fellow Lillian Granados MD, PhD His psoriasis is getting worse To get his skin check Weight stable No blood He has been on 2 for a while Fiber not helping that much -not enough Takes 2 hours to leave house He goes, sometimes strain Try imodium at night Going on trip [facility] It seems he has poor stool consistency and takes some time to fully evacuate colon in am Talked about trying imodium but may cause constipation For now I do recommend reassess inflammation AND try increased dose mesalamine TEACHING PHYSICIAN NOTE OF PERSONAL INVOLVEMENT IN CARE I performed a history of the patient and discussed management with the resident team. I reviewed the resident's notes and agree with documented findings and plan of care with my addendum and correction as noted below. Lillian Granados MD PhD March 26, 2022 4:59 PM documented in this encounter [facility] 08-24-2021 Miscellaneous Notes Pending Prescriptions Disp Refills MESALAMINE 1.2 GRAM TABLET,DELAYED RELEASE 180 tablet 3 Sig: Take 2 tablets by mouth daily with breakfast. URSULA: No Last visit: 11/26/20 Next visit: 03/24/22 Merced Vaughn LPN documented in this encounter [facility] 12-06-2016 History of Past i llness Narrative Problem Noted Date Resolved Date Malnutrition of moderate degree 12/06/2016 08/24/2017 Overview: 1. Recommend GISOFT diet as tolerated 2. Trial G2 QD 3. Trial Ensure Enlive QD (350 calories + 20gm protein each) 4. Replete K+, Phos and MG 5. Continue daily MVI as medically able documented as of this encounter (statuses as of 08/24/2021) [facility] History of Past illness Narrative* Problem Noted Date Resolved Date Malnutrition of moderate degree 12/06/2016 08/24/2017 Overview: 1. Recommend GISOFT diet as tolerated 2. Trial G2 QD 3. Trial Ensure Enlive QD (350 calories + 20gm protein each) 4. Replete K+, Phos and MG 5. Continue daily MVI as medically able documented as of this encounter (statuses as of 03/26/2022) [facility] History of Past illness Narrative* Problem Noted Date Resolved Date Malnutrition of moderate degree 12/06/2016 08/24/2017 Overview: 1. Recommend GISOFT diet as tolerated 2. Trial G2 QD 3. Trial Ensure Enlive QD (350 calories + 20gm protein each) 4. Replete K+, Phos and MG 5. Continue daily MVI as medically able documented as of this encounter (statuses as of 04/27/2022) [facility] History of Past illness Narrative* Problem Noted Date Resolved Date Malnutrition of moderate degree 12/06/2016 08/24/2017 Overview: 1. Recommend GISOFT diet as tolerated 2. Trial G2 QD 3. Trial Ensure Enlive QD (350 calories + 20gm protein each) 4. Replete K+, Phos and MG 5. Continue daily MVI as medically able documented as of this encounter (statuses as of 04/27/2022) [facility]-17-2017 History of Past illness Narrative* Problem Noted Date Resolved Date Malnutrition of moderate degree 12/06/2016 08/24/2017 Overview: 1. Recommend GISOFT diet as tolerated 2. Trial G2 QD 3. Trial Ensure Enlive QD (350 calories + 20gm protein each) 4. Replete K+, Phos and MG 5. Continue daily MVI as medically able documented as of this encounter (statuses as of 05/05/2022) [facility]-17-2017 History of Past illness Narrative* Problem Noted Date Resolved Date Malnutrition of moderate degree 12/06/2016 08/24/2017 Overview: 1. Recommend GISOFT diet as tolerated 2. Trial G2 QD 3. Trial Ensure Enlive QD (350 calories + 20gm protein each) 4. Replete K+, Phos and MG 5. Continue daily MVI as medically able documented as of this encounter (statuses as of 05/09/2022) [facility]-2017 History of Past illness Narrative* Problem Noted Date Resolved Date Malnutrition of moderate degree 12/06/2016 08/24/2017 Overview: 1. Recommend GISOFT diet as tolerated 2. Trial G2 QD 3. Trial Ensure Enlive QD (350 calories + 20gm protein each) 4. Replete K+, Phos and MG 5. Continue daily MVI as medically able documented as of this encounter (statuses as of 05/12/2022) [facility]17-2017 History of Past illness Narrative* Problem Noted Date Resolved Date Malnutrition of moderate degree 12/06/2016 08/24/2017 Overview: 1. Recommend GISOFT diet as tolerated 2. Trial G2 QD 3. Trial Ensure Enlive QD (350 calories + 20gm protein each) 4. Replete K+, Phos and MG 5. Continue daily MVI as medically able documented as of this encounter (statuses as of 05/12/2022) [facility]2017 History of Past illness Narrative* Problem Noted Date Resolved Date Malnutrition of moderate degree 12/06/2016 08/24/2017 Overview: 1. Recommend GISOFT diet as tolerated 2. Trial G2 QD 3. Trial Ensure Enlive QD (350 calories + 20gm protein each) 4. Replete K+, Phos and MG 5. Continue daily MVI as medically able documented as of this encounter (statuses as of 06/10/2022) [place] [address]-17-2017 History of Past illness Narrative* Problem Noted Date Resolved Date Malnutrition of moderate degree 12/06/2016 08/24/2017 Overview: 1. Recommend GISOFT diet as tolerated 2. Trial G2 QD 3. Trial Ensure Enlive QD (350 calories + 20gm protein each) 4. Replete K+, Phos and MG 5. Continue daily MVI as medically able documented as of this encounter (statuses as of 06/22/2022) [facility] History of Past illness Narrative* Problem Noted Date Resolved Date Malnutrition of moderate degree 12/06/2016 08/24/2017 Overview: 1. Recommend GISOFT diet as tolerated 2. Trial G2 QD 3. Trial Ensure Enlive QD (350 calories + 20gm protein each) 4. Replete K+, Phos and MG 5. Continue daily MVI as medically able documented as of this encounter (statuses as of 06/23/2022) [facility] History of Past illness Narrative* Problem Noted Date Resolved Date Malnutrition of moderate degree 12/06/2016 08/24/2017 Overview: 1. Recommend GISOFT diet as tolerated 2. Trial G2 QD 3. Trial Ensure Enlive QD (350 calories + 20gm protein each) 4. Replete K+, Phos and MG 5. Continue daily MVI as medically able documented as of this encounter (statuses as of 08/04/2022) [facility] History of Past illness Narrative* Problem Noted Date Resolved Date Malnutrition of moderate degree 12/06/2016 08/24/2017 Overview: 1. Recommend GISOFT diet as tolerated 2. Trial G2 QD 3. Trial Ensure Enlive QD (350 calories + 20gm protein each) 4. Replete K+, Phos and MG 5. Continue daily MVI as medically able documented as of this encounter (statuses as of 08/16/2022) [facility] History of Past illness Narrative* Problem Noted Date Resolved Date Malnutrition of moderate degree 12/06/2016 08/24/2017 Overview: 1. Recommend GISOFT diet as tolerated 2. Trial G2 QD 3. Trial Ensure Enlive QD (350 calories + 20gm protein each) 4. Replete K+, Phos and MG 5. Continue daily MVI as medically able documented as of this encounter (statuses as of 08/25/2022) [facility]2017 History of Past illness Narrative* Problem Noted Date Diagnosed Date Resolved Date Malnutrition of moderate degree 12/06/2016 08/24/2017 Overview: 1. Recommend GISOFT diet as tolerated 2. Trial G2 QD 3. Trial Ensure Enlive QD (350 calories + 20gm protein each) 4. Replete K+, Phos and MG 5. Continue daily MVI as medically able documented as of this encounter (statuses as of 09/08/2022) [facility]2017 History of Past illness Narrative* Problem Noted Date Diagnosed Date Resolved Date Malnutrition of moderate degree 12/06/2016 08/24/2017 Overview: 1. Recommend GISOFT diet as tolerated 2. Trial G2 QD 3. Trial Ensure Enlive QD (350 calories + 20gm protein each) 4. Replete K+, Phos and MG 5. Continue daily MVI as medically able documented as of this encounter (statuses as of 10/14/2022) [facility]2017 History of Past illness Narrative* Problem Noted Date Diagnosed Date Resolved Date Malnutrition of moderate degree 12/06/2016 08/24/2017 Overview: 1. Recommend GISOFT diet as tolerated 2. Trial G2 QD 3. Trial Ensure Enlive QD (350 calories + 20gm protein each) 4. Replete K+, Phos and MG 5. Continue daily MVI as medically able documented as of this encounter (statuses as of 11/15/2022) [facility] History of Past illness Narrative* Problem Noted Date Diagnosed Date Resolved Date Malnutrition of moderate degree 12/06/2016 08/24/2017 Overview: 1. Recommend GISOFT diet as tolerated 2. Trial G2 QD 3. Trial Ensure Enlive QD (350 calories + 20gm protein each) 4. Replete K+, Phos and MG 5. Continue daily MVI as medically able documented as of this encounter (statuses as of 12/19/2022) [facility]2017 History of Past illness Narrative* Problem Noted Date Diagnosed Date Resolved Date Malnutrition of moderate degree 12/06/2016 08/24/2017 Overview: 1. Recommend GISOFT diet as tolerated 2. Trial G2 QD 3. Trial Ensure Enlive QD (350 calories + 20gm protein each) 4. Replete K+, Phos and MG 5. Continue daily MVI as medically able documented as of this encounter (statuses as of 12/19/2022) [facility]2017 History of Past illness Narrative* Problem Noted Date Diagnosed Date Resolved Date Malnutrition of moderate degree 12/06/2016 08/24/2017 Overview: 1. Recommend GISOFT diet as tolerated 2. Trial G2 QD 3. Trial Ensure Enlive QD (350 calories + 20gm protein each) 4. Replete K+, Phos and MG 5. Continue daily MVI as medically able documented as of this encounter (statuses as of 12/28/2022) [facility]2017 History of Past illness Narrative* Problem Noted Date Diagnosed Date Resolved Date Malnutrition of moderate degree 12/06/2016 08/24/2017 Overview: 1. Recommend GISOFT diet as tolerated 2. Trial G2 QD 3. Trial Ensure Enlive QD (350 calories + 20gm protein each) 4. Replete K+, Phos and MG 5. Continue daily MVI as medically able documented as of this encounter (statuses as of 01/03/2023) [facility] Diagnosis IBD (inflammatory bowel disease)- Primary Other and unspecified noninfectious gastroenteritis and colitis [facility]No [facility] information [facility]: [facility] note* Diagnosis Pain in joint, multiple sites- Primary Psoriasis vulgaris Other psoriasis Ulcerative pancolitis with rectal bleeding (HCC) [facility]* Diagnosis Spondyloarthropathy- Primary Spondylosis of unspecified site without mention of myelopathy [facility] Diagnosis Psoriasis vulgaris- Primary Other psoriasis [facility] Actinic keratosis- Primary [facility] Diagnosis Psoriasis vulgaris- Primary Other psoriasis Folliculitis Other specified disease of hair and hair follicles Actinic keratosis [facility] Diagnosis Seronegative spondyloarthropathy- Primary Spondylosis of unspecified site without mention of myelopathy Psoriasis vulgaris Other psoriasis Ulcerative pancolitis with rectal bleeding (HCC) Long-term use of immunosuppressant medication Encounter for long-term (current) use of other medications Pain in joint, multiple sites [facility] Diagnosis Wrist pain, acute, left- Primary [facility] Diagnosis Inflammatory bowel arthritis- Primary Other and unspecified noninfectious gastroenteritis and colitis [facility] Diagnosis IBD (inflammatory bowel disease) Other and unspecified noninfectious gastroenteritis and colitis [facility] Diagnosis Seronegative spondyloarthropathy- Primary Spondylosis of unspecified site without mention of myelopathy Ulcerative pancolitis with rectal bleeding (HCC) Long-term use of immunosuppressant medication Encounter for long-term (current) use of other medications Plantar fasciitis of left foot Plantar fascial fibromatosis Iliotibial band syndrome of right side Other disorder of muscle, ligament, and fascia documented in this encounter [facility] Diagnosis Seronegative spondyloarthropathy- Primary Spondylosis of unspecified site without mention of myelopathy [facility] Diagnosis Abnormal kidney function- Primary Unspecified disorder of kidney and ureter Essential hypertension Unspecified essential hypertension Ulcerative colitis with other complication, unspecified location (HCC) [facility] Diagnosis Abnormal kidney function Unspecified disorder of kidney and ureter [facility] Diagnosis Actinic keratosis- Primary Folliculitis Other specified disease of hair and hair follicles Seborrheic keratosis Other seborrheic keratosis Psoriasis vulgaris Other psoriasis [facility]* Diagnosis Wrist pain, acute, left [facility] Diagnosis Abnormal kidney function- Primary Unspecified disorder of kidney and ureter [facility] Diagnosis Pain in joint, multiple sites [facility] Diagnosis Iliotibial band syndrome of right side- Primary Other disorder of muscle, ligament, and fascia [facility] Diagnosis Iliotibial band syndrome of right side- Primary Other disorder of muscle, ligament, and fascia [facility] Diagnosis Abnormal kidney function- Primary Unspecified disorder of kidney and ureter Essential hypertension Unspecified essential hypertension Ulcerative colitis with other complication, unspecified location (HCC) [facility] Diagnosis Iliotibial band syndrome of right side- Primary Other disorder of muscle, ligament, and fascia [facility] Diagnosis Iliotibial band syndrome of right side- Primary Other disorder of muscle, ligament, and fascia [facility] Diagnosis Seronegative spondyloarthropathy- Primary Spondylosis of unspecified site without mention of myelopathy [facility] Diagnosis Actinic keratosis- Primary [facility] Diagnosis Iliotibial band syndrome of right side- Primary Other disorder of muscle, ligament, and fascia [facility] Diagnosis Actinic keratosis- Primary Folliculitis Other specified disease of hair and hair follicles [facility]* Diagnosis Coronary artery disease involving [place] coronary artery of [place] heart without angina pectoris- Primary Essential hypertension Unspecified essential hypertension 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) Coronary stent patent Carotid bruit, unspecified laterality [facility] Diagnosis Seronegative spondyloarthropathy- Primary Spondylosis of unspecified site without mention of myelopathy Ulcerative pancolitis with rectal bleeding (HCC) Long-term use of immunosuppressant medication Encounter for long-term (current) use of other medications Plantar fasciitis of left foot Plantar fascial fibromatosis Iliotibial band syndrome of right side Other disorder of muscle, ligament, and fascia [facility] Diagnosis Lymphadenopathy, anterior cervical- Primary Enlargement of lymph nodes [facility] Diagnosis Lymphadenopathy, anterior cervical Enlargement of lymph nodes [facility]* Diagnosis Benign prostatic hyperplasia with urinary hesitancy- Primary Peyronie's disease Erectile dysfunction, unspecified erectile dysfunction type Screening for genitourinary condition Screening for other and unspecified genitourinary condition documented [facility] this [facility] Diagnosis Acute pain of right knee- Primary Acute pain of right knee [facility]* Diagnosis Acute pain of right knee documented in this encounter [facility] note* Diagnosis Right calf pain- Primary Acute pain of right knee Psoriatic arthritis (HCC) Psoriatic arthropathy Primary osteoarthritis of right knee Primary localized osteoarthrosis, lower leg documented in this encounter [facility] note* Diagnosis Right calf pain [facility]* Diagnosis Inflammatory bowel disease- Primary Other and unspecified noninfectious gastroenteritis and colitis Irritable bowel syndrome with diarrhea Irritable bowel syndrome documented in this encounter [facility] note* Diagnosis Acute lateral meniscus tear of right knee, subsequent encounter- Primary documented in this encounter [facility] note* Diagnosis Seronegative spondyloarthropathy- Primary Spondylosis of unspecified site without mention of myelopathy Long-term use of immunosuppressant medication Encounter for long-term (current) use of other medications Ulcerative pancolitis with rectal bleeding (HCC) Other tear of meniscus of right knee, unspecified meniscus, unspecified whether old or current tear, subsequent encounter documented in this encounter [facility] note* Diagnosis Tear of lateral meniscus of right knee, current, unspecified tear type, subsequent encounter- Primary documented in this encounter [facility] for referral (narrative)* Outpatient Procedure (Routine) - Pending Review Specialty Diagnoses / Procedures Referred By Jono estrella Referred To Contact [facility] Diagnoses IBD (inflammatory bowel disease) Procedures COLONOSCOPY SCREENING COLONOSCOPY FLX DX W/COLLJ SPEC WHEN Lillian Collier MD, PhD [address] [place] [address] [facility] [place] [address] [place] [address] Referral ID Status Reason Start Date Expiration Date Visits Requested Visits Authorized [id number] Pending Review Auto-Generat ed Referral 03/24/2022 03/24/2023 1 1 * Transition of Care (Routine) - Ref Not Required Specialty Diagnoses / Procedures Referred By Contac t Referred To Contact Nutrition Diagnoses IBD (inflammatory bowel disease) Procedures CONSULT TO NUTRITION THERAPY Lillian Granados MD, PhD [address] [place] [address] Meggan Herron, RD [address] [place] [id number] Referral ID Status Reason Start Date Expiration Date Visits Requested Visits Authorized [id number] Ref Not Required PCP Requested Referral 03/24/2022 03/24/2023 1 [facility] Diagnostic Procedure Only (Routine) - Closed Specialty Diagnoses / Procedures Referred By Contac t Referred To Contact XR IMAGING Diagnoses Pain in joint, multiple sites Procedures XR HIP BILATERAL 5V PEL/AP/LAT EACH HIP RADEX HIPS BILATERAL WITH PELVIS MINIMUM [place] [address] [place] [address] Xr Imaging Referral ID Status Reason Start Date Expiration Date V isits Requested Visits Authorized [id number] Closed Auto-Generate d Referral 04/27/2022 05/27/2023 1 1 * Diagnostic Procedure Only (Routine) - Closed Specialty Diagnoses / Procedures Referred By Contac t Referred To Contact XR IMAGING Diagnoses Pain in joint, multiple sites Procedures XR HAND GENERAL 3V PA/LAT/OBL BILATERAL RADEX HAND MINIMUM 3 [place] [address] [place] [address] Xr Imaging Referral ID Status Reason Start Date Expiration Date V isits Requested Visits Authorized [id number] Closed Auto-Generate d Referral 04/27/2022 05/27/2023 1 1 * Diagnostic Procedure Only (Routine) - Closed Specialty Diagnoses / Procedures Referred By Contac t Referred To Contact XR IMAGING Diagnoses Pain in joint, multiple sites Procedures XR SACROILIAC JOINTS 2V AP PELVIS/FERGUESON RADIOLOGIC EXAMINATION SACROILIAC JNTS <3 [place] [address] [place] [address] Xr Imaging Referral ID Status Reason Start Date Expiration Date V isits Requested Visits Authorized [id number] Closed Auto-Generate d Referral 04/27/2022 05/27/2023 [address] [facility] for referral (narrative)* Diagnostic Procedure Only (Urgent) - Closed Specialty Diagnoses / Procedures Referred By Contac t Referred To Contact XR IMAGING Diagnoses Wrist pain, acute, left Procedures XR WRIST INJURY 4V PA/LAT/OBL/SCAPH LEFT RADEX WRIST COMPLETE MINIMUM 3 VIEWS Jeanie Potts PA-C [address] [place] [address] Xr Imaging Referral ID Status Reason Start Date Expiration Date V isits Requested Visits Authorized [id number] Closed Auto-Generate d Referral 09/07/2022 10/07/2023 1 [facility] Outpatient Procedure (Routine) - Closed Specialty Diagnoses / Procedures Referred By Contac t Referred To Contact [facility] Diagnoses IBD (inflammatory bowel disease) Procedures COLONOSCOPY SCREENING COLONOSCOPY FLX DX W/COLLJ SPEC WHEN Lillian Collier MD, PhD [address] [place] [address] [facility] [address] [place] [address] Referral ID Status Reason Start Date Expiration Date V isits Requested Visits Authorized [id number] Closed Auto-Generate d Referral 03/24/2022 03/24/2023 [address] [facility] for referral (narrative)* Diagnostic Procedure Only (Routine) - Authorized Specialty Diagnoses / Procedures Referred By Contac t Referred To Contact US IMAGING Diagnoses Abnormal kidney function Procedures US KIDNEY/BLADDER US RETROPERITONEAL REAL TIME W/IMAGE COMPLETE Radha Crowder I, MD [address] [place] [address] [place] [address] Referral ID Status Reason Start Date Expiration Date Visits Requested Visits Authorized [id number] Authorized Auto-Generat ed Referral 10/19/2023 11/17/2024 [address] [facility] for referral (narrative)* Diagnostic Procedure Only (Urgent) - Closed Specialty Diagnoses / Procedures Referred By Contac t Referred To Contact XR IMAGING Diagnoses Wrist pain, acute, left Procedures XR WRIST INJURY 4V PA/LAT/OBL/SCAPH LEFT RADEX WRIST COMPLETE MINIMUM 3 VIEWS Jeanie Potts PA-C [address] [place] [address] [place] [address] Referral ID Status Reason Start Date Expiration Date V isits Requested Visits Authorized [id number] Closed Auto-Generate d Referral 09/07/2022 10/07/2023 [address] [facility] for referral (narrative)* Diagnostic Procedure Only (Routine) - Closed Specialty Diagnoses / Procedures Referred By Contac t Referred To Contact XR IMAGING Diagnoses Pain in joint, multiple sites Procedures XR HIP BILATERAL 5V PEL/AP/LAT EACH HIP RADEX HIPS BILATERAL WITH PELVIS MINIMUM 5 [place] [address] [place] [address] [place] [address] Referral ID Status Reason Start Date Expiration Date V isits Requested Visits Authorized [id number] Closed Auto-Generate d Referral 04/27/2022 05/27/2023 1 1 * Diagnostic Procedure Only (Routine) - Closed Specialty Diagnoses / Procedures Referred By Contac t Referred To Contact XR IMAGING Diagnoses Pain in joint, multiple sites Procedures XR HAND GENERAL 3V PA/LAT/OBL BILATERAL RADEX HAND MINIMUM 3 [place] [address] [place] [address] [place] [address] Referral ID Status Reason Start Date Expiration Date V isits Requested Visits Authorized [id number] Closed Auto-Generate d Referral 04/27/2022 05/27/2023 1 1 * Diagnostic Procedure Only (Routine) - Closed Specialty Diagnoses / Procedures [facility] Referred To Contact XR IMAGING Diagnoses Pain in joint, multiple sites Procedures XR SACROILIAC JOINTS 2V AP PELVIS/FERGUESON RADIOLOGIC EXAMINATION SACROILIAC JNTS <3 [place] [address] [place] [address] [place] [address] Referral ID Status Reason Start Date Expiration Date V isits Requested Visits Authorized [id number] Closed Auto-Generate d Referral 04/27/2022 05/27/2023 1 1 [facility] Outpatient Procedure (Routine) - Authorized Specialty Diagnoses / Procedures Referred By Jono t Referred To Contact [facility] Diagnoses Carotid bruit, unspecified laterality Procedures US CAROTID ARTERIES OLEG VAS LAB DUPLEX SCAN EXTRACRANIAL [place] [address] [place] [id number] [facility] [place] [address] [place] [address] Referral ID Status Reason Start Date Expiration Date Visits Requested Visits Authorized [id number] Authorized Auto-Generat ed Referral 03/18/2024 03/18/2025 1 1 * Outpatient Procedure (Routine) - New Request Specialty Diagnoses / Procedures [facility] Referred To [facility] Diagnoses Coronary artery disease involving [place] coronary artery of [place] heart without angina pectoris Procedures ECG COMPLETE ECG ROUTINE ECG W/LEAST 12 LDS W/I&[place] [address] [place] [address] [facility] [place] [address] [place] [id number] Referral ID Status Reason Start Date Expiration Date Visits Requested Visits Authorized [id number] New Request Auto-Generat ed Referral 03/18/2024 03/18/2025 [address] [facility] for visit Narrative* Outpatient Procedure (Routine) - Closed Specialty Diagnoses / Procedures Referred By Contac t Referred To Contact [facility] Diagnoses IBD (inflammatory bowel disease) Procedures COLONOSCOPY SCREENING COLONOSCOPY FLX DX W/COLLJ SPEC WHEN Lillian Collier MD, PhD [address] [place] [address] [facility] [address] [address] [address] Referral ID Status Reason Start Date Expiration Date V isits Requested Visits Authorized [id number] Closed Auto-Generate d Referral 03/24/2022 03/24/2023 [address] [facility] for visit Narrative* Diagnostic Procedure Only (Urgent) - Closed Specialty Diagnoses / Procedures Referred By Contac t Referred To Contact XR IMAGING Diagnoses Wrist pain, acute, left Procedures XR WRIST INJURY 4V PA/LAT/OBL/SCAPH LEFT RADEX WRIST COMPLETE MINIMUM 3 VIEWS Jeanie Potts R, PA-C [address] [place] [address] [place] [id number] Referral ID Status Reason Start Date Expiration Date V isits Requested Visits Authorized [id number] Closed Auto-Generate d Referral 09/07/2022 10/07/2023 [address] [facility] for visit Narrative* Diagnostic Procedure Only (Urgent) - Closed Specialty Diagnoses / Procedures Referred By Contac t Referred To Contact XR IMAGING Diagnoses Acute pain of right knee Procedures XR KNEE GENERAL 4V AP BOTH/PA BOTH/LAT/MERC RIGHT RADIOLOGIC EXAM KNEE COMPLETE 4/MORE VIEWS Derick Shi PA [address] [place] [address] Phone: tel: fax: [place] [id number] Referral ID Status Reason Start Date Expiration Date V isits Requested Visits Authorized [id number] Closed Auto-Generate d Referral 09/21/2024 10/21/2025 [address] [facility] for visit Narrative* MRI/CT (Routine) - Closed Specialty Diagnoses / Procedures Referred By Contac t Referred To Contact MR IMAGING Diagnoses Acute pain of right knee Procedures MRI KNEE WO IVCON RIGHT MRI ANY JT LOWER EXTREM W/O CONTRAST MATRL Shahriar Barros MD [address] [place] [address] Phone: tel: fax: MR [facility]AG[place] [id number] Referral ID Status Reason Start Date Expiration Date V isits Requested Visits Authorized [id number] Closed Auto-Generate d Referral 10/01/2024 10/31/2025 [address] [facility] for visit Narrative* Diagnostic Procedure Only (Routine) - Closed Specialty Diagnoses / Procedures Referred By Contac t Referred To Contact US IMAGING Diagnoses Right calf pain Procedures US DVT LOWER RIGHT DUP-SCAN XTR VEINS UNILATERAL/LIMITED STUDY Shahriar Barros MD [address] [place], [place] [id number] Phone: tel: fax: US IMAGING [facility] Referral ID Status Reason Start Date Expiration Date V isits Requested Visits Authorized [id number] Closed Auto-Generate d Referral 10/01/2024 10/31/2025 1 1 [facility] Advance Directives No Advanced Directives Records FoundDocuments on File Type Date Recorded Patient Consulting Project Director Expl anation Advance Directive(s) Advance Directive(s) 12/05/2016 3:15 PM Advance Directive Response Recorded Date/ Time Advance Directives Yes March 7:47am Living Will Yes May 22, 2020 7:23pm Power of Bottle Inspector Yes May 22 7:23pm Advance Directive Response Recorded Date/ Time Advance Directives Yes March 8:47am Living Will Yes Lana 2nd, 2021 8:23pm Power of Bottle Inspector Yes May 22 8:23pm Family History No Family History Records Found Relationship Condition Age at Onset Recorded Date/T chaitanya father Malignant neoplasm Unknown sister Malignant neoplasm Unknown Medications Administered Section Inactive Administered Medications - up to 3 most recent administrations Medication Order MAR Action Action Date Dose Rate Site Aminolevulinic Acid HCl 20 % soln 1 Each 1 Each, TOPICAL, ONCE, 1 dose, On Mon06/22/22 at 0830 Given 06/22/2022 11:05 AM EDT 1 Each Face Inactive Administered Medications - up to 3 most recent administrations Medication Order MAR Action Action Date Dose Rate Site fentaNYL 50 mcg/mL injection (SUBLIMAZE) INTRAVENOUS, X (OR/PROCEDURE) PRN, Starting on Mon12/26/22 at 0924, Until Mon12/26/22 at 0938, Intraprocedure Given 12/26/2022 9:38 AM EST 25 mcg Given 12/26/2022 9:36 AM EST 25 mcg Given 12/26/2022 9:30 AM EST 25 mcg midazolam (PF) injection (VERSED) INTRAVENOUS, X (OR/PROCEDURE) PRN, Starting on Mon12/26/22 at 0924, Until Mon12/26/22 at 0938, Intraprocedure Given 12/26/2022 9:38 AM EST 1 mg Given 12/26/2022 9:36 AM EST 1 mg Given 12/26/2022 9:30 AM EST 1 mg Reason for Referral Specialty Diagnoses / Procedures Referred By Contac t Referred To Contact [facility] Diagnoses Iliotibial band syndrome of right side Procedures CONSULT TO PHYSICAL THERAPY PHYSICAL THERAPY EVALUATION HIGH COMPLEX [address] [place] [address] [place] [address] [facility] [place] [address] Referral ID Status Reason Start Date Expiration Date Visits Requested Visits Authorized [id number] Authorized PCP Requested Referral Auto-Generate d Referral 10/17/2023 10/16/2024 99 99 Summary Purpose Additional Source Comments Source Comments (unrecognize d section and content) In the event this informatio n is protected by the Federal Confidentiality of Alcohol and Drug Abuse Patient Records regulations: The Federal rules restrict any use of the information to criminally investigate or prosecute any alcohol or drug abuse patient.[facility] the event this information is protected by the Federal Confidentiality of Alcohol and Drug Abuse Patient Records regulations: The Federal rules restrict any use of the information to criminally investigate or prosecute any alcohol or drug abuse patient.[facility] the event this information is protected by the Federal Confidentiality of Alcohol and Drug Abuse Patient Records regulations: The Federal rules restrict any use of the information to criminally investigate or prosecute any alcohol or drug abuse patient.[facility] the event this information is protected by the Federal Confidentiality of Alcohol and Drug Abuse Patient Records regulations: The Federal rules restrict any use of the information to criminally investigate or prosecute any alcohol or drug abuse patient.[facility]In the event this information is protected by the Federal Confidentiality of Alcohol and Drug Abuse Patient Records regulations: The Federal rules restrict any use of the information to criminally investigate or prosecute any alcohol or drug abuse patient.[facility]In the event this information is protected by the Federal Confidentiality of Alcohol and Drug Abuse Patient Records regulations: The Federal rules restrict any use of the information to criminally investigate or prosecute any alcohol or drug abuse patient.[facility]In the event this information is protected by the Federal Confidentiality of Alcohol and Drug Abuse Patient Records regulations: The Federal rules restrict any use of the information to criminally investigate or prosecute any alcohol or drug abuse patient.[facility]In the event this information is protected by the Federal Confidentiality of Alcohol and Drug Abuse Patient Records regulations: The Federal rules restrict any use of the information to criminally investigate or prosecute any alcohol or drug abuse patient.[facility] HospitalIn the event this information is protected by the Federal Confidentiality of Alcohol and Drug Abuse Patient Records regulations: The Federal rules restrict any use of the information to criminally investigate or prosecute any alcohol or drug abuse patient.[facility] HospitalIn the event this information is protected by the Federal Confidentiality of Alcohol and Drug Abuse Patient Records regulations: The Federal rules restrict any use of the information to criminally investigate or prosecute any alcohol or drug abuse patient.[facility] HospitalIn the event this information is protected by the Federal Confidentiality of Alcohol and Drug Abuse Patient Records regulations: The Federal rules restrict any use of the information to criminally investigate or prosecute any alcohol or drug abuse patient.[facility] HospitalIn the event this information is protected by the Federal Confidentiality of Alcohol and Drug Abuse Patient Records regulations: The Federal rules restrict any use of the information to criminally investigate or prosecute any alcohol or drug abuse patient.[facility] HospitalIn the event this information is protected by the Federal Confidentiality of Alcohol and Drug Abuse Patient Records regulations: The Federal rules restrict any use of the information to criminally investigate or prosecute any alcohol or drug abuse patient.[facility] HospitalIn the event this information is protected by the Federal Confidentiality of Alcohol and Drug Abuse Patient Records regulations: The Federal rules restrict any use of the information to criminally investigate or prosecute any alcohol or drug abuse patient.[facility] HospitalIn the event this information is protected by the Federal Confidentiality of Alcohol and Drug Abuse Patient Records regulations: The Federal rules restrict any use of the information to criminally investigate or prosecute any alcohol or drug abuse patient.[facility] HospitalIn the event this information is protected by the Federal Confidentiality of Alcohol and Drug Abuse Patient Records regulations: The Federal rules restrict any use of the information to criminally investigate or prosecute any alcohol or drug abuse patient.[facility] HospitalIn the event this information is protected by the Federal Confidentiality of Alcohol and Drug Abuse Patient Records regulations: The Federal rules restrict any use of the information to criminally investigate or prosecute any alcohol or drug abuse patient.[facility] HospitalIn the event this information is protected by the Federal Confidentiality of Alcohol and Drug Abuse Patient Records regulations: The Federal rules restrict any use of the information to criminally investigate or prosecute any alcohol or drug abuse patient.[facility] HospitalIn the event this information is protected by the Federal Confidentiality of Alcohol and Drug Abuse Patient Records regulations: The Federal rules restrict any use of the information to criminally investigate or prosecute any alcohol or drug abuse patient.[facility] HospitalIn the event this information is protected by the Federal Confidentiality of Alcohol and Drug Abuse Patient Records regulations: The Federal rules restrict any use of the information to criminally investigate or prosecute any alcohol or drug abuse patient.[facility] HospitalIn the event this information is protected by the Federal Confidentiality of Alcohol and Drug Abuse Patient Records regulations: The Federal rules restrict any use of the information to criminally investigate or prosecute any alcohol or drug abuse patient.[facility] HospitalIn the event this information is protected by the Federal Confidentiality of Alcohol and Drug Abuse Patient Records regulations: The Federal rules restrict any use of the information to criminally investigate or prosecute any alcohol or drug abuse patient.[facility] HospitalIn the event this information is protected by the Federal Confidentiality of Alcohol and Drug Abuse Patient Records regulations: The Federal rules restrict any use of the information to criminally investigate or prosecute any alcohol or drug abuse patient.[facility] HospitalIn the event this information is protected by the Federal Confidentiality of Alcohol and Drug Abuse Patient Records regulations: The Federal rules restrict any use of the information to criminally investigate or prosecute any alcohol or drug abuse patient.[facility] HospitalIn the event this information is protected by the Federal Confidentiality of Alcohol and Drug Abuse Patient Records regulations: The Federal rules restrict any use of the information to criminally investigate or prosecute any alcohol or drug abuse patient.[facility] HospitalIn the event this information is protected by the Federal Confidentiality of Alcohol and Drug Abuse Patient Records regulations: The Federal rules restrict any use of the information to criminally investigate or prosecute any alcohol or drug abuse patient.[facility] HospitalIn the event this information is protected by the Federal Confidentiality of Alcohol and Drug Abuse Patient Records regulations: The Federal rules restrict any use of the information to criminally investigate or prosecute any alcohol or drug abuse patient.[facility] HospitalIn the event this information is protected by the Federal Confidentiality of Alcohol and Drug Abuse Patient Records regulations: The Federal rules restrict any use of the information to criminally investigate or prosecute any alcohol or drug abuse patient.[facility] HospitalIn the event this information is protected by the Federal Confidentiality of Alcohol and Drug Abuse Patient Records regulations: The Federal rules restrict any use of the information to criminally investigate or prosecute any alcohol or drug abuse patient.[facility] HospitalIn the event this information is protected by the Federal Confidentiality of Alcohol and Drug Abuse Patient Records regulations: The Federal rules restrict any use of the information to criminally investigate or prosecute any alcohol or drug abuse patient.[facility] HospitalIn the event this information is protected by the Federal Confidentiality of Alcohol and Drug Abuse Patient Records regulations: The Federal rules restrict any use of the information to criminally investigate or prosecute any alcohol or drug abuse patient.[facility] HospitalIn the event this information is protected by the Federal Confidentiality of Alcohol and Drug Abuse Patient Records regulations: The Federal rules restrict any use of the information to criminally investigate or prosecute any alcohol or drug abuse patient.[facility] HospitalIn the event this information is protected by the Federal Confidentiality of Alcohol and Drug Abuse Patient Records regulations: The Federal rules restrict any use of the information to criminally investigate or prosecute any alcohol or drug abuse patient.[facility] HospitalIn the event this information is protected by the Federal Confidentiality of Alcohol and Drug Abuse Patient Records regulations: The Federal rules restrict any use of the information to criminally investigate or prosecute any alcohol or drug abuse patient.[facility] HospitalIn the event this information is protected by the Federal Confidentiality of Alcohol and Drug Abuse Patient Records regulations: The Federal rules restrict any use of the information to criminally investigate or prosecute any alcohol or drug abuse patient.[facility] HospitalIn the event this information is protected by the Federal Confidentiality of Alcohol and Drug Abuse Patient Records regulations: The Federal rules restrict any use of the information to criminally investigate or prosecute any alcohol or drug abuse patient.[facility] HospitalIn the event this information is protected by the Federal Confidentiality of Alcohol and Drug Abuse Patient Records regulations: The Federal rules restrict any use of the information to criminally investigate or prosecute any alcohol or drug abuse patient.[facility] HospitalIn the event this information is protected by the Federal Confidentiality of Alcohol and Drug Abuse Patient Records regulations: The Federal rules restrict any use of the information to criminally investigate or prosecute any alcohol or drug abuse patient.[facility] HospitalIn the event this information is protected by the Federal Confidentiality of Alcohol and Drug Abuse Patient Records regulations: The Federal rules restrict any use of the information to criminally investigate or prosecute any alcohol or drug abuse patient.[facility] HospitalIn the event this information is protected by the Federal Confidentiality of Alcohol and Drug Abuse Patient Records regulations: The Federal rules restrict any use of the information to criminally investigate or prosecute any alcohol or drug abuse patient.[facility] HospitalIn the event this information is protected by the Federal Confidentiality of Alcohol and Drug Abuse Patient Records regulations: The Federal rules restrict any use of the information to criminally investigate or prosecute any alcohol or drug abuse patient.[facility] HospitalIn the event this information is protected by the Federal Confidentiality of Alcohol and Drug Abuse Patient Records regulations: The Federal rules restrict any use of the information to criminally investigate or prosecute any alcohol or drug abuse patient.[facility] HospitalIn the event this information is protected by the Federal Confidentiality of Alcohol and Drug Abuse Patient Records regulations: The Federal rules restrict any use of the information to criminally investigate or prosecute any alcohol or drug abuse patient.[facility] HospitalIn the event this information is protected by the Federal Confidentiality of Alcohol and Drug Abuse Patient Records regulations: The Federal rules restrict any use of the information to criminally investigate or prosecute any alcohol or drug abuse patient.[facility] HospitalIn the event this information is protected by the Federal Confidentiality of Alcohol and Drug Abuse Patient Records regulations: The Federal rules restrict any use of the information to criminally investigate or prosecute any alcohol or drug abuse patient.[facility] HospitalIn the event this information is protected by the Federal Confidentiality of Alcohol and Drug Abuse Patient Records regulations: The Federal rules restrict any use of the information to criminally investigate or prosecute any alcohol or drug abuse patient.[facility] HospitalIn the event this information is protected by the Federal Confidentiality of Alcohol and Drug Abuse Patient Records regulations: The Federal rules restrict any use of the information to criminally investigate or prosecute any alcohol or drug abuse patient.[facility] HospitalIn the event this information is protected by the Federal Confidentiality of Alcohol and Drug Abuse Patient Records regulations: The Federal rules restrict any use of the information to criminally investigate or prosecute any alcohol or drug abuse patient.[facility] HospitalIn the event this information is protected by the Federal Confidentiality of Alcohol and Drug Abuse Patient Records regulations: The Federal rules restrict any use of the information to criminally investigate or prosecute any alcohol or drug abuse patient.[facility] HospitalIn the event this information is protected by the Federal Confidentiality of Alcohol and Drug Abuse Patient Records regulations: The Federal rules restrict any use of the information to criminally investigate or prosecute any alcohol or drug abuse patient.[facility] HospitalIn the event this information is protected by the Federal Confidentiality of Alcohol and Drug Abuse Patient Records regulations: The Federal rules restrict any use of the information to criminally investigate or prosecute any alcohol or drug abuse patient.[facility] HospitalIn the event this information is protected by the Federal Confidentiality of Alcohol and Drug Abuse Patient Records regulations: The Federal rules restrict any use of the information to criminally investigate or prosecute any alcohol or drug abuse patient.[facility] HospitalIn the event this information is protected by the Federal Confidentiality of Alcohol and Drug Abuse Patient Records regulations: The Federal rules restrict any use of the information to criminally investigate or prosecute any alcohol or drug abuse patient.[facility] HospitalIn the event this information is protected by the Federal Confidentiality of Alcohol and Drug Abuse Patient Records regulations: The Federal rules restrict any use of the information to criminally investigate or prosecute any alcohol or drug abuse patient.[facility] HospitalIn the event this information is protected by the Federal Confidentiality of Alcohol and Drug Abuse Patient Records regulations: The Federal rules restrict any use of the information to criminally investigate or prosecute any alcohol or drug abuse patient.[facility] HospitalIn the event this information is protected by the Federal Confidentiality of Alcohol and Drug Abuse Patient Records regulations: The Federal rules restrict any use of the information to criminally investigate or prosecute any alcohol or drug abuse patient.[facility] HospitalIn the event this information is protected by the Federal Confidentiality of Alcohol and Drug Abuse Patient Records regulations: The Federal rules restrict any use of the information to criminally investigate or prosecute any alcohol or drug abuse patient.[facility] HospitalIn the event this information is protected by the Federal Confidentiality of Alcohol and Drug Abuse Patient Records regulations: The Federal rules restrict any use of the information to criminally investigate or prosecute any alcohol or drug abuse patient.[facility] HospitalIn the event this information is protected by the Federal Confidentiality of Alcohol and Drug Abuse Patient Records regulations: The Federal rules restrict any use of the information to criminally investigate or prosecute any alcohol or drug abuse patient.[facility] HospitalIn the event this information is protected by the Federal Confidentiality of Alcohol and Drug Abuse Patient Records regulations: The Federal rules restrict any use of the information to criminally investigate or prosecute any alcohol or drug abuse patient.[facility] HospitalIn the event this information is protected by the Federal Confidentiality of Alcohol and Drug Abuse Patient Records regulations: The Federal rules restrict any use of the information to criminally investigate or prosecute any alcohol or drug abuse patient.[facility] HospitalIn the event this information is protected by the Federal Confidentiality of Alcohol and Drug Abuse Patient Records regulations: The Federal rules restrict any use of the information to criminally investigate or prosecute any alcohol or drug abuse patient.[facility] HospitalIn the event this information is protected by the Federal Confidentiality of Alcohol and Drug Abuse Patient Records regulations: The Federal rules restrict any use of the information to criminally investigate or prosecute any alcohol or drug abuse patient.[facility] HospitalIn the event this information is protected by the Federal Confidentiality of Alcohol and Drug Abuse Patient Records regulations: The Federal rules restrict any use of the information to criminally investigate or prosecute any alcohol or drug abuse patient.[facility] the event this information is protected by the Federal Confidentiality of Alcohol and Drug Abuse Patient Records regulations: The Federal rules restrict any use of the information to criminally investigate or prosecute any alcohol or drug abuse patient.[facility] HospitalIn the event this information is protected by the Federal Confidentiality of Alcohol and Drug Abuse Patient Records regulations: The Federal rules restrict any use of the information to criminally investigate or prosecute any alcohol or drug abuse patient.[facility] Hospital[facility] the event this information is protected by the Federal Confidentiality of Alcohol and Drug Abuse Patient Records regulations: The Federal rules restrict any use of the information to criminally investigate or prosecute any alcohol or drug abuse patient.[facility] HospitalIn the event this information is protected by the Federal Confidentiality of Alcohol and Drug Abuse Patient Records regulations: The Federal rules restrict any use of the information to criminally investigate or prosecute any alcohol or drug abuse patient.[facility] HospitalIn the event this information is protected by the Federal Confidentiality of Alcohol and Drug Abuse Patient Records regulations: The Federal rules restrict any use of the information to criminally investigate or prosecute any alcohol or drug abuse patient.[facility] Reason for Visit (unrecogniz ed section and content) Reason Comments PT Progress Note Specialty Diagnoses / Procedures Referred By Contac t Referred To Contact [facility] Diagnoses Iliotibial band syndrome of right side Procedures CONSULT TO PHYSICAL THERAPY PHYSICAL THERAPY EVALUATION HIGH COMPLEX [address] [place] [address] [place] [address] [facility] [place] [address] [place] [address] Referral ID Status Reason Start Date Expiration Date Visits Requested Visits Authorized [id number] Authorized PCP Requested Referral Auto-Generate d Referral 10/17/2023 10/16/2024 99 99 Reason Comments Physical Therapy Reason Onset Date Comments Refill Request 08/24/2021 Reason Comments New Patient Specialty Diagnoses / Procedures Referred By Contac t Referred To Contact Rheumatology Diagnoses Psoriasis vulgaris Pain of right hip joint Procedures CONSULT TO RHEUM/IMMUN DISEASE OFFICE/OUTPATIENT [facility] 60-74 MINUTES Jane Hobson PA-C [address] [place] [address] Referral ID Status Reason Start Date Expiration Date Visits Requested Visits Authorized [id number] Pending Review PCP Requested Referral 04/27/2022 04/27/2023 1 1 Reason Comments Medication Problem Reason Onset Date Comments SPP Inflammatory Conditions - Treatment Referral 05/12/2022 [employer] Insurance Authorization 05/12/2022 PA Submi ssion Pending Reason Comments Non-Chemotherapy Treatment Reason Comments Light Treatments Reason Comments Psoriasis Folliculitis Reason Comments Established Patient Reason Onset Date Comments Refill Request 08/23/2022 Reason Comments left wrist pain Fell playing pickelb all this am Reason Comments Nutrition Assessment Reason Comments Appointment Reason Comments Patient Question Reason Comments Established Patient Reason Onset Date Comments SPP Inflammatory Conditions - Treatment Referral 10/17/2023 [employer] Insurance Authorization 10/17/2023 PA Submi ssion Pending Reason Comments Consult Specialty Diagnoses / Procedures Referred By Contrachel t Referred To Contact Nephrology Diagnoses Abnormal kidney function Ulcerative colitis with other complication, unspecified location (HCC) Procedures CONSULT TO KIDNEY MEDICINE OFFICE/OUTPATIENT [facility] MDM 60 MINUTES Lillian Granados MD, PhD [address] [place] [address] Referral ID Status Reason Start Date Expiration Date V isits Requested Visits Authorized [id number] Closed PCP Requested Referral 08/17/2023 08/16/2024 1 1 Reason Onset Date Comments Refill Request 10/24/2023 Reason Comments Radiology US Specialty Diagnoses / Procedures Referred By Contac t Referred To Contact US IMAGING Diagnoses Abnormal kidney function Procedures US KIDNEY/BLADDER US RETROPERITONEAL REAL TIME W/IMAGE COMPLETE Radha Crowder I, MD [address] [place] [address] [facility] [place] [address] Referral ID Status Reason Start Date Expiration Date V isits Requested Visits Authorized [id number] Closed Auto-Generate d Referral 10/19/2023 11/17/2024 1 1 Reason Comments Forms Reason Comments Insurance Authorization Reason Comments Rash Follow up Reason Comments Results Reason Comments Radio Gen RMP Specialty Diagnoses / Procedures Referred By Contac t Referred To Contact XR IMAGING Diagnoses Pain in joint, multiple sites Procedures XR HIP BILATERAL 5V PEL/AP/LAT EACH HIP RADEX HIPS BILATERAL WITH PELVIS MINIMUM [address] [place] [address] [place] [address] [facility] [place] [address] Referral ID Status Reason Start Date Expiration Date V isits Requested Visits Authorized [id number] Closed Auto-Generate d Referral 04/27/2022 05/27/2023 1 1 Reason Comments [employer] patient assistance program Reason Comments PT Eval Reason Comments Follow Up Reason Comments Actinic Keratosis Follow up PDT Reason Comments New Patient Reason Onset Date Comments Refill Request 04/23/2024 Reason Comments Neck Mass Seen on Doppler as a enlarged lymph nodes. Referred by Enterprise Resource Planning Consultant. Specialty Diagnoses / Procedures Referred By Contac t Referred To Contact Ent - Otolaryngology Diagnoses Lymphadenopathy, anterior cervical Procedures CONSULT TO ENT OFFICE/OUTPATIENT [facility] [address] [place] [address] [place] [id number] Phone: tel: fax: Referral ID Status Reason Start Date Expiration Date V isits Requested Visits Authorized [id number] Closed PCP Requested Referral 04/08/2024 04/08/2025 1 1 Reason Comments Consult Benign Prostatic Hypertrophy Reason Comments Other Knee injury - Entere d by patient Right Knee Pain X 4 days-cannot reca ll an injury Reason Comments New Reason Comments Ulcerative Colitis Reason Comments Established Patient Knee Pain Care Teams (unrecognized sec tion and content) Loader Operator Relationship Specialty Start Date End Date Shirlene Denson [address] [place] [address] PCP - General 01/08/04 Loader Operator Relationship Specialty Start Date End Date Shirlene Denson [address] [place] [address] PCP - General 01/08/04 Team Status: Active Member Role Status Dates Dr. Shirlene Denson MD Family Provider Active Dr. Shirlene Denson MD Primary Care Provider Active Team Status: Inactive Member Role Status Dates Dr. Shirlene Denson MD Primary Care Prov ider, Attending Provider, Referring Provider Active ROBERTA CASTRO Other Provider Active Dr. Anthony Mujica MD Other Provider Active Loader Operator Relationship Specialty Start Date End Date Shirlene Denson [address] [place] [address] PCP - General 01/08/04 Loader Operator Relationship Specialty Start Date End Date Shirlene Denson [address] [place] [address] PCP - General 01/08/04 Loader Operator Relationship Specialty Start Date End Date Shirlene Denson [address] [place] [address] PCP - General 01/08/04 Loader Operator Relationship Specialty Start Date End Date Shirlene Denson [address] [place] [address] PCP - General 01/08/04 Loader Operator Relationship Specialty Start Date End Date Shirlene Densoner [address] [place] [address] PCP - General 01/08/04 Loader Operator Relationship Specialty Start Date End Date Shirlene Denson [address] [place] [address] PCP - General 01/08/04 Loader Operator Relationship Specialty Start Date End Date Shirlene Denson [address] [place] [address] PCP - General 01/08/04 Loader Operator Relationship Specialty Start Date End Date Shirlene Denson [address] [place] [address] PCP - General 01/08/04 Loader Operator Relationship Specialty Start Date End Date Shirlene Denson [address] [place] [address] PCP - General 01/08/04 Team Status: Inactive Member Role Status Dates Dr. Shirlene Denson MD Primary Care Prov ider, Attending Provider, Referring Provider Active Loader Operator Relationship Specialty Start Date End Date Shirlene Denson [address] [place] [address] PCP - General 01/08/04 Loader Operator Relationship Specialty Start Date End Date Shirlene Denson [address] [place] [address] PCP - General 01/08/04 Loader Operator Relationship Specialty Start Date End Date Shirlene Denson [address] [place] [address] PCP - General 01/08/04 Loader Operator Relationship Specialty Start Date End Date Shirlene Denson [address] [place] [address] PCP - General 01/08/04 Loader Operator Relationship Specialty Start Date End Date Shirlene Denson [address] [place] [address] PCP - General 01/08/04 Loader Operator Relationship Specialty Start Date End Date Shirlene Denson [address] [place] [address] PCP - General 01/08/04 Loader Operator Relationship Specialty Start Date End Date Shirlene Denson [address] [place] [address] PCP - General 01/08/04 Loader Operator Relationship Specialty Start Date End Date Shirlene Denson [address] [place] [address] PCP - General 01/08/04 Loader Operator Relationship Specialty Start Date End Date Shirlene Denson [address] [place] [address] PCP - General 01/08/04 Loader Operator Relationship Specialty Start Date End Date Shirlene Denson [address] [place] [address] PCP - General 01/08/04 Loader Operator Relationship Specialty Start Date End Date Shirlene Denson [address] [place] [address] PCP - General 01/08/04 Loader Operator Relationship Specialty Start Date End Date Shirlene Denson [address] [place] [address] PCP - General 01/08/04 Loader Operator Relationship Specialty Start Date End Date Shirlene Denson [address] [place] [address] PCP - General 01/08/04 Loader Operator Relationship Specialty Start Date End Date Shirlene Denson [address] [place] [address] PCP - General 01/08/04 Loader Operator Relationship Specialty Start Date End Date Shirlene Denson [address] [place] [address] PCP - General 01/08/04 Loader Operator Relationship Specialty Start Date End Date Shirlene Denson [address] [place] [address] PCP - General 01/08/04 Loader Operator Relationship Specialty Start Date End Date Shirlene Denson [address] [place] [address] PCP - General 01/08/04 Loader Operator Relationship Specialty Start Date End Date Shirlene Denson [address] [place] [address] PCP - General 01/08/04 Loader Operator Relationship Specialty Start Date End Date Shirlene Denson [address] [place] [address] PCP - General 01/08/04 Loader Operator Relationship Specialty Start Date End Date Shirlene Denson [address] [facility] [address] [place] [address] PCP - General 01/08/04 Loader Operator Relationship Specialty Start Date End Date Shirlene Denson [address] [facility] [address] [place] [address] PCP - General 01/08/04 Loader Operator Relationship Specialty Start Date End Date Shirlene Denson [address] [facility] [address] [place] [address] PCP - General 01/08/04 [place] [address] [place], [place] [id number] Enterprise Resource Planning Consultant Cardiology 03/18/24 Loader Operator Relationship Specialty Start Date End Date Shirlene Denson [address] [facility] [address] [place] [address] PCP - General 01/08/04 [place] [address] [place] [address] Enterprise Resource Planning Consultant Cardiology 03/18/24 Loader Operator Relationship Specialty Start Date End Date Shirlene Denson [address] [facility] [address] [place] [address] PCP - General 01/08/04 [place] [address] [place] [address] Enterprise Resource Planning Consultant Cardiology 03/18/24 Loader Operator Relationship Specialty Start Date End Date Shirlene Denson [address] [place] [address] PCP - General 01/08/04 [place] [address] [place] [address] Enterprise Resource Planning Consultant Cardiology 03/18/24 Loader Operator Relationship Specialty Start Date End Date Shirlene Denson [address] [place] [address] PCP - General 01/08/04 [place] [address] [place] [address] Enterprise Resource Planning Consultant Cardiology 03/18/24 Loader Operator Relationship Specialty Start Date End Date Shirlene Denson [address] [facility] [address] [place] [address] PCP - General 01/08/04 [place] [address] [place] [address] Enterprise Resource Planning Consultant Cardiology 03/18/24 Loader Operator Relationship Specialty Start Date End Date Shirlene Denson [address] [facility] [address] [place] [address] PCP - General 01/08/04 [place] [address] [place] [address] Enterprise Resource Planning Consultant Cardiology 03/18/24 Loader Operator Relationship Specialty Start Date End Date Shirlene Denson [address] [facility] [address] [place] [address] PCP - General 01/08/04 [place] [address] [place] [address] Enterprise Resource Planning Consultant Cardiology 03/18/24 Loader Operator Relationship Specialty Start Date End Date Shirlene Denson [address] [facility] [address] [place] [address] PCP - General 01/08/04 [place] [address] [place] [address] Enterprise Resource Planning Consultant Cardiology 03/18/24 Loader Operator Relationship Specialty Start Date End Date Shirlene Denson [address] [facility] [address] [place] [address] PCP - General 01/08/04 [place] [address] [place] [address] Enterprise Resource Planning Consultant Cardiology 03/18/24 Loader Operator Relationship Specialty Start Date End Date Shirlene Denson [address] [facility] [address] [place] [address] PCP - General 01/08/04 [place] [address] [place] [address] Enterprise Resource Planning Consultant Cardiology 03/18/24 Loader Operator Relationship Specialty Start Date End Date Shirlene Denson [address] [facility] [address] [place] [address] PCP - General 01/08/04 [place] [address] [place] [address] Enterprise Resource Planning Consultant Cardiology 03/18/24 Loader Operator Relationship Specialty Start Date End Date Shirlene Denson [address] [facility] [address] [place] [address] PCP - General 01/08/04 [place] [address] [place] [address] Enterprise Resource Planning Consultant Cardiology 03/18/24 Loader Operator Relationship Specialty Start Date End Date Shirlene Denson [address] [facility] [address] [place] [address] PCP - General 01/08/04 [place] [address] [place] [address] Enterprise Resource Planning Consultant Cardiology 03/18/24 Loader Operator Relationship Specialty Start Date End Date Jazmín Melendrez MD [address] [place] [address] PCP - General Internal Medicine 10/16/24 [place] [address] [place] [address] Enterprise Resource Planning Consultant Cardiology 03/18/24 Loader Operator Relationship Specialty Start Date End Date Jazmín Melendrez MD [address] [facility] [address] [place] [address] PCP - General Internal Medicine 10/16/24 [place] [address] [place] [address] Enterprise Resource Planning Consultant Cardiology 03/18/24 Loader Operator Relationship Specialty Start Date End Date Jazmín Melendrez MD [address] [facility] [address] [place] [address] PCP - General Internal Medicine 10/16/24 [place] [address] [place], [place] [id number] Enterprise Resource Planning Consultant Cardiology 03/18/24 Goals (unrecognized section and content) Goals may be documented in a n alternate sectionGoals may be documented in an alternate section (unrecognized sect ion and content) No Status Records FoundNo Status Records FoundNo Status Records FoundNo Status Records Found INFORMATION SOURCE (unrecogn ized section and content) DATE CREATED AUTHOR 04/26/2024 [facility] DATE CREATED AUTHOR AUTHOR'S ORGANIZ ATION 10/04/2024 [facility] DATE CREATED AUTHOR AUTHOR'S ORGANIZ ATION 12/29/2024 [facility] DATE CREATED AUTHOR AUTHOR'S ORGANIZ ATION 01/02/2025 [facility] FOR RECORDS PERTAINING TO PATIENTS WHO ARE OR HAVE BEEN ENROLLED IN A CHEMICAL DEPENDENCY/SUBSTANCEABUSE PROGRAM, SOME INFORMATION MAY BE OMITTED. This clinical summary was aggregated from multiple sources. Caution should be exercised in using it in the provision of clinical care. This summary normalizes information from multiple sources, and as a consequence, information in this document may materially change the coding, format and clinical context of patient data. In addition, data may be omitted in some cases. CLINICAL DECISIONS SHOULD BE BASED ON THE PRIMARY CLINICAL RECORDS. [facility]. provides no warranty or guarantee of the accuracy or completeness of information in this document.
[2025-01-05 01:07] LABS: Anion Gap 9 (5-15); BUN 19 mg/dL (4-19); BUN/Creat Ratio 14.7 RATIO (10-20); Calcium,Total 10.2 mg/dL (7.6-11.0); Carbon Dioxide 28.9 mmol/L (21.0-32.0); Chloride 102 mmol/L (98-108); Estimated Creatinine Clearance 57.59 ml/min (50-250); Glucose 125 mg/dL (70-99); Potassium 3.6 mmol/L (3.3-5.1); Troponin T High Sensitivity 9 ng/L (<=22)
[2025-01-05 01:33] LABS: D-Dimer Quantitative (DVT/PE) 8.09 FEU/ug/m (0.27-0.49)
--- NOTE | 2025-01-05 01:34 | CT_ITS ---
PROCEDURE: CTA CHEST W/WO CONTRAST 01/05/2025 REASON FOR EXAM: LEFT SIDED CHEST PAIN, ELEVATED D-DIMER TECHNIQUE: Procedure Code: [id number] Modality: CT Procedure: CTA CHEST W/WO CONTRAST Multiplanar Sagittal and Coronal images were obtained. CONTRAST: Isovue 370 VOLUME: 100 mL One or more dose reduction techniques were used (e.g., Automated exposure control, adjustment of the mA and/or kV according to patient size, use of iterative reconstruction technique). RADIATION DOSE SUMMARY: CTDlvol: 13.36 mGy DLP: 480.5 mGycm COMPARISON: CTA chest 05/22/2020 # of known CTs in the past 12 months: 0 # of known Cardiac Nuclear Medicine Studies in the past 12 months: 0 FINDINGS: Thoracic Aorta: No dissection. Atherosclerotic calcifications. Heart: No cardiomegaly. Atherosclerotic calcifications of the coronary arteries. No evidence of right heart strain. Pulmonary Vessels: Filling defect in the main right lower lobar artery extending to the segmental arteries consistent with pulmonary embolism. Additional smaller emboli in the subsegmental arteries of right middle lobe. Hardware: None. Lymph nodes: No lymphadenopathy. Lungs and Airways: Opacities in the posterior lower lobes may represent atelectasis. Pleura: Trace pleural effusions. No pneumothorax. Upper Abdomen: Cholelithiasis. Bones: No acute bony abnormalities. CT/CTA Chest W/WO Contrast IMPRESSION: Filling defect in the main right lower lobar artery extending to the segmental arteries consistent with pulmonary embolism. Additional smaller emboli in the subsegmental arteries of right middle lobe. No evidence of right heart strain. Findings were discussed with Dr. Rutledge on 01/05/2025 6:31 a.m. Reading [facility]
[2025-01-05 03:03] LABS: Troponin T High Sens 2 HR 9 ng/L (<=22)
== END 2025-01-05 06:57 | disposition home or self-care (01) ==
PROVIDERS: Emergency Provider Emergency Medicine; PCP Family Medicine; Visit Provider Emergency Medicine
DX: I26.99 Other pulmonary embolism without acute cor pulmonale (principal); I26.93 Single subsegmental thrombotic pulmonary embolism without acute cor pulmonale; Z79.899 Other long term (current) drug therapy; I25.10 Atherosclerotic heart disease of native coronary artery without angina pectoris; I10 Essential (primary) hypertension; I25.2 Old myocardial infarction; Z95.5 Presence of coronary angioplasty implant and graft; Z98.890 Other specified postprocedural states; Z79.82 Long term (current) use of aspirin
CPT/HCPCS: 71045; 71275; 80048; 84484; 85025; 85379; 93005; 99284; Q9967; A4216